=== PATIENT | male | born 1930 | race Caucasian/White ===

== ENCOUNTER 2016-10-29 07:14 | Inpatient (IN) | payer OTHER, MEDICARE ==
[~2016-10-29] VITALS: Ht 167.6 cm; Wt 86.5 kg
[~2016-10-29 07:14] MED LIST: AUGMENTIN 875 M1 TAB PO
--- NOTE | 2016-10-29 07:35 | ED AMS/SEIZURE/WEAK/DIZZY ---
History of Present Illness General Chief Complaint: Altered Mental Status Stated Complaint: CONFUSION."DONT FEEL RIGHT",ALVARES SINCE LAST NIGHT Source: patient, family Exam Limitations: confusion Vital Signs & Intake/Output Vital Signs & Intake/Output Vital Signs Date Time Temp Pulse Resp B/P Pulse O2 O2 Flow FiO2 Ox Delivery Rate 10/30 0859 97.9 57 18 152/72 03/08 0553 97.9 57 18 152/72 94 Room Air 10/30 0148 98.9 10/30 0147 98.9 88 18 172/79 95 Room Air / 0020 99.7 64 18 160/71 03/ 2220 99.7 64 18 160/71 97 Room Air / 1806 99.8 03/ 1722 99.8 95 16 164/74 95 Room Air / 1450 100.5 10/29 1420 100.0 59 20 150/80 95 Room Air / 1219 99.6 68 20 96 Room Air / 1212 100.0 71 20 188/82 03 1212 100.0 71 20 188/82 ED Intake and Output 10/30 0000 10/29 1200 Intake Total Output Total 200 100 Balance -200 -100 Output, Urine 200 100 Patient 167 lb Weight Allergies Coded Allergies: NO KNOWN ALLERGIES (NO) (01/02/11) Reconcile Medications Acetaminophen (Tylenol Arthritis) 650 MG TABLET.ER 650 MG PO Q8 PAIN ( Reported) Aspirin (Ecotrin*) 81 MG TABLET.DR 1 TAB PO DAILY HEART HEALTH (Reported) Atorvastatin Calcium 80 MG TABLET 1 TAB PO DAILY HIGH CHOLESTEROL (Reported) Clopidogrel Bisulfate (Clopidogrel) 75 MG TABLET 1 TAB PO DAILY HEART HEALTH (Reported) Isosorbide Mononitrate (Isosorbide Mononitrate ER) 30 MG TAB.ER.24H 1 TAB PO DAILY ANGINA (Reported) Latanoprost 0.005 % DROPS 1 GTT OPH QPM GLAUCOMA - BOTH EYES (Reported) Metoprolol Succinate 25 MG TAB 1 TAB PO DAILY BP (Reported) Multivit-Min/FA/Lycopen/Lutein (Centrum Silver Tablet) 0.4 MG-300 MCG-250 MCG TABLET 1 TAB PO DAILY SUPPLEMENT (Reported) Nitroglycerin 0.4 MG TAB.SUBL 1 TAB SL AD PRN CHEST PAIN (Reported) 1st sign of attack; may repeat every 5 minutes until relief; if pain persists after 3 tablets in 15 minutes, prompt medical att Pantoprazole Sodium 40 MG TABLET. 1 TAB PO DAILY GERD (Reported) Pioglitazone HCl/Metformin HCl (Actoplus Met 15 MG-850 MG Tab) 15 MG-850 MG TABLET 1 TAB PO BID DM (Reported) Triage Note: PER , PT C/O HEADACHE SINCE LAST PM (2100). WOKE UP THIS AM @ 0500 WITH CONFUSION. 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 Triage Nurses Notes Reviewed? yes Onset: Abrupt Duration: SINCE 5 AM UPON AWAKENING Timing: single episode today Injury Environment: home Severity: severe No Modifying Factors: none Associated Symptoms: HEADACHE SINCE YESTERDAY HPI: This is an 86-year-old male with history of cardiac stents on aspirin and Plavix who presents to the ER with his . According to his yesterday at 5:00 in the afternoon he was complaining of some frontal headache. His speech was normal and ambulation was normal at baseline. He had a small dinner and then went to bed at 9:00. This morning he woke up at 5:00 in the morning said he was fine but she noted his speech was garbled. Patient is still able to complain of headache. He is answering incorrectly to many questions. He did not take any of his medications this morning. They did not check his dose this morning. On arrival to the ER glucose is 1:30. Patient is noted to be hypertensive. Past History Travel History Traveled to [place] past 21 day No Medical History Any Pertinent Medical History? see below for history EENT: glaucoma Cardiovascular: hypertension, hyperlipidemia Endocrine: diabetes Surgical History Surgical History: cholecystectomy, cardiac stent Psychosocial History Who do you live with Spouse Services at Home None What is your primary language Spanish Tobacco Use: Quit >30 days ago ETOH Use: occasional use Family History Hx Contributory? No Review of Systems Review of Systems Constitutional: Denies: chills, fever. EENTM: Reports: no symptoms. Respiratory: Denies: cough, short of breath. Cardiovascular: Denies: chest pain. GI: Denies: abdominal pain. Genitourinary: Reports: no symptoms. Musculoskeletal: Reports: no symptoms. Skin: Reports: no symptoms. Neurological/Psychological: Reports: confusion, headache. Hematologic/Endocrine: Reports: no symptoms. Immunologic/Allergic: Denies: splenectomy. All Other Systems: Reviewed and Negative Physical Exam Physical Exam General Appearance: well developed/nourished, alert, awake, mild distress, obese Head: atraumatic, normal appearance, ? SMALL LEFT FACIAL DROOP Eyes: Bilateral: normal appearance, PERRL (2 MM BL, MINIMALLY REACTIVE). Ears, Nose, Throat: normal pharynx Neck: normal inspection, supple, full range of motion Respiratory: normal breath sounds, chest non-tender, no respiratory distress Cardiovascular: murmur, systolic murmur Peripheral Pulses: 2+ radial (R), 2+ radial (L) Gastrointestinal: soft, non-tender Extremities: normal range of motion Neurologic/Psych: no motor/sensory deficits, awake, alert, ANTALGIC GAIT Skin: intact, normal color, warm/dry Core Measures ACS in differential dx? No CVA/TIA Diagnosis: Yes NIH Stroke Scale: Total 4 Severe Sepsis Present: No Septic Shock Present: No Bedside Dysphagia Screen Bedside Swallow Eval Done: Yes Result of Evaluation: Pass Progress Differential Diagnosis: CVA/stroke, hypoxia, intracranial Hem., intracranial mass/tumor Plan of Care: Orders Procedure Date/time Status CBC WITHOUT DIFFERENTIAL 10/30 0600 Complete BASIC ELECTROLYTES PLUS BUN&CR 10/30 0600 Complete MRI-HEAD W/O RADHA 10/30 UNK Active BLOOD CULTURE 10/29 1645 Active Pathway - chart 10/29 1627 Active BLOOD CULTURE 10/29 1615 Active CULTURE,URINE 10/29 1600 Active URINALYSIS 10/29 1300 Complete SWALLOW EVALUATION 10/29 UNK Active Occupational Tx Eval & Treat 10/29 UNK Active NIH Stroke Scale 10/29 UNK Active ECHOCARDIOGRAM 10/29 UNK Active Current Medications Sig/Reagan Start time Last Medication Dose Stop Time Status Admin Atorvastatin Calcium 80 MG 1700 10/30 1700 AC (Lipitor) Insulin Aspart 0 TIDAC 10/29 1700 AC (NovoLOG) Acetaminophen 1,000 MG Q6P PRN 10/29 1630 AC (Ofirmev) Metoprolol Succinate 25 MG DAILY 10/29 1204 CAN (Toprol XL) 10/29 1600 Laboratory Tests 10/30/16 0600: Anion Gap 10, Estimated GFR > 60, BUN/Creatinine Ratio 14.3, CBC w Diff NO MAN DIFF REQ, RBC 3.37 L, MCV 92.5, MCH 30.5, RDW 13.4, MPV 6.9 L, Gran % 75.4 H, Lymphocytes % 13.6 L, Monocytes % 10.1 H, Eosinophils % 0.6, Basophils % 0.3, Absolute Granulocytes 4.9, Absolute Lymphocytes 0.9 L, Absolute Monocytes 0.7 H, Absolute Eosinophils 0, Absolute Basophils 0, PUBS MCHC 33.0 10/29/161935: Urinalysis LIGHT H, Urine Color YEL, Urine Clarity CLEAR, Urine pH 6.0, Ur Specific [place] 1.020, Urine Protein 30 H, Urine Ketones TRACE H, Urine Nitrite NEG, Urine Bilirubin NEG, Urine Urobilinogen 0.2, Ur Leukocyte Esterase NEG, Ur Microscopic SEDIMENT EXAMINED, Urine RBC 3-5, Urine WBC 1-3 H, Ur Epithelial Cells RARE, Urine Bacteria RARE H, Urine Mucus MOD H, Urine Hemoglobin SMALL H, Urine Glucose NEG Microbiology 10/30 1935 URINE ROUT: Urine Culture - RES 10/30 1707 BLOOD: Blood Culture - RECD 10/29 1699 BLOOD: Blood Culture - RECD 8:53 AM PUNCTATE HEMORRHAGE IMAGE 38 ON SERIES [address] WITH SOME SURROUNDING EDEMA. Dr. Ramirez and Dr. Raman page. 9:29 AM Discussed with vaibhav Hauser for telemetry. Will hold aspirin/plavix at this point. Hospitalist paged. (MARIA DEL CARMEN ARGUETA,MEGHA) Diagnostic Imaging: Viewed by Me: CT Scan. Discussed w/RAD: CT Scan. Radiology Impression: PATIENT: KAE RENNER PRESENT AGE: 86 PATIENT ACCOUNT NO: [id number] : 29 LOCATION: [facility] ORDERING PHYSICIAN: MEGHA BURRELL MD SERVICE DATE: 10/29/16 EXAM TYPE: CAT - CT HEAD WO IV CONTRAST EXAMINATION: CT HEAD WITHOUT CONTRAST CLINICAL INFORMATION: Headache since yesterday on aspirin and Plavix. Woke up this morning with abnormal speech. COMPARISON: None available at time of dictation. TECHNIQUE: Contiguous axial imaging was performed from the skull base to vertex without intravenous administration of contrast. DLP: 600.71 mGy-cm FINDINGS: There is a 4 mm hyperdense focus within the left parietal lobe, seen best on image #38/64, consistent with an acute intraparenchymal hemorrhage. There is a minimal amount of surrounding low attenuation, likely representing edema. There is a chronic lacunar infarction within the left centrum semiovale. There are small chronic lacunar infarctions within the left basal ganglia. There is a moderate degree of microvascular ischemic disease. There is no extra-axial fluid collection. There is no midline shift. Ventricles and extraventricular CSF spaces are minimally enlarged, likely reflecting a mild degree of atrophy. No definite hydrocephalus. The cavernous segments of the carotid arteries are densely calcified. Paranasal sinuses are clear. IMPRESSION: 1. There is a 4 mm hyperdense focus within the left parietal lobe, seen best on image #38/64, consistent with an acute intraparenchymal hemorrhage. There is a minimal amount of surrounding low attenuation, likely representing edema. 2. Chronic lacunar infarctions within the left centrum ovale and left basal ganglia. 3. Moderate microvascular ischemic disease. 4. Mild cerebral atrophy. The above findings were discussed with Dr. Megha Burrell at 8:55 AM on 10/29/2016. DICTATED BY: VARINDER TSAI MD DATE/TIME DICTATED:10/29/16822 DAIRY BACTERIOLOGIST:BARBARA DATE/TIME TRANSCRIBED:10/29/16822 CONFIDENTIAL, DO NOT COPY WITHOUT APPROPRIATE AUTHORIZATION. <Electronically signed in Other Vendor System> SIGNED BY: VARINDER TSAI MD 10/29/16 0859 Initial ED EKG: NSR Rhythm Strip: normal sinus rhythm Departure Departure Time of Disposition: 928 Disposition: STILL A PATIENT Condition: Stable Clinical Impression Primary Impression: CVA (cerebral vascular accident) Secondary Impressions: Intracerebral hemorrhage Referrals: PATRICK MENDIOLA MD (PCP/Family) Departure Forms: Customer Survey General Discharge Information Admission Note Spoke With: YOU HUGHES MD Documentation of Exam: Documentation of any treatments & extenuating circumstances including Concerns Regarding Discharge (functional status, medication knowledge or non-compliance, living conditions, etc.) that warrant an admission rather than observation: [ tele monitor, frequent neuro checks, hold aspirin/plavix, dr raman consulted who will evalute the patient.] Critical Care Note Critical Care Note Critical Care Time: 30-74 min
[2016-10-29] MEDS ORDERED: ASPIRIN EC81 M1 PO (07:56)
[2016-10-29] MEDS ORDERED: ATORVASTATIN CA80 M1 PO (07:57)
[2016-10-29] MEDS ORDERED: ISOSORBIDE MONO30 M1 PO (07:57)
[2016-10-29] MEDS ORDERED: CLOPIDOGREL75 M1 PO (07:57)
[2016-10-29] MEDS ORDERED: METOPROLOL SUCC25 M1 PO (07:58)
[2016-10-29] MEDS ORDERED: LATANOPROST2.5 ML OPH (07:58)
[2016-10-29] MEDS ORDERED: NITROSTAT0.3 M1 SL (07:58)
[2016-10-29] MEDS ORDERED: PANTOPRAZOLE SO40 M1 PO (07:59)
[2016-10-29] MEDS ORDERED: ACTOPLUS MET 11 EAC1 PO (07:59)
[2016-10-29] MEDS ORDERED: CENTRUM SILVER1 EAC3 PO (08:00)
[2016-10-29] MEDS ORDERED: TYLENOL ARTHRI650 M1 PO (08:00)
[2016-10-29 08:01] LABS: ABSOLUTE BASOPHIL COUNT 0 /CUMM (0.0-0.2); ABSOLUTE EOSINOPHIL COUNT 0.1 /CUMM (0.0-0.7); ABSOLUTE GRANULOCYTE CT 6.1 /CUMM (1.4-6.5); ABSOLUTE LYMPH COUNT 0.7 /CUMM (1.2-3.4); ABSOLUTE MONOCYTE COUNT 0.4 /CUMM (0.10-0.60); BASOPHIL % 0.4 % (0.0-2.0); EOSINOPHIL % 0.7 % (0-5); HEMATOCRIT 34.5 % (42-52); MEAN CORPUSCULAR HGB 31.1 PG (27.0-31.0); MEAN CORPUSCULAR HGB CONC 33.9 G/DL (33.0-37.0); MEAN CORPUSCULAR VOLUME 91.7 FL (80.0-94.0); MEAN PLATELET VOLUME 7.1 FL (7.4-10.4); PLATELET COUNT 169 /CUMM (130-400); RBC DISTRIBUTION WIDTH 13.5 % (11.5-14.5); RED BLOOD CELL CT 3.76 /CUMM (4.70-6.10); WHITE BLOOD CELL COUNT 7.3 /CUMM (4.8-10.8)
[2016-10-29 08:19] LABS: GRANULOCYTE % 83.4 % (42.2-75.2)
[2016-10-29 08:20] LABS: PT 11.8 SEC (9.4-12.5); PTT 28 SEC (25-37)
--- NOTE | 2016-10-29 08:59 | CT SCAN REPORT ---
EXAMINATION: CT HEAD WITHOUT CONTRAST CLINICAL INFORMATION: Headache since yesterday on aspirin and Plavix. Woke up this morning with abnormal speech. COMPARISON: None available at time of dictation. TECHNIQUE: Contiguous axial imaging was performed from the skull base to vertex without intravenous administration of contrast. DLP: 600.71 mGy-cm FINDINGS: There is a 4 mm hyperdense focus within the left parietal lobe, seen best on image #38/64, consistent with an acute intraparenchymal hemorrhage. There is a minimal amount of surrounding low attenuation, likely representing edema. There is a chronic lacunar infarction within the left centrum semiovale. There are small chronic lacunar infarctions within the left basal ganglia. There is a moderate degree of microvascular ischemic disease. There is no extra-axial fluid collection. There is no midline shift. Ventricles and extraventricular CSF spaces are minimally enlarged, likely reflecting a mild degree of atrophy. No definite hydrocephalus. The cavernous segments of the carotid arteries are densely calcified. Paranasal sinuses are clear. IMPRESSION: 1. There is a 4 mm hyperdense focus within the left parietal lobe, seen best on image #38/64, consistent with an acute intraparenchymal hemorrhage. There is a minimal amount of surrounding low attenuation, likely representing edema. 2. Chronic lacunar infarctions within the left centrum ovale and left basal ganglia. 3. Moderate microvascular ischemic disease. 4. Mild cerebral atrophy. The above findings were discussed with Dr. Megha Burrell at 8:55 AM on 10/29/2016.
[2016-10-29 11:40] VITALS: BP 188/82
--- NOTE | 2016-10-29 11:54 | History & Physical ---
AVERY ARGUETA,THERON 10/29/16 1109: General Information and HPI MD Statement: I have seen and personally examined KAE RENNER and documented this H& P. The patient is a 86 year old M who presented with a patient stated chief complaint of headache[]. Source of Information: patient, family, old records Exam Limitations: clinical condition, confusion History of Present Illness: 86-year-old male with a past medical history of hypertension, cardiac stent ( September 2015, [facility]) hyperlipidemia, diabetes, GERD presents from home complaining of a frontal headache that occurred last night at 5 PM, without any other symptoms. This morning when he woke up at 5 AM he complained of his ongoing headache 02/01 his noticed that he was confused and unable to articulate, and answering questions inappropriately. Denies fevers, chills, visual disturbances. He is able to eat without difficulty. Denies chest pain, palpitations, lightheadedness. reports that his parts technician Dr. JUD RAMIREZ recommended that he continue Plavix and aspirin when she saw them in August of this year, for a few more months. Allergies/Medications Allergies: Coded Allergies: NO KNOWN ALLERGIES (NO) (01/02/11) Compliance With Home Meds: GOOD Past History Travel History Traveled to [place] past 21 day No Medical History EENT: glaucoma Cardiovascular: hypertension, hyperlipidemia Endocrine: diabetes Surgical History Surgical History: cholecystectomy, cardiac stent, TURP, Rt meniscial repair Past Family/Social History Family History Relations & Conditions if any BROTHER (HypertensionCAD). FATHER (Diabetes). Psychosocial History Where do you live? Home Who Do You Live With? spouse Services at Home: None Primary Language: Tajik Smoking Status: Former Smoker (Quit 40 yrs ago) ETOH Use: occasional use Functional Ability ADLs Independent: dressing, eating, toileting, bathing. Ambulation: independent IADLs Independent: shopping, housework, finances, food prep, telephone, transportation , medication admin. Employment History Employment Retired Profession/Employer [employer] Review of Systems Review of Systems Constitutional: Denies: chills, fever, malaise, weakness. EENTM: Denies: blurred vision, double vision, visual changes. Cardiovascular: Denies: chest pain, palpitations, peripheral edema. Respiratory: Denies: cough, short of breath, sputum production. GI: Denies: abdominal pain, constipation, diarrhea, distention, nausea, vomiting. Genitourinary: Denies: dysuria, frequency, hesitation, pain. Musculoskeletal: Denies: back pain. Skin: Reports: no symptoms. Neurological/Psychological: Reports: confusion, headache. Denies: numbness, paresthesia, tingling, weakness. Hematologic/Endocrine: Reports: no symptoms. All Other Systems: Reviewed and Negative Exam & Diagnostic Data Last 24 Hrs of Vital Signs/I&O Vital Signs Date Time Temp Pulse Resp B/P Pulse O2 O2 Flow FiO2 Ox Delivery Rate 10/29 0911 100.0 71 20 176/78 94 Room Air 10/29 0800 97 Room Air 10/29 0731 96.6 68 20 188/75 99 Room Air Intake & Output 10/29 1600 10/29 0800 10/29 0000 Intake Total Output Total 100 Balance -100 Output, Urine 100 Patient 208 lb Weight Physical Exam General Appearance Alert, Cooperative, No Acute Distress (Confused) Skin No Rashes, No Breakdown HEENT Atraumatic, EOMI, Mucous Membr. moist/pink, pupils equal, minimally reactive Neck Supple, No JVD Lymphatic Cervical nl Cardiovascular Regular Rate, Normal S1, Normal S2, murmur+ Lungs Clear to Auscultation, Normal Air Movement Abdomen Normal Bowel Sounds, Soft, No Tenderness Neurological Strength at 5/5 X4 Ext, Normal Tone, Sensation Intact, Cranial Nerves 3-12 NL, Reflexes 2+ Extremities No Edema, Normal Pulses Last 24 Hrs of Labs/Mello: Laboratory Tests 10/29/16 0747: Anion Gap 10, Estimated GFR > 60, BUN/Creatinine Ratio 16.3, Glucose 133 H, Calcium 8.7, Total Bilirubin 0.8, AST 26, ALT 34, Alkaline Phosphatase 32, Troponin I < 0.01, Total Protein 6.3, Albumin 3.8, Globulin 2.5, Albumin/ Globulin Ratio 1.5, PT 11.8, INR 1.13, APTT 28, CBC w Diff NO MAN DIFF REQ, RBC 3.76 L, MCV 91.7, MCH 31.1 H, RDW 13.5, MPV 7.1 L, Gran % 83.4 H, Lymphocytes % 10.0 L, Monocytes % 5.5, Eosinophils % 0.7, Basophils % 0.4, Absolute Granulocytes 6.1, Absolute Lymphocytes 0.7 L, Absolute Monocytes 0.4, Absolute Eosinophils 0.1, Absolute Basophils 0, PUBS MCHC 33.9 Diagnostic Data EKG Results SR 65, QTc 421 Other Results IMPRESSION: 1. There is a 4 mm hyperdense focus within the left parietal lobe, seen best on image #38/64, consistent with an acute intraparenchymal hemorrhage. There is a minimal amount of surrounding low attenuation, likely representing edema. 2. Chronic lacunar infarctions within the left centrum ovale and left basal ganglia. 3. Moderate microvascular ischemic disease. 4. Mild cerebral atrophy. Assessment/Plan Assessment: 86-year-old male past medical history of hypertension, cardiac stents (on plavix and aspirin) diabetes presents from home with acute onset of headache, confusion and difficulty with articulation. He was found on HEAD CT to have a acute intrapaenchymal hemorrhage with minimal edema. NIH Stroke Scale 5. Due to his clinical symptoms the location of the bleed does not fit, will there for get carotid dopplers, and echocardiogram looking for other sources of his symptoms. We will admit to Telemetry He will need to be evaluated by neurology, consult placed with Dr. Webster Due to the hemorrhage we will need to hold aspirin and plavix NIH stroke scale Q2 hrs Keep head end of bed elevated 30* Will continue home medication, atorvastatin Echocardiogram carotid dopplers Passed bedside swallow evaluation, will order heart healthy diet Closely monitor for episodes of seizures Will order formal swallow evaluation Occupational Therapy evaluation Dr. Burrell contacted neurosurgery, at this point there is no further evaluation warranted, this was relayed to me verbally. HTN will need to control BP, elevated 176/78 will start home medication metoprolol continue to monitor BP closely Diabetes Bloodsugars 133 Will get accuchecks start novolog ss coverage HbA1C DVTppx ALPS Full code As Ranked By This Provider Problem List: 1. CVA (cerebral vascular accident) 2. Hyperlipidemia 3. Diabetes 4. Hypertension Core Measures/Miscellaneous Acute Coronary Syndrome ACS Diagnosis: No Cerebrovascular Accident CVA/TIA Diagnosis: Yes Bedside Swallow Eval Done: Yes Result of Evaluation: Pass Congestive Heart Failure CHF Diagnosis: No Venous Thromboembolism VTE Risk Factors: Age > 40 [facility] prophylaxis d/t: No contraindications No VTE Pharm Prophylaxis d/t: Active bleeding VTE Diagnosis: No VTE Type: NONE VTE Confirmed by (Test): NONE Severe Sepsis Severe Sepsis Present: No Septic Shock Septic Shock Present: No Miscellaneous Documentation Attending Case Discussed With: GABO ARGUETA,PAULINA Carvalho Primary Care Physician: PATRICK MENDIOLA MD Patient sees these Specialists cardiology Level of Patient Care: Telemetry PAULINA AYON MD 10/29/16 1333: General Information and HPI Allergies/Medications Home Med list Acetaminophen (Tylenol Arthritis) 650 MG TABLET.ER 650 MG PO Q8 PAIN ( Reported) Aspirin (Ecotrin*) 81 MG TABLET.DR 1 TAB PO DAILY HEART HEALTH (Reported) Atorvastatin Calcium 80 MG TABLET 1 TAB PO DAILY HIGH CHOLESTEROL (Reported) Clopidogrel Bisulfate (Clopidogrel) 75 MG TABLET 1 TAB PO DAILY HEART HEALTH (Reported) Isosorbide Mononitrate (Isosorbide Mononitrate ER) 30 MG TAB.ER.24H 1 TAB PO DAILY ANGINA (Reported) Latanoprost 0.005 % DROPS 1 GTT OPH QPM GLAUCOMA - BOTH EYES (Reported) Metoprolol Succinate 25 MG TAB 1 TAB PO DAILY BP (Reported) Multivit-Min/FA/Lycopen/Lutein (Centrum Silver Tablet) 0.4 MG-300 MCG-250 MCG TABLET 1 TAB PO DAILY SUPPLEMENT (Reported) Nitroglycerin 0.4 MG TAB.SUBL 1 TAB SL AD PRN CHEST PAIN (Reported) 1st sign of attack; may repeat every 5 minutes until relief; if pain persists after 3 tablets in 15 minutes, prompt medical att Pantoprazole Sodium 40 MG TABLET.DR 1 TAB PO DAILY GERD (Reported) Pioglitazone HCl/Metformin HCl (Actoplus Met 15 MG-850 MG Tab) 15 MG-850 MG TABLET 1 TAB PO BID DM (Reported) Attending MD Review Statement Attending Statement Attending MD Statement: examined this patient, discuss w/resident/PA/BLACKING WHEEL TENDER, agreed w/resident/PA/BLACKING WHEEL TENDER, discussed with family, reviewed EMR data (avail), discussed with nursing, discussed with case mgmt, reviewed images Attending Assessment/Plan: 86-year-old male past medical history of hypertension, coronary artery disease and diabetes. He had stents placed at [facility] in August 2015 and has been on aspirin and Plavix now for more than a year. He is here with complaints of a headache and a CT head that shows a 4 mm intracranial hemorrhage with some mild edema. At this point we'll treat him as an acute hemorrhagic stroke although the resident and I are both skeptical about whether the area of the hemorrhage corresponds to his symptomatology of aphasia, speech disturbances and handgrip weakness. Neurology will come by and see him later today. Given the hemorrhage will hold the aspirin and Plavix. Will do neuro checks, continue his statin and put him on Alps for DVT prophylaxis. He passed a bedside swallow eval in the ER so we'll feed him but get a formal swallow eval with PT and OT in a.m. Given that his symptomatology may not necessarily fit the area of hemorrhage will broaden the differential and get echo and carotid Dopplers. Will use his beta leroy for his blood pressure control and watch his BP closely. Given his low-grade temps will check a UA and chest x-ray and follow-up.
--- NOTE | 2016-10-29 12:40 | Admission Certification ---
Admission Certification Certification Statement - As attending physician, I certify that at the time of - admission, based on clinical presentation, severity of - symptoms, need for further diagnostic testing and - therapeutic interventions, and risk of adverse outcomes - without in-hospital treatment, in my clinical assessment, - this patient requires an acute hospital stay for a minimum - of two nights or longer. I have also considered psychsocial - factors such as support system, advanced age, financial - issues, cognitive issues, and failed out-patient treatments, - past re-admission history, safety of patient, and lack of - compliance as applicable. Specific rationale supporting this admission is: Acute ICH in pt with acute stroke
[2016-10-29] MEDS ORDERED: NITROGLYCERIN0.4 M1 SL (13:21)
--- NOTE | 2016-10-29 14:08 | ULTRASOUND REPORT ---
EXAMINATION: DUPLEX BILATERAL CAROTID ULTRASOUND CLINICAL INFORMATION: Confusion and lethargy. COMPARISON: None. TECHNIQUE: Real-time ultrasound and Doppler techniques (integrating B-mode 2D vascular images, Doppler spectral analysis and color flow Doppler imaging) were utilized to interrogate the extracranial carotid and vertebral arteries bilaterally. FINDINGS: Right side: 1. There is mild hyperechoic plaque in the ECA/ICA region. 2. The common carotid artery velocity is 98 cm/s. 3. The proximal internal carotid artery velocities are 71 cm/s systolic and 13 cm/s diastolic. 4. The external carotid artery velocity is 100 cm/s. Left side: 1. There is mild hyperechoic plaque in the ECA/ICA region. 2. The common carotid artery velocity is 108 cm/s. 3. The proximal internal carotid artery velocities are 70 cm/s systolic and 12 cm/s diastolic. 4. The external carotid artery velocity is 115 cm/s. ADDITIONAL FINDINGS: 1. The vertebral arteries show antegrade flow. IMPRESSION: 1. RIGHT: Minimal, nonhemodynamically significant stenosis of the proximal right internal carotid artery corresponding to a 0-49% stenosis by velocity criteria. 2. LEFT: Minimal, nonhemodynamically significant stenosis of the proximal left internal carotid artery corresponding to a 0-49% stenosis by velocity criteria. 3. Antegrade flow is seen via the bilateral vertebral arteries.
--- NOTE | 2016-10-29 16:06 | RADIOLOGY REPORT ---
EXAMINATION: XR PORTABLE CHEST CLINICAL INFORMATION: Fever. Presumptive diagnosis stroke. COMPARISON: Right ribs dated 07/20/2011. TECHNIQUE: Portable AP semierect view of the chest was obtained. FINDINGS: The cardiomediastinal silhouette is significantly enlarged. Prominent epicardiac fat pad is seen in the left lung base. Calcification of the aortic arch and descending aorta is seen. Lungs bilaterally are symmetrically expanded. Mild bibasilar subsegmental atelectasis is seen, more pronounced in the left lung base than the right. No effusion or pneumothorax is seen. No pulmonary edema is noted. Bony structures are unremarkable. IMPRESSION: 1. Significant enlargement of the cardiomediastinal silhouette is seen. This may in part be related to the portable and somewhat apical lordotic projection of the film. However, based on this image, mediastinum appears abnormally widened. Recommend repeat chest x-ray with PA and lateral views for more accurate assessment of the mediastinum. 2. Bibasilar (left greater than right) linear opacities, most consistent with atelectasis.
--- NOTE | 2016-10-29 16:09 | Cons- Neurology ---
General Information and HPI Consulting Request Date of Consult: 10/29/16 Requested By: GABO ARGUETA,PAULINA Carvalho Reason for Consult: Dysphasia Source of Information: family, Medical staff, EMR Exam Limitations: unable to give history History of Present Illness: 86/M with no prior neurologic history per c/o headache and fatigue last PM and this AM on awakening was speaking "gibberish" CT read as showing a small 4 mm area of increased density in the occipital lobe, old CVA in the left centrum semiovale and basal ggl. He remains fully awake and speaks, apparently unaware of the extent of difficulty. he has been on ASA and plavix since a cardiac stent Allergies/Medications Allergies: Coded Allergies: NO KNOWN ALLERGIES (NO) (01/02/11) Home Med List: Acetaminophen (Tylenol Arthritis) 650 MG TABLET.ER 650 MG PO Q8 PAIN ( Reported) Aspirin (Ecotrin*) 81 MG TABLET.DR 1 TAB PO DAILY HEART HEALTH (Reported) Atorvastatin Calcium 80 MG TABLET 1 TAB PO DAILY HIGH CHOLESTEROL (Reported) Clopidogrel Bisulfate (Clopidogrel) 75 MG TABLET 1 TAB PO DAILY HEART HEALTH (Reported) Isosorbide Mononitrate (Isosorbide Mononitrate ER) 30 MG TAB.ER.24H 1 TAB PO DAILY ANGINA (Reported) Latanoprost 0.005 % DROPS 1 GTT OPH QPM GLAUCOMA - BOTH EYES (Reported) Metoprolol Succinate 25 MG TAB 1 TAB PO DAILY BP (Reported) Multivit-Min/FA/Lycopen/Lutein (Centrum Silver Tablet) 0.4 MG-300 MCG-250 MCG TABLET 1 TAB PO DAILY SUPPLEMENT (Reported) Nitroglycerin 0.4 MG TAB.SUBL 1 TAB SL AD PRN CHEST PAIN (Reported) 1st sign of attack; may repeat every 5 minutes until relief; if pain persists after 3 tablets in 15 minutes, prompt medical att Pantoprazole Sodium 40 MG TABLET. 1 TAB PO DAILY GERD (Reported) Pioglitazone HCl/Metformin HCl (Actoplus Met 15 MG-850 MG Tab) 15 MG-850 MG TABLET 1 TAB PO BID DM (Reported) Current Medications: Current Medications Sig/Reagan Start time Last Medication Dose Route Stop Time Status Admin Atorvastatin Calcium 80 MG DAILY 10/29 1204 AC 10/29 PO 1326 Insulin Aspart 0 TIDAC 10/29 1700 AC SC Isosorbide 30 MG ONCE ONE 10/29 1200 DC 10/29 Mononitrate PO 10/29 1201 1212 Latanoprost 1 GTT QPM 10/29 2200 AC OPH Metoprolol Succinate 25 MG DAILY 10/30 1000 AC PO Metoprolol Succinate 25 MG DAILY 10/29 1204 CAN PO 10/29 1600 Metoprolol Tartrate 25 MG 2200 10/29 2200 AC PO 10/29 2201 Metoprolol Tartrate 25 MG ONCE ONE 10/29 1200 DC 10/29 PO 10/29 1201 1212 Review of Systems Review of Systems: unobtainable Past History Travel History Traveled to [place] past 21 day No Medical History EENT: glaucoma Cardiovascular: hypertension, hyperlipidemia Endocrine: diabetes Surgical History Surgical History: cholecystectomy, cardiac stent TURP Rt meniscial repair Family History Relations & Conditions If Any: BROTHER (HypertensionCAD). FATHER (Diabetes). Psychosocial History Where Do You Live? Home Who Do You Live With? spouse Services at Home: None Primary Language: American Smoking Status: Former Smoker (Quit 40 yrs ago) ETOH Use: occasional use Functional Ability ADLs Independent: dressing, eating, toileting, bathing. Ambulation: independent IADLs Independent: shopping, housework, finances, food prep, telephone, transportation , medication admin. Employment History Employment: Retired Profession/Employer: [employer] Exam & Diagnostic Data Vital Signs and I&O Vital Signs Date Time Temp Pulse Resp B/P Pulse O2 O2 Flow FiO2 Ox Delivery Rate 10/29 1450 100.5 10/29 1420 100.0 59 20 150/80 95 Room Air 10/29 1219 99.6 68 20 96 Room Air 10/29 1212 100.0 71 20 188/82 10/29 1212 100.0 71 20 188/82 /07 1140 99.6 68 20 188/82 96 Room Air 10/29 1137 188/82 10/29 0911 100.0 71 20 176/78 94 Room Air 10/29 0800 97 Room Air 10/29 0731 96.6 68 20 188/75 99 Room Air Intake & Output 10/29 1600 10/29 0800 03/ 0000 Intake Total Output Total 300 Balance -300 Output, Urine 300 Patient 167 lb 208 lb Weight Physical Exam: looks generally well, color good, no bruits or murmurs, pulses intact, no edema NSR on telemetry fully awake, conversant with neologisms, unintelligible words, follows some simple commands (raised hand) not others. 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 equal, mild pronation of right outstretched arm tone normal DTRx normal sensory cannot reliably test gait deferred Last 48 Hours of Lab Results: Laboratory Tests 10/29 0747 Chemistry Sodium (137 - 145 mmol/L) 134 L Potassium (3.5 - 5.1 mmol/L) 3.5 Chloride (98 - 107 mmol/L) 97 L Carbon Dioxide (22 - 30 mmol/L) 27 Anion Gap (5 - 16) 10 BUN (9 - 20 mg/dL) 13 Creatinine (0.7 - 1.2 mg/dL) 0.8 Estimated GFR (>60 ml/min) > 60 BUN/Creatinine Ratio (7 - 25 %) 16.3 Glucose (65 - 99 mg/dL) 133 H Calcium (8.4 - 10.2 mg/dL) 8.7 Total Bilirubin (0.2 - 1.3 mg/dL) 0.8 AST (17 - 59 U/L) 26 ALT (21 - 72 U/L) 34 Alkaline Phosphatase (< 127 U/L) 32 Troponin I (<0.11 ng/ml) < 0.01 Total Protein (6.3 - 8.2 g/dL) 6.3 Albumin (3.5 - 5.0 g/dL) 3.8 Globulin (1.9 - 4.2 gm/dL) 2.5 Albumin/Globulin Ratio (1.1 - 2.2 %) 1.5 Coagulation PT (9.4 - 12.5 SEC) 11.8 INR (0.90 - 1.17) 1.13 APTT (25 - 37 SEC) 28 Hematology CBC w Diff NO MAN DIFF REQ WBC (4.8 - 10.8 /CUMM) 7.3 RBC (4.70 - 6.10 /CUMM) 3.76 L Hgb (14.0 - 18.0 G/DL) 11.7 L Hct (42 - 52 %) 34.5 L MCV (80.0 - 94.0 FL) 91.7 MCH (27.0 - 31.0 PG) 31.1 H RDW (11.5 - 14.5 %) 13.5 Plt Count (130 - 400 /CUMM) 169 MPV (7.4 - 10.4 FL) 7.1 L Gran % (42.2 - 75.2 %) 83.4 H Lymphocytes % (20.5 - 51.1 %) 10.0 L Monocytes % (1.7 - 9.3 %) 5.5 Eosinophils % (0 - 5 %) 0.7 Basophils % (0.0 - 2.0 %) 0.4 Absolute Granulocytes (1.4 - 6.5 /CUMM) 6.1 Absolute Lymphocytes (1.2 - 3.4 /CUMM) 0.7 L Absolute Monocytes (0.10 - 0.60 /CUMM) 0.4 Absolute Eosinophils (0.0 - 0.7 /CUMM) 0.1 Absolute Basophils (0.0 - 0.2 /CUMM) 0 PUBS MCHC (33.0 - 37.0 G/DL) 33.9 Imaging/Other Studies: CT HEAD: 1. There is a 4 mm hyperdense focus within the left parietal lobe, seen best on image #38/64, consistent with an acute intraparenchymal hemorrhage. There is a minimal amount of surrounding low attenuation, likely representing edema. 2. Chronic lacunar infarctions within the left centrum ovale and left basal ganglia. 3. Moderate microvascular ischemic disease. 4. Mild cerebral atrophy. scan reviewed personally and with attending MD, very small area of increased density may be blood or Ca but would not cause current clinical findings. 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 Recommendations: Continue antiplatelet treatment with ASA and Plavix, risk of recurrent CVA outweighs risk continue atorvastatin 80 mg MRI tomorrow If MRI not tolerated, repeat head CT telemetry r/o PAF TTE lipid profile stroke education (for family) Consult Acknowledgment - Thank you for your consult request.
--- NOTE | 2016-10-29 21:57 | RADIOLOGY REPORT ---
EXAMINATION: XR CHEST CLINICAL INFORMATION: Fever. Postoperative diagnosis of stroke. Widened mediastinum on a similarly dated portable chest x-ray. COMPARISON: Portable chest x-ray 10/29/2016 at 1:58 PM. TECHNIQUE: 2 views of the chest were obtained. FINDINGS: AP and lateral views of the chest demonstrate pulmonary hypoinflation and bronchovascular crowding. Cardiomediastinal contours are stable and there is persistent widening of the mediastinum. There is minimal dependent bibasilar atelectasis. Bilateral retrocardiac opacities may reflect atelectasis although superimposed infection cannot be excluded in the appropriate clinical setting. No pleural effusions or pneumothoraces are identified. IMPRESSION: Stable appearance of the chest when accounting for differences in technique. Persistent widening of the mediastinum. Recommend correlation with a dedicated CTA of the chest.
[2016-10-30 06:01] LABS: ABSOLUTE BASOPHIL COUNT 0 /CUMM (0.0-0.2); ABSOLUTE EOSINOPHIL COUNT 0 /CUMM (0.0-0.7); ABSOLUTE GRANULOCYTE CT 4.9 /CUMM (1.4-6.5); ABSOLUTE LYMPH COUNT 0.9 /CUMM (1.2-3.4); ABSOLUTE MONOCYTE COUNT 0.7 /CUMM (0.10-0.60); BASOPHIL % 0.3 % (0.0-2.0); EOSINOPHIL % 0.6 % (0-5); GRANULOCYTE % 75.4 % (42.2-75.2); HEMATOCRIT 31.1 % (42-52); MEAN CORPUSCULAR HGB 30.5 PG (27.0-31.0); MEAN CORPUSCULAR VOLUME 92.5 FL (80.0-94.0); MEAN PLATELET VOLUME 6.9 FL (7.4-10.4); PLATELET COUNT 143 /CUMM (130-400); RBC DISTRIBUTION WIDTH 13.4 % (11.5-14.5); RED BLOOD CELL CT 3.37 /CUMM (4.70-6.10); WHITE BLOOD CELL COUNT 6.5 /CUMM (4.8-10.8)
--- NOTE | 2016-10-30 10:19 | PN- Housestaff ---
AVERY ARGUETA,THERON 10/30/16 1001: Subjective Follow-up For: Stroke Complaints: no complaints Tele-Events Since Last Visit: Informed by ADVANCED PRACTICE REGISTERED NURSEvp revenue cycle events were not recorded. Subjective: Seen and examined at bedside. In good spirits. Confusion seems to be improving. Able to speak when he intiates conversion, however when asked questions he is unable to clearly articulate an answer. Review of Systems Constitutional: Reports: see HPI. Objective Last 24 Hrs of Vital Signs/I&O Vital Signs Date Time Temp Pulse Resp B/P Pulse O2 O2 Flow FiO2 Ox Delivery Rate 10/30 0859 97.9 57 18 152/72 03 0553 97.9 57 18 152/72 94 Room Air 10/30 0148 98.9 10/30 0147 98.9 88 18 172/79 95 Room Air /08 0020 99.7 64 18 160/71 03/ 2220 99.7 64 18 160/71 97 Room Air / 1806 99.8 / 1722 99.8 95 16 164/74 95 Room Air / 1450 100.5 / 1420 100.0 59 20 150/80 95 Room Air / 1219 99.6 68 20 96 Room Air / 1212 100.0 71 20 188/82 03/07 1212 100.0 71 20 188/82 03/07 1140 99.6 68 20 188/82 96 Room Air 03/ 1137 188/82 Physical Exam General Appearance: Alert, Cooperative, No Acute Distress Skin: No Rashes, No Breakdown HEENT: Atraumatic, PERRLA, EOMI Neck: Supple, No JVD Lymphatic: Cervical nl Cardiovascular: Regular Rate, Normal S1, Normal S2, murmur+ Lungs: Clear to Auscultation, Normal Air Movement Abdomen: Normal Bowel Sounds, Soft, No Tenderness Neurological: Strength at 5/5 X4 Ext, Normal Tone, Cranial Nerves 3-12 NL Extremities: No Edema, Normal Pulses Current Medications: Current Medications Sig/Reagan Start time Last Medication Dose Route Stop Time Status Admin Acetaminophen 0 .STK-MED ONE 10/30 0857 DC PO Acetaminophen 650 MG Q6 10/29 1800 DC 10/29 PO 1806 Acetaminophen 0 .STK-MED ONE 10/29 1758 DC PO Acetaminophen 1,000 MG Q6P PRN 10/29 1630 AC IV Aspirin 0 .STK-MED ONE 10/30 0853 DC PO Aspirin 0 .STK-MED ONE 10/29 1758 DC PO Aspirin Buffered 81 MG DAILY 10/29 1615 AC 10/30 PO 0859 Atorvastatin Calcium 80 MG 1700 10/30 1700 AC PO Atorvastatin Calcium 80 MG DAILY 10/29 1204 DC 10/29 PO 1326 Clopidogrel Bisulfate 75 MG DAILY 10/29 1615 AC 10/30 PO 0859 Insulin Aspart 0 TIDAC 10/29 1700 AC SC Isosorbide 30 MG ONCE ONE 10/29 1200 DC 10/29 Mononitrate PO 10/29 1201 1212 Latanoprost 1 GTT QPM 10/29 2200 AC 10/30 OPH 0020 Metoprolol Succinate 25 MG DAILY 10/30 1000 AC 10/30 PO 0859 Metoprolol Succinate 25 MG DAILY 10/29 1204 CAN PO 10/29 1600 Metoprolol Tartrate 25 MG 2200 10/29 2200 DC 10/30 PO 10/29 2201 0020 Metoprolol Tartrate 25 MG ONCE ONE 10/29 1200 DC 10/29 PO 10/29 1201 1212 Last 24 Hrs of Lab/Mello Results Last 24 Hrs of Labs/Mics: Laboratory Tests 10/30/16 0600: Anion Gap 10, Estimated GFR > 60, BUN/Creatinine Ratio 14.3, CBC w Diff NO MAN DIFF REQ, RBC 3.37 L, MCV 92.5, MCH 30.5, RDW 13.4, MPV 6.9 L, Gran % 75.4 H, Lymphocytes % 13.6 L, Monocytes % 10.1 H, Eosinophils % 0.6, Basophils % 0.3, Absolute Granulocytes 4.9, Absolute Lymphocytes 0.9 L, Absolute Monocytes 0.7 H, Absolute Eosinophils 0, Absolute Basophils 0, PUBS MCHC 33.0 10/29/16 1936: Urinalysis LIGHT H, Urine Color YEL, Urine Clarity CLEAR, Urine pH 6.0, Ur Specific Sargents 1.020, Urine Protein 30 H, Urine Ketones TRACE H, Urine Nitrite NEG, Urine Bilirubin NEG, Urine Urobilinogen 0.2, Ur Leukocyte Esterase NEG, Ur Microscopic SEDIMENT EXAMINED, Urine RBC 3-5, Urine WBC 1-3 H, Ur Epithelial Cells RARE, Urine Bacteria RARE H, Urine Mucus MOD H, Urine Hemoglobin SMALL H, Urine Glucose NEG Microbiology 10/29 1936 URINE ROUT: Urine Culture - RECD 10/29 1708 BLOOD: Blood Culture - RECD 10/29 1700 BLOOD: Blood Culture - RECD Assessment/Plan Assessment: 86-year-old male past medical history of hypertension, cardiac stents (on plavix and aspirin) diabetes presents from home with acute onset of headache, confusion and difficulty with articulation. He was found on HEAD CT to have a acute intrapaenchymal hemorrhage with minimal edema. This was reviewed with neurology and the the thought is that this does not correspond to his symptoms, with the addition that anticoagulation can be safely resumed. Continue NIH Stroke Scale Q 2hrs Echocardiogram pending Will get MRI today Anticoagulation resumed after discussion with discussion with neurology Cardiology consultation placed, regarding stent placement; need for further anticoagulation continue home medication, atorvastatin BP better controlled, will continue current medications Will have formal swallow evaluation today OT/PT evaluation HTN will need to control BP, elevated 152/72 continue medication metoprolol continue to monitor BP closely Diabetes Bloodsugars 97 Will get accuchecks start novolog ss coverage HbA1C DVTppx ALPS Full code Problem List: 1. Hyperlipidemia 2. Diabetes 3. Hypertension 4. CVA (cerebral vascular accident) Pain Ratin Pain Location: no pain Pain Goal: Remain pain free Pain Plan: cont current regimen Tomorrow's Labs & Rationales: cbc bhumip GABO ARGUETA,PAULINA 10/30/16 1536: Attending MD Review Statement Attending Statement Attending MD Statement: examined this patient, discuss w/resident/PA/SNACK FOODS MIXER OPERATOR, agreed w/resident/PA/SNACK FOODS MIXER OPERATOR, reviewed EMR data (avail), discussed with nursing, discussed with case mgmt, reviewed images Attending Assessment/Plan: Patient has ongoing symptoms of dysphagia. He is an 86-year-old who we are treating for an acute CVA, MRI pending. We are being cautious with the blood pressure and haven't restarted his nitrate. It appears to be in the left MCA territory clinically as per neurology and we have him on aspirin and Plavix. He passed his swallow eval and we are pending a PT eval.
--- NOTE | 2016-10-30 11:53 | Cons- Cardiology ---
General Information and HPI Consulting Request Date of Consult: 10/30/16 Requested By: GABO ARGUETA,PAULINA Carvalho Reason for Consult: Acute CVA, history of coronary artery disease Source of Information: patient, family, old records Exam Limitations: acute CVA, with expressive aphasia History of Present Illness: The patient is an 86-year-old gentleman with a past medical history of hypertension, hyperlipidemia, diabetes mellitus and coronary artery disease ( known three-vessel coronary artery disease, status post drug-eluting stent: Resolution integrity, placed into the mid RCA in for worry 2015). He presents to our emergency room, after awakening with confusion and expressive aphasia. He had onset of a headache the night prior to arrival. The patient had been in his usual state of health, overall doing well and asymptomatic from a cardiovascular standpoint. He had the onset of a frontal headache at approximately 5:00 PM the evening prior to arrival. On awakening at 5 AM, he was noticed to have expressive aphasia and confusion by his . The patient continues to deny symptoms of chest pain, palpitations nor dyspnea while at rest or with physical activity. He has been intolerant of them compliant with his medication regimen. 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 An MRI is pending. Allergies/Medications Allergies: Coded Allergies: NO KNOWN ALLERGIES (NO) (01/02/11) Home Med List: Acetaminophen (Tylenol Arthritis) 650 MG TABLET.ER 650 MG PO Q8 PAIN ( Reported) Aspirin (Ecotrin*) 81 MG TABLET.DR 1 TAB PO DAILY HEART HEALTH (Reported) Atorvastatin Calcium 80 MG TABLET 1 TAB PO DAILY HIGH CHOLESTEROL (Reported) Clopidogrel Bisulfate (Clopidogrel) 75 MG TABLET 1 TAB PO DAILY HEART HEALTH (Reported) Isosorbide Mononitrate (Isosorbide Mononitrate ER) 30 MG TAB.ER.24H 1 TAB PO DAILY ANGINA (Reported) Latanoprost 0.005 % DROPS 1 GTT OPH QPM GLAUCOMA - BOTH EYES (Reported) Metoprolol Succinate 25 MG TAB 1 TAB PO DAILY BP (Reported) Multivit-Min/FA/Lycopen/Lutein (Centrum Silver Tablet) 0.4 MG-300 MCG-250 MCG TABLET 1 TAB PO DAILY SUPPLEMENT (Reported) Nitroglycerin 0.4 MG TAB.SUBL 1 TAB SL AD PRN CHEST PAIN (Reported) 1st sign of attack; may repeat every 5 minutes until relief; if pain persists after 3 tablets in 15 minutes, prompt medical att Pantoprazole Sodium 40 MG TABLET. 1 TAB PO DAILY GERD (Reported) Pioglitazone HCl/Metformin HCl (Actoplus Met 15 MG-850 MG Tab) 15 MG-850 MG TABLET 1 TAB PO BID DM (Reported) Current Medications: Current Medications Sig/Reagan Start time Last Medication Dose Route Stop Time Status Admin Acetaminophen 0 .STK-MED ONE 10/30 0857 DC PO Acetaminophen 650 MG Q6 10/29 1800 DC 10/29 PO 1806 Acetaminophen 0 .STK-MED ONE 10/29 1758 DC PO Acetaminophen 1,000 MG Q6P PRN 10/29 1630 AC IV Aspirin 0 .STK-MED ONE 10/30 0853 DC PO Aspirin 0 .STK-MED ONE 10/29 1758 DC PO Aspirin Buffered 81 MG DAILY 10/29 1615 AC 10/30 PO 0859 Atorvastatin Calcium 80 MG 1700 10/30 1700 AC PO Atorvastatin Calcium 80 MG DAILY 10/29 1204 DC 10/29 PO 1326 Clopidogrel Bisulfate 75 MG DAILY 10/29 1615 AC 10/30 PO 0859 Insulin Aspart 0 TIDAC 10/29 1700 AC SC Isosorbide 30 MG ONCE ONE 10/29 1200 DC 10/29 Mononitrate PO 10/29 1201 1212 Latanoprost 1 GTT QPM 10/29 2200 AC 10/30 OPH 0020 Metoprolol Succinate 25 MG DAILY 10/30 1000 AC 10/30 PO 0859 Metoprolol Succinate 25 MG DAILY 10/29 1204 CAN PO 10/29 1600 Metoprolol Tartrate 25 MG 2200 10/29 2200 DC 10/30 PO 10/29 2201 0020 Metoprolol Tartrate 25 MG ONCE ONE 10/29 1200 DC 10/29 PO 10/29 1201 1212 Review of Systems Review of Systems: Limited due to the patient's acute CVA A 14 point review of systems has been overall negative as per family Past History Travel History Traveled to [place] past 21 day No Medical History EENT: glaucoma Cardiovascular: CAD, hypertension, hyperlipidemia, known three-vessel coronary artery disease, deemed high risk for bypass surgery. The patient underwent a drug-eluting stent placement into the mid RCA lesion with a resolute stent in September 2015., moderate aortic stenosis Endocrine: diabetes Surgical History Surgical History: cholecystectomy, cardiac stent TURP Rt meniscial repair Family History Relations & Conditions If Any: BROTHER (HypertensionCAD). FATHER (Diabetes). Psychosocial History Where Do You Live? Home Who Do You Live With? spouse Services at Home: None Primary Language: Czech Smoking Status: Former Smoker (Quit 40 yrs ago) ETOH Use: occasional use Functional Ability ADLs Independent: dressing, eating, toileting, bathing. Ambulation: independent IADLs Independent: shopping, housework, finances, food prep, telephone, transportation , medication admin. Employment History Employment: Retired Profession/Employer [employer] Exam & Diagnostic Data Vital Signs and I&O Vital Signs Date Time Temp Pulse Resp B/P Pulse O2 O2 Flow FiO2 Ox Delivery Rate / 0859 97.9 57 18 152/72 03/08 0553 97.9 57 18 152/72 94 Room Air 03/ 0148 98.9 / 0147 98.9 88 18 172/79 95 Room Air 03/08 0020 99.7 64 18 160/71 03/07 2220 99.7 64 18 160/71 97 Room Air 03/ 1806 99.8 03/ 1722 99.8 95 16 164/74 95 Room Air 03/07 1450 100.5 03/07 1420 100.0 59 20 150/80 95 Room Air 03/07 1219 99.6 68 20 96 Room Air 03/07 1212 100.0 71 20 188/82 03/07 1212 100.0 71 20 188/82 Intake & Output / 1600 03/08 0800 03/08 0000 / 1600 03/ 0800 03/07 0000 Intake Total Output Total 300 Balance -300 Output, Urine 300 Patient 167 lb 208 lb Weight Physical Exam: General: Nontoxic, no apparent distress. HEENT: Sclera and conjunctiva within normal limits, without xanthelasmas. Neck: Carotids 2+ without bruits. Respiratory: Clear to auscultation, air movement is good, without accessory respiratory muscle use. Heart: Regular rate and rhythm, 3/6 crescendo decrescendo mid peaking murmur at the right sternal border, without JVD. Abdomen: Soft, nontender, no masses, normoactive bowel sounds. Extremities: Without clubbing, cyanosis, without edema. Neuro: Expressive aphasia, muscle strength intact throughout Skin: Within normal limits without lesions. Psych: Mood and affect: Normal Labs/[place] Results: Laboratory Tests 10/30 10/29 0600 1936 Chemistry Sodium (137 - 145 mmol/L) 132 L Potassium (3.5 - 5.1 mmol/L) 3.5 Chloride (98 - 107 mmol/L) 95 L Carbon Dioxide (22 - 30 mmol/L) 26 Anion Gap (5 - 16) 10 BUN (9 - 20 mg/dL) 10 Creatinine (0.7 - 1.2 mg/dL) 0.7 Estimated GFR (>60 ml/min) > 60 BUN/Creatinine Ratio (7 - 25 %) 14.3 Hematology CBC w Diff NO MAN DIFF REQ WBC (4.8 - 10.8 /CUMM) 6.5 RBC (4.70 - 6.10 /CUMM) 3.37 L Hgb (14.0 - 18.0 G/DL) 10.3 L Hct (42 - 52 %) 31.1 L MCV (80.0 - 94.0 FL) 92.5 MCH (27.0 - 31.0 PG) 30.5 RDW (11.5 - 14.5 %) 13.4 Plt Count (130 - 400 /CUMM) 143 MPV (7.4 - 10.4 FL) 6.9 L Gran % (42.2 - 75.2 %) 75.4 H Lymphocytes % (20.5 - 51.1 %) 13.6 L Monocytes % (1.7 - 9.3 %) 10.1 H Eosinophils % (0 - 5 %) 0.6 Basophils % (0.0 - 2.0 %) 0.3 Absolute Granulocytes (1.4 - 6.5 /CUMM) 4.9 Absolute Lymphocytes (1.2 - 3.4 /CUMM) 0.9 L Absolute Monocytes (0.10 - 0.60 /CUMM) 0.7 H Absolute Eosinophils (0.0 - 0.7 /CUMM) 0 Absolute Basophils (0.0 - 0.2 /CUMM) 0 PUBS MCHC (33.0 - 37.0 G/DL) 33.0 Urines Urinalysis LIGHT H Urine Color (YEL,AMB,STR) YEL Urine Clarity (CLEAR) CLEAR Urine pH (5.0 - 8.0) 6.0 Ur Specific [place] (1.001 - 1.035) 1.020 Urine Protein (NEG,<30 MG/DL) 30 H Urine Ketones (NEG) TRACE H Urine Nitrite (NEG) NEG Urine Bilirubin (NEG) NEG Urine Urobilinogen (0.1 - 1.0 EU/dl) 0.2 Ur Leukocyte Esterase (NEG) NEG Ur Microscopic SEDIMENT EXAMINED Urine RBC (0 - 5 /HPF) 3-5 Urine WBC (0 - 2 /HPF) 1-3 H Ur Epithelial Cells (NONE,FEW) RARE Urine Bacteria (NEG/NONE) RARE H Urine Mucus (FEW,NONE) MOD H Urine Hemoglobin (NEG) SMALL H Urine Glucose (N MG/DL) NEG 10/29 0747 Chemistry Sodium (137 - 145 mmol/L) 134 L Potassium (3.5 - 5.1 mmol/L) 3.5 Chloride (98 - 107 mmol/L) 97 L Carbon Dioxide (22 - 30 mmol/L) 27 Anion Gap (5 - 16) 10 BUN (9 - 20 mg/dL) 13 Creatinine (0.7 - 1.2 mg/dL) 0.8 Estimated GFR (>60 ml/min) > 60 BUN/Creatinine Ratio (7 - 25 %) 16.3 Glucose (65 - 99 mg/dL) 133 H Calcium (8.4 - 10.2 mg/dL) 8.7 Total Bilirubin (0.2 - 1.3 mg/dL) 0.8 AST (17 - 59 U/L) 26 ALT (21 - 72 U/L) 34 Alkaline Phosphatase (< 127 U/L) 32 Troponin I (<0.11 ng/ml) < 0.01 Total Protein (6.3 - 8.2 g/dL) 6.3 Albumin (3.5 - 5.0 g/dL) 3.8 Globulin (1.9 - 4.2 gm/dL) 2.5 Albumin/Globulin Ratio (1.1 - 2.2 %) 1.5 Coagulation PT (9.4 - 12.5 SEC) 11.8 INR (0.90 - 1.17) 1.13 APTT (25 - 37 SEC) 28 Hematology CBC w Diff NO MAN DIFF REQ WBC (4.8 - 10.8 /CUMM) 7.3 RBC (4.70 - 6.10 /CUMM) 3.76 L Hgb (14.0 - 18.0 G/DL) 11.7 L Hct (42 - 52 %) 34.5 L MCV (80.0 - 94.0 FL) 91.7 MCH (27.0 - 31.0 PG) 31.1 H RDW (11.5 - 14.5 %) 13.5 Plt Count (130 - 400 /CUMM) 169 MPV (7.4 - 10.4 FL) 7.1 L Gran % (42.2 - 75.2 %) 83.4 H Lymphocytes % (20.5 - 51.1 %) 10.0 L Monocytes % (1.7 - 9.3 %) 5.5 Eosinophils % (0 - 5 %) 0.7 Basophils % (0.0 - 2.0 %) 0.4 Absolute Granulocytes (1.4 - 6.5 /CUMM) 6.1 Absolute Lymphocytes (1.2 - 3.4 /CUMM) 0.7 L Absolute Monocytes (0.10 - 0.60 /CUMM) 0.4 Absolute Eosinophils (0.0 - 0.7 /CUMM) 0.1 Absolute Basophils (0.0 - 0.2 /CUMM) 0 PUBS MCHC (33.0 - 37.0 G/DL) 33.9 Assessment/Plan Assessment/Plan 86-year-old gentleman with a past medical history of hypertension, hyperlipidemia, diabetes mellitus and coronary artery disease (known three- vessel coronary artery disease, status post drug-eluting stent: Resolution integrity, placed into the mid RCA in for worry 2015). He presents to our emergency room, after awakening with confusion and expressive aphasia. He had onset of a headache the night prior to arrival. Acute CVA: Continue treatment and management as per neurology. There is no evidence for atrial fibrillation nor known paroxysms of the same. A complete workup will be undertaken by neurology, and if no clear etiology is found, consideration for the implantation of a Linq device will be made. If atrial fibrillation with an embolic etiology suspected, the patient will require full anticoagulation. Coronary artery disease: The patient has known severe three-vessel coronary artery disease, and is status post drug-eluting stent into the RCA one year ago. He has known residual 90% stenosis in his circumflex as well as 70% stenosis within his distal LAD and a 90% diagonal stenosis. He has been asymptomatic from the standpoint of anginal symptoms for continue with medical management at this time as per his wishes. His regimen will be maximized as tolerated. The patient's stent is not a contraindication for undergoing MRI. Thank you for allowing us to participate in the care of your patient. Please do not hesitate to contact us further with any questions. Sincerely, Vito Diaz MD [facility] Consult Acknowledgment - Thank you for your consult request.
--- NOTE | 2016-10-30 14:57 | Discharge Summary ---
See Addendum Visit Information Visit Dates Admission Date: 10/29/16 Discharge Date: 11/09/16 Hospital Course Course Attending Physician: GABO ARGUETA,PAULINA Carvalho Primary Care Physician: MAURY ARGUETA,[facility] Course: 86-year-old male with a past medical history of hypertension, cardiac stent ( September 2015, [facility]) hyperlipidemia, diabetes, GERD presents from home complaining of a frontal headache that occurred last night at 5 PM, without any other symptoms. This morning when he woke up at 5 AM he complained of his ongoing headache 02/01 his noticed that he was confused and unable to articulate, and answering questions inappropriately. Head CT scan was obtained which identified a 4 mm hyperdense focus in the left parietal lobe, which was read as: acute intra-parenchymal hemorrhage with minimal edema. Scans were reviewed with neurologist who felt that this was not the cause of his symptomology. He normally takes Plavix and aspirin for stents that were placed in September 2015, neurology felt that the risk of recurrent CVA was greater then the benefit of holding medication due to this identified hemorrhage. Medication was continued as recommended by neurology. He was continued on his statin, and blood pressure was optimized, with home BP medications. He was continuously monitored on telemetry for arrhythmias. Echocardiogram demonstrated, LVEF >60%, no obvious regional wall abn, mild atrial dilation, MR, TR, moderate , trace LA. MRI did not identify acute infarcts. no definite acute hemorrhage demonstrated. diffuse volume losss, due to chronic microvascular ischemic disease and lacunar infarctions. Due to his clincal symtoms he is felt to suffer from a left parietal CVA resulting in dysphasia. He passed bedside swallow evaluation and has been tolerating an oral diet without any problems. PT and OT evaluated him due to his impaired imbalane and dysarthria he will benefit from acute skilled OT to maximize independence and function. Allergies: Coded Allergies: NO KNOWN ALLERGIES (NO) (01/02/11) Disposition Summary Disposition Principal Diagnosis: CVA Additional Diagnosis: HTN Diabetes Discharge Disposition: SNF Discharge Instructions General Discharge Information Code Status: Full Code Patient's Diet: Heart Healthy Diet Patient's Activity: Impaired mobility, Rt sided weakness S/P L CVA Follow-Up Instructions/Appts: Please followup with PCP, neurology and continue PT,OT. Medications at Discharge Discharge Medications: Stop taking the following medications: Aspirin (Ecotrin*) 81 MG TABLET. ORAL DAILY Clopidogrel Bisulfate (Clopidogrel) 75 MG TABLET ORAL DAILY Qty = 30 Continue taking these medications: Atorvastatin Calcium (Atorvastatin Calcium) 80 MG TABLET 1 Tablet ORAL DAILY Qty = 30 Comments: Last Taken:11/08/16 Time:5PM Isosorbide Mononitrate (Isosorbide Mononitrate ER) 30 MG TAB.ER.24H 1 Tablet ORAL DAILY Qty = 30 Comments: Last Taken:11/09/16 Time:9AM Latanoprost (Latanoprost) 0.005 % DROPS 1 Drop In the eye Every night Qty = 3 Comments: NOT GIVEN Metoprolol Succinate (Metoprolol Succinate) 25 MG TAB 1 Tablet ORAL DAILY Qty = 30 Comments: Last Taken:11/09/16 Time:9AM Pantoprazole Sodium (Pantoprazole Sodium) 40 MG TABLET. 1 Tablet ORAL DAILY Qty = 30 Comments: NOT GIVEN Pioglitazone HCl/Metformin HCl (Actoplus Met 15 MG-850 MG Tab) 15 MG-850 MG TABLET 1 Tablet ORAL TWICE DAILY Qty = 60 Comments: NOT GIVEN Multivit-Min/FA/Lycopen/Lutein (Centrum Silver Tablet) 0.4 MG-300 MCG-250 MCG TABLET 1 Tablet ORAL DAILY Comments: Last Taken:11/09/16 Time:9AM Acetaminophen (Tylenol Arthritis) 650 MG TABLET.ER 650 Milligram ORAL EVERY 8 HOURS Comments: NOT GIVEN Start taking the following new medications: Levetiracetam (Keppra) 500 MG TABLET 500 Milligram ORAL TWICE DAILY Qty = 60 No Refills Amiodarone HCl (Amiodarone HCl) 200 MG TABLET 1 Tablet ORAL DAILY Qty = 30 No Refills Dabigatran Etexilate Mesylate (Pradaxa 150 MG) 150 MG CAPSULE 1 Capsule ORAL TWICE DAILY Qty = 60 No Refills Copies To: CHENTE ARGUETA,RODRIGO
--- NOTE | 2016-10-30 15:30 | PN- Neurology ---
Subjective Subjective: Improved, per patient, and staff. Review of Systems: denies headache, palpitations, chest pain Objective Vital Signs and I&Os Vital Signs Date Time Temp Pulse Resp B/P Pulse O2 O2 Flow FiO2 Ox Delivery Rate 10/30 0859 97.9 57 18 152/72 /08 0553 97.9 57 18 152/72 94 Room Air / 0148 98.9 10/30 0147 98.9 88 18 172/79 95 Room Air 10/30 0020 99.7 64 18 160/71 03/ 2220 99.7 64 18 160/71 97 Room Air 10/29 1806 99.8 10/29 1722 99.8 95 16 164/74 95 Room Air Intake & Output 10/30 1600 10/30 0800 / 0000 10/29 1600 10/29 0800 10/29 0000 Intake Total 120 Output Total 1000 300 Balance -880 -300 Intake, Oral 120 Output, Urine 1000 300 Patient 167 lb 208 lb Weight Physical Exam: Alert, EOMs full [id number]. voice mildly dysarthric. some intelligible words and phrases. follows most commands Current Medications: Current Medications Sig/Reagan Start time Last Medication Dose Route Stop Time Status Admin Acetaminophen 0 .STK-MED ONE 10/30 0857 DC PO Acetaminophen 650 MG Q6 10/29 1800 DC 10/29 PO 1806 Acetaminophen 0 .STK-MED ONE 10/29 1758 DC PO Acetaminophen 1,000 MG Q6P PRN 10/29 1630 AC IV Aspirin 0 .STK-MED ONE 10/30 0853 DC PO Aspirin 0 .STK-MED ONE 10/29 1758 DC PO Aspirin Buffered 81 MG DAILY 10/29 1615 AC 10/30 PO 0859 Atorvastatin Calcium 80 MG 1700 10/30 1700 AC PO Atorvastatin Calcium 80 MG DAILY 10/29 1204 DC / PO 1326 Clopidogrel Bisulfate 75 MG DAILY 10/29 1615 AC 10/30 PO 0859 Insulin Aspart 0 TIDAC 10/29 1700 AC SC Latanoprost 1 GTT QPM 10/29 2200 AC 10/30 OPH 0020 Metoprolol Succinate 25 MG DAILY 10/30 1000 AC 10/30 PO 0859 Metoprolol Tartrate 25 MG 2200 10/29 2200 DC 10/30 PO 10/29 2201 0020 Results Last 24 Hours of Lab Results: Laboratory Tests 10/30 10/29 0600 1936 Chemistry Sodium (137 - 145 mmol/L) 132 L Potassium (3.5 - 5.1 mmol/L) 3.5 Chloride (98 - 107 mmol/L) 95 L Carbon Dioxide (22 - 30 mmol/L) 26 Anion Gap (5 - 16) 10 BUN (9 - 20 mg/dL) 10 Creatinine (0.7 - 1.2 mg/dL) 0.7 Estimated GFR (>60 ml/min) > 60 BUN/Creatinine Ratio (7 - 25 %) 14.3 Triglycerides (<150 mg/dL) 62 Cholesterol (< 200 MG/DL) 93 LDL Cholesterol, Calc (65 - 129 mg/dL) 35 L HDL Cholesterol (40 - 60 mg/dL) 46 Cholesterol/HDL Ratio (0.00 - 4.88 %) 2 Hematology CBC w Diff NO MAN DIFF REQ WBC (4.8 - 10.8 /CUMM) 6.5 RBC (4.70 - 6.10 /CUMM) 3.37 L Hgb (14.0 - 18.0 G/DL) 10.3 L Hct (42 - 52 %) 31.1 L MCV (80.0 - 94.0 FL) 92.5 MCH (27.0 - 31.0 PG) 30.5 RDW (11.5 - 14.5 %) 13.4 Plt Count (130 - 400 /CUMM) 143 MPV (7.4 - 10.4 FL) 6.9 L Gran % (42.2 - 75.2 %) 75.4 H Lymphocytes % (20.5 - 51.1 %) 13.6 L Monocytes % (1.7 - 9.3 %) 10.1 H Eosinophils % (0 - 5 %) 0.6 Basophils % (0.0 - 2.0 %) 0.3 Absolute Granulocytes (1.4 - 6.5 /CUMM) 4.9 Absolute Lymphocytes (1.2 - 3.4 /CUMM) 0.9 L Absolute Monocytes (0.10 - 0.60 /CUMM) 0.7 H Absolute Eosinophils (0.0 - 0.7 /CUMM) 0 Absolute Basophils (0.0 - 0.2 /CUMM) 0 PUBS MCHC (33.0 - 37.0 G/DL) 33.0 Urines Urinalysis LIGHT H Urine Color (YEL,AMB,STR) YEL Urine Clarity (CLEAR) CLEAR Urine pH (5.0 - 8.0) 6.0 Ur Specific [place] (1.001 - 1.035) 1.020 Urine Protein (NEG,<30 MG/DL) 30 H Urine Ketones (NEG) TRACE H Urine Nitrite (NEG) NEG Urine Bilirubin (NEG) NEG Urine Urobilinogen (0.1 - 1.0 EU/dl) 0.2 Ur Leukocyte Esterase (NEG) NEG Ur Microscopic SEDIMENT EXAMINED Urine RBC (0 - 5 /HPF) 3-5 Urine WBC (0 - 2 /HPF) 1-3 H Ur Epithelial Cells (NONE,FEW) RARE Urine Bacteria (NEG/NONE) RARE H Urine Mucus (FEW,NONE) MOD H Urine Hemoglobin (NEG) SMALL H Urine Glucose (N MG/DL) NEG Recent Imaging Studies: MRI pending Carotid dopplers: IMPRESSION: 1. RIGHT: Minimal, nonhemodynamically significant stenosis of the proximal right internal carotid artery corresponding to a 0-49% stenosis by velocity criteria. 2. LEFT: Minimal, nonhemodynamically significant stenosis of the proximal left internal carotid artery corresponding to a 0-49% stenosis by velocity criteria. 3. Antegrade flow is seen via the bilateral vertebral arteries. Assessment/Plan Assessment: CVA. left parietal in view of dysphasia, CT negative Plan: continue current Rx, will review MRI
[2016-10-30 16:00] VITALS: BP 180/78
[2016-10-30 16:58] VITALS: BP 148/80
--- NOTE | 2016-10-30 16:59 | MRI REPORT ---
EXAMINATION: MR BRAIN WITHOUT CONTRAST CLINICAL INFORMATION: Aphasia and confusion. Assess for stroke. COMPARISON: CT scan of the head 10/29/2016. TECHNIQUE: MRI of the brain without contrast was obtained using routine sequences. Images are severely degraded by patient motion artifact. FINDINGS: No diffusion abnormalities are identified to suggest an acute or subacute infarct. No mass effect or midline shift is seen. The ventricles and sulci are commensurately prominent consistent with [id number] diffuse volume loss. There is moderate increased T2 and FLAIR signal in the periventricular and subcortical white matter, consistent with chronic microvascular ischemic changes. There are lacunar infarcts in the posterior left centrum semiovale and bilateral basal ganglia. There appears to be a small arachnoid cyst in the anterior the aspect of the left posterior cranial fossa measuring 1.9 x 1.0 cm. There is no significant mass effect on the adjacent brain parenchyma. The brainstem and cerebellum are normal. There is a small area of low gradient signal in the posterior left occipital lobe, which may be consistent with sequelae of microhemorrhage or calcification. No abnormal gradient signal is seen in the posterior parietal lobe to correspond with the findings on the recent CT scan. The craniovertebral junction, marrow signal, and midline structures are normal. Accounting for artifact, the major intracranial flow-voids at the level of the [place] are preserved. The dural venous sinus flow-voids are maintained. The mastoid air cells are poorly pneumatized. There is mild mucoperiosteal thickening in the anterior ethmoid air cells. IMPRESSION: 1. There are no acute infarcts. 2. No definite acute hemorrhage is demonstrated. There is a small focus of low gradient signal in the left occipital lobe which does not demonstrate significant blooming artifact to suggest acute changes. 3. There are changes consistent with diffuse volume loss and there are sequelae of chronic microvascular ischemic disease and lacunar infarctions.
--- NOTE | 2016-10-30 18:31 | ECHOCARDIOGRAM REPORT ---
KAE RENNER Age: 86 : 1930 Gender: M Exam Date: 10/29/2016 18:43 Exam Location: ER Ht (in): 66 Wt (lb): 167 BSA: 1.89 BP: 188 / 82 Ordering Physician: THERON VARELA MD Referring Physician: THERON VARELA MD Technologist: Mignon Tello RDCS Room Number: ER#10 Indications: STROKE Rhythm: Sinus Technical Quality: Good FINDINGS Left Ventricle Normal size left ventricle. Left ventricular ejection fraction is estimated at >60 %. No obvious regional wall motion abnormalities. Right Ventricle Normal right ventricular size and function. Right Atrium Normal right atrial size. Left Atrium Mild left atrial dilatation. Mitral Valve Mild mitral regurgitation. Aortic Valve Diffuse thickening of the aortic valve cusps with reduced excursion. Moderate aortic stenosis. No aortic regurgitation. Tricuspid Valve Tricuspid valve not well visualized, grossly normal. Mild tricuspid regurgitation. Right ventricular systolic pressure estimated to be elevated at 52 mmHg. Pulmonic Valve Trace pulmonic regurgitation. Pericardium No pericardial effusion. Great Vessels Normal size aortic root. CONCLUSIONS Normal size left ventricle. Left ventricular ejection fraction is estimated at >60 %. No obvious regional wall motion abnormalities. Mild left atrial dilatation. Mild mitral regurgitation. Moderate aortic stenosis. Mild tricuspid regurgitation. Right ventricular systolic pressure estimated to be elevated at 52 mmHg. Trace pulmonic regurgitation. Luis Felipe Ramirez M.D. (Electronically Signed) Final Date: 30 October 2016 18:30 MEASUREMENTS (Male / Female) Normal Values 2D ECHO LV Diastolic Diameter PLAX 4.9 cm 4.2 - 5.9 / 3.9 - 5.3 cm LV Systolic Diameter PLAX 2.7 cm 2.1 - 4.0 cm LV Fractional Shortening PLAX 44.9 % 25 - 46 % LV Ejection Fraction 2D Teich 76.1 % IVS Diastolic Thickness 1.0 cm LVPW Diastolic Thickness 1.1 cm LV Relative Wall Thickness 0.4 RV Internal Dim ED PLAX 3.7 cm 1.9 - 3.8 cm LVOT Diameter 1.9 cm Aortic Root Diameter 3.4 cm LA Systolic Diameter LX 4.3 cm 3.0 - 4.0 / 2.7 - 3.8 cm LA Volume 53.0 cm 18 - 58 / 22 - 52 cm Ascending Aorta Diameter 3.2 cm DOPPLER AV Peak Velocity 389.0 cm/s AV Peak Gradient 60.5 mmHg AV Mean Velocity 255.0 cm/s AV Mean Gradient 31.0 mmHg AV Velocity Time Integral 95.8 cm LVOT Peak Velocity 126.0 cm/s LVOT Peak Gradient 6.4 mmHg LVOT Mean Velocity 93.8 cm/s LVOT Mean Gradient 4.0 mmHg LVOT Velocity Time Integral 32.3 cm LVOT Stroke Volume 91.6 cm AV Area Cont Eq vti 1.0 cm AV Area Cont Eq pk 0.9 cm MV Peak Velocity 128.0 cm/s MV Peak Gradient 6.6 mmHg MV Mean Velocity 67.7 cm/s MV Mean Gradient 2.0 mmHg Mitral E Point Velocity 110.0 cm/s Mitral A Point Velocity 107.0 cm/s Mitral E to A Ratio 1.0 MV PHT Velocity 134.0 cm/s MV Deceleration [place] 432.0 cm/s MV Pressure Half Time 93.1 ms MV Area PHT 2.4 cm MV Deceleration Time 209.0 ms TR Peak Velocity 345.0 cm/s TR Peak Gradient 47.6 mmHg Right Atrial Pressure 5.0 mmHg Pulmonary Artery Systolic Pressu 52.6 mmHg Right Ventricular Systolic Press 52.6 mmHg PV Peak Velocity 114.0 cm/s PV Peak Gradient 5.2 mmHg PV Mean Velocity 89.6 cm/s PV Mean Gradient 3.0 mmHg PV Velocity Time Integral 30.1 cm LV E' Lateral Velocity 10.2 cm/s Mitral E to LV E' Lateral Ratio 10.8 LV E' Septal Velocity 6.8 cm/s Mitral E to LV E' Septal Ratio 16.1
[2016-10-30 23:54] VITALS: BP 164/98
[2016-10-31 08:44] VITALS: BP 160/80
--- NOTE | 2016-10-31 09:08 | PN- Cardiology ---
Subjective Subjective: Telemetry reviewed. Sinus rhythm throughout. No cardiac event overnight. Objective Vital Signs and I&Os Vital Signs Date Time Temp Pulse Resp B/P Pulse O2 O2 Flow FiO2 Ox Delivery Rate 10/31 0844 98.2 61 20 160/80 94 Room Air / 0000 96 10/30 2354 98.4 64 20 164/98 95 Room Air 10/30 1658 97.8 58 20 148/80 96 Room Air 10/30 1600 100.6 68 18 180/78 94 Room Air 10/30 1600 100.6 68 18 180/78 94 Room Air Intake & Output 10/31 1600 10/31 0800 10/31 0000 10/30 1600 10/30 0800 / 0000 Intake Total 450 240 120 Output Total 1000 Balance 450 240 -880 Intake, Oral 450 240 120 Output, Urine 1000 Physical Exam: Gen. exam patient comfortable sitting in a chair. He just returned after physical therapy. Head normocephalic atraumatic Eyes sclera anicteric conjunctiva showed no pallor extraocular muscles were normal Speech somewhat dysarthric Neck no jugular venous distention bilateral carotid conducted murmurs no palpable masses Chest lungs were clear bilaterally Heart regular rhythm with a grade 2/6 systolic murmur Abdomen soft no organomegaly bowel sounds normal Extremities no clubbing cyanosis or pedal edema Neurological right-sided arm and leg weakness. Current Medications: Current Medications Sig/Reagan Start time Last Medication Dose Route Stop Time Status Admin Acetaminophen 1,000 MG Q6P PRN 10/29 1630 AC IV Aspirin Buffered 81 MG DAILY 10/29 1615 AC 10/30 PO 0859 Atorvastatin Calcium 80 MG 1700 10/30 1700 AC 10/30 PO 1751 Clopidogrel Bisulfate 75 MG DAILY 10/29 1615 AC 10/30 PO 0859 Insulin Aspart 0 TIDAC 10/29 1700 AC SC Latanoprost 1 GTT QPM 10/29 2200 AC 10/30 OPH 0020 Metoprolol Succinate 25 MG DAILY 10/30 1000 AC 10/30 PO 0859 Results Last 48 Hrs of Labs/Mics: Laboratory Tests 10/30/16 0600: Anion Gap 10, Estimated GFR > 60, BUN/Creatinine Ratio 14.3, Triglycerides 62, Cholesterol 93, LDL Cholesterol, Calc 35 L, HDL Cholesterol 46, Cholesterol/HDL Ratio 2, CBC w Diff NO MAN DIFF REQ, RBC 3.37 L, MCV 92.5, MCH 30.5, RDW 13.4, MPV 6.9 L, Gran % 75.4 H, Lymphocytes % 13.6 L, Monocytes % 10.1 H, Eosinophils % 0.6, Basophils % 0.3, Absolute Granulocytes 4.9, Absolute Lymphocytes 0.9 L, Absolute Monocytes 0.7 H, Absolute Eosinophils 0, Absolute Basophils 0, PUBS MCHC 33.0 10/29/161935: Urinalysis LIGHT H, Urine Color YEL, Urine Clarity CLEAR, Urine pH 6.0, Ur Specific [place] 1.020, Urine Protein 30 H, Urine Ketones TRACE H, Urine Nitrite NEG, Urine Bilirubin NEG, Urine Urobilinogen 0.2, Ur Leukocyte Esterase NEG, Ur Microscopic SEDIMENT EXAMINED, Urine RBC 3-5, Urine WBC 1-3 H, Ur Epithelial Cells RARE, Urine Bacteria RARE H, Urine Mucus MOD H, Urine Hemoglobin SMALL H, Urine Glucose NEG Assessment/Plan Assessment/Plan In summary this 86-year-old gentleman with a past medical history of hypertension, hyperlipidemia, diabetes mellitus and coronary artery disease ( known three-vessel coronary artery disease, status post drug-eluting stent: Resolution integrity, placed into the mid RCA in for worry 2016). He presents to our emergency room, after awakening with confusion and expressive aphasia. He had onset of a headache the night prior to arrival. He has been determined to have #1 CVA. He is been seen by neurology. No cardiac source of CVA so far is recognized. He has not had any arrhythmia. His left ventricular function is normal with moderate aortic stenosis. If cardiac etiology is still suspect by neurology would later on consider a link monitor implant. #2. Coronary artery disease #3. Hypertension. Would defer to neurology regarding guidelines for systolic blood pressure. Continue telemetry? Yes
--- NOTE | 2016-10-31 09:32 | PN- Housestaff ---
AVERY ARGUETA,THERON 10/31/16 0914: Subjective Follow-up For: CVA Complaints: no complaints Tele-Events Since Last Visit: SB-NSR 49-66 Subjective: Seen and examined at bedside. present during examination. His confusion has subsided, he is articulating much more clearly. When asked questions responding with appropriate answers, with mild difficulty. Review of Systems Constitutional: Reports: see HPI. Objective Last 24 Hrs of Vital Signs/I&O Vital Signs Date Time Temp Pulse Resp B/P Pulse O2 O2 Flow FiO2 Ox Delivery Rate 10/31 0844 98.2 61 20 160/80 94 Room Air / 0000 96 / 2354 98.4 64 20 164/98 95 Room Air 10/30 1658 97.8 58 20 148/80 96 Room Air 10/30 1600 100.6 68 18 180/78 94 Room Air 10/30 1600 100.6 68 18 180/78 94 Room Air Intake & Output 10/31 1600 10/31 0800 10/31 0000 Intake Total 450 240 Output Total Balance 450 240 Intake, Oral 450 240 Physical Exam General Appearance: Alert, Cooperative, No Acute Distress Skin: No Rashes, No Breakdown HEENT: Atraumatic, PERRLA, EOMI Neck: Supple, No JVD Cardiovascular: Regular Rate, Normal S1, Normal S2, murmur+ Lungs: Clear to Auscultation, Normal Air Movement Abdomen: Normal Bowel Sounds, Soft, No Tenderness Neurological: Strength at 5/5 X4 Ext, Normal Tone, Cranial Nerves 3-12 NL, Reflexes 2+ Extremities: No Edema, Normal Pulses Current Medications: Current Medications Sig/Reagan Start time Last Medication Dose Route Stop Time Status Admin Acetaminophen 1,000 MG Q6P PRN 10/29 1630 AC IV Aspirin Buffered 81 MG DAILY 10/29 1615 AC 10/30 PO 0859 Atorvastatin Calcium 80 MG 1700 10/30 1700 AC / PO 1751 Clopidogrel Bisulfate 75 MG DAILY 10/29 1615 AC 10/30 PO 0859 Insulin Aspart 0 TIDAC 10/29 1700 AC SC Latanoprost 1 GTT QPM 10/29 2200 AC 10/30 OPH 0020 Metoprolol Succinate 25 MG DAILY 10/30 1000 AC 10/30 PO 0859 Assessment/Plan Assessment: 86-year-old male past medical history of hypertension, cardiac stents (on plavix and aspirin) diabetes presents from home with acute onset of headache, confusion and difficulty with articulation. He was found on HEAD CT to have a acute intrapaenchymal hemorrhage with minimal edema. This was reviewed with neurology and the the thought is that this does not correspond to his symptoms, with the addition that anticoagulation can be safely resumed. Continue NIH Stroke Scale Q 4Hrs Echocardiogram; LVEF >60%, no obvious regional wall abn, mild atrial dilation, MR, TR, moderate , trace VA MRI no acute infarcts. no definite acute hemorrhage demonstrated. diffuse volume losss, due to chronic microvascular ischemic disease and lacunar infarctions. Anticoagulation resumed after discussion with discussion with neurology Cardiology recommendations noted, appreciate input continue home medication, atorvastatin BP better controlled, will continue current medications Swallow evaluation performed yesterday PT is evaluating today HTN will need to control BP, elevated 160/80 continue medication metoprolol, will restart home medication isosorbide mononitrate Diabetes Bloodsugars 124, 110, 97, 146 Will get accuchecks start novolog ss coverage [id number] ALPS Full code Problem List: 1. Diabetes 2. Hypertension 3. Hyperlipidemia 4. CVA (cerebral vascular accident) Pain Ratin Pain Location: no pain Pain Goal: Remain pain free Pain Plan: continue current regimen Tomorrow's Labs & Rationales: none GABO ARGUETA,PAULINA 10/31/16 1417: Attending MD Review Statement Attending Statement Attending MD Statement: examined this patient, discuss w/resident/PA/VOLUNTEER ASSISTANT, agreed w/resident/PA/VOLUNTEER ASSISTANT, discussed with family, reviewed EMR data (avail), discussed with nursing, discussed with case mgmt, reviewed images Attending Assessment/Plan: Pt appears clinically improved. He still appears to have some dysphasia. Clinically he is an acute parietal stroke. We are treating him with aspirin and Plavix and a statin. We restarted his nitrate today as well. He passed his formal swallow eval and he doesn't have significant carotid stenosis, his echo also doesn't show an LV thrombus. The plan is acute rehabilitation versus STR. He did have a low-grade temp of 100.6, recent UA and chest x-ray negative will have to watch closely.
--- NOTE | 2016-10-31 14:21 | Patient Discharge Instructions ---
Discharge Instructions General Discharge Information You were seen/treated for: Cerebral Vascular Accident Atrial Fibrillation Special Instructions: Please monitor BP closely, Continue rehabilation with PT and OT Please follow up with Dr. Castellanos-urologist for follow-up on Acosta catheter. Sterile water flushes-100 ml every 8-12hrs. Please inform the PCP, if more blood clots/blood are noted. Please follow up with your urologist, as soon as possible for further instructions on acosta catheter care. Please follow up with your cardilogist and neurologist within one week of discharge. Diet Continue normal diet: Yes Recommended Diet: Heart Healthy Activity Full Activity/No Limits: Yes Acute Coronary Syndrome Inclusion Criteria At DC or during hospital stay patient has or had the following: ACS DIAGNOSIS No Discharge Core Measures Meds if any: Prescribed or Continued at Discharge Meds if any: NOT Prescribed or Continued at Discharge Congestive Heart Failure Inclusion Criteria At DC or during hospital stay patient has or had the following: CHF DIAGNOSIS No Discharge Core Measures Meds if any: Prescribed or Continued at Discharge Meds if any: NOT Prescribed or Continued at Discharge Cerebrovascular accident Inclusion Criteria At DC or during hospital stay patient has or had the following: CVA/TIA Diagnosis Yes Discharge Core Measures Meds if any: Prescribed or Continued at Discharge Antithrombotic Yes Statin (required if LDL =>70) Yes Anticoagulant Yes Meds if any: NOT Prescribed or Continued at Discharge Venous thromboembolism Inclusion Criteria VTE Diagnosis No VTE Type NONE VTE Confirmed by (Test) NONE Discharge Core Measures - Per Current guidelines, there needs to be overlap - treatment for the first 5 days of Warfarin therapy. - If discharged on Warfarin prior to 5 days of - overlap therapy, the patient will need to be - assessed for post discharge needs including - *Post discharge parental anticoagulation - *Warfarin and/or parental anticoagulation education - *Follow up date to check INR post discharge At least 5 days overlap therapy as Inpatient No Meds if any: Prescribed or Continued at Discharge Note: Overlap Therapy is Warfarin and Anticoagulant Meds if any: NOT Prescribed or Continued at Discharge
--- NOTE | 2016-10-31 15:38 | PN- Neurology ---
Subjective Subjective: Better, able to follow commands get out short phrases Review of Systems: No headache Objective Vital Signs and I&Os Vital Signs Date Time Temp Pulse Resp B/P Pulse O2 O2 Flow FiO2 Ox Delivery Rate 10/31 1147 61 158/60 10/31 0949 61 160/80 10/31 0844 98.2 61 20 160/80 94 Room Air 03/ 0000 96 / 2354 98.4 64 20 164/98 95 Room Air 10/30 1658 97.8 58 20 148/80 96 Room Air / 1600 100.6 68 18 180/78 94 Room Air 10/30 1600 100.6 68 18 180/78 94 Room Air Intake & Output 10/31 1600 10/31 0800 / 0000 10/30 1600 10/30 0800 10/30 0000 Intake Total 450 240 120 Output Total 1000 Balance 450 240 -880 Intake, Oral 450 240 120 Output, Urine 1000 Physical Exam: Alert, still dysnomic for common objects, speech clear (no dysarthria) but still somewhat dysphasic VFF EOMI\ VII and XII normal district wire chief equal Current Medications: Current Medications Sig/Reagan Start time Last Medication Dose Route Stop Time Status Admin Acetaminophen 1,000 MG Q6P PRN 10/29 1630 AC IV Aspirin Buffered 81 MG DAILY 10/29 1615 AC 10/31 PO 0949 Atorvastatin Calcium 80 MG 1700 10/30 1700 AC 10/30 PO 1751 Clopidogrel Bisulfate 75 MG DAILY 10/29 1615 AC 10/31 PO 0949 Insulin Aspart 0 TIDAC 10/29 1700 AC SC Isosorbide 30 MG DAILY 10/31 1014 AC 10/31 Mononitrate PO 1147 Latanoprost 1 GTT QPM 10/29 2200 AC 10/30 OPH 0020 Metoprolol Succinate 25 MG DAILY 10/30 1000 AC 10/31 PO 0949 Patient Medication 1 ED .STK-MED ONE 10/31 1351 [place] Teaching ED 10/31 1352 Results Last 24 Hours of Lab Results: MRI Brain: 1. There are no acute infarcts. 2. No definite acute hemorrhage is demonstrated. There is a small focus of low gradient signal in the left occipital lobe which does not demonstrate significant blooming artifact to suggest acute changes. 3. There are changes consistent with diffuse volume loss and there are sequelae of chronic microvascular ischemic disease and lacunar infarctions. on my review equivocal DWI change posterior left temporal lobe, area expected to be affected on clinical grounds. Echo: Normal size left ventricle. Left ventricular ejection fraction is estimated at >60 %. No obvious regional wall motion abnormalities. Mild left atrial dilatation. Mild mitral regurgitation. Moderate aortic stenosis. Mild tricuspid regurgitation. Right ventricular systolic pressure estimated to be elevated at 52 mmHg. Trace pulmonic regurgitation. Dopplers: IMPRESSION: 1. RIGHT: Minimal, nonhemodynamically significant stenosis of the proximal right internal carotid artery corresponding to a 0-49% stenosis by velocity criteria. 2. LEFT: Minimal, nonhemodynamically significant stenosis of the proximal left internal carotid artery corresponding to a 0-49% stenosis by velocity criteria. 3. Antegrade flow is seen via the bilateral vertebral arteries. Assessment/Plan Assessment: CVA, dysphasia, improving. no evident cardiac source, minimal carotid atherosclerosis Plan: continue dual antiplatelet RX for one month, then resume monotherapy statin speech therapy favor longer term cardiac monitoring to r/o PAF consider early discharge with out-pt therapy office f/u in 2-3 weeks
[2016-10-31 15:45] VITALS: BP 142/66
[2016-10-31 23:46] VITALS: BP 130/80
[2016-10-31 23:48] VITALS: BP 126/70
[2016-11-01 08:27] VITALS: BP 180/80
[2016-11-01 08:30] VITALS: BP 122/70
--- NOTE | 2016-11-01 08:58 | Event Note ---
Event Note Event Note: 86-year-old male past medical history of hypertension, cardiac stents (on plavix and aspirin) diabetes presents from home with acute onset of headache, confusion and difficulty with articulation. He was found on HEAD CT to have a acute intrapaenchymal hemorrhage with minimal edema. This was reviewed with neurology and the the thought is that this does not correspond to his symptoms, with the addition that anticoagulation can be safely resumed. His dysphasia was improving and he was working with PT. This morning while in the chair he developed a seizure episode. 2mg ativan was administered stat. BP was recorded 212 SBP. He was given 5mg of hydralizine stat , with repeat BP 180/80. His seizure episode persisted another 2mg of ativan was given. Blood sugars was 160. Pulse Ox 96, he was afebrile. Post seizure his eyes rolled back, dilated and he was unable to speak. Stroke alert called. He was given 1500mg loading dose of Keppra as per neurology recommendations. Due to the inability to maintain his airway he was bagged and will be intubated and transferred to ICU. During this time monitor displayed HR in 170's appeared to be SVT. We did not want to give adenosine for fear of dropping BP. Prior to leaving room HR was in 130's. Call was placed to laboratory technology teacher. He is undergoing stat head ct scan. labs have been ordered, troponins, lactic acid, prolactin level, cbc, bep, stat EKG. Farmworker Bulbs present during the event. Attending informed of events. Family called and updated, will be arriving to the hospital shortly.
--- NOTE | 2016-11-01 09:11 | CT SCAN REPORT ---
EXAMINATION: CT HEAD WITHOUT CONTRAST CLINICAL INFORMATION: Evaluate for hemorrhagic transformation of stroke. COMPARISON: MRI brain 10/30/[address] head 10/29/2016 TECHNIQUE: Contiguous axial imaging was performed from the skull base to vertex without intravenous administration of contrast. DLP: 600.71 mGy-cm FINDINGS: There is no evidence of acute intracranial hemorrhage or territorial infarction. No abnormal mass effect or midline shift is seen. Griffin to white matter differentiation is well preserved. No extra-axial fluid collections are identified. Lacunar infarcts are noted within the posterior left centrum semiovale and bilateral basal ganglia. Ventricles and sulci are prominent consistent with underlying volume loss. Periventricular white matter hypodensities again seen likely representing chronic microvascular ischemic changes. Unchanged 4 mm hyperdense focus within the left parietal lobe (image 32, series 2) which was not consistent with hemorrhage on the patient's recent MRI. Calvarium is intact. The mastoid air cells and visualized portions of the paranasal sinuses are well aerated. Carotid siphon calcifications are present. IMPRESSION: 1. No acute intracranial abnormality. No intracranial hemorrhage or mass effect. 2. Volume loss, chronic microvascular ischemic changes and old lacunar infarcts. 3. Stable, nonspecific 4 mm hyperdense focus within the left parietal lobe which was not consistent with acute hemorrhage on the patient's recent MRI.
--- NOTE | 2016-11-01 09:21 | RADIOLOGY REPORT ---
EXAMINATION: XR PORTABLE CHEST CLINICAL INFORMATION: Respiratory arrest status post intubation. COMPARISON: 10/29/2016 TECHNIQUE: Portable AP view of the chest was obtained. FINDINGS: Interval placement of an endotracheal tube with tip terminating approximately 2.9 cm above the carine. There also appears to be a nasogastric tube with tip faintly visualized in the region of the gastric fundus. There is no pneumothorax. Cardiac silhouette at the upper limits of normal in size. Persistent widening of the superior mediastinum is noted. The right lung appears grossly clear. Hazy retrocardiac opacity at the left lung base is unchanged. No gross pleural effusions. No acute osseous abnormality. IMPRESSION: Interval intubation with endotracheal tube tip terminating approximately 2.9 cm above the carine. Hazy retrocardiac opacity at the left lung base is unchanged and which may represent atelectasis and/or infiltrate.
--- NOTE | 2016-11-01 09:28 | Cons- CRCU ---
DOMINICK CHAVEZ MD 11/01/16 0928: General Information and HPI Consulting Request Date of Consult: 11/01/16 Requested By: Dr Mariela Wright Reason for Consult: Seizure and respiratory arrest requiring transfer to the ICU Source of Information: old records, Housestaff Exam Limitations: clinical condition History of Present Illness: Initial HPI on admission: 86-year-old male with a past medical history of hypertension, cardiac stent ( September 2015, [facility]) hyperlipidemia, diabetes, GERD presents from home complaining of a frontal headache that occurred last night at 5 PM, without any other symptoms. This morning when he woke up at 5 AM he complained of his ongoing headache 02/01 his noticed that he was confused and unable to articulate, and answering questions inappropriately. Denies fevers, chills, visual disturbances. He is able to eat without difficulty. Denies chest pain, palpitations, lightheadedness. reports that his rawhide bone roller Dr. JUD RAMIREZ recommended that he continue Plavix and aspirin when she saw them in August of this year, for a few more months. Course in the hospital: Patient seem to be getting better after being admitted but this morning on 11/01, he developed a seizure, 2 mg of Ativan given, his systolic blood pressure was recorded to be 212, 5 mg of IV hydralazine given, with the suspicion of stroke, stroke alert was called. Post seizure, he was unable to speak, maintain his airways, therefore intubated, medications given, and transfer to ICU for further management. He was also noticed to have atrial fibrillation with rapid ventricular rhythm. Cannot provide ROS due to patient's condition (intubated and sedated). Allergies/Medications Allergies: Coded Allergies: NO KNOWN ALLERGIES (NO) (01/02/11) Home Med List: Acetaminophen (Tylenol Arthritis) 650 MG TABLET.ER 650 MG PO Q8 PAIN ( Reported) Aspirin (Ecotrin*) 81 MG TABLET.DR 1 TAB PO DAILY HEART HEALTH (Reported) Atorvastatin Calcium 80 MG TABLET 1 TAB PO DAILY HIGH CHOLESTEROL (Reported) Clopidogrel Bisulfate (Clopidogrel) 75 MG TABLET 1 TAB PO DAILY HEART HEALTH (Reported) Isosorbide Mononitrate (Isosorbide Mononitrate ER) 30 MG TAB.ER.24H 1 TAB PO DAILY ANGINA (Reported) Latanoprost 0.005 % DROPS 1 GTT OPH QPM GLAUCOMA - BOTH EYES (Reported) Metoprolol Succinate 25 MG TAB 1 TAB PO DAILY BP (Reported) Multivit-Min/FA/Lycopen/Lutein (Centrum Silver Tablet) 0.4 MG-300 MCG-250 MCG TABLET 1 TAB PO DAILY SUPPLEMENT (Reported) Pantoprazole Sodium 40 MG TABLET.DR 1 TAB PO DAILY GERD (Reported) Pioglitazone HCl/Metformin HCl (Actoplus Met 15 MG-850 MG Tab) 15 MG-850 MG TABLET 1 TAB PO BID DM (Reported) Review of Systems Review of Systems Constitutional: Reports: see HPI. EENTM: Reports: no symptoms. Cardiovascular: Reports: no symptoms. Respiratory: Reports: no symptoms. GI: Reports: no symptoms. Genitourinary: Reports: no symptoms. Musculoskeletal: Reports: no symptoms. Skin: Reports: no symptoms. Neurological/Psychological: Reports: see HPI. Hematologic/Endocrine: Reports: no symptoms. All Other Systems: Reviewed and Negative Past History Travel History Traveled to [place] past 21 day No Medical History EENT: glaucoma Cardiovascular: CAD, hypertension, hyperlipidemia, known three-vessel coronary artery disease, deemed high risk for bypass surgery. The patient underwent a drug-eluting stent placement into the mid RCA lesion with a resolute stent in September 2015. moderate aortic stenosis Endocrine: diabetes Surgical History Surgical History: cholecystectomy, cardiac stent TURP Rt meniscial repair Family History Relations & Conditions If Any: BROTHER (HypertensionCAD). FATHER (Diabetes). Psychosocial History Where Do You Live? Home Who Do You Live With? spouse Services at Home: None Primary Language: Slovenian Smoking Status: Former Smoker (Quit 40 yrs ago) ETOH Use: occasional use Functional Ability ADLs Independent: dressing, eating, toileting, bathing. Ambulation: independent IADLs Independent: shopping, housework, finances, food prep, telephone, transportation , medication admin. Employment History Employment: Retired Profession/Employer: [employer] Exam & Diagnostic Data Last 24 Hrs of Vital Signs/I&O Vital Signs Date Time Temp Pulse Resp B/P Pulse O2 O2 Flow FiO2 Ox Delivery Rate 11/01 1617 50 11/01 1600 98 Ventilator 50% 11/01 1600 98.3 67 20 150/70 98 Ventilator 50% 11/01 1329 68 155/99 11/01 1304 50 11/01 1200 100 Ventilator 50% 11/01 1200 98.1 82 20 142/90 100 Ventilator 60% 11/01 0928 60 11/01 0912 145 106/72 11/01 0845 100 11/01 0830 100 Ventilator 100% 11/01 0830 97.2 156 26 122/70 100 Ventilator 100% 11/01 0827 98.1 62 20 180/80 95 Room Air 11/01 0814 Room Air 11/01 0000 97 10/31 2348 97.9 50 20 126/70 94 Room Air Intake & Output 11/01 1600 11/01 0800 11/01 0000 Intake Total 1786 200 120 Output Total 400 Balance 1386 200 120 Intake, IV 1336 Intake, Oral 200 120 Intake, Other 450 Output, 100 Gastric Drainage Output, Urine 300 Physical Exam General Appearance: no apparent distress, sedated, intubated, overweight Other Physical Findings: Head: Normocephalic, atraumatic Eyes: Pupils normal in size, regular, reacting to light Ears: B/l normal on inspection Nose: Normal on inspection Throat/mouth: Moist mucosa Heart: irregulatly irrregular rhythm, systolic murmur Lung: Ronchi bilaterally Abd: Soft, non-tender, no distention appreciated Extremities: Normal knee exam bilaterally, no pedal edema, Distal neurovascular intact Neurologic: Limited exam due to patient's intubated and sedated condition Skin: Warm and dry Last 48 Hrs of Labs/Mello: Laboratory Tests 11/01/16 1610: pH 7.60 H, pCO2 25 L, pO2 87, HCO3 24, ABG O2 Sat (Measured) 97.0, P-50 (Temp Corrected) N, Carboxyhemoglobin 0.3 L, O2 Concentration % 50, Temperature 98.3, Respiration Rate 20, O2 Delivery Method VENT, Vent Mode VC-AC, Expiratory Pressure 5, Tidal Volume 550, Phlebotomy Draw Site RIGHT RADIAL 11/01/16 1242: Lactic Acid 1.4 11/01/16 0920: Troponin I Cancelled 11/01/16 0920: Lactic Acid Cancelled 11/01/16 0920: Lactic Acid 7.2 H 11/01/16 09: Anion Gap 17 H, Estimated GFR > 60, BUN/Creatinine Ratio 15.6, Phosphorus 3.8, Magnesium 1.1 L, Total Bilirubin 1.2, Direct Bilirubin 0.5 H, AST 38, ALT 35, Alkaline Phosphatase 39, Troponin I 0.03, Total Protein 6.1 L, Albumin 3.6, Prolactin 38.0 H, CBC w Diff NO MAN DIFF REQ, RBC 3.81 L, MCV 94.0, MCH 31.5 H, RDW 13.8, MPV 7.9, Gran % 78.2 H, Lymphocytes % 12.0 L, Monocytes % 6.5, Eosinophils % 2.9, Basophils % 0.4, Absolute Granulocytes 5.0, Absolute Lymphocytes 0.8 L, Absolute Monocytes 0.4, Absolute Eosinophils 0.2, Absolute Basophils 0, PUBS MCHC 33.5 11/01/16 0905: pH 7.50 H, pCO2 23 L, pO2 302 H, HCO3 18 L, ABG O2 Sat (Measured) 100.0, P- 50 (Temp Corrected) N, Carboxyhemoglobin 0.8 L, O2 Concentration % 100%, Respiration Rate 26, O2 Delivery Method VENT, Vent Mode AC, Expiratory Pressure 5, Tidal Volume 550, Pressure Support 0, Phlebotomy Draw Site RIGHT RADIAL 11/01/16 0900: Urine Color YEL, Urine Clarity HAZY H, Urine pH 6.0, Ur Specific [place] 1.020, Urine Protein 100 H, Urine Ketones NEG, Urine Nitrite NEG, Urine Bilirubin NEG, Urine Urobilinogen 1.0, Ur Leukocyte Esterase NEG, Ur Microscopic SEDIMENT EXAMINED, Urine RBC 1-3, Urine WBC 1-3 H, Ur Epithelial Cells FEW, Urine Bacteria FEW H, Urine Hemoglobin SMALL H, Urine Glucose NEG Diagnostic Data EKG Results irr irr rhythm, rate 170-180s, no p-wave, thus afib CXR Results IMPRESSION: Interval intubation with endotracheal tube tip terminating approximately 2.9 cm above the carine. Hazy retrocardiac opacity at the left lung base is unchanged and which may represent atelectasis and/or infiltrate. DICTATED BY: JULIO ESQUIVEL DO DATE/TIME DICTATED:11/01/16907 SAWMILL TALLY CLERK:BARBARA DATE/TIME TRANSCRIBED:11/01/[address]: IMPRESSION: 1. No acute intracranial abnormality. No intracranial hemorrhage or mass effect. 2. Volume loss, chronic microvascular ischemic changes and old lacunar infarcts. 3. Stable, nonspecific 4 mm hyperdense focus within the left parietal lobe which was not consistent with acute hemorrhage on the patient's recent MRI. DICTATED BY: JULIO ESQUIVEL DO DATE/TIME DICTATED:11/01/16858 SAWMILL TALLY CLERK:BARBARA DATE/TIME TRANSCRIBED:11/01/16858 Assessment/Plan Impression/Plan: 86-year-old male with past medical history of hypertension, cardiac stent (2015, [facility]), hyperlipidemia, diabetes mellitus, GERD, who presented to the emergency room on 10/29/2016 with neurological symptoms of headache, difficulty speaking, and weakness. He was initially being managed for ischemic stroke in the neuro-cardiac telemetry floor. He had a stroke earlier on 11/01/16 and was intubated to protect his airways, and transferred to the ICU for further care. Issues he is being managed for: Respiratory -Intubated, to protect his airways after seizure -We will continue the intubation with recheck of ABG and adjust ventilator settings accordingly -Repeat chest x-ray demonstrated possible aspiration so will start on IV Unasyn empirically after sending panculture Cardiovascular #Paroxysmal Atrial fibrillation with Rapid ventricular rhythm, now in sinus rhythm -Broke with IV digoxin earlier today -Continue maintenance with MRI done 400 mg by mouth twice a day per cardiology -Continue antiplatelet therapy with aspirin and Plavix, but will not pursue with anticoagulants for now considering the possibility of hemorrhagic transformation of acute CVA -Cardiology input appreciated Neurology #Stroke, likely ischemic, awaiting repeat CAT scan tomorrow -CAT scan this morning does not show any bleeding in the brain -We'll repeat CAT scan tomorrow morning in decided on anticoagulation, considering the possibility of hemorrhagic transformation of acute CVA -If not bleeding, proceed with full anticoagulation; otherwise call neurology stat for possible transfer; also will hold anticoagulation if substantial area of infarction -Will go for MRI if the patient is extubated by tomorrow morning (seems unlikely currently) -Continue Keppra -Follow-up EEG -Neurology input appreciated Metabolic -We will replete electrolytes if depleted -Lactic acid was initially increased, has already come down to 1.4 normal Infectious disease -Awaiting panculture report -Continue empiric IV Unasyn therapy for now, with the suspicion of aspiration pneumonia Alimentary -Nothing by mouth for now, has orogastric tube Hematologic -Decision of anticoagulation to be made tomorrow morning after CAT scan of the head -Continue antiplatelets therapy with aspirin and Plavix DVT prophylaxis: Alps at all times Diet: Nothing by mouth for now, intubated patient CODE STATUS: Full code Consult Acknowledgment - Thank you for your consult request. Joan HOFF MD 11/01/16 1007: General Information and HPI Consulting Request Date of Consult: 11/01/16 Assessment/Plan Other Findings/Comments: I have personally seen and examined the patient. I agree with the resident's assessment and plan as above. The patient is an 86 year old male with a PMH significant for HTN, HLD, DM and coronary disease. The patient has known three- vessel coronary disease with a drug-eluting stent. The patient was admitted on 10/29/2016 with confusion and expressive aphasia. Patient was evaluated and found to have an acute left MCA posterior CVA. He was evaluated by both neurology and cardiology. An MRI was done that failed to demonstrate any evidence of hemorrhagic conversion. As per cardiology, no cardiac source of CVA was recognized noting the patient did not have any evidence of arrhythmia. He did have preserved left ventricular function with moderate aortic stenosis. He did not have any significant carotid artery disease. The patient's symptoms have clinically improved and he was being considered for discharge today. This morning while in the chair he developed a seizure episode. Ativan 2 mg was administered stat. BP was recorded 212 SBP. He was given 5mg of hydralizine stat , with repeat BP 180/80. His seizure episode persisted another 2mg of ativan was given. Blood sugar was 160. The patient continued to seize in an additional 2 mg of Ativan was given. A stroke alert was called. The patient was intubated without complication by anesthesia. The patient was started on 1500 mg of IV Keppra neurology. During the event, the patient appeared to be in rapid atrial fibrillation. A stat head CT was performed which did not show any acute change. The patient was transferred to the critical care unit and placed on mechanical ventilation. Ventilator settings were given to respiratory. Cardiology was called to the bedside and has evaluated the patient. No anticoagulation was recommended by neurology. The patient is currently intubated and sedated on mechanical ventilation in the critical care unit and unable to give further history. Impression/Plan: 1. Generalized tonic-clonic seizure, setting of a new left posterior MCA stroke. There is no evidence of hemorrhage on the current head CT. We do need to consider an evolving stroke or seizures secondary to recent CVA. Will give ativan PRN for seizure activity. Continue aspirin and Plavix. Await further neurology input. 2. Respiratory failure - the patient was intubated for airway protection. We will check a follow-up ABG, and adjust ventilator accordingly. Chest x-ray demonstrates possible aspiration. Will panculture and start IV Unasyn. Will institute ventilator bundle with DVT (alps) and GI prophylaxis. 3. New onset atrial fibrillation - will follow up cardiology recommendations. 4. Hypokalemia - will replete. Will also add on extended electrolyte panel and replace as necessary. 5. Increased lactic acid in the setting of generalized seizure. The patient is critically illl and needs close monitoring. Will follow up later today. Patient's informed. Consult Acknowledgment - Thank you for your consult request.
[2016-11-01 09:58] LABS: ABSOLUTE BASOPHIL COUNT 0 /CUMM (0.0-0.2); ABSOLUTE EOSINOPHIL COUNT 0.2 /CUMM (0.0-0.7); ABSOLUTE LYMPH COUNT 0.8 /CUMM (1.2-3.4); ABSOLUTE MONOCYTE COUNT 0.4 /CUMM (0.10-0.60); BASOPHIL % 0.4 % (0.0-2.0); EOSINOPHIL % 2.9 % (0-5); GRANULOCYTE % 78.2 % (42.2-75.2); HEMATOCRIT 35.8 % (42-52); MEAN CORPUSCULAR HGB 31.5 PG (27.0-31.0); MEAN CORPUSCULAR HGB CONC 33.5 G/DL (33.0-37.0); MEAN PLATELET VOLUME 7.9 FL (7.4-10.4); PLATELET COUNT 167 /CUMM (130-400); RBC DISTRIBUTION WIDTH 13.8 % (11.5-14.5); RED BLOOD CELL CT 3.81 /CUMM (4.70-6.10); WHITE BLOOD CELL COUNT 6.4 /CUMM (4.8-10.8)
[2016-11-01 12:00] VITALS: BP 142/90
--- NOTE | 2016-11-01 12:25 | PN- Cardiology ---
Subjective Subjective: Patient events noted. He is currently intubated. The patient was reportedly doing well but this morning had an acute change in mental status along with elevated blood pressure. He did receive intravenous hydralazine. He was transferred to the intensive care unit and required intubation. There was a concern he could be having a recurrence neurologic events. He was also noted the to be in a new narrow complex tachycardia which started around 8:30 this morning. We did give him intravenous digoxin this morning for rate control but he subsequently converted to sinus rhythm after that. Objective Vital Signs and I&Os Vital Signs Date Time Temp Pulse Resp B/P Pulse O2 O2 Flow FiO2 Ox Delivery Rate 11/01 0928 60 11/01 0912 145 106/72 11/01 0845 100 11/01 0827 98.1 62 20 180/80 95 Room Air 11/01 0814 Room Air 11/01 0000 97 10/31 2348 97.9 50 20 126/70 94 Room Air 10/31 1550 Room Air 10/31 1545 97.1 52 20 142/66 96 Room Air Intake & Output 11/01 1600 11/01 0800 11/01 0000 10/31 1600 10/31 0800 10/31 0000 Intake Total 200 120 720 450 240 Output Total 600 Balance 200 120 120 450 240 Intake, Oral 200 120 720 450 240 Number 1 Bowel Movements Output, Urine 600 Physical Exam: General: Intubated Eyes: No obvious scleral icterus. HEENT: No jugular venous distention or abnormal jugular venous pulsations. Cardiovascular: Normal intensity S1/S2. Irregular. 2/6 systolic murmur Respiratory: Mild rhonchi Abdomen: Soft, nontender with no guarding or rebound tenderness. Musculoskeletal: No clubbing or cyanosis noted, no edema Skin: Warm, no obvious embolic phenomenon Neurologic: Intubated, non responsive but with spontaneous movements Lymph: No gross lymphadenopathy. Current Medications: Current Medications Sig/Reagan Start time Last Medication Dose Route Stop Time Status Admin Acetaminophen 1,000 MG Q6P PRN 10/29 1630 AC IV Amiodarone HCl 400 MG BID 11/01 1126 AC PO Ampicillin Sodium/ 3,000 MG Q6 11/01 1200 AC 11/01 Sulbactam Sodium IV 1145 Sodium Chloride 100 ML Aspirin 81 MG DAILY 11/01 1029 AC 11/01 PO 1038 Aspirin Buffered 81 MG DAILY 10/29 1615 DC 10/31 PO 0949 Atorvastatin Calcium 80 MG 1700 10/30 1700 AC 10/31 PO 1646 Clopidogrel Bisulfate 75 MG DAILY 10/29 1615 AC 11/01 PO 1038 Digoxin 0.5 MG ONCE ONE 11/01 0915 DC 11/01 IV 11/01 0916 0912 Hydralazine HCl 5 MG ONCE ONE 11/01 0815 DC IV 11/01 0816 Insulin Aspart 0 TIDAC 10/29 1700 DC SC Insulin Human Regular 0 Q6 11/01 1200 AC 11/01 SC 1147 Isosorbide 30 MG DAILY 10/31 1014 DC 10/31 Mononitrate PO 1147 Latanoprost 1 GTT QPM 10/29 2200 AC 10/31 OPH 2342 Levetiracetam 500 MG BID 11/01 2200 AC Sodium Chloride 100 ML IV Levetiracetam 1,500 MG ONCE ONE 11/01 0830 DC 11/01 Sodium Chloride 100 ML IV 11/01 0845 0909 Lorazepam 2 MG Q4P PRN 11/01 1015 AC 11/01 IV 1020 Lorazepam 2 MG ONE ONE 11/01 0815 DC 11/01 IV 11/01 0816 0815 Magnesium Sulfate 1 GM Q2H 11/01 1130 AC Dextrose/Water 100 ML IV 11/01 1529 Metoprolol Succinate 25 MG DAILY 10/30 1000 DC 10/31 PO 0949 Pantoprazole Sodium 40 MG DAILY 11/01 1000 AC 11/01 IV 1050 Patient Medication 1 UNIT 1200 11/01 1200 DC 11/01 Teaching ED 11/01 1201 1147 Patient Medication 1 UNIT ONE NR 11/01 1030 AC Teaching ED 11/01 1630 Patient Medication 1 ED .STK-MED ONE 10/31 1351 NH Teaching ED 10/31 1352 Potassium Chloride 10 MEQ ONCE ONE 11/01 1045 DC 11/01 IV 11/01 1046 1050 Potassium Chloride 40 MEQ ONCE ONE 11/01 1045 DC 11/01 PO 11/01 1046 1050 Results Last 48 Hrs of Labs/Mics: Laboratory Tests 11/01/16 0920: Troponin I Cancelled 11/01/16 0920: Lactic Acid Pending 11/01/16 0920: Lactic Acid 7.2 H 11/01/16 0920: Anion Gap 17 H, Estimated GFR > 60, BUN/Creatinine Ratio 15.6, Phosphorus 3.8, Magnesium 1.1 L, Total Bilirubin 1.2, Direct Bilirubin 0.5 H, AST 38, ALT 35, Alkaline Phosphatase 39, Troponin I 0.03, Total Protein 6.1 L, Albumin 3.6, Prolactin 38.0 H, CBC w Diff NO MAN DIFF REQ, RBC 3.81 L, MCV 94.0, MCH 31.5 H, RDW 13.8, MPV 7.9, Gran % 78.2 H, Lymphocytes % 12.0 L, Monocytes % 6.5, Eosinophils % 2.9, Basophils % 0.4, Absolute Granulocytes 5.0, Absolute Lymphocytes 0.8 L, Absolute Monocytes 0.4, Absolute Eosinophils 0.2, Absolute Basophils 0, PUBS MCHC 33.5 11/01/16 0905: pH 7.50 H, pCO2 23 L, pO2 302 H, HCO3 18 L, ABG O2 Sat (Measured) 100.0, P- 50 (Temp Corrected) N, Carboxyhemoglobin 0.8 L, O2 Concentration % 100%, Respiration Rate 26, O2 Delivery Method VENT, Vent Mode AC, Expiratory Pressure 5, Tidal Volume 550, Pressure Support 0, Phlebotomy Draw Site RIGHT RADIAL 11/01/16 0900: Urine Color YEL, Urine Clarity HAZY H, Urine pH 6.0, Ur Specific [place] 1.020, Urine Protein 100 H, Urine Ketones NEG, Urine Nitrite NEG, Urine Bilirubin NEG, Urine Urobilinogen 1.0, Ur Leukocyte Esterase NEG, Ur Microscopic SEDIMENT EXAMINED, Urine RBC 1-3, Urine WBC 1-3 H, Ur Epithelial Cells FEW, Urine Bacteria FEW H, Urine Hemoglobin SMALL H, Urine Glucose NEG Recent Imaging Studies: Telemetry tracings were personally reviewed and showed sinus rhythm with conversion to rapid atrial fibrillation and subsequent conversion back to sinus rhythm. CXR: Interval intubation with endotracheal tube tip terminating approximately 2.9 cm above the carine. Hazy retrocardiac opacity at the left lung base is unchanged and which may represent atelectasis and/or infiltrate. Repeat Head CT 1. No acute intracranial abnormality. No intracranial hemorrhage or mass effect. 2. Volume loss, chronic microvascular ischemic changes and old lacunar infarcts. 3. Stable, nonspecific 4 mm hyperdense focus within the left parietal lobe which was not consistent with acute hemorrhage on the patient's recent MRI. Assessment/Plan Assessment/Plan 1. 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 Altered mental status requiring intubation 3. New onset paroxysmal atrial fibrillation, now back in sinus 4. Moderate aortic stenosis 5. History of coronary artery disease with prior PCI 6. Hypertension Events from this morning noted as described above. Patient was initially hypertensive but then was mildly hypotensive after IV hydralazine and the new onset atrial fibrillation. We did give him 1 dose of IV digoxin but he subsequently converted back to sinus rhythm. At this point we are initiating amiodarone to try and prevent recurrent atrial fibrillation for the time being. After discussion with neurology we are not initiating anticoagulation due to concern for possible hemorrhagic transformation of the acute CVA. Continue dual antiplatelet and statin therapy. Blood pressure targets per neurology for the time being. Case discussed with the neurology and the critical care team as length. Time spent in critical care was approximately 45 minutes. Condition remains guarded at this time. Brandon Gooden MD [facility] Continue telemetry? Yes
--- NOTE | 2016-11-01 13:23 | PN- Att Addend ---
Attending Addendum Attending Brief Note Pt seen and examined. Discussed with housestaff. Events from this morning noted. Patient was seen early a.m., appropriate but dysphasic, worked a little bit with PT and after he sat in a chair became hypertensive and then had a cardiac arrest and is currently intubated. Was in atrial fibrillation briefly and after 1 dose of dig now back in sinus rhythm. At this point our working diagnosis is that he extended his previous stroke. Or he has a new stroke. Obviously the worry is that he has Occult A. fib that is causing him to have the strokes although we have no evidence of that up until this point. He is on dual antiplatelet therapy for now and we are not anticoagulating him as we risk hemorrhagic conversion. Especially given that his initial CT and MRI did show this very small nonspecific hemorrhage. Cardiology is helping us with the atrial fibrillation and the plan to do amnio to keep him in sinus, appreciate critical care consult with vent management. Neurology is aware of the events and will come by later. His has been updated with the entire plan. And will follow-up closely.
--- NOTE | 2016-11-01 14:58 | PN- Neurology ---
Subjective Subjective: According to his , had recovered speech remarkably by last PM Later: sudden elevation of BP, convulsive seizures, atrial fibrillation, intubated for airway protection. CT and MRI did not show acute infarction Review of Systems: unobtainable Objective Vital Signs and I&Os Vital Signs Date Time Temp Pulse Resp B/P Pulse O2 O2 Flow FiO2 Ox Delivery Rate 11/01 1329 68 155/99 11/01 1304 50 11/01 0928 60 11/01 0912 145 106/72 11/01 0845 100 11/01 0827 98.1 62 20 180/80 95 Room Air 11/01 0814 Room Air 11/01 0000 97 10/31 2348 97.9 50 20 126/70 94 Room Air 10/31 1550 Room Air 10/31 1545 97.1 52 20 142/66 96 Room Air Intake & Output 11/01 1600 11/01 0800 11/01 0000 10/31 1600 10/31 0800 10/31 0000 Intake Total 200 120 720 450 240 Output Total 600 Balance 200 120 120 450 240 Intake, Oral 200 120 720 450 240 Number 1 Bowel Movements Output, Urine 600 Physical Exam: Intubated mildly restless 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, not right opens eyes to command [id number] EOMs appear full right Babinski Current Medications: Current Medications Sig/Reagan Start time Last Medication Dose Route Stop Time Status Admin Acetaminophen 1,000 MG Q6P PRN 10/29 1630 AC IV Amiodarone HCl 400 MG BID 11/01 1126 AC 11/01 PO 1329 Ampicillin Sodium/ 3,000 MG Q6 11/01 1200 AC 11/01 Sulbactam Sodium IV 1145 Sodium Chloride 100 ML Aspirin 81 MG DAILY 11/01 1029 AC 11/01 PO 1038 Aspirin Buffered 81 MG DAILY 10/29 1615 DC 10/31 PO 0949 Atorvastatin Calcium 80 MG 1700 10/30 1700 AC 10/31 PO 1646 Clopidogrel Bisulfate 75 MG DAILY 10/29 1615 AC 11/01 PO 1038 Digoxin 0.5 MG ONCE ONE 11/01 914 DC 11/01 IV 11/01 0916 0912 Enoxaparin Sodium 40 MG DAILY 11/02 1000 AC SC Hydralazine HCl 5 MG ONCE ONE 11/01 0815 DC IV 11/01 0816 Insulin Aspart 0 TIDAC 10/29 1700 DC SC Insulin Human Regular 0 Q6 11/01 1200 AC 11/01 SC 1147 Isosorbide 30 MG DAILY 10/31 1014 DC 10/31 Mononitrate PO 1147 Latanoprost 1 GTT QPM 10/29 2200 AC 10/31 OPH 2342 Levetiracetam 500 MG BID 11/01 2200 DC Sodium Chloride 100 ML IV Levetiracetam 500 MG Q12 11/01 2200 AC N/A 1 UNIT IV Levetiracetam 1,500 MG ONCE ONE 11/01 0830 DC 11/01 Sodium Chloride 100 ML IV 11/01 0845 0909 Lorazepam 1 MG ONCE ONE 11/01 1230 DC 11/01 IV 11/01 1231 1222 Lorazepam 2 MG Q4P PRN 11/01 1015 AC 11/01 IV 1020 Lorazepam 2 MG ONE ONE 11/01 0815 DC 11/01 IV 11/01 0816 0815 Magnesium Sulfate 1 GM Q2H 11/01 1130 AC 11/01 Dextrose/Water 100 ML IV 11/01 1529 1245 Metoprolol Succinate 25 MG DAILY 10/30 1000 DC 10/31 PO 0949 Pantoprazole Sodium 40 MG DAILY 11/01 1000 AC 11/01 IV 1050 Patient Medication 1 UNIT ONE NR 11/01 1245 DC Teaching ED 11/01 1300 Patient Medication 1 UNIT 1200 11/01 1200 DC 11/01 Teaching ED 11/01 1201 1147 Patient Medication 1 UNIT ONE NR 11/01 1030 Teaching ED 11/01 1630 Potassium Chloride 10 MEQ ONCE ONE 11/01 1045 DC 11/01 IV 11/01 1046 1050 Potassium Chloride 40 MEQ ONCE ONE 11/01 1045 DC 11/01 PO 11/01 1046 1050 Sodium Chloride 1,000 ML Q10H 11/01 1230 AC 11/01 IV 11/01 2229 1245 Assessment/Plan Assessment: Suspect new stoke with acute elevation of BP and Seizure. now has right side weakness and Babinski, cannot assess language (ETT) Etiology likely PAF difficult to assess extent of this new current event. Was recovering nicely from admission event of sudden dysphasia and CT/MRI failed to show acute infarction, may have had prior episodes PAF Plan: f/u CT tomorrow AM. MRI if extubated If no evident infaction and in setting of 2 possible cardioembolic episodes in short period of time would proceed to early full anticoagulation; risk of further emboli would outweigh risk of hemorrhagic transformation if volume of stroke small. If substantial area of infarction would recommend holding off on full AC, continuing dual antiplatelet treatment and efforts to maintain in NSR continue Kera Schedule EEG Dr. Gamez conductor yard for weekend, can be reached through [phone]
[2016-11-01 16:00] VITALS: BP 150/70
--- NOTE | 2016-11-01 21:18 | ELECTROENCEPHALOGRAM REPORT ---
Electroencephalogram Report Electroencephalogram Results Date of service: 11/01/16 Attending MD: GABO ARGUETA,PAULINA Carvalho Sand System Operator: Deven Farnsworth EEG Number: [id number] Test Utilizes: 10-20 system, 21 lead 18 channel digital recording Pertinent Hx/Physical/Neuro Findings/Clin Diagnosis: New onset generalized convulsive seizure Inpatient Medications: Current Medications Sig/Reagan Start time Last Medication Dose Route Stop Time Status Admin Acetaminophen 1,000 MG Q6P PRN 10/29 1630 AC IV Amiodarone HCl 400 MG BID 11/01 1126 AC 11/01 PO 1329 Ampicillin Sodium/ 3,000 MG Q6 11/01 1200 AC 11/01 Sulbactam Sodium IV 1735 Sodium Chloride 100 ML Aspirin 81 MG DAILY 11/01 1029 AC 11/01 PO 1038 Aspirin Buffered 81 MG DAILY 10/29 1615 DC 10/31 PO 0949 Atorvastatin Calcium 80 MG 1700 10/30 1700 AC 11/01 PO 1612 Clopidogrel Bisulfate 75 MG DAILY 10/29 1615 AC 11/01 PO 1038 Digoxin 0.5 MG ONCE ONE 11/01 0915 DC 11/01 IV 11/01 0916 0912 Enoxaparin Sodium 40 MG DAILY 11/02 1000 DC SC Enoxaparin Sodium 40 MG DAILY 11/01 1515 AC 11/01 SC 1613 Hydralazine HCl 5 MG ONCE ONE 11/01 0815 DC IV 11/01 0816 Insulin Aspart 0 TIDAC 10/29 1700 DC SC Insulin Human Regular 0 Q6 11/01 1200 AC 11/01 SC 1736 Isosorbide 30 MG DAILY 10/31 1014 DC 10/31 Mononitrate PO 1147 Latanoprost 1 GTT QPM 10/29 2200 AC 10/31 OPH 2342 Levetiracetam 500 MG BID 11/01 2200 DC Sodium Chloride 100 ML IV Levetiracetam 500 MG Q12 11/01 2200 AC N/A 1 UNIT IV Levetiracetam 1,500 MG ONCE ONE 11/01 0830 DC 11/01 Sodium Chloride 100 ML IV 11/01 0845 0909 Lorazepam 1 MG ONCE ONE 11/01 1730 DC 11/01 IV 11/01 1731 1735 Lorazepam 1 MG ONCE ONE 11/01 1230 DC 11/01 IV 11/01 1231 1222 Lorazepam 2 MG Q4P PRN 11/01 1015 AC 11/01 IV 2023 Lorazepam 2 MG ONE ONE 11/01 0815 DC 11/01 IV 11/01 0816 0815 Magnesium Sulfate 1 GM Q2H 11/01 2100 AC Dextrose/Water 100 ML IV 11/02 0059 Magnesium Sulfate 1 GM Q2H 11/01 1130 DC 11/01 Dextrose/Water 100 ML IV 11/01 1529 1245 Metoprolol Succinate 25 MG DAILY 10/30 1000 DC 10/31 PO 0949 Pantoprazole Sodium 40 MG DAILY 11/01 1000 AC 11/01 IV 1050 Patient Medication 1 UNIT ONE NR 11/01 1515 AC Teaching ED 11/01 2115 Patient Medication 1 UNIT ONE NR 11/01 1245 DC Teaching ED 11/01 1300 Patient Medication 1 UNIT 1200 11/01 1200 DC 11/01 Teaching ED 11/01 1201 1147 Patient Medication 1 UNIT ONE NR 11/01 1030 DC Teaching ED 11/01 1630 Phosphate 250 MG PC AND AT BEDTIME 11/01 2100 AC PO Potassium Chloride 10 MEQ Q1H 11/01 2100 AC 11/01 IV 11/01 2201 2109 Potassium Chloride 10 MEQ ONCE ONE 11/01 1045 DC 11/01 IV 11/01 1046 1050 Potassium Chloride 40 MEQ ONCE ONE 11/01 1045 DC 11/01 PO 11/01 1046 1050 Sodium Chloride 1,000 ML Q10H 11/01 2100 AC 11/01 IV 2109 Sodium Chloride 1,000 ML Q10H 11/01 1230 AC 11/01 IV 11/01 2229 1245 Vecuronium Dixie 10 MG .STK-MED ONE 11/01 0808 DC IV 11/01 0809 Interpretation: The background is dominated by low amplitude beta frequency activity and a mild excess of low to moderate amplitude generalized theta. No focal or epileptiform abnormalities are seen. Photic adds no information, hyperventilation could not be done. Impression: abnormal due to mild to moderate generalized slowing without focal or epileptiform features.
[2016-11-02] VITALS: BP 130/70
[2016-11-02 04:49] LABS: ABSOLUTE BASOPHIL COUNT 0 /CUMM (0.0-0.2); ABSOLUTE EOSINOPHIL COUNT 0.1 /CUMM (0.0-0.7); ABSOLUTE GRANULOCYTE CT 5.5 /CUMM (1.4-6.5); ABSOLUTE LYMPH COUNT 0.8 /CUMM (1.2-3.4); ABSOLUTE MONOCYTE COUNT 0.6 /CUMM (0.10-0.60); BASOPHIL % 0.2 % (0.0-2.0); EOSINOPHIL % 1.1 % (0-5); GRANULOCYTE % 78.2 % (42.2-75.2); HEMATOCRIT 32.6 % (42-52); MEAN CORPUSCULAR HGB 30.6 PG (27.0-31.0); MEAN CORPUSCULAR HGB CONC 32.9 G/DL (33.0-37.0); MEAN CORPUSCULAR VOLUME 93.1 FL (80.0-94.0); MEAN PLATELET VOLUME 7.8 FL (7.4-10.4); PLATELET COUNT 143 /CUMM (130-400); RBC DISTRIBUTION WIDTH 13.2 % (11.5-14.5)
[2016-11-02 04:56] LABS: PT 12.7 SEC (9.4-12.5)
[2016-11-02 08:00] VITALS: BP 182/90
--- NOTE | 2016-11-02 08:12 | PN- Resident CRCU ---
Subjective HPI/CRCU Issues: Patient in ICU because he is intubated, after seizure, stroke. I followed up and examined the patient today. She is lying in bed, intubated, and slightly sedated. Vitals stable, and no issues overnight. 24 Hour Events: See event note from yesterday. Objective Vital Signs & I&O Last 8 Hrs of Vitals and I&O: Vital Signs Date Time Temp Pulse Resp B/P Pulse O2 O2 Flow FiO2 Ox Delivery Rate 11/02 1620 35 11/02 1111 40 11/02 0904 66 187/72 11/02 0837 40 11/02 0400 99 Ventilator 40% 11/02 0327 40 11/02 0054 40 11/02 0000 98 Ventilator 40% 11/02 0000 98.4 56 16 130/70 98 Ventilator 40% 11/01 2145 40 11/01 2114 75 120/56 11/01 2000 98 Ventilator 40% 11/01 1844 40 Intake & Output 11/02 1600 11/02 0800 11/02 0000 Intake Total 1054 1100 Output Total 350 300 Balance 704 800 Intake, IV 1054 900 Intake, Oral 0 Intake, Other 200 Number 0 0 Bowel Movements Output, 0 0 Gastric Drainage Output, Urine 350 300 Patient 75.75 kg Weight Exam General Appearance: no apparent distress, comfortable, intubated, overweight Other Physical Findings: Head: Normocephalic, atraumatic Eyes: Pupils normal in size, regular, reacting to light Ears: B/l normal on inspection Nose: Normal on inspection Throat/mouth: Moist mucosa Heart: regular rhythm, systolic murmur Lung: Ronchi bilaterally Abd: Soft, non-tender, no distention appreciated Extremities: Normal knee exam bilaterally, no pedal edema, Distal neurovascular intact Neurologic: Limited exam due to patient's intubated and sedated condition, but patient is more responsive than yesterday in general Skin: Warm and dry NG Tube Site: orogastric tube in Date In: 11/01/16 Still Needed? Yes IV Drips IV Drips: IV Heparin Nutrition Nutrition: NPO Current Medications: Current Medications Sig/Reagan Start time Last Medication Dose Route Stop Time Status Admin Acetaminophen 1,000 MG Q6P PRN 10/29 1630 AC IV Amiodarone HCl 400 MG BID 11/01 1126 AC 11/02 PO 0904 Ampicillin Sodium/ 3,000 MG Q6 11/01 1200 AC 11/02 Sulbactam Sodium IV 1329 Sodium Chloride 100 ML Aspirin 81 MG DAILY 11/01 1029 DC 11/02 PO 0904 Atorvastatin Calcium 80 MG 1700 10/30 1700 AC 11/01 PO 1612 Clopidogrel Bisulfate 75 MG DAILY 10/29 1615 AC 11/02 PO 0904 Enoxaparin Sodium 40 MG DAILY 11/01 1515 DC 11/01 SC 1613 Heparin Sodium/ 25,000 UNIT Q24H 11/02 1130 AC 11/02 Dextrose IV 1330 Dextrose/Water 500 ML Insulin Human Regular 0 Q6 11/01 1200 AC 11/02 SC 1300 Latanoprost 1 GTT QPM 10/29 2200 AC 11/01 OPH 2158 Levetiracetam 500 MG BID 11/01 2200 DC Sodium Chloride 100 ML IV Levetiracetam 500 MG Q12 11/01 2200 AC 11/02 N/A 1 UNIT IV 0904 Lorazepam 1 MG ONCE ONE 11/02 0800 DC 11/02 IV 11/02 0801 0759 Lorazepam 1 MG ONCE ONE 11/01 2215 DC 11/01 IV 11/01 2216 2214 Lorazepam 2 MG Q4P PRN 11/01 1015 AC 11/02 IV 0542 Magnesium Sulfate 1 GM Q2H 11/01 2100 DC 11/01 Dextrose/Water 100 ML IV 11/02 0059 2232 Non-Formulary 0 SEE ADMIN CRITERIA 11/02 0830 DC Medication ANY Pantoprazole Sodium 40 MG DAILY 11/01 1000 AC 11/02 IV 0905 Patient Medication 1 UNIT ONE NR 11/01 1515 DC Teaching ED 11/01 2115 Phosphate 250 MG PC AND AT BEDTIME 11/01 2100 AC 11/02 PO 1330 Potassium Chloride 40 MEQ ONCE ONE 11/02 1315 DC 11/02 PO 11/02 1316 1330 Potassium Chloride 40 MEQ ONCE ONE 11/02 1015 CAN PO 11/02 1016 Potassium Chloride 10 MEQ Q1H 11/01 2100 DC 11/01 IV 11/01 2201 2214 Propofol 1,000 MG Q12H 11/02 0900 AC 11/02 N/A 100 ML IV 0904 Propofol 1,000 MG .STK-MED ONE 11/02 0853 DC IV 11/02 0854 Sodium Chloride 1,000 ML Q10H 11/01 2100 AC 11/02 IV 0904 Sodium Chloride 1,000 ML Q10H 11/01 1230 DC 11/01 IV 11/01 9870 1242 CXR Findings: IMPRESSION: 1. Endotracheal tube tip is low lying, 1.2 cm from the carine. 2. Low lung volumes with bibasilar subsegmental atelectasis and central vascular congestion, unchanged. DICTATED BY: MAISHA SHAW MD DATE/TIME DICTATED:11/02/161151 CUTTER GRINDER OPERATOR:BARBARA DATE/TIME TRANSCRIBED:11/02/161151 CT Scan Findings: IMPRESSION: 1. No acute intracranial abnormality. No intracranial hemorrhage or mass effect. 2. Volume loss, chronic microvascular ischemic changes and old lacunar infarcts. DICTATED BY: ASHA LAUGHLIN MD DATE/TIME DICTATED:11/02/16851 CUTTER GRINDER OPERATOR:BARBARA DATE/TIME TRANSCRIBED:11/02/16851 Impression/Plan Impression/Problem List Impression: 86-year-old male with past medical history of hypertension, cardiac stent (2015, [facility]), hyperlipidemia, diabetes mellitus, GERD, who presented to the emergency room on 10/29/2016 with neurological symptoms of headache, difficulty speaking, and weakness. He was initially being managed for ischemic stroke in the neuro-cardiac telemetry floor. He had a stroke earlier on 11/01/16 and was intubated to protect his airways, and transferred to the ICU on 11/01/16 for further care. Issues he is being managed for: Respiratory -Intubated, to protect his airways after seizure -Slightly alkalotic today, will decrease his breathing rate , and get a repeat ABG later today -Repeat chest x-ray demonstrated possible aspiration so will continue on IV Unasyn Cardiovascular #Paroxysmal Atrial fibrillation with Rapid ventricular rhythm, now in sinus rhythm -Continue maintenance with Amiodarone 400 mg by mouth/OGT twice a day per cardiology -Continue antiplatelet therapy with aspirin and Plavix -Pursuing IV heparin drip after the CT head this morning was negative for any bleeding or large ischemic stroke, thus less chances of hemorrhagic transformation of acute CVA -Cardiology input appreciated Neurology #Stroke, ischemic -CAT scan this morning does not show any bleeding in the brain -Pursuing IV heparin drip after the CT head this morning was negative for any bleeding or large ischemic stroke, thus less chances of hemorrhagic transformation of acute CVA -Continue Keppra to avoid seizure -EEG did not show any seizure-like activity, but was of suboptimal quality -Patient is put on Propofol for sedation to avoid ativan as much as possible -Neurology input appreciated Metabolic -We will replete electrolytes if depleted -Lactic acid was initially increased, has already come down to 1.4 normal Infectious disease -Awaiting panculture report -Continue empiric IV Unasyn therapy for now, with the suspicion of aspiration pneumonia Alimentary -Nothing by mouth for now, has orogastric tube Hematologic -IV heparin running for anticoagulation -Continue antiplatelets therapy with aspirin and Plavix DVT prophylaxis: Alps at all times Diet: Nothing by mouth for now, intubated patient CODE STATUS: Full code Problem List: 1. CVA (cerebral vascular accident) 2. Seizure 3. Endotracheally intubated Pain Ratin Tomorrow's Labs & Rationales: ICU lab bundle, CBC, chest x-ray to check for ET tube placement, INR Plan DVT/Prophylaxis: mechanical, pharmacological Code Status: Full Code
--- NOTE | 2016-11-02 09:00 | CT SCAN REPORT ---
EXAMINATION: CT HEAD WITHOUT CONTRAST CLINICAL INFORMATION: Seizure November 01. Signs of stroke. Intubated. COMPARISON: CT head 11/01/2016. TECHNIQUE: Contiguous axial imaging was performed from the skull base to vertex without intravenous administration of contrast. DLP: 600.71 mGy-cm FINDINGS: There is no evidence of acute intracranial hemorrhage or acute territorial infarction. No abnormal mass effect or midline shift is seen. Griffin to white matter differentiation is well preserved. No extra-axial fluid collections are identified. Lacunar infarcts are noted within the posterior left centrum semiovale and bilateral basal ganglia. Ventricles and sulci are prominent consistent with underlying volume loss without change. Periventricular white matter hypodensities again seen likely representing chronic microvascular ischemic changes. Calvarium is intact. The mastoid air cells and visualized portions of the paranasal sinuses are well aerated. Carotid siphon calcifications are present. IMPRESSION: 1. No acute intracranial abnormality. No intracranial hemorrhage or mass effect. 2. Volume loss, chronic microvascular ischemic changes and old lacunar infarcts.
--- NOTE | 2016-11-02 09:46 | PN- CRCU ---
Subjective HPI/Critical Care Issues: The patient has been intermittently agitated overnight, requiring Ativan. There were no further seizures reported. He remains on mechanical ventilation, on 40% . His saturations are in the high 90s. The patient is able to follow commands, noting he is squeezing both hands. His blood pressure continues to fluctuate. He is afebrile. Head CT failed to demonstrate any new acute abnormality. He remains in normal sinus rhythm. Objective Current Medications: Current Medications Sig/Reagan Start time Last Medication Dose Route Stop Time Status Admin Acetaminophen 1,000 MG Q6P PRN 10/29 1630 AC IV Amiodarone HCl 400 MG BID 11/01 1126 AC 11/02 PO 0904 Ampicillin Sodium/ 3,000 MG Q6 11/01 1200 AC 11/02 Sulbactam Sodium IV 0535 Sodium Chloride 100 ML Aspirin 81 MG DAILY 11/01 1029 AC 11/02 PO 0904 Aspirin Buffered 81 MG DAILY 10/29 1615 DC 10/31 PO 0949 Atorvastatin Calcium 80 MG 1700 10/30 1700 AC 11/01 PO 1612 Clopidogrel Bisulfate 75 MG DAILY 10/29 1615 AC 11/02 PO 0904 Enoxaparin Sodium 40 MG DAILY 11/02 1000 DC SC Enoxaparin Sodium 40 MG DAILY 11/01 1515 AC 11/01 SC 1613 Insulin Human Regular 0 Q6 11/01 1200 AC 11/02 SC 0535 Latanoprost 1 GTT QPM 10/29 2200 AC 11/01 OPH 2158 Levetiracetam 500 MG BID 11/01 2200 DC Sodium Chloride 100 ML IV Levetiracetam 500 MG Q12 11/01 2200 AC 11/02 N/A 1 UNIT IV 0904 Lorazepam 1 MG ONCE ONE 11/02 0800 DC 11/02 IV 11/02 0801 0759 Lorazepam 1 MG ONCE ONE 11/01 2215 DC 11/01 IV 11/01 2216 2214 Lorazepam 1 MG ONCE ONE 11/01 1730 DC 11/01 IV 11/01 1731 1735 Lorazepam 1 MG ONCE ONE 11/01 1230 DC 11/01 IV 11/01 1231 1222 Lorazepam 2 MG Q4P PRN 11/01 1015 AC 11/02 IV 0542 Magnesium Sulfate 1 GM Q2H 11/01 2100 DC 11/01 Dextrose/Water 100 ML IV 11/02 0059 2232 Magnesium Sulfate 1 GM Q2H 11/01 1130 DC 11/01 Dextrose/Water 100 ML IV 11/01 1529 1245 Non-Formulary 0 SEE ADMIN CRITERIA 11/02 0830 DC Medication ANY Pantoprazole Sodium 40 MG DAILY 11/01 1000 AC 11/02 IV 0905 Patient Medication 1 UNIT ONE NR 11/01 1515 DC Teaching ED 11/01 2115 Patient Medication 1 UNIT ONE NR 11/01 1245 DC Teaching ED 11/01 1300 Patient Medication 1 UNIT 1200 11/01 1200 DC 11/01 Teaching ED 11/01 1201 1147 Patient Medication 1 UNIT ONE NR 11/01 1030 DC Teaching ED 11/01 1630 Phosphate 250 MG PC AND AT BEDTIME 11/01 2100 AC 11/02 PO 0904 Potassium Chloride 10 MEQ Q1H 11/01 2100 DC 11/01 IV 11/01 2201 2214 Potassium Chloride 10 MEQ ONCE ONE 11/01 1045 DC 11/01 IV 11/01 1046 1050 Potassium Chloride 40 MEQ ONCE ONE 11/01 1045 DC 11/01 PO 11/01 1046 1050 Propofol 1,000 MG Q12H 11/02 0900 AC 11/02 N/A 100 ML IV 0904 Sodium Chloride 1,000 ML Q10H 11/01 2100 AC 11/02 IV 0904 Sodium Chloride 1,000 ML Q10H 11/01 1230 DC 11/01 IV 11/01 2229 1245 Vital Signs & I&O Last 24 Hrs of Vitals and I&O: Vital Signs Date Time Temp Pulse Resp B/P Pulse O2 O2 Flow FiO2 Ox Delivery Rate 11/02 0904 66 187/72 11/02 0837 40 11/02 0400 99 Ventilator 40% 11/02 0327 40 11/02 0054 40 11/02 0000 98 Ventilator 40% 11/02 0000 98.4 56 16 130/70 98 Ventilator 40% 11/01 2145 40 11/01 2114 75 120/56 11/01 2000 98 Ventilator 40% 11/01 1844 40 11/01 1617 50 11/01 1600 98 Ventilator 50% 11/01 1600 98.3 67 20 150/70 98 Ventilator 50% 11/01 1329 68 155/99 11/01 1304 50 11/01 1200 100 Ventilator 50% 11/01 1200 98.1 82 20 142/90 100 Ventilator 60% Intake & Output 11/02 1600 11/02 0800 11/02 0000 Intake Total 1054 1100 Output Total 350 300 Balance 704 800 Intake, IV 1054 900 Intake, Oral 0 Intake, Other 200 Number 0 0 Bowel Movements Output, 0 0 Gastric Drainage Output, Urine 350 300 Exam General Appearance: comfortable, sedated, intubated Head: atraumatic, normal appearance Neck: supple Respiratory: quiet respiration, rhonchi Cardiovascular: regular rate/rhythm Abdomen: normal bowel sounds, soft, non-tender Extremities: no edema Skin: intact, normal color, warm/dry Results Last 24 Hrs of Lab Results: Laboratory Tests 11/02/16 0450: pH 7.55 H, pCO2 27 L, pO2 105 H, HCO3 23, ABG O2 Sat (Measured) 97.0, P-50 ( Temp Corrected) Y, Carboxyhemoglobin 0.3 L, O2 Concentration % 40%, Temperature 98.8, Respiration Rate 16, O2 Delivery Method ESPRIT, Vent Mode AC, Expiratory Pressure 5, Tidal Volume 550, Phlebotomy Draw Site RIGHT RADIAL 11/02/16 0410: Anion Gap 8, Estimated GFR > 60, Glucose 100 H, Calcium 8.1 L, Phosphorus 2.8, Magnesium 2.0, Total Bilirubin 1.3, AST 45, ALT 43, Albumin 2.9 L, PT 12.7 H, INR 1.21 H, CBC w Diff NO MAN DIFF REQ, RBC 3.50 L, MCV 93.1, MCH 30.6, RDW 13.2, MPV 7.8, Gran % 78.2 H, Lymphocytes % 11.3 L, Monocytes % 9.2, Eosinophils % 1.1, Basophils % 0.2, Absolute Granulocytes 5.5, Absolute Lymphocytes 0.8 L, Absolute Monocytes 0.6, Absolute Eosinophils 0.1, Absolute Basophils 0, PUBS MCHC 32.9 L 11/01/16 1830: Anion Gap 10, Estimated GFR > 60, Glucose 83, Calcium 8.3 L, Phosphorus 1.8 L, Magnesium 1.6, Total Bilirubin 1.5 H, AST 55, ALT 41, Albumin 3.2 L 11/01/16 1610: pH 7.60 H, pCO2 25 L, pO2 87, HCO3 24, ABG O2 Sat (Measured) 97.0, P-50 (Temp Corrected) N, Carboxyhemoglobin 0.3 L, O2 Concentration % 50, Temperature 98.3, Respiration Rate 20, O2 Delivery Method VENT, Vent Mode VC-AC, Expiratory Pressure 5, Tidal Volume 550, Phlebotomy Draw Site RIGHT RADIAL 11/01/16 1242: Lactic Acid 1.[address] Scan Findings: 1. No acute intracranial abnormality. No intracranial hemorrhage or mass effect. 2. Volume loss, chronic microvascular ischemic changes and old lacunar infarcts. Impression/Plan Impression/Plan Impression/Plan: 1. Recent CVA with seizure activity. There were no new changes seen on head CT done this am.= 4. Hypokalemia - will replete. Will also add on extended electrolyte panel and replace as necessary. 5. Increased lactic acid in the setting of generalized seizure. Recommendations: * Decrease respiratory rate to 10 breaths per minute. * Please check a repeat ABG later today. * Will begin weaning trials when the patient is more awake and alert. * Follow up CXR results. * Propofol for light sedation-keep SAS between 3 and 4. * Attempt to refrain from giving the patient Ativan. * Decrease IV fluids to 50 ML per hour. * Begin anticoagulation with heparin as per neurology. Follow neuro input. * Contine IV Keppra. * Continue amiodarone as per cardiology. * Follow-up cultures. * Empiric IV Unasyn pending culture results. * Continue vent bundle - DVT/GI prophylaxis. * Follow electrolytes, replete as necessary. * Continue all supportive care. * Patient's updated at the bedside. Code Status: Full Code
--- NOTE | 2016-11-02 10:52 | RADIOLOGY REPORT ---
EXAMINATION: XR PORTABLE CHEST CLINICAL INFORMATION: Confirm ET tube placement. COMPARISON: 11/01/2016. TECHNIQUE: Portable portable AP upright view of the chest was obtained. FINDINGS: Multiple tubes and devices overlie the chest which creates significant artifact limiting detail. The position of the endotracheal tube is difficult to evaluate on this study due to the overlying artifact but appears to terminate close to the carine. Recommend reevaluation post repositioning. The lung volumes are decreased. There is unchanged retrocardiac opacity. The upper left lung and right lung are clear. IMPRESSION: Limited evaluation due to extensive overlying artifact. The ET tube tip appears to terminate near the carine. Recommend reassessment post repositioning. This critical result was discussed with Dr. Ferguson by telephone at 1047 hours on 11/02/2016 and it was ascertained that the content and urgency of the report was understood at the time of direct communication.
[2016-11-02 12:00] VITALS: BP 146/64
--- NOTE | 2016-11-02 12:02 | RADIOLOGY REPORT ---
EXAMINATION: XR PORTABLE CHEST CLINICAL INFORMATION: Respiratory the wrist. Evaluate ET tube positioning. COMPARISON: Chest x-ray dated 11/02/2016 and 11/01/2016. TECHNIQUE: Portable AP semierect view of the chest was obtained. FINDINGS: Endotracheal tube tip is poorly visualized but appears to be located in the distal trachea, 1.2 cm from the carine. Enteric tube courses into the abdomen with tip not adequately visualized. The cardiomediastinal silhouette is enlarged, unchanged. Calcification of the aortic arch is seen. Low lung volumes are noted with mild central vascular congestion and mild bibasilar subsegmental atelectasis. No pneumothorax or significant pleural fluid. Bony structures grossly unremarkable. Right upper quadrant paola are in place. IMPRESSION: 1. Endotracheal tube tip is low lying, 1.2 cm from the carine. 2. Low lung volumes with bibasilar subsegmental atelectasis and central vascular congestion, unchanged.
--- NOTE | 2016-11-02 13:40 | PN- Neurology ---
Subjective Subjective: no further episodes noted. Repeat CT head is urnemarkable. Objective Vital Signs and I&Os Vital Signs Date Time Temp Pulse Resp B/P Pulse O2 O2 Flow FiO2 Ox Delivery Rate 11/02 1111 40 11/02 0904 66 187/72 11/02 0837 40 11/02 0400 99 Ventilator 40% 11/02 0327 40 11/02 0054 40 11/02 0000 98 Ventilator 40% 11/02 0000 98.4 56 16 130/70 98 Ventilator 40% 11/01 2145 40 11/01 2114 75 120/56 11/01 2000 98 Ventilator 40% 11/01 1844 40 11/01 1617 50 11/01 1600 98 Ventilator 50% 11/01 1600 98.3 67 20 150/70 98 Ventilator 50% Intake & Output 11/02 1600 11/02 0800 11/02 0000 11/01 1600 11/01 0800 11/01 0000 Intake Total 1054 1100 1786 200 120 Output Total 350 300 400 Balance 613 459 9579 200 120 Intake, IV 0062 490 3523 Intake, Oral 0 200 120 Intake, Other 200 450 Number 0 0 Bowel Movements Output, 0 0 100 Gastric Drainage Output, Urine 350 300 300 Patient 75.75 kg Weight Physical Exam: Intubated On propofol gtts, sedated Pupils are 3mm michael, sluggish right Babinski no clonus Neg denisha's Current Medications: Current Medications Sig/Reagan Start time Last Medication Dose Route Stop Time Status Admin Acetaminophen 1,000 MG Q6P PRN 10/29 1630 AC IV Amiodarone HCl 400 MG BID 11/01 1126 AC 11/02 PO 0904 Ampicillin Sodium/ 3,000 MG Q6 11/01 1200 AC 11/02 Sulbactam Sodium IV 0535 Sodium Chloride 100 ML Aspirin 81 MG DAILY 11/01 1029 AC 11/02 PO 0904 Atorvastatin Calcium 80 MG 1700 08 1700 AC 11/01 PO 1612 Clopidogrel Bisulfate 75 MG DAILY 10/29 1615 AC 11/02 PO 0904 Enoxaparin Sodium 40 MG DAILY 11/02 1000 DC SC Enoxaparin Sodium 40 MG DAILY 11/01 1515 DC 11/01 SC 1613 Heparin Sodium/ 25,000 UNIT Q24H 11/02 1130 AC Dextrose IV Dextrose/Water 500 ML Insulin Human Regular 0 Q6 11/01 1200 AC 11/02 SC 0535 Latanoprost 1 GTT QPM 10/29 2200 AC 11/01 OPH 2158 Levetiracetam 500 MG BID 11/01 2200 DC Sodium Chloride 100 ML IV Levetiracetam 500 MG Q12 11/01 2200 AC 11/02 N/A 1 UNIT IV 0904 Lorazepam 1 MG ONCE ONE 11/02 0800 DC 11/02 IV 11/02 0801 0759 Lorazepam 1 MG ONCE ONE 11/01 2215 DC 11/01 IV 11/01 2216 2214 Lorazepam 1 MG ONCE ONE 11/01 1730 DC 11/01 IV 11/01 1731 1735 Lorazepam 2 MG Q4P PRN 11/01 1015 AC 11/02 IV 0542 Magnesium Sulfate 1 GM Q2H 11/01 2100 DC 11/01 Dextrose/Water 100 ML IV 11/02 0059 2232 Magnesium Sulfate 1 GM Q2H 11/01 1130 DC 11/01 Dextrose/Water 100 ML IV 11/01 1529 1245 Non-Formulary 0 SEE ADMIN CRITERIA 11/02 0830 DC Medication ANY Pantoprazole Sodium 40 MG DAILY 11/01 1000 AC 11/02 IV 0905 Patient Medication 1 UNIT ONE NR 11/01 1515 DC Teaching ED 11/01 2115 Patient Medication 1 UNIT ONE NR 11/01 1030 ND Teaching ED 11/01 1630 Phosphate 250 MG PC AND AT BEDTIME 11/01 2100 AC 11/02 PO 0904 Potassium Chloride 40 MEQ ONCE ONE 11/02 1315 UNVr PO 11/02 1316 Potassium Chloride 40 MEQ ONCE ONE 11/02 1015 CAN PO 11/02 1016 Potassium Chloride 10 MEQ Q1H 11/01 2100 DC 11/01 IV 11/01 2201 2214 Propofol 1,000 MG Q12H 11/02 0900 AC 11/02 N/A 100 ML IV 0904 Sodium Chloride 1,000 ML Q10H 11/01 2100 AC 11/02 IV 0904 Sodium Chloride 1,000 ML Q10H 11/01 1230 DC 11/01 IV 11/01 2229 1245 Results Last 24 Hours of Lab Results: Laboratory Tests 11/02 11/02 1315 0450 Blood Gas pH (7.35 - 7.45 PH) 7.50 H 7.55 H pCO2 (35 - 45 TORR) 30 L 27 L pO2 (80 - 100 TORR) 121 H 105 H HCO3 (21 - 28 MEQ/L) 23 23 ABG O2 Sat (Measured) (>96.0 %) 98.0 97.0 P-50 (Temp Corrected) YES Y Carboxyhemoglobin (1.5 - 5.0 %) 0.5 L 0.3 L O2 Concentration % 40 40% Temperature (97.0 - 100.0 FARH) 97.2 98.8 Respiration Rate (BPM) 10 16 O2 Delivery Method VENT ESPRIT Vent Mode AC AC Expiratory Pressure (CMH2O/P) 5 5 Tidal Volume (CC) 550 550 Miscellaneous Phlebotomy Draw Site RIGHT RADIAL RIGHT RADIAL 11/02 11/01 11/01 0410 1830 1610 Blood Gas pH (7.35 - 7.45 PH) 7.60 H pCO2 (35 - 45 TORR) 25 L pO2 (80 - 100 TORR) 87 HCO3 (21 - 28 MEQ/L) 24 ABG O2 Sat (Measured) (>96.0 %) 97.0 P-50 (Temp Corrected) N Carboxyhemoglobin (1.5 - 5.0 %) 0.3 L O2 Concentration % 50 Temperature (97.0 - 100.0 FARH) 98.3 Respiration Rate (BPM) 20 O2 Delivery Method VENT Vent Mode VC-AC Expiratory Pressure (CMH2O/P) 5 Tidal Volume (CC) 550 Chemistry Sodium (137 - 145 mmol/L) 135 L 134 L Potassium (3.5 - 5.1 mmol/L) 3.7 3.4 L Chloride (98 - 107 mmol/L) 103 101 Carbon Dioxide (22 - 30 mmol/L) 24 24 Anion Gap (5 - 16) 8 10 BUN (9 - 20 mg/dL) 13 15 Creatinine (0.7 - 1.2 mg/dL) 0.8 0.8 Estimated GFR (>60 ml/min) > 60 > 60 Glucose (65 - 99 mg/dL) 100 H 83 Calcium (8.4 - 10.2 mg/dL) 8.1 L 8.3 L Phosphorus (2.5 - 4.5 mg/dL) 2.8 1.8 L Magnesium (1.6 - 2.3 mg/dL) 2.0 1.6 Total Bilirubin (0.2 - 1.3 mg/dL) 1.3 1.5 H AST (17 - 59 U/L) 45 55 ALT (21 - 72 U/L) 43 41 Albumin (3.5 - 5.0 g/dL) 2.9 L 3.2 L Coagulation PT (9.4 - 12.5 SEC) 12.7 H INR (0.90 - 1.17) 1.21 H Hematology CBC w Diff NO MAN DIFF REQ WBC (4.8 - 10.8 /CUMM) 7.0 RBC (4.70 - 6.10 /CUMM) 3.50 L Hgb (14.0 - 18.0 G/DL) 10.7 L Hct (42 - 52 %) 32.6 L MCV (80.0 - 94.0 FL) 93.1 MCH (27.0 - 31.0 PG) 30.6 RDW (11.5 - 14.5 %) 13.2 Plt Count (130 - 400 /CUMM) 143 MPV (7.4 - 10.4 FL) 7.8 Gran % (42.2 - 75.2 %) 78.2 H Lymphocytes % (20.5 - 51.1 %) 11.3 L Monocytes % (1.7 - 9.3 %) 9.2 Eosinophils % (0 - 5 %) 1.1 Basophils % (0.0 - 2.0 %) 0.2 Absolute Granulocytes (1.4 - 6.5 /CUMM) 5.5 Absolute Lymphocytes (1.2 - 3.4 /CUMM) 0.8 L Absolute Monocytes (0.10 - 0.60 /CUMM) 0.6 Absolute Eosinophils (0.0 - 0.7 /CUMM) 0.1 Absolute Basophils (0.0 - 0.2 /CUMM) 0 PUBS MCHC (33.0 - 37.0 G/DL) 32.9 L Miscellaneous Phlebotomy Draw Site RIGHT RADIAL Recent Imaging Studies: EEG 11/01/16: abnormal due to mild to moderate generalized slowing without focal or epileptiform features CT head 11/02/16: 1. No acute intracranial abnormality. No intracranial hemorrhage or mass effect. 2. Volume loss, chronic microvascular ischemic changes and old lacunar infarcts. Assessment/Plan Assessment: Patient presents with episodes of stroke like symptoms. Recent MRI of brain did not show stroke or ICH. He had an episode of aphasia with acute elevation of BP and Seizure. now has right side weakness and Babinski, cannot assess language ( ETT) Etiology likely PAF. Was recovering nicely from admission event of sudden dysphasia and CT/MRI failed to show acute infarction, may have had prior episodes PAF Repeat CT head this AM was unremarkable. Ok to start heparin gtts at 800 units per hour, check PTT q6hrs and increased heparin by 100-200 units per hours, avoid bolus PTT goal 50-[address] head prn acute change in exam Repeat CT head once the patient has been theraputic on heparin for 24 hrs, if no ICH then ok to start oral anticoagulation EEG on Friday MRI brain when extubated to exclude new lesion continue Keppra Plan: see above
--- NOTE | 2016-11-02 14:44 | PN- Cardiology ---
Subjective Subjective: The patient remains intubated. He is able to follow simple commands. Remains in sinus rhythm. Objective Vital Signs and I&Os Vital Signs Date Time Temp Pulse Resp B/P Pulse O2 O2 Flow FiO2 Ox Delivery Rate 11/02 1111 40 11/02 0904 66 187/72 11/02 0837 40 11/02 0400 99 Ventilator 40% 11/02 0327 40 11/02 0054 40 11/02 0000 98 Ventilator 40% 11/02 0000 98.4 56 16 130/70 98 Ventilator 40% 11/01 2145 40 11/01 2114 75 120/56 11/01 2000 98 Ventilator 40% 11/01 1844 40 11/01 1617 50 11/01 1600 98 Ventilator 50% 11/01 1600 98.3 67 20 150/70 98 Ventilator 50% Intake & Output 11/02 1600 11/02 0800 11/02 0000 11/01 1600 11/01 0800 11/01 0000 Intake Total 1054 1100 1786 200 120 Output Total 350 300 400 Balance 219 620 6702 200 120 Intake, IV 9470 774 0223 Intake, Oral 0 200 120 Intake, Other 200 450 Number 0 0 Bowel Movements Output, 0 0 100 Gastric Drainage Output, Urine 350 300 300 Patient 167 lb Weight Physical Exam: General: Intubated Eyes: No obvious scleral icterus. HEENT: No jugular venous distention or abnormal jugular venous pulsations. Cardiovascular: Normal intensity S1/S2. Regular. 2/6 systolic murmur Respiratory: No rales or rhonchi Abdomen: no guarding Musculoskeletal: No clubbing or cyanosis noted, no edema Skin: Warm, no obvious embolic phenomenon Neurologic: Intubated, following simple commands Current Medications: Current Medications Sig/Reaagn Start time Last Medication Dose Route Stop Time Status Admin Acetaminophen 1,000 MG Q6P PRN 10/29 1630 AC IV Amiodarone HCl 400 MG BID 11/01 1126 AC 11/02 PO 0904 Ampicillin Sodium/ 3,000 MG Q6 11/01 1200 AC 11/02 Sulbactam Sodium IV 1329 Sodium Chloride 100 ML Aspirin 81 MG DAILY 11/01 1029 AC 11/02 PO 0904 Atorvastatin Calcium 80 MG 1700 10/30 1700 AC 11/01 PO 1612 Clopidogrel Bisulfate 75 MG DAILY 10/29 1615 AC 11/02 PO 0904 Enoxaparin Sodium 40 MG DAILY 11/02 1000 DC SC Enoxaparin Sodium 40 MG DAILY 11/01 1515 DC 11/01 SC 1613 Heparin Sodium/ 25,000 UNIT Q24H 11/02 1130 AC 11/02 Dextrose IV 1330 Dextrose/Water 500 ML Insulin Human Regular 0 Q6 11/01 1200 AC 11/02 SC 1300 Latanoprost 1 GTT QPM 10/29 2200 AC 11/01 OPH 2158 Levetiracetam 500 MG BID 11/01 2200 DC Sodium Chloride 100 ML IV Levetiracetam 500 MG Q12 11/01 2200 AC 11/02 N/A 1 UNIT IV 0904 Lorazepam 1 MG ONCE ONE 11/02 0800 DC 11/02 IV 11/02 0801 0759 Lorazepam 1 MG ONCE ONE 11/01 2215 DC 11/01 IV 11/01 2216 2214 Lorazepam 1 MG ONCE ONE 11/01 1730 DC 11/01 IV 11/01 1731 1735 Lorazepam 2 MG Q4P PRN 11/01 1015 AC 11/02 IV 0542 Magnesium Sulfate 1 GM Q2H 11/01 2100 DC 11/01 Dextrose/Water 100 ML IV 11/02 0059 2232 Magnesium Sulfate 1 GM Q2H 11/01 1130 DC 11/01 Dextrose/Water 100 ML IV 11/01 1529 1245 Non-Formulary 0 SEE ADMIN CRITERIA 11/02 0830 DC Medication ANY Pantoprazole Sodium 40 MG DAILY 11/01 1000 AC 11/02 IV 0905 Patient Medication 1 UNIT ONE NR 11/01 1515 DC Teaching ED 11/01 2115 Patient Medication 1 UNIT ONE NR 11/01 1030 [place] Teaching ED 11/01 1630 Phosphate 250 MG PC AND AT BEDTIME 11/01 2100 AC 11/02 PO 1330 Potassium Chloride 40 MEQ ONCE ONE 11/02 1315 DC 11/02 PO 11/02 1316 1330 Potassium Chloride 40 MEQ ONCE ONE 11/02 1015 CAN PO 11/02 1016 Potassium Chloride 10 MEQ Q1H 11/01 2100 DC 11/01 IV 11/01 2201 2214 Propofol 1,000 MG Q12H 11/02 0900 AC 11/02 N/A 100 ML IV 0904 Sodium Chloride 1,000 ML Q10H 11/01 2100 AC 11/02 IV 0904 Sodium Chloride 1,000 ML Q10H 11/01 1230 DC 11/01 IV 11/01 2229 1245 Results Last 48 Hrs of Labs/Mics: Laboratory Tests 11/02/16 1315: pH 7.50 H, pCO2 30 L, pO2 121 H, HCO3 23, ABG O2 Sat (Measured) 98.0, P-50 ( Temp Corrected) YES, Carboxyhemoglobin 0.5 L, O2 Concentration % 40, Temperature 97.2, Respiration Rate 10, O2 Delivery Method VENT, Vent Mode AC, Expiratory Pressure 5, Tidal Volume 550, Phlebotomy Draw Site RIGHT RADIAL 11/02/16 0450: pH 7.55 H, pCO2 27 L, pO2 105 H, HCO3 23, ABG O2 Sat (Measured) 97.0, P-50 ( Temp Corrected) Y, Carboxyhemoglobin 0.3 L, O2 Concentration % 40%, Temperature 98.8, Respiration Rate 16, O2 Delivery Method ESPRIT, Vent Mode AC, Expiratory Pressure 5, Tidal Volume 550, Phlebotomy Draw Site RIGHT RADIAL 11/02/16 0410: Anion Gap 8, Estimated GFR > 60, Glucose 100 H, Calcium 8.1 L, Phosphorus 2.8, Magnesium 2.0, Total Bilirubin 1.3, AST 45, ALT 43, Albumin 2.9 L, PT 12.7 H, INR 1.21 H, CBC w Diff NO MAN DIFF REQ, RBC 3.50 L, MCV 93.1, MCH 30.6, RDW 13.2, MPV 7.8, Gran % 78.2 H, Lymphocytes % 11.3 L, Monocytes % 9.2, Eosinophils % 1.1, Basophils % 0.2, Absolute Granulocytes 5.5, Absolute Lymphocytes 0.8 L, Absolute Monocytes 0.6, Absolute Eosinophils 0.1, Absolute Basophils 0, PUBS MCHC 32.9 L 11/01/16 1830: Anion Gap 10, Estimated GFR > 60, Glucose 83, Calcium 8.3 L, Phosphorus 1.8 L, Magnesium 1.6, Total Bilirubin 1.5 H, AST 55, ALT 41, Albumin 3.2 L 11/01/16 1610: pH 7.60 H, pCO2 25 L, pO2 87, HCO3 24, ABG O2 Sat (Measured) 97.0, P-50 (Temp Corrected) N, Carboxyhemoglobin 0.3 L, O2 Concentration % 50, Temperature 98.3, Respiration Rate 20, O2 Delivery Method VENT, Vent Mode VC-AC, Expiratory Pressure 5, Tidal Volume 550, Phlebotomy Draw Site RIGHT RADIAL 11/01/16 1242: Lactic Acid 1.4 11/01/16919: Troponin I Cancelled 11/01/16919: Lactic Acid Cancelled 11/01/16 09: Lactic Acid 7.2 H 11/01/16919: Anion Gap 17 H, Estimated GFR > 60, BUN/Creatinine Ratio 15.6, Phosphorus 3.8, Magnesium 1.1 L, Total Bilirubin 1.2, Direct Bilirubin 0.5 H, AST 38, ALT 35, Alkaline Phosphatase 39, Troponin I 0.03, Total Protein 6.1 L, Albumin 3.6, Prolactin 38.0 H, CBC w Diff NO MAN DIFF REQ, RBC 3.81 L, MCV 94.0, MCH 31.5 H, RDW 13.8, MPV 7.9, Gran % 78.2 H, Lymphocytes % 12.0 L, Monocytes % 6.5, Eosinophils % 2.9, Basophils % 0.4, Absolute Granulocytes 5.0, Absolute Lymphocytes 0.8 L, Absolute Monocytes 0.4, Absolute Eosinophils 0.2, Absolute Basophils 0, PUBS MCHC 33.5 11/01/16 0905: pH 7.50 H, pCO2 23 L, pO2 302 H, HCO3 18 L, ABG O2 Sat (Measured) 100.0, P- 50 (Temp Corrected) N, Carboxyhemoglobin 0.8 L, O2 Concentration % 100%, Respiration Rate 26, O2 Delivery Method VENT, Vent Mode AC, Expiratory Pressure 5, Tidal Volume 550, Pressure Support 0, Phlebotomy Draw Site RIGHT RADIAL 11/01/16 09: Urine Color YEL, Urine Clarity HAZY H, Urine pH 6.0, Ur Specific [place] 1.020, Urine Protein 100 H, Urine Ketones NEG, Urine Nitrite NEG, Urine Bilirubin NEG, Urine Urobilinogen 1.0, Ur Leukocyte Esterase NEG, Ur Microscopic SEDIMENT EXAMINED, Urine RBC 1-3, Urine WBC 1-3 H, Ur Epithelial Cells FEW, Urine Bacteria FEW H, Urine Hemoglobin SMALL H, Urine Glucose NEG Microbiology 11/01 899 UPPER RESP: Surveillance Culture - COMP 11/01 899 GI: Surveillance Culture - COMP Recent Imaging Studies: Telemetry tracings were personally reviewed and shows sinus rhythm and sinus bradycardia CXR 1. Endotracheal tube tip is low lying, 1.2 cm from the carine. 2. Low lung volumes with bibasilar subsegmental atelectasis and central vascular congestion, unchanged. Repeat Head CT 1. No acute intracranial abnormality. No intracranial hemorrhage or mass effect. 2. Volume loss, chronic microvascular ischemic changes and old lacunar infarcts. Assessment/Plan Assessment/Plan 1. 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 Altered mental status requiring intubation 3. New onset paroxysmal atrial fibrillation, now back in sinus 4. Moderate aortic stenosis 5. History of coronary artery disease with prior PCI 6. Hypertension Patient remains intubated and is following simple commands. Repeat head CT from this morning reviewed. Has been cleared to start on anticoagulation with IV heparin with plan to transition to oral anticoagulation when possible. Can likely discontinue aspirin and continue on just daily Plavix while on full anticoagulation. Continue the current amiodarone dose for now. Will wean off the ventilator as tolerated. Continue daily statin therapy Brandon Gooden MD [facility] Continue telemetry? Yes
[2016-11-02 16:00] VITALS: BP 162/74
--- NOTE | 2016-11-02 17:03 | Event Note ---
Event Note Event Note: I was notified by the nursing staff notified that the patient has red colored urine collection in your bag. Upon examination, patient has blood mixed urine, but not all blood, being collected in the usual back, also seen in the collecting tube of Villegas catheter. According to nursing staff, this has darkened after starting IV heparin drip. Of note, Villegas insertion was atraumatic and no bleeding was observed right after inserting Villegas catheter yesterday. -IV heparin drip was held -Stat urology consult was requested -According to urologist Dr Stanley Hightower, and urgent CAT scan of abdomen and pelvis has been ordered. Awaiting the procedure to be done and the results. -We were advised to keep holding the IV heparin drip until we get the results of CAT scan. Following consultation accordingly. -We will give a call back if we do not hear anything from urologist after the results of the CAT scan are obtained. -Resident well aware of the process. Attending Dr. Rowland notified.
[2016-11-02 22:08] LABS: PTT 31 SEC (25-37)
--- NOTE | 2016-11-02 22:53 | CT SCAN REPORT ---
EXAMINATION: CT ABDOMEN AND PELVIS WITHOUT AND WITH CONTRAST CLINICAL INFORMATION: Gross hematuria. COMPARISON: None. TECHNIQUE: Multidetector volumetric imaging was performed through the abdomen prior to IV contrast. The abdomen and pelvis were then reexamined after the administration of 94 mL Optiray 320 intravenous contrast. Sagittal and coronal reformatted images were obtained on the technologist's workstation. DLP: 1366 mGy-cm. FINDINGS: LUNG BASES: Trace bilateral pleural effusions with adjacent dependent consolidation. LIVER, GALLBLADDER, AND BILIARY TREE: The liver is normal in size, shape, and attenuation. No focal hepatic lesion or biliary ductal dilatation is present. Cholecystectomy clips noted. PANCREAS: Unremarkable. SPLEEN: Unremarkable. ADRENAL GLANDS: Unremarkable. KIDNEYS AND URETERS: Bilateral nephrograms are symmetric without hydronephrosis. There are numerous bilateral, similar appearing, circumscribed, hypodense lesions measuring up to 9.9 cm in diameter extending off the lower pole of the right kidney. This largest lesion measures 19 Hounsfield units and consistent with a cyst. No different/suspicious renal mass is noted. No hydronephrosis. Punctate renal vascular calcification. No convincing other renal or ureteral calculi. BLADDER: There is a 2.2 cm nodular structure in the inferior bladder which demonstrates enhancement on postcontrast imaging, concerning for possible bladder neoplasm versus prominent prostate gland extending cephalad to cause mass effect on the inferior bladder. Villegas catheter is demonstrated within the bladder. GASTROINTESTINAL TRACT: Bowel gas pattern is nonobstructive. No evidence of acute bowel inflammation. The appendix is not discretely delineated. ABDOMINAL WALL: No significant hernia is appreciated. LYMPH NODES: Normal. VASCULAR: Diffuse atherosclerotic disease including coronary artery calcification. PELVIC VISCERA: The prostate gland measures 4.3 cm in transverse diameter and contains coarse internal calcifications. Seminal vesicles are unremarkable. OSSEOUS STRUCTURES: No acute osseous abnormalities. Mild degenerative changes of the spine. IMPRESSION: 1. A 2.2 cm enhancing nodular structure along the inferior aspect of the bladder either represents a bladder neoplasm or cephalad extension of the prostate gland to have mass effect upon the inferior bladder. Consider correlation with cystoscopy. 2. Bilateral circumscribed hypodense renal lesions are favored to represent cysts. No convincing enhancing renal mass. 3. No convincing renal or ureteral calculus. 4. No hydronephrosis. 5. Small bilateral pleural effusions with adjacent bibasilar consolidation. 6. Diffuse atherosclerotic disease including coronary artery calcification.
[2016-11-02 23:00] VITALS: BP 152/56
[2016-11-03 05:31] LABS: ABSOLUTE BASOPHIL COUNT 0 /CUMM (0.0-0.2); ABSOLUTE EOSINOPHIL COUNT 0.1 /CUMM (0.0-0.7); ABSOLUTE GRANULOCYTE CT 5.4 /CUMM (1.4-6.5); ABSOLUTE LYMPH COUNT 0.7 /CUMM (1.2-3.4); ABSOLUTE MONOCYTE COUNT 0.7 /CUMM (0.10-0.60); BASOPHIL % 0.1 % (0.0-2.0); EOSINOPHIL % 1.5 % (0-5); GRANULOCYTE % 78.5 % (42.2-75.2); HEMATOCRIT 31.5 % (42-52); MEAN CORPUSCULAR HGB 31.3 PG (27.0-31.0); MEAN CORPUSCULAR HGB CONC 33.1 G/DL (33.0-37.0); MEAN CORPUSCULAR VOLUME 94.3 FL (80.0-94.0); MEAN PLATELET VOLUME 8.1 FL (7.4-10.4); PLATELET COUNT 144 /CUMM (130-400); RBC DISTRIBUTION WIDTH 13.3 % (11.5-14.5); RED BLOOD CELL CT 3.34 /CUMM (4.70-6.10); WHITE BLOOD CELL COUNT 6.9 /CUMM (4.8-10.8)
[2016-11-03 05:32] LABS: PT 13.5 SEC (9.4-12.5)
[2016-11-03 08:00] VITALS: BP 130/62
--- NOTE | 2016-11-03 08:15 | PN- Resident CRCU ---
Subjective HPI/CRCU Issues: Patient was noted to have hematuria yesterday and IV heparin was held. Urology was consulted and CT Abdomen/Pelvis was ordered according to their recommendations which showed a small 2.2 cm nodular structure in the inferior bladder concerning for bladder neoplasm vs. mass effect 2/2 prominent prostate gland. Patient was seen and examined this morning. He remains intubated and sedated on propofol. On mechanical ventilation day #3 with the following vent settings: SIMV mode, RR, PEEP 5 and FiO2 35%. He is awake, alert, moving his extremities spontaneously and following commands. Urine in the [place] is light red in color. Later in the afternoon, IV propofol drip was discontinued and he was successfully extubated. Respiratory status was stable post-extubation and he remained on 3 L NC. Objective Vital Signs & I&O Last 8 Hrs of Vitals and I&O: Vital Signs Date Time Temp Pulse Resp B/P Pulse O2 O2 Flow FiO2 Ox Delivery Rate 11/03 1144 35 11/03 1053 63 180/70 11/03 0800 35 11/03 0619 35 11/03 0400 98 Ventilator 35% 11/03 0322 35 11/03 0039 35 11/03 0000 98 Ventilator 35% 11/02 2300 97.2 63 20 152/56 98 Ventilator 35% 11/02 2246 70 27 164/65 11/02 2239 35 11/02 2000 98 Ventilator 35% Exam General Appearance: comfortable, sedated, intubated, follows commands Head: atraumatic, normal appearance Neck: supple Respiratory: few rhonchi scattered throughout bilateral anterior lung haskins Cardiovascular: regular rate/rhythm, normal S1 and S2 Gastrointestinal: soft, non-tender, positive bowel sounds Extremities: no edema Skin: warm/dry Current Medications: Current Medications Sig/Reagan Start time Last Medication Dose Route Stop Time Status Admin Acetaminophen 1,000 MG Q6P PRN 10/29 1630 AC IV Amiodarone HCl 200 MG BID 11/03 2200 AC PO Amiodarone HCl 400 MG BID 11/01 1126 DC 11/03 PO 1053 Ampicillin Sodium/ 3,000 MG Q6 11/01 1200 DC 11/03 Sulbactam Sodium IV 1201 Sodium Chloride 100 ML Aspirin 81 MG DAILY 11/04 1000 DC PO Aspirin 81 MG DAILY 11/03 1200 AC 11/03 PO 1156 Atorvastatin Calcium 80 MG 1700 03/08 1700 AC 11/02 PO 1756 Clopidogrel Bisulfate 75 MG DAILY 10/29 1615 AC 11/03 PO 1053 Guaifenesin 10 ML Q6P PRN 11/03 1400 CAN PO Heparin Sodium/ 25,000 UNIT Q24H 11/02 1130 DC 11/02 Dextrose IV 1330 Dextrose/Water 500 ML Insulin Human Regular 0 Q6 11/02 1759 AC SC Isosorbide 30 MG DAILY 11/03 1607 AC Mononitrate PO Latanoprost 1 GTT QPM 10/29 2200 AC 11/02 OPH 2245 Levetiracetam 500 MG Q12 11/01 2200 AC 11/03 N/A 1 UNIT IV 1045 Lorazepam 2 MG Q4P PRN 11/01 1015 AC 11/02 IV 0542 Magnesium Sulfate 1 GM ONCE ONE 11/03 1030 DC 11/03 Dextrose/Water 100 ML IV 11/03 1229 1230 Magnesium Sulfate 1 GM ONCE ONE 11/03 0830 DC 11/03 Dextrose/Water 100 ML IV 11/03 1029 1052 Metoprolol Succinate 25 MG DAILY 11/03 1615 AC PO Pantoprazole Sodium 40 MG DAILY 11/01 1000 AC 11/03 IV 1052 Patient Medication 1 UNIT ONE NR 11/03 1615 DC Teaching ED 11/03 1630 Phosphate 250 MG PC AND AT BEDTIME 11/01 2100 AC 11/03 PO 1052 Propofol 1,000 MG Q12H 11/02 0900 DC 11/03 N/A 100 ML IV 0324 Sodium Chloride 1,000 ML Q10H 11/01 2100 AC 11/03 IV 1053 Results Results: Laboratory Tests 11/03 11/03 1310 0555 Blood Gas pH (7.35 - 7.45 PH) 7.45 7.46 H pCO2 (35 - 45 TORR) 32 L 32 L pO2 (80 - 100 TORR) 109 H 109 H HCO3 (21 - 28 MEQ/L) 22 22 ABG O2 Sat (Measured) (>96.0 %) 97.0 98.0 P-50 (Temp Corrected) N Carboxyhemoglobin (1.5 - 5.0 %) 0.3 L 0.3 L O2 Concentration % 35% .35 Respiration Rate (BPM) 18 6 O2 Delivery Method VENT VENT Vent Mode CPAP SIMV Expiratory Pressure (CMH2O/P) 5 5 Tidal Volume (CC) 550 Pressure Support (CMH2O/P) 6 8 Miscellaneous Phlebotomy Draw Site LEFT RADIAL RIGHT RADIAL 11/03 11/02 2879 2278 Chemistry Sodium (137 - 145 mmol/L) 136 L Potassium (3.5 - 5.1 mmol/L) 4.0 Chloride (98 - 107 mmol/L) 103 Carbon Dioxide (22 - 30 mmol/L) 23 Anion Gap (5 - 16) 10 BUN (9 - 20 mg/dL) 11 Creatinine (0.7 - 1.2 mg/dL) 0.8 Estimated GFR (>60 ml/min) > 60 Glucose (65 - 99 mg/dL) 92 Calcium (8.4 - 10.2 mg/dL) 8.0 L Phosphorus (2.5 - 4.5 mg/dL) 3.9 Magnesium (1.6 - 2.3 mg/dL) 1.7 Total Bilirubin (0.2 - 1.3 mg/dL) 1.3 AST (17 - 59 U/L) 30 ALT (21 - 72 U/L) 34 Albumin (3.5 - 5.0 g/dL) 2.9 L Coagulation PT (9.4 - 12.5 SEC) 13.5 H INR (0.90 - 1.17) 1.29 H APTT (25 - 37 SEC) 31 Hematology CBC w Diff NO MAN DIFF REQ WBC (4.8 - 10.8 /CUMM) 6.9 RBC (4.70 - 6.10 /CUMM) 3.34 L Hgb (14.0 - 18.0 G/DL) 10.4 L Hct (42 - 52 %) 31.5 L MCV (80.0 - 94.0 FL) 94.3 H MCH (27.0 - 31.0 PG) 31.3 H RDW (11.5 - 14.5 %) 13.3 Plt Count (130 - 400 /CUMM) 144 MPV (7.4 - 10.4 FL) 8.1 Gran % (42.2 - 75.2 %) 78.5 H Lymphocytes % (20.5 - 51.1 %) 10.4 L Monocytes % (1.7 - 9.3 %) 9.5 H Eosinophils % (0 - 5 %) 1.5 Basophils % (0.0 - 2.0 %) 0.1 Absolute Granulocytes (1.4 - 6.5 /CUMM) 5.4 Absolute Lymphocytes (1.2 - 3.4 /CUMM) 0.7 L Absolute Monocytes (0.10 - 0.60 /CUMM) 0.7 H Absolute Eosinophils (0.0 - 0.7 /CUMM) 0.1 Absolute Basophils (0.0 - 0.2 /CUMM) 0 PUBS MCHC (33.0 - 37.0 G/DL) 33.1 Sputum Cx (11/02/16): NGTD BCx (11/01/16): NGTD x2 UCx (11/01/16): NGTD CXR Findings: ET tube tip terminates approximately 2.2 cm above carine. The lung volumes are markedly decreased. Possible left retrocardiac opacity. CT Scan Findings: CT ABDOMEN/PELVIS W/ & W/O IV CONTRAST: 1. A 2.2 cm enhancing nodular structure along the inferior aspect of the bladder either represents a bladder neoplasm or cephalad extension of the prostate gland to have mass effect upon the inferior bladder. Consider correlation with cystoscopy. 2. Bilateral circumscribed hypodense renal lesions are favored to represent cysts. No convincing enhancing renal mass. 3. No convincing renal or ureteral calculus. 4. No hydronephrosis. 5. Small bilateral pleural effusions with adjacent bibasilar consolidation. 6. Diffuse atherosclerotic disease including coronary artery calcification. CT HEAD W/O CONTRAST 1. No acute intracranial pathology. There is no significant interim change. 2. There is mild patchy low attenuation change in the periventricular white matter spaces, commonly associated with chronic microangiopathy. 3. There is stable age-appropriate central and cortical atrophy. Impression/Plan Impression/Problem List Impression: 86 y/o M with PMHx of CAD s/p PCI with stent, T2DM and HTN who is admitted for acute left MCA posterior CVA, with recurrent episodes of stroke like symptoms and new-onset paroxysmal atrial fibrillation. Problem List: 1. Acute ischemic left MCA stroke 2. Respiratory failure 3. Hyperlipidemia 4. Hypertension 5. Seizure 6. New onset atrial fibrillation 7. Paroxysmal atrial fibrillation 8. Hematuria Pain Ratin Tomorrow's Labs & Rationales: CBC and ICU bundle (ICU patient) Plan Respiratory: #Respiratory failure: Successfully extubated today. Respiratory status stable post-extubation. On 3 L NC. * Provide supplemental oxygen as needed to keep SpO2 > 92%. Infectious Diseases: Afebrile and without leukocytosis. No signs or symptoms of infection. BCx, UCx and sputum Cx negative. * Discontinue IV Unasyn. Cardiovascular: #New-onset paroxysmal atrial fibrillation: Continues to maintain sinus rhythm. * Cardiology following. Appreciate their recs. * Decrease amiodarone to 200 mg PO BID. * Continue to hold IV heparin drip in the setting of hematuria. #Hypertension: BP elevated to 180/70 this morning. * Resume prior to admission Toprol XL 25 mg PO daily and Imdur 30 mg PO daily once able to take PO. Hematology: #Hematuria: Likely secondary to IV heparin. CT Abdomen/Pelvis with 2.2 cm nodular structure in the inferior bladder, concerning for bladder neoplasm vs mass effect 2/2 prominent prostate gland. * Urology following. Appreciate their recs. * Hold IV heparin in the setting of persistent hematuria. Will resume IV heparin once urine clears with close monitoring of H/H. * Continue to monitor H/H closely in the setting of hematuria. Metabolic: Replete to K > 4 and Mg > 2. Alimentary: NPO pending swallow eval Neurological: #Acute left MCA posterior CVA: Continues to have stroke like symptoms with sudden onset of dysphagia although repeat CT Head today with no evidence of acute infarction. Most likely etiology is PAF. * Neurology following. Appreciate their recs. * MRI Ramírez W/WILLIAMS RADHA ordered to exclude new lesion. * EEG pending. * Continue aspirin 81 mg PO daily and Plavix 75 mg PO daily in the setting of recent stroke per cardiology recs. * Continue Keppra 500 mg IV BID for seizure prophylaxis. DVT/Prophylaxis: mechanical, pharmacological Code Status: Full Code
--- NOTE | 2016-11-03 09:41 | RADIOLOGY REPORT ---
EXAMINATION: XR PORTABLE CHEST CLINICAL INFORMATION: ET tube placement and orogastric tube placement. Day 2 of intubation. COMPARISON: Multiple prior chest radiographs most recently 11/02/2016. TECHNIQUE: Portable portable AP 90 degrees upright view of the chest was obtained. FINDINGS: ET tube is difficult to visualize but appears to terminate approximately 2.2 cm above the carine. The lung volumes are decreased. The right lung is clear. The visualized mid and upper left lung are clear but the left base is obscured. Left retrocardiac opacity is not excluded. The cardiac silhouette is enlarged without change. IMPRESSION: ET tube tip terminates approximately 2.2 cm above carine. The lung volumes are markedly decreased. Possible left retrocardiac opacity.
--- NOTE | 2016-11-03 10:10 | PN- CRCU ---
Subjective HPI/Critical Care Issues: The patient remains intubated and sedated on propofol. He is arousable and moving his extremities independently. The patient had significant hematuria yesterday and the heparin needed to be stopped as a result. The patient's respiratory status has been stable noting his oxygen requirement is only at 35% with saturations in the high 90s. He is afebrile. The patient's blood pressure continues to fluctuate but is overall well controlled. He has good urine output. CAT scan of the head has been ordered and is pending. No further seizure activity has been reported. Objective Current Medications: Current Medications Sig/Reagan Start time Last Medication Dose Route Stop Time Status Admin Acetaminophen 1,000 MG Q6P PRN 10/29 1630 AC IV Amiodarone HCl 400 MG BID 11/01 1126 AC 11/02 PO 2246 Ampicillin Sodium/ 3,000 MG Q6 11/01 1200 AC 11/03 Sulbactam Sodium IV 0648 Sodium Chloride 100 ML Aspirin 81 MG DAILY 11/01 1029 DC 11/02 PO 0904 Atorvastatin Calcium 80 MG 1700 10/30 1700 AC 11/02 PO 1756 Clopidogrel Bisulfate 75 MG DAILY 10/29 1615 AC 11/02 PO 0904 Enoxaparin Sodium 40 MG DAILY 11/01 1515 DC 11/01 SC 1613 Heparin Sodium/ 25,000 UNIT Q24H 11/02 1130 AC 11/02 Dextrose IV 1330 Dextrose/Water 500 ML Insulin Human Regular 0 Q6 11/02 1759 AC SC Insulin Human Regular 0 Q6 11/01 1200 DC 11/02 SC 1300 Latanoprost 1 GTT QPM 10/29 2200 AC 11/02 OPH 2245 Levetiracetam 500 MG Q12 11/01 2200 AC 11/02 N/A 1 UNIT IV 2250 Lorazepam 2 MG Q4P PRN 11/01 1015 AC 11/02 IV 0542 Magnesium Sulfate 1 GM ONCE ONE 11/03 1030 AC Dextrose/Water 100 ML IV 11/03 1229 Magnesium Sulfate 1 GM ONCE ONE 11/03 0830 AC Dextrose/Water 100 ML IV 11/03 1029 Pantoprazole Sodium 40 MG DAILY 11/01 1000 AC 11/02 IV 0905 Phosphate 250 MG PC AND AT BEDTIME 11/01 2100 AC 11/02 PO 2246 Potassium Chloride 40 MEQ ONCE ONE 11/02 1315 DC 11/02 PO 11/02 1316 1330 Potassium Chloride 40 MEQ ONCE ONE 11/02 1015 CAN PO 11/02 1016 Propofol 1,000 MG Q12H 11/02 0900 AC 11/03 N/A 100 ML IV 0324 Sodium Chloride 1,000 ML Q10H 11/01 2100 AC 11/02 IV 0904 Vital Signs & I&O Last 24 Hrs of Vitals and I&O: Vital Signs Date Time Temp Pulse Resp B/P Pulse O2 O2 Flow FiO2 Ox Delivery Rate 11/03 08 35 11/03 0619 35 11/03 0400 98 Ventilator 35% 11/03 0322 35 11/03 0039 35 11/03 0000 98 Ventilator 35% 11/02 2300 97.2 63 20 152/56 98 Ventilator 35% 11/02 2246 70 27 164/65 11/02 2239 35 11/02 2000 98 Ventilator 35% 11/02 1916 35 11/02 1620 35 11/02 1600 98.5 69 17 162/74 99 Ventilator 40% 11/02 1600 99 Ventilator 40% 11/02 1200 98.7 56 14 146/64 99 Ventilator 40% 11/02 1200 99 Ventilator 40% 11/02 1111 40 Intake & Output 11/03 1600 11/03 0800 11/03 0000 Intake Total 584 1009 Output Total 705 525 Balance -121 484 Intake, IV 584 609 Intake, Other 400 Number 0 0 Bowel Movements Output, 0 50 Gastric Drainage Output, Urine 705 475 Exam General Appearance: comfortable, sedated, intubated Head: atraumatic, normal appearance Neck: supple Respiratory: quiet respiration, rhonchi Cardiovascular: regular rate/rhythm Abdomen: normal bowel sounds, soft, non-tender Extremities: no edema Skin: intact, normal color, warm/dry Results Last 24 Hrs of Lab Results: Laboratory Tests 11/03/16 0555: pH 7.46 H, pCO2 32 L, pO2 109 H, HCO3 22, ABG O2 Sat (Measured) 98.0, P-50 ( Temp Corrected) N, Carboxyhemoglobin 0.3 L, O2 Concentration % .35, Respiration Rate 6, O2 Delivery Method VENT, Vent Mode SIMV, Expiratory Pressure 5, Tidal Volume 550, Pressure Support 8, Phlebotomy Draw Site RIGHT RADIAL 11/03/16 0415: Anion Gap 10, Estimated GFR > 60, Glucose 92, Calcium 8.0 L, Phosphorus 3.9, Magnesium 1.7, Total Bilirubin 1.3, AST 30, ALT 34, Albumin 2.9 L, PT 13.5 H, INR 1.29 H, CBC w Diff NO MAN DIFF REQ, RBC 3.34 L, MCV 94.3 H, MCH 31.3 H, RDW 13.3, MPV 8.1, Gran % 78.5 H, Lymphocytes % 10.4 L, Monocytes % 9.5 H, Eosinophils % 1.5, Basophils % 0.1, Absolute Granulocytes 5.4, Absolute Lymphocytes 0.7 L, Absolute Monocytes 0.7 H, Absolute Eosinophils 0.1, Absolute Basophils 0, PUBS MCHC 33.1 11/02/16 2041: APTT 31 11/02/16 1315: pH 7.50 H, pCO2 30 L, pO2 121 H, HCO3 23, ABG O2 Sat (Measured) 98.0, P-50 ( Temp Corrected) YES, Carboxyhemoglobin 0.5 L, O2 Concentration % 40, Temperature 97.2, Respiration Rate 10, O2 Delivery Method VENT, Vent Mode AC, Expiratory Pressure 5, Tidal Volume 550, Phlebotomy Draw Site RIGHT RADIAL Last 24 Hrs of Micro Results: All cultures are negative to date. Diagnostic Data CXR Findings: ET tube tip terminates approximately 2.2 cm above carine. The lung volumes are markedly decreased. Possible left retrocardiac opacity. Impression/Plan Impression/Plan Impression/Plan: 1. Recent CVA with seizure activity. There were no new changes seen on head CT done this am. 2. Respiratory failure - the patient was intubated for airway protection. He has no significant oxygen requirement, his white blood cell count is normal, and he is afebrile. He does not have significant evidence to suggest aspiration pneumonia. CT of the abdomen shows trace bilateral pleural effusions with adjacent atelectasis. 3. New onset atrial fibrillation, off heparin due to significant hematuria. 4. Uncontrolled hypertension. 5. Hematuria - CT scan of the abdomen and pelvis shows a 2.2 cm enhancing nodular structure along the inferior aspect of the bladder thought to be either a bladder neoplasm or cephalad extension of the prostate gland. A urology consult has been requested. Recommendations: * Continue SIMV at current settings. * Await CT brain. * If the CAT scan does not show any significant change, will discontinue propofol and begin weaning trials. * If the patient is not extubated today, will need to check a chest x-ray later today ensure endotracheal tube placement as correct. * Magnesium repletion is underway. * Continue IV fluids at 50 ML per hour. * Begin anticoagulation with heparin as per neurology. Follow neuro input. * Contine IV Keppra. * We will follow up urology, cardiology and neurology recommendations. Appreciate input. * Stop IV Unasyn, monitor off antibiotics. * Continue vent bundle - DVT/GI prophylaxis. * Continue all supportive care. * Patient's updated at the bedside. Code Status: Full Code
--- NOTE | 2016-11-03 11:46 | CT SCAN REPORT ---
EXAMINATION: CT HEAD WITHOUT CONTRAST CLINICAL INFORMATION: Seizure and stroke symptoms. COMPARISON: CT brain dated 11/02/2016. TECHNIQUE: Contiguous axial imaging was performed from the skull base to vertex without intravenous administration of contrast. DLP: 1414.23 mGy-cm FINDINGS: There is no evidence of acute intracranial hemorrhage or territorial infarction. There are old lacunar infarctions again seen in the posterior left centrum semiovale and bilateral basal ganglia. No abnormal mass effect or midline shift is seen. Griffin to white matter differentiation is well preserved. No extra-axial fluid collections are identified. There is stable mild ventriculomegaly. There is mild generalized sulcal widening. There is mild patchy low attenuation change in the periventricular white matter spaces. The osseous structures and soft tissues are normal. The mastoid air cells and visualized portions of the paranasal sinuses are well aerated. IMPRESSION: 1. No acute intracranial pathology. There is no significant interim change. 2. There is mild patchy low attenuation change in the periventricular white matter spaces, commonly associated with chronic microangiopathy. 3. There is stable age-appropriate central and cortical atrophy.
--- NOTE | 2016-11-03 12:40 | Event Note ---
Event Note Event Note: Although patient's urine had turned ballaster in color after stopping IV heparin, he still had significant hematuria this afternoon. CT Abdomen/Pelvis that had been ordered according to urologist Dr. Hightower's recommendations had shown a 2.2 cm enhancing nodular structure concerning for a bladder neoplasm. Dr. Hightower was contacted for his input on resuming IV heparin who suggested that it should be held in the presence of continued hematuria and should only be started, with close monitoring of H/H once the urine is clear. Decision was made to continue to hold IV heparin. Per die repairer stamping Dr. Gooden's recommendations, aspirin and Plavix will be continued while patient is off IV heparin.
--- NOTE | 2016-11-03 15:20 | PN- Cardiology ---
Subjective Subjective: The patient's respiratory status appears stable status post extubation. He is lethargic but following commands. His heparin drip was discontinued yesterday due to hematuria. Objective Vital Signs and I&Os Vital Signs Date Time Temp Pulse Resp B/P Pulse O2 O2 Flow FiO2 Ox Delivery Rate 11/03 1144 35 11/03 1053 63 180/70 11/03 0800 35 11/03 0619 35 11/03 0400 98 Ventilator 35% 11/03 0322 35 11/03 0039 35 11/03 0000 98 Ventilator 35% 11/02 2300 97.2 63 20 152/56 98 Ventilator 35% 11/02 2246 70 27 164/65 11/02 2239 35 11/02 2000 98 Ventilator 35% 11/02 1916 35 11/02 1620 35 11/02 1600 98.5 69 17 162/74 99 Ventilator 40% 11/02 1600 99 Ventilator 40% Intake & Output 11/03 1600 11/03 0800 11/03 0000 11/02 1600 11/02 0800 11/02 0000 Intake Total 584 1009 1267 1054 1100 Output Total 705 525 675 350 300 Balance -121 484 592 704 800 Intake, IV 584 887 205 2511 900 Intake, Oral 0 Intake, Other 400 350 200 Intake, Tube 70 Irrigant Number 0 0 0 0 0 Bowel Movements Output, 0 50 100 0 0 Gastric Drainage Output, Urine 705 475 575 350 300 Patient 167 lb Weight Physical Exam: General: Extubated, no distress Eyes: No obvious scleral icterus. HEENT: No jugular venous distention or abnormal jugular venous pulsations. Cardiovascular: Normal intensity S1/S2. Regular. 2/6 systolic murmur Respiratory: No rales or rhonchi Abdomen: no guarding Musculoskeletal: No clubbing or cyanosis noted, no edema Skin: Warm, no obvious embolic phenomenon Neurologic: following simple commands Current Medications: Current Medications Sig/Reagan Start time Last Medication Dose Route Stop Time Status Admin Acetaminophen 1,000 MG Q6P PRN 10/29 1630 AC IV Amiodarone HCl 200 MG BID 11/03 2200 AC PO Amiodarone HCl 400 MG BID 11/01 1126 DC 11/03 PO 1053 Ampicillin Sodium/ 3,000 MG Q6 11/01 1200 DC 11/03 Sulbactam Sodium IV 1201 Sodium Chloride 100 ML Aspirin 81 MG DAILY 11/04 1000 DC PO Aspirin 81 MG DAILY 11/03 1200 AC 11/03 PO 1156 Aspirin 81 MG DAILY 11/01 1029 DC 11/02 PO 0904 Atorvastatin Calcium 80 MG 1700 10/30 1700 AC 11/02 PO 1756 Clopidogrel Bisulfate 75 MG DAILY 10/29 1615 AC 11/03 PO 1053 Guaifenesin 10 ML Q6P PRN 11/03 1400 CAN PO Heparin Sodium/ 25,000 UNIT Q24H 11/02 1130 DC 11/02 Dextrose IV 1330 Dextrose/Water 500 ML Insulin Human Regular 0 Q6 11/02 1759 AC SC Insulin Human Regular 0 Q6 11/01 1200 DC 11/02 SC 1300 Latanoprost 1 GTT QPM 10/29 2200 AC 11/02 OPH 2245 Levetiracetam 500 MG Q12 11/01 2200 AC 11/03 N/A 1 UNIT IV 1045 Lorazepam 2 MG Q4P PRN 11/01 1015 AC 11/02 IV 0542 Magnesium Sulfate 1 GM ONCE ONE 11/03 1030 DC Dextrose/Water 100 ML IV 11/03 1229 Magnesium Sulfate 1 GM ONCE ONE 11/03 0830 DC 11/03 Dextrose/Water 100 ML IV 11/03 1029 1052 Pantoprazole Sodium 40 MG DAILY 11/01 1000 AC 11/03 IV 1052 Phosphate 250 MG PC AND AT BEDTIME 11/01 2100 AC 11/03 PO 1052 Propofol 1,000 MG Q12H 11/02 0900 DC 11/03 N/A 100 ML IV 0324 Sodium Chloride 1,000 ML Q10H 11/01 2100 AC 11/03 IV 1053 Results Last 48 Hrs of Labs/Mics: Laboratory Tests 11/03/16 1310: pH 7.45, pCO2 32 L, pO2 109 H, HCO3 22, ABG O2 Sat (Measured) 97.0, Carboxyhemoglobin 0.3 L, O2 Concentration % 35%, Respiration Rate 18, O2 Delivery Method VENT, Vent Mode CPAP, Expiratory Pressure 5, Pressure Support 6, Phlebotomy Draw Site LEFT RADIAL 11/03/16 0555: pH 7.46 H, pCO2 32 L, pO2 109 H, HCO3 22, ABG O2 Sat (Measured) 98.0, P-50 ( Temp Corrected) N, Carboxyhemoglobin 0.3 L, O2 Concentration % .35, Respiration Rate 6, O2 Delivery Method VENT, Vent Mode SIMV, Expiratory Pressure 5, Tidal Volume 550, Pressure Support 8, Phlebotomy Draw Site RIGHT RADIAL 11/03/16 0415: Anion Gap 10, Estimated GFR > 60, Glucose 92, Calcium 8.0 L, Phosphorus 3.9, Magnesium 1.7, Total Bilirubin 1.3, AST 30, ALT 34, Albumin 2.9 L, PT 13.5 H, INR 1.29 H, CBC w Diff NO MAN DIFF REQ, RBC 3.34 L, MCV 94.3 H, MCH 31.3 H, RDW 13.3, MPV 8.1, Gran % 78.5 H, Lymphocytes % 10.4 L, Monocytes % 9.5 H, Eosinophils % 1.5, Basophils % 0.1, Absolute Granulocytes 5.4, Absolute Lymphocytes 0.7 L, Absolute Monocytes 0.7 H, Absolute Eosinophils 0.1, Absolute Basophils 0, PUBS MCHC 33.1 11/02/16 2041: APTT 31 11/02/16 1315: pH 7.50 H, pCO2 30 L, pO2 121 H, HCO3 23, ABG O2 Sat (Measured) 98.0, P-50 ( Temp Corrected) YES, Carboxyhemoglobin 0.5 L, O2 Concentration % 40, Temperature 97.2, Respiration Rate 10, O2 Delivery Method VENT, Vent Mode AC, Expiratory Pressure 5, Tidal Volume 550, Phlebotomy Draw Site RIGHT RADIAL 11/02/16 0450: pH 7.55 H, pCO2 27 L, pO2 105 H, HCO3 23, ABG O2 Sat (Measured) 97.0, P-50 ( Temp Corrected) Y, Carboxyhemoglobin 0.3 L, O2 Concentration % 40%, Temperature 98.8, Respiration Rate 16, O2 Delivery Method ESPRIT, Vent Mode AC, Expiratory Pressure 5, Tidal Volume 550, Phlebotomy Draw Site RIGHT RADIAL 11/02/16 0410: Anion Gap 8, Estimated GFR > 60, Glucose 100 H, Calcium 8.1 L, Phosphorus 2.8, Magnesium 2.0, Total Bilirubin 1.3, AST 45, ALT 43, Albumin 2.9 L, PT 12.7 H, INR 1.21 H, CBC w Diff NO MAN DIFF REQ, RBC 3.50 L, MCV 93.1, MCH 30.6, RDW 13.2, MPV 7.8, Gran % 78.2 H, Lymphocytes % 11.3 L, Monocytes % 9.2, Eosinophils % 1.1, Basophils % 0.2, Absolute Granulocytes 5.5, Absolute Lymphocytes 0.8 L, Absolute Monocytes 0.6, Absolute Eosinophils 0.1, Absolute Basophils 0, PUBS MCHC 32.9 L 11/01/16 1830: Anion Gap 10, Estimated GFR > 60, Glucose 83, Calcium 8.3 L, Phosphorus 1.8 L, Magnesium 1.6, Total Bilirubin 1.5 H, AST 55, ALT 41, Albumin 3.2 L 11/01/16 1610: pH 7.60 H, pCO2 25 L, pO2 87, HCO3 24, ABG O2 Sat (Measured) 97.0, P-50 (Temp Corrected) N, Carboxyhemoglobin 0.3 L, O2 Concentration % 50, Temperature 98.3, Respiration Rate 20, O2 Delivery Method VENT, Vent Mode VC-AC, Expiratory Pressure 5, Tidal Volume 550, Phlebotomy Draw Site RIGHT RADIAL Recent Imaging Studies: Telemetry tracings were personally reviewed and shows sinus rhythm Repeat head CT 1. No acute intracranial pathology. There is no significant interim change. 2. There is mild patchy low attenuation change in the periventricular white matter spaces, commonly associated with chronic microangiopathy. 3. There is stable age-appropriate central and cortical atrophy. Abd CT 1. A 2.2 cm enhancing nodular structure along the inferior aspect of the bladder either represents a bladder neoplasm or cephalad extension of the prostate gland to have mass effect upon the inferior bladder. Consider correlation with cystoscopy. 2. Bilateral circumscribed hypodense renal lesions are favored to represent cysts. No convincing enhancing renal mass. 3. No convincing renal or ureteral calculus. 4. No hydronephrosis. 5. Small bilateral pleural effusions with adjacent bibasilar consolidation. 6. Diffuse atherosclerotic disease including coronary artery calcification. Assessment/Plan Assessment/Plan 1. 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 Altered mental status requiring intubation, now extubated 3. New onset paroxysmal atrial fibrillation, now back in sinus 4. Moderate aortic stenosis 5. History of coronary artery disease with prior PCI 6. Hypertension 7. Hematuria Patient is now status post extubation. The patient's intravenous heparin was discontinued due to hematuria. Follow-up urology recommendations. He is now back on dual antiplatelet therapy given the recent CVA. He is maintaining sinus rhythm and we have decreased his amiodarone to 200 mg by mouth twice a day. Blood pressure is elevated and I recommend restarting his Toprol and Imdur. Continue daily statin therapy. Brandon Gooden MD [facility] Continue telemetry? Yes
--- NOTE | 2016-11-03 15:58 | PN- Neurology ---
Subjective Subjective: Extubated, more interactive, able to talk Objective Vital Signs and I&Os Vital Signs Date Time Temp Pulse Resp B/P Pulse O2 O2 Flow FiO2 Ox Delivery Rate 11/03 1144 35 11/03 1053 63 180/70 11/03 0800 35 11/03 0619 35 11/03 0400 98 Ventilator 35% 11/03 0322 35 11/03 0039 35 11/03 0000 98 Ventilator 35% 11/02 2300 97.2 63 20 152/56 98 Ventilator 35% 11/02 2246 70 27 164/65 11/02 2239 35 11/02 2000 98 Ventilator 35% 11/02 1916 35 11/02 1620 35 11/02 1600 98.5 69 17 162/74 99 Ventilator 40% 11/02 1600 99 Ventilator 40% Intake & Output 11/03 1600 11/03 0800 11/03 0000 11/02 1600 11/02 0800 11/02 0000 Intake Total 584 1009 1267 1054 1100 Output Total 705 525 675 350 300 Balance -121 484 592 704 800 Intake, IV 584 789 820 9777 900 Intake, Oral 0 Intake, Other 400 350 200 Intake, Tube 70 Irrigant Number 0 0 0 0 0 Bowel Movements Output, 0 50 100 0 0 Gastric Drainage Output, Urine 705 475 575 350 300 Patient 75.75 kg Weight Physical Exam: Patient is extubated, received mild sedation before my exam Alert and awake, able to follow simple commands CN 2-12 intact Able to move all extremtieis against gravity No ednisha 'No clonus Intact sensation to noxious stim t/o Current Medications: Current Medications Sig/Reagan Start time Last Medication Dose Route Stop Time Status Admin Acetaminophen 1,000 MG Q6P PRN 10/29 1630 AC IV Amiodarone HCl 200 MG BID 11/03 2200 AC PO Amiodarone HCl 400 MG BID 11/01 1126 DC 11/03 PO 1053 Ampicillin Sodium/ 3,000 MG Q6 11/01 1200 DC 11/03 Sulbactam Sodium IV 1201 Sodium Chloride 100 ML Aspirin 81 MG DAILY 11/04 1000 DC PO Aspirin 81 MG DAILY 11/03 1200 AC 11/03 PO 1156 Aspirin 81 MG DAILY 11/01 1029 DC 11/02 PO 0904 Atorvastatin Calcium 80 MG 1700 10/30 1700 AC 11/02 PO 1756 Clopidogrel Bisulfate 75 MG DAILY 10/29 1615 AC 11/03 PO 1053 Guaifenesin 10 ML Q6P PRN 11/03 1400 CAN PO Heparin Sodium/ 25,000 UNIT Q24H 11/02 1130 DC 11/02 Dextrose IV 1330 Dextrose/Water 500 ML Insulin Human Regular 0 Q6 11/02 1759 AC SC Insulin Human Regular 0 Q6 11/01 1200 DC 11/02 SC 1300 Latanoprost 1 GTT QPM 10/29 2200 AC 11/02 OPH 2245 Levetiracetam 500 MG Q12 11/01 2200 AC 11/03 N/A 1 UNIT IV 1045 Lorazepam 2 MG Q4P PRN 11/01 1015 AC 11/02 IV 0542 Magnesium Sulfate 1 GM ONCE ONE 11/03 1030 DC Dextrose/Water 100 ML IV 11/03 1229 Magnesium Sulfate 1 GM ONCE ONE 11/03 0830 DC 11/03 Dextrose/Water 100 ML IV 11/03 1029 1052 Pantoprazole Sodium 40 MG DAILY 11/01 1000 AC 11/03 IV 1052 Phosphate 250 MG PC AND AT BEDTIME 11/01 2100 AC 11/03 PO 1052 Propofol 1,000 MG Q12H 11/02 0900 DC 11/03 N/A 100 ML IV 0324 Sodium Chloride 1,000 ML Q10H 11/01 2100 AC 11/03 IV 1053 Results Last 24 Hours of Lab Results: Laboratory Tests 11/03 11/03 1310 0555 Blood Gas pH (7.35 - 7.45 PH) 7.45 7.46 H pCO2 (35 - 45 TORR) 32 L 32 L pO2 (80 - 100 TORR) 109 H 109 H HCO3 (21 - 28 MEQ/L) 22 22 ABG O2 Sat (Measured) (>96.0 %) 97.0 98.0 P-50 (Temp Corrected) N Carboxyhemoglobin (1.5 - 5.0 %) 0.3 L 0.3 L O2 Concentration % 35% .35 Respiration Rate (BPM) 18 6 O2 Delivery Method VENT VENT Vent Mode CPAP SIMV Expiratory Pressure (CMH2O/P) 5 5 Tidal Volume (CC) 550 Pressure Support (CMH2O/P) 6 8 Miscellaneous Phlebotomy Draw Site LEFT RADIAL RIGHT RADIAL 11/03 11/02 0415 2041 Chemistry Sodium (137 - 145 mmol/L) 136 L Potassium (3.5 - 5.1 mmol/L) 4.0 Chloride (98 - 107 mmol/L) 103 Carbon Dioxide (22 - 30 mmol/L) 23 Anion Gap (5 - 16) 10 BUN (9 - 20 mg/dL) 11 Creatinine (0.7 - 1.2 mg/dL) 0.8 Estimated GFR (>60 ml/min) > 60 Glucose (65 - 99 mg/dL) 92 Calcium (8.4 - 10.2 mg/dL) 8.0 L Phosphorus (2.5 - 4.5 mg/dL) 3.9 Magnesium (1.6 - 2.3 mg/dL) 1.7 Total Bilirubin (0.2 - 1.3 mg/dL) 1.3 AST (17 - 59 U/L) 30 ALT (21 - 72 U/L) 34 Albumin (3.5 - 5.0 g/dL) 2.9 L Coagulation PT (9.4 - 12.5 SEC) 13.5 H INR (0.90 - 1.17) 1.29 H APTT (25 - 37 SEC) 31 Hematology CBC w Diff NO MAN DIFF REQ WBC (4.8 - 10.8 /CUMM) 6.9 RBC (4.70 - 6.10 /CUMM) 3.34 L Hgb (14.0 - 18.0 G/DL) 10.4 L Hct (42 - 52 %) 31.5 L MCV (80.0 - 94.0 FL) 94.3 H MCH (27.0 - 31.0 PG) 31.3 H RDW (11.5 - 14.5 %) 13.3 Plt Count (130 - 400 /CUMM) 144 MPV (7.4 - 10.4 FL) 8.1 Gran % (42.2 - 75.2 %) 78.5 H Lymphocytes % (20.5 - 51.1 %) 10.4 L Monocytes % (1.7 - 9.3 %) 9.5 H Eosinophils % (0 - 5 %) 1.5 Basophils % (0.0 - 2.0 %) 0.1 Absolute Granulocytes (1.4 - 6.5 /CUMM) 5.4 Absolute Lymphocytes (1.2 - 3.4 /CUMM) 0.7 L Absolute Monocytes (0.10 - 0.60 /CUMM) 0.7 H Absolute Eosinophils (0.0 - 0.7 /CUMM) 0.1 Absolute Basophils (0.0 - 0.2 /CUMM) 0 PUBS MCHC (33.0 - 37.0 G/DL) 33.1 Recent Imaging Studies: CT head: 1. No acute intracranial pathology. There is no significant interim change. 2. There is mild patchy low attenuation change in the periventricular white matter spaces, commonly associated with chronic microangiopathy. 3. There is stable age-appropriate central and cortical atrophy. Assessment/Plan Assessment: Patient presents with episodes of stroke like symptoms. Recent MRI of brain did not show stroke or ICH. He had an episode of aphasia with acute elevation of BP and Seizure. now has right side weakness and Babinski, cannot assess language ( ETT) Etiology likely PAF. Was recovering nicely from admission event of sudden dysphasia and CT/MRI failed to show acute infarction, may have had prior episodes PAF Repeat CT head this after was unremarkable (while on heparin gtts) PTT goal 50-70, ok for oral anticoagulation if he has been theraputic on heparin with PPT goal for at least 24 hours and has had no change in exam or CT head EEG on Friday MRI brain when extubated to exclude new lesion continue Mayela Webster will be on service in AM, call with questions Plan: see above
[2016-11-03 16:00] VITALS: BP 156/72
--- NOTE | 2016-11-03 20:26 | Event Note ---
Event Note Event Note: patient passed the bedside swallow evaluation. pills can be given orally.
[2016-11-04] VITALS: BP 154/70
[2016-11-04 04:33] LABS: ABSOLUTE BASOPHIL COUNT 0 /CUMM (0.0-0.2); ABSOLUTE EOSINOPHIL COUNT 0.2 /CUMM (0.0-0.7); ABSOLUTE GRANULOCYTE CT 5.7 /CUMM (1.4-6.5); ABSOLUTE LYMPH COUNT 0.5 /CUMM (1.2-3.4); ABSOLUTE MONOCYTE COUNT 0.7 /CUMM (0.10-0.60); BASOPHIL % 0.1 % (0.0-2.0); EOSINOPHIL % 2.2 % (0-5); GRANULOCYTE % 80.7 % (42.2-75.2); HEMATOCRIT 31.7 % (42-52); MEAN CORPUSCULAR VOLUME 93.9 FL (80.0-94.0); MEAN PLATELET VOLUME 7.6 FL (7.4-10.4); PLATELET COUNT 149 /CUMM (130-400); RBC DISTRIBUTION WIDTH 13.3 % (11.5-14.5); RED BLOOD CELL CT 3.37 /CUMM (4.70-6.10); WHITE BLOOD CELL COUNT 7.1 /CUMM (4.8-10.8)
--- NOTE | 2016-11-04 07:31 | PN- Resident CRCU ---
Subjective HPI/CRCU Issues: Patient in ICU because he was intubated, after seizure, stroke. I followed up and examined the patient today. He is resting comfortably in his recliner, is already extubated without any respiratory distress, saturating 93% on room air, and does not have any complaints. His Villegas is still draining reddish urine. His speech is coherent, although there is an obvious decrease in left-sided nasolabial fold. 24 Hour Events: Patient was extubated yesterday without any difficulty Objective Vital Signs & I&O Last 8 Hrs of Vitals and I&O: Vital Signs Date Time Temp Pulse Resp B/P Pulse O2 O2 Flow FiO2 Ox Delivery Rate 11/04 0843 54 160/70 11/04 0843 54 160/70 11/04 0843 54 160/70 11/04 0800 97.4 63 22 160/70 98 Room Air 11/04 0400 93 Room Air Room Air 11/04 0000 96 Nasal 1.0L Cannula 11/04 0000 97.4 76 30 154/70 96 Nasal 1.0L Cannula 11/03 2326 71 197/98 11/03 2326 78 197/98 11/03 2108 74 166/65 11/03 2000 97 Nasal 3.0L Cannula 11/03 1600 97.7 66 24 156/72 97 Nasal 3.0L Cannula 11/03 1600 97 Nasal 3.0L Cannula 11/03 1215 99 Ventilator 35% Intake & Output 11/04 1600 11/04 0800 11/04 0000 Intake Total 470 560 Output Total 1200 1600 Balance -730 -1040 Intake, IV 470 500 Intake, Oral 0 60 Number 0 0 Bowel Movements Output, Urine 1200 1600 Exam General Appearance: well developed/nourished, no apparent distress, alert, awake , comfortable, obese Other Physical Findings: Head: Normocephalic, atraumatic Eyes: Pupils normal in size, regular, reacting to light Ears: B/l normal on inspection Nose: Normal on inspection Throat/mouth: Moist mucosa, left-sided nasolabial fold diminished compared to right Heart: regular rhythm, systolic murmur Lung: Ronchi bilaterally Abd: Soft, non-tender, no distention appreciated, Villegas still in place, draining red colored urine Extremities: Normal knee exam bilaterally, no pedal edema, Distal neurovascular intact Neurologic: Limited exam due to patient's intubated and sedated condition, but patient is more responsive than yesterday in general Skin: Warm and dry Weaning Parameters NIF: 33 Minute Volume: 9.3 Resp rate: 25 Vt: 332 Heart Rate: 63 Weaning Schedule Start Time: 1200 Minute Volume: 10.2 Resp Rate: 25 Vt: 433 Heart Rate: 64 End Time: 1335 Minute Volume: 10.8 Resp Rate: 20 Vt: 425 Heart Rate: 70 Villegas Site: urethra Date In: 11/01/16 Still Needed? Yes Nutrition Nutrition: pending swallow eval, but has passed bedside swallow screening with 3oz of water Current Medications: Current Medications Sig/Reagan Start time Last Medication Dose Route Stop Time Status Admin Acetaminophen 1,000 MG .STK-MED ONE 11/03 2311 DC IV 11/03 2312 Acetaminophen 1,000 MG Q6P PRN 10/29 1630 AC 11/04 IV 0020 Amiodarone HCl 200 MG BID 11/03 2200 AC 11/04 PO 0843 Ampicillin Sodium/ 3,000 MG Q6 11/01 1200 DC 11/03 Sulbactam Sodium IV 1201 Sodium Chloride 100 ML Aspirin 81 MG DAILY 11/03 1200 AC 11/04 PO 0844 Atorvastatin Calcium 80 MG 1700 /08 1700 AC 11/02 PO 1756 Clopidogrel Bisulfate 75 MG DAILY 10/29 1615 AC 11/04 PO 0843 Guaifenesin 10 ML Q6P PRN 11/03 1400 CAN PO Insulin Human Regular 0 Q6 11/02 1759 AC SC Isosorbide 30 MG ONCE ONE 11/03 2330 DC 11/03 Mononitrate PO 11/03 2331 2326 Isosorbide 30 MG DAILY 11/03 1607 AC 11/04 Mononitrate PO 0843 Latanoprost 1 GTT QPM 10/29 2200 AC 11/03 OPH 2109 Levetiracetam 500 MG Q12 11/01 2200 AC 11/04 N/A 1 UNIT IV 0843 Lorazepam 2 MG Q4P PRN 11/01 1015 AC 11/03 IV 2138 Magnesium Oxide 400 MG ONE ONE 11/04 0800 DC 11/04 PO 11/04 0801 0852 Magnesium Sulfate 1 GM ONCE ONE 11/03 1030 DC 11/03 Dextrose/Water 100 ML IV 11/03 1229 1230 Metoprolol Succinate 25 MG ONCE ONE 11/03 2330 DC 11/03 PO 11/03 2331 2326 Metoprolol Succinate 25 MG DAILY 11/03 1615 AC 11/04 PO 0843 Pantoprazole Sodium 40 MG DAILY 11/01 1000 AC 11/04 IV 0842 Patient Medication 1 UNIT ONE NR 11/03 1615 DC Teaching ED 11/03 1630 Phosphate 250 MG PC AND AT BEDTIME 11/01 2100 AC 11/04 PO 0843 Propofol 1,000 MG Q12H 11/02 0900 DC 11/03 N/A 100 ML IV 0324 Sodium Chloride 1,000 ML Q10H 11/01 2100 DC 11/03 IV 2325 Radiology Findings: MRI HEAD: IMPRESSION: Nearly nondiagnostic study with severe motion artifacts. No obvious acute process. DICTATED BY: ADE GARCIA MD DATE/TIME DICTATED:11/04/161127 WAREHOUSING TECHNICIAN:BARBARA DATE/TIME TRANSCRIBED:11/04/161127 Impression/Plan Impression/Problem List Impression: 86-year-old male with past medical history of hypertension, cardiac stent (2015, [facility]), hyperlipidemia, diabetes mellitus, GERD, who presented to the emergency room on 10/29/2016 with neurological symptoms of headache, difficulty speaking, and weakness. He was initially being managed for ischemic stroke in the neuro-cardiac telemetry floor. He had a stroke earlier on 11/01/16 and was intubated to protect his airways, and transferred to the ICU on 11/01/16 for further care. Issues he is being managed for: Respiratory -Patient currently extubated, is not in any respiratory distress -We'll resume meals, pending swallow evaluation for aspiration precaution -Provided supplemental oxygen as needed to keep SPO2 more than 92% -Repeat chest x-ray demonstrated possible aspiration so will continue on IV Unasyn Cardiovascular #Paroxysmal Atrial fibrillation with Rapid ventricular rhythm, now in sinus rhythm -Continue maintenance with Amiodarone 200 mg by mouth twice a day per cardiology -Continue antiplatelet therapy with aspirin and Plavix -IV heparin is on hold, pending urologic evaluation for bladder mass and hematuria -Continue home medication for hypertension -Cardiology input appreciated Neurology #Stroke, ischemic -MRI of brain this morning is not conclusive due to motion artifacts -IV heparin is on hold, pending urologic evaluation for bladder mass and hematuria. Per the patient will need anticoagulation as soon as possible either IV heparin, producing to Coumadin or to newer antiplatelets that can be reversed easily. (?Pradaxa) -Continue Keppra to avoid seizure -Ativan when necessary -EEG did not show any seizure-like activity, but was of suboptimal quality -Neurology input appreciated Hematology/Oncology #Hematuria/Bladder mass -Patient has been having hematuria through his Villegas catheter, collecting dark red blood mixed urine in urine-bag. -Urology service has been consulted since Friday, and IV heparin has been on hold per their recommendation. -Patient does need anticoagulations for cardiac condition, therefore awaiting urology services for the further evaluation of bladder mass/?tumour. Contacted Dr Hightower over the weekend, but contacted Dr Castellanos today. -Continue antiplatelets therapy with aspirin and Plavix Metabolic -We will replete electrolytes if depleted -Lactic acid was initially increased, has already come down to 1.4 normal Infectious disease -Awaiting panculture report -Continue empiric IV Unasyn therapy for now, with the suspicion of aspiration pneumonia Alimentary -Nothing by mouth for now, pending swallow evaluation later today -Patient did pass a bedside swallow screen with 3 ounces of water last evening, and has been getting oral medications with some liquid DVT prophylaxis: Alps at all times Diet: Nothing by mouth for now, intubated patient CODE STATUS: Full code Problem List: 1. Stroke syndrome 2. Paroxysmal atrial fibrillation 3. Hematuria 4. Seizure Pain Ratin Tomorrow's Labs & Rationales: CBC, ICU lab bundle, INR Plan DVT/Prophylaxis: mechanical Code Status: Full Code
[2016-11-04 08:00] VITALS: BP 160/70
--- NOTE | 2016-11-04 08:40 | PN- CRCU ---
Subjective HPI/Critical Care Issues: The patient is awake, comfortable, without distress. Chart reviewed. No overnight events. Objective Current Medications: Current Medications Sig/Reagan Start time Last Medication Dose Route Stop Time Status Admin Acetaminophen 1,000 MG .STK-MED ONE 11/03 2311 DC IV 11/03 2312 Acetaminophen 1,000 MG Q6P PRN 10/29 1630 AC 11/04 IV 0020 Amiodarone HCl 200 MG BID 11/03 2200 AC 11/03 PO 2108 Amiodarone HCl 400 MG BID 11/01 1126 DC 11/03 PO 1053 Ampicillin Sodium/ 3,000 MG Q6 11/01 1200 DC 11/03 Sulbactam Sodium IV 1201 Sodium Chloride 100 ML Aspirin 81 MG DAILY 11/04 1000 DC PO Aspirin 81 MG DAILY 11/03 1200 AC 11/03 PO 1156 Atorvastatin Calcium 80 MG 1700 10/30 1700 AC 11/02 PO 1756 Clopidogrel Bisulfate 75 MG DAILY 10/29 1615 AC 11/03 PO 1053 Guaifenesin 10 ML Q6P PRN 11/03 1400 CAN PO Heparin Sodium/ 25,000 UNIT Q24H 11/02 1130 DC 11/02 Dextrose IV 1330 Dextrose/Water 500 ML Insulin Human Regular 0 Q6 11/02 1759 AC SC Isosorbide 30 MG ONCE ONE 11/03 2330 DC 11/03 Mononitrate PO 11/03 2331 2326 Isosorbide 30 MG DAILY 11/03 1607 AC Mononitrate PO Latanoprost 1 GTT QPM 10/29 2200 AC 11/03 OPH 2109 Levetiracetam 500 MG Q12 11/01 2200 AC 11/03 N/A 1 UNIT IV 2108 Lorazepam 2 MG Q4P PRN 11/01 1015 AC 11/03 IV 2138 Magnesium Oxide 400 MG ONE ONE 11/04 0800 DC PO 11/04 0801 Magnesium Sulfate 1 GM ONCE ONE 11/03 1030 DC 11/03 Dextrose/Water 100 ML IV 11/03 1229 1230 Magnesium Sulfate 1 GM ONCE ONE 11/03 0830 DC 11/03 Dextrose/Water 100 ML IV 11/03 1029 1052 Metoprolol Succinate 25 MG ONCE ONE 11/03 2330 DC 11/03 PO 11/03 2331 2326 Metoprolol Succinate 25 MG DAILY 11/03 1615 AC PO Pantoprazole Sodium 40 MG DAILY 11/01 1000 AC 11/03 IV 1052 Patient Medication 1 UNIT ONE NR 11/03 1615 DC Teaching ED 11/03 1630 Phosphate 250 MG PC AND AT BEDTIME 11/01 2100 AC 11/03 PO 2108 Propofol 1,000 MG Q12H 11/02 0900 DC 11/03 N/A 100 ML IV 0324 Sodium Chloride 1,000 ML Q10H 11/01 2100 AC 11/03 IV 2325 Vital Signs & I&O Last 24 Hrs of Vitals and I&O: Vital Signs Date Time Temp Pulse Resp B/P Pulse O2 O2 Flow FiO2 Ox Delivery Rate 11/04 0400 93 Room Air Room Air 11/04 0000 96 Nasal 1.0L Cannula 11/04 0000 97.4 76 30 154/70 96 Nasal 1.0L Cannula 11/03 2326 71 197/98 11/03 2326 78 197/98 11/03 2108 74 166/65 11/03 2000 97 Nasal 3.0L Cannula 11/03 1600 97.7 66 24 156/72 97 Nasal 3.0L Cannula 11/03 1600 97 Nasal 3.0L Cannula 11/03 1215 99 Ventilator 35% 11/03 1144 35 11/03 1053 63 180/70 Intake & Output 11/04 1600 11/04 0800 11/04 0000 Intake Total 470 560 Output Total 1200 1600 Balance -730 -1040 Intake, IV 470 500 Intake, Oral 0 60 Number 0 0 Bowel Movements Output, Urine 1200 1600 Exam General Appearance: comfortable, sedated, intubated Head: atraumatic, normal appearance Neck: supple Respiratory: quiet respiration, rhonchi Cardiovascular: regular rate/rhythm Abdomen: normal bowel sounds, soft, non-tender Extremities: no edema Skin: intact, normal color, warm/dry Results Last 24 Hrs of Lab Results: Laboratory Tests 11/04/16 0350: Anion Gap 8, Estimated GFR > 60, Glucose 97, Calcium 8.5, Phosphorus 3.7, Magnesium 1.8, Total Bilirubin 1.4 H, AST 26, ALT 33, Albumin 3.0 L, CBC w Diff NO MAN DIFF REQ, RBC 3.37 L, MCV 93.9, MCH 31.0, RDW 13.3, MPV 7.6, Gran % 80.7 H, Lymphocytes % 7.5 L, Monocytes % 9.5 H, Eosinophils % 2.2, Basophils % 0.1, Absolute Granulocytes 5.7, Absolute Lymphocytes 0.5 L, Absolute Monocytes 0.7 H, Absolute Eosinophils 0.2, Absolute Basophils 0, PUBS MCHC 33.0 11/03/16 1310: pH 7.45, pCO2 32 L, pO2 109 H, HCO3 22, ABG O2 Sat (Measured) 97.0, Carboxyhemoglobin 0.3 L, O2 Concentration % 35%, Respiration Rate 18, O2 Delivery Method VENT, Vent Mode CPAP, Expiratory Pressure 5, Pressure Support 6, Phlebotomy Draw Site LEFT RADIAL Last 24 Hrs of Micro Results: All cultures negative. Impression/Plan Impression/Plan Impression/Plan: 1. Recent CVA with seizure activity. 2. Respiratory failure - now stable, doing well post extubation. 3. New onset atrial fibrillation, off heparin due to significant hematuria. 4. Uncontrolled hypertension. 5. Hematuria - CT scan of the abdomen and pelvis shows a 2.2 cm enhancing nodular structure along the inferior aspect of the bladder thought to be either a bladder neoplasm or cephalad extension of the prostate gland. A urology consult has been requested. Recommendations: * MRI recommended by neurology - patient is too agitated to get the study done. * Magnesium repletion is underway. * Discontinue IVFs. * Contine Keppra. * We will follow up urology, cardiology and neurology recommendations. Appreciate input. * Continue vent bundle - DVT/GI prophylaxis. * Continue all supportive care. * Patient's updated at the bedside. Code Status: Full Code
--- NOTE | 2016-11-04 11:37 | MRI REPORT ---
EXAMINATION: MR BRAIN WITHOUT CONTRAST CLINICAL INFORMATION: Recent stroke. Patient with seizure activity. Episodes of dysphagia. COMPARISON: Brain MRI dated 10/30/2016. TECHNIQUE: MRI of the brain without contrast was obtained using routine sequences. FINDINGS: The study is nearly nondiagnostic and fairly motion degraded. Generalized parenchymal volume loss is again noted. There is no midline shift of structures. No new ventricular dilatation is seen. Mild chronic white matter microangiopathy. Motion degraded diffusion imaging demonstrates no obvious areas of acute ischemia. There is some fluid in the left mastoid air cells. IMPRESSION: Nearly nondiagnostic study with severe motion artifacts. No obvious acute process.
[2016-11-04 12:00] VITALS: BP 144/66
[2016-11-04 16:00] VITALS: BP 140/70
--- NOTE | 2016-11-04 17:30 | PN- Neurology ---
Subjective Subjective: feels better, OOB to recliner, no further seizures reported Review of Systems: denies pain or headache. Objective Vital Signs and I&Os Vital Signs Date Time Temp Pulse Resp B/P Pulse O2 O2 Flow FiO2 Ox Delivery Rate 11/04 1200 97.6 56 20 144/66 93 Nasal 2.0L Cannula 11/04 0843 54 160/70 11/04 0843 54 160/70 11/04 0843 54 160/70 11/04 0800 97.4 63 22 160/70 98 Room Air 11/04 0400 93 Room Air Room Air 11/04 0000 96 Nasal 1.0L Cannula 11/04 0000 97.4 76 30 154/70 96 Nasal 1.0L Cannula 11/03 2326 71 197/98 11/03 2326 78 197/98 11/03 2108 74 166/65 11/03 2000 97 Nasal 3.0L Cannula Intake & Output 11/04 1600 11/04 0800 11/04 0000 11/03 1600 11/03 0800 11/03 0000 Intake Total 767 130 137 2580 584 1009 Output Total 300 1200 1600 850 705 525 Balance 467 -730 -1040 208 -121 484 Intake, IV 287 470 500 908 584 609 Intake, Oral 480 0 60 Intake, Other 150 400 Number 0 0 0 0 0 0 Bowel Movements Output, 0 50 Gastric Drainage Output, Urine 300 1200 1600 850 705 475 Physical Exam: Fully awake, oriented x 2, language fluent, no dysnomia for common objects, follows commands with minimal hesitation VFF EOMI [id number] VII mild 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 Current Medications: Current Medications Sig/Reagan Start time Last Medication Dose Route Stop Time Status Admin Acetaminophen 1,000 MG .STK-MED ONE 11/03 2311 DC IV 11/03 2312 Acetaminophen 1,000 MG Q6P PRN 10/29 1630 AC 11/04 IV 0020 Amiodarone HCl 200 MG BID 11/03 2200 AC 11/04 PO 0843 Aspirin 81 MG DAILY 11/03 1200 AC 11/04 PO 0844 Atorvastatin Calcium 80 MG 1700 10/30 1700 AC 11/02 PO 1756 Bisacodyl 10 MG ONCE ONE 11/04 1715 DC 11/04 [place] 11/04 1716 1708 Clopidogrel Bisulfate 75 MG DAILY 10/29 1615 AC 11/04 PO 0843 Fentanyl Citrate 200 MCG .STK-MED ONE 11/04 0748 DC IM 11/04 0749 Insulin Aspart 0 TIDAC 11/04 1700 AC SC Insulin Human Regular 0 Q6 11/02 1759 DC SC Isosorbide 30 MG ONCE ONE 11/03 2330 DC 11/03 Mononitrate PO 11/03 2331 2326 Isosorbide 30 MG DAILY 11/03 1607 AC 11/04 Mononitrate PO 0843 Ketamine HCl 50 MG .STK-MED ONE 11/04 0749 DC IM 11/04 0750 Latanoprost 1 GTT QPM 10/29 2200 AC 11/03 OPH 2109 Levetiracetam 500 MG Q12 11/01 2200 AC 11/04 N/A 1 UNIT IV 0843 Lorazepam 2 MG Q4P PRN 11/01 1015 AC 11/04 IV 1130 Magnesium Oxide 400 MG ONE ONE 11/04 0800 DC 11/04 PO 11/04 0801 0852 Metoprolol Succinate 25 MG ONCE ONE 11/03 2330 DC 11/03 PO 11/03 2331 2326 Metoprolol Succinate 25 MG DAILY 11/03 1615 AC 11/04 PO 0843 Omeprazole 40 MG DAILY AC 11/05 0700 AC PO Pantoprazole Sodium 40 MG DAILY 11/01 1000 DC 11/04 IV 0842 Phosphate 250 MG PC AND AT BEDTIME 11/01 2100 AC 11/04 PO 1352 Sodium Chloride 1,000 ML Q10H 11/01 2100 DC 11/03 IV 2325 Results Last 24 Hours of Lab Results: Laboratory Tests 11/04 0350 Chemistry Sodium (137 - 145 mmol/L) 136 L Potassium (3.5 - 5.1 mmol/L) 3.9 Chloride (98 - 107 mmol/L) 106 Carbon Dioxide (22 - 30 mmol/L) 22 Anion Gap (5 - 16) 8 BUN (9 - 20 mg/dL) 10 Creatinine (0.7 - 1.2 mg/dL) 0.7 Estimated GFR (>60 ml/min) > 60 Glucose (65 - 99 mg/dL) 97 Calcium (8.4 - 10.2 mg/dL) 8.5 Phosphorus (2.5 - 4.5 mg/dL) 3.7 Magnesium (1.6 - 2.3 mg/dL) 1.8 Total Bilirubin (0.2 - 1.3 mg/dL) 1.4 H AST (17 - 59 U/L) 26 ALT (21 - 72 U/L) 33 Albumin (3.5 - 5.0 g/dL) 3.0 L Hematology CBC w Diff NO MAN DIFF REQ WBC (4.8 - 10.8 /CUMM) 7.1 RBC (4.70 - 6.10 /CUMM) 3.37 L Hgb (14.0 - 18.0 G/DL) 10.4 L Hct (42 - 52 %) 31.7 L MCV (80.0 - 94.0 FL) 93.9 MCH (27.0 - 31.0 PG) 31.0 RDW (11.5 - 14.5 %) 13.3 Plt Count (130 - 400 /CUMM) 149 MPV (7.4 - 10.4 FL) 7.6 Gran % (42.2 - 75.2 %) 80.7 H Lymphocytes % (20.5 - 51.1 %) 7.5 L Monocytes % (1.7 - 9.3 %) 9.5 H Eosinophils % (0 - 5 %) 2.2 Basophils % (0.0 - 2.0 %) 0.1 Absolute Granulocytes (1.4 - 6.5 /CUMM) 5.7 Absolute Lymphocytes (1.2 - 3.4 /CUMM) 0.5 L Absolute Monocytes (0.10 - 0.60 /CUMM) 0.7 H Absolute Eosinophils (0.0 - 0.7 /CUMM) 0.2 Absolute Basophils (0.0 - 0.2 /CUMM) 0 PUBS MCHC (33.0 - 37.0 G/DL) 33.0 Recent Imaging Studies: MRI 09/06: non interpretable due to movement artifact CT 09/05: 1. No acute intracranial pathology. There is no significant interim change. 2. There is mild patchy low attenuation change in the periventricular white matter spaces, commonly associated with chronic microangiopathy. 3. There is stable age-appropriate central and cortical atrophy. Assessment/Plan Assessment: Stroke syndrome x2 events, second occurred as the first had just about cleared exam near normal, only minor signs Seizures at first event, no recurrence on Keppra AFIB discovered heparin started but D/Koko due to hematuria possible renal mass, Urology consult pending Plan: when deemed safe, begin full anticoagulaton for AF continue plavix for the present advance activity consider PT/OT evaluations I will be away, Dr. Humphrey available: call back if any new problems or questions arise
--- NOTE | 2016-11-04 17:56 | ELECTROENCEPHALOGRAM REPORT ---
Electroencephalogram Report Electroencephalogram Fibreglass Gun Hand: Deven Farnsworth
--- NOTE | 2016-11-04 19:41 | Transfer of Care Summary ---
Hospital Course Course Hospital Course: Mr Guy is a 86-year-old pleasnt gentleman with past medical history of hypertension, cardiac stent (09/2015, [facility]), hyperlipidemia, diabetes mellitus, GERD, who presented to the emergency room on 10/29/2016 with neurological symptoms of headache, difficulty speaking, and weakness. He was initially being managed for ischemic stroke in the neuro-cardiac telemetry floor. He had a seizure earlier on 11/01/16 requiring intubation to protect his airways, and transferred to the ICU on 11/01/16 for further care. Issues he is being managed for: Respiratory -Patient currently extubated, is not in any respiratory distress -We'll resume meals, pending swallow evaluation for aspiration precaution -Provided supplemental oxygen as needed to keep SPO2 more than 92% -Repeat chest x-ray demonstrated possible aspiration so will continue on IV Unasyn Cardiovascular #Paroxysmal Atrial fibrillation with Rapid ventricular rhythm, now in sinus rhythm -Continue maintenance with Amiodarone 200 mg by mouth twice a day per cardiology -Continue antiplatelet therapy with aspirin and Plavix -IV heparin is on hold, pending urologic evaluation for bladder mass and hematuria -Continue home medication for hypertension -Cardiology input appreciated, note pending today. Neurology #Stroke, ischemic -MRI of brain this morning is not conclusive due to motion artifacts -IV heparin is on hold, pending urologic evaluation for bladder mass and hematuria. Per the patient will need anticoagulation as soon as possible either IV heparin, producing to Coumadin or to newer antiplatelets that can be reversed easily. (?Pradaxa) -Continue Keppra to avoid seizure -Ativan when necessary -EEG did not show any seizure-like activity, but was of suboptimal quality -Neurology input appreciated, note pending today Hematology/Oncology #Hematuria/Bladder mass -Patient has been having hematuria through his Villegas catheter, collecting dark red blood mixed urine in urine-bag. -Urology service has been consulted since Friday, and IV heparin has been on hold per their recommendation. -Patient does need anticoagulations for cardiac condition, therefore awaiting urology services for the further evaluation of bladder mass/?tumour. Contacted Dr Hightower over the weekend, but contacted Dr Castellanos today. Pending his input. -Continue antiplatelets therapy with aspirin and Plavix Metabolic -We will replete electrolytes if depleted -Lactic acid was initially increased, has already come down to 1.4 normal Infectious disease -Awaiting panculture report -Continue empiric IV Unasyn therapy for now, with the suspicion of aspiration pneumonia Alimentary -Passed swallow evaluation, with mechanical ground diet and regular liquid, but needs supervision as he drinks for now. He coughed when the evaluation was complete while drinking liquid. DVT prophylaxis: Alps at all times Diet: Nothing by mouth for now, intubated patient CODE STATUS: Full code Complications: Seizure, leading to intubation to protect his airway Assessment/Plan: As mentioned above
--- NOTE | 2016-11-04 20:18 | Cons- Urology ---
General Information and HPI Consulting Request Date of Consult: 11/04/16 Requested By: KAVYA ARGUETA,Joan ETIENNE Reason for Consult: hematuria Source of Information: patient, family Exam Limitations: confusion, poor historian History of Present Illness: 86 year old with hx of bph admitted to [facility] with Allergies/Medications Allergies: Coded Allergies: NO KNOWN ALLERGIES (NO) (01/02/11) Home Med List: Acetaminophen (Tylenol Arthritis) 650 MG TABLET.ER 650 MG PO Q8 PAIN ( Reported) Aspirin (Ecotrin*) 81 MG TABLET.DR 1 TAB PO DAILY HEART HEALTH (Reported) Atorvastatin Calcium 80 MG TABLET 1 TAB PO DAILY HIGH CHOLESTEROL (Reported) Clopidogrel Bisulfate (Clopidogrel) 75 MG TABLET 1 TAB PO DAILY HEART HEALTH (Reported) Isosorbide Mononitrate (Isosorbide Mononitrate ER) 30 MG TAB.ER.24H 1 TAB PO DAILY ANGINA (Reported) Latanoprost 0.005 % DROPS 1 GTT OPH QPM GLAUCOMA - BOTH EYES (Reported) Metoprolol Succinate 25 MG TAB 1 TAB PO DAILY BP (Reported) Multivit-Min/FA/Lycopen/Lutein (Centrum Silver Tablet) 0.4 MG-300 MCG-250 MCG TABLET 1 TAB PO DAILY SUPPLEMENT (Reported) Pantoprazole Sodium 40 MG TABLET.DR 1 TAB PO DAILY GERD (Reported) Pioglitazone HCl/Metformin HCl (Actoplus Met 15 MG-850 MG Tab) 15 MG-850 MG TABLET 1 TAB PO BID DM (Reported) Current Medications: Current Medications Sig/Reagan Start time Last Medication Dose Route Stop Time Status Admin Acetaminophen 1,000 MG .STK-MED ONE 11/03 2311 DC IV 11/03 2312 Acetaminophen 1,000 MG Q6P PRN 10/29 1630 AC 11/04 IV 0020 Amiodarone HCl 200 MG BID 11/03 2200 AC 11/04 PO 0843 Aspirin 81 MG DAILY 11/03 1200 AC 11/04 PO 0844 Atorvastatin Calcium 80 MG 1700 10/30 1700 AC 11/02 PO 1756 Bisacodyl 10 MG ONCE ONE 11/04 1715 DC 11/04 IA 11/04 1716 1708 Clopidogrel Bisulfate 75 MG DAILY 10/29 1615 AC 11/04 PO 0843 Fentanyl Citrate 200 MCG .STK-MED ONE 11/04 0748 DC IM 11/04 0749 Finasteride 5 MG DAILY 03/13 2001 AC PO Insulin Aspart 0 TIDAC 11/04 1700 AC SC Insulin Human Regular 0 Q6 11/02 1759 DC SC Isosorbide 30 MG ONCE ONE 11/03 2330 DC 11/03 Mononitrate PO 11/03 2331 2326 Isosorbide 30 MG DAILY 11/03 1607 AC 11/04 Mononitrate PO 0843 Ketamine HCl 50 MG .STK-MED ONE 11/04 0749 DC IM 11/04 0750 Latanoprost 1 GTT QPM 10/29 2200 AC 11/03 OPH 2109 Levetiracetam 500 MG Q12 11/01 2200 AC 11/04 N/A 1 UNIT IV 0843 Lorazepam 2 MG Q4P PRN 11/01 1015 AC 11/04 IV 1130 Magnesium Oxide 400 MG ONE ONE 11/04 0800 DC 11/04 PO 11/04 0801 0852 Metoprolol Succinate 25 MG ONCE ONE 11/03 2330 DC 11/03 PO 11/03 2331 2326 Metoprolol Succinate 25 MG DAILY 11/03 1615 AC 11/04 PO 0843 Omeprazole 40 MG DAILY AC 11/05 0700 AC PO Pantoprazole Sodium 40 MG DAILY 11/01 1000 DC 11/04 IV 0842 Phosphate 250 MG PC AND AT BEDTIME 11/01 2100 AC 11/04 PO 1352 Sodium Chloride 1,000 ML Q10H 11/01 2100 DC 11/03 IV 2325 Past History Medical History EENT: glaucoma Cardiovascular: CAD, hypertension, hyperlipidemia, known three-vessel coronary artery disease, deemed high risk for bypass surgery. The patient underwent a drug-eluting stent placement into the mid RCA lesion with a resolute stent in September 2015. moderate aortic stenosis Endocrine: diabetes Surgical History Pertinent Surgical History: cholecystectomy, cardiac stent TURP Rt meniscial repair Family History Relations & Conditions If Any: BROTHER (HypertensionCAD). FATHER (Diabetes). Psychosocial History Where Do You Live? Home Who Do You Live With? spouse Services at Home: None Primary Language: [place] Citizen Smoking Status: Former Smoker (Quit 40 yrs ago) ETOH Use: occasional use Functional Ability ADLs Independent: dressing, eating, toileting, bathing. Ambulation: independent IADLs Independent: shopping, housework, finances, food prep, telephone, transportation , medication admin. Employment History Employment: Retired Profession/Employer: [employer] Retired? yes Review of Systems Review of Systems Constitutional: Denies: no symptoms. EENTM: Denies: no symptoms. Cardiovascular: Reports: see HPI. Respiratory: Denies: no symptoms. GI: Denies: no symptoms. Genitourinary: Reports: hematuria. Musculoskeletal: Denies: no symptoms. Skin: Denies: no symptoms. Exam & Diagnostic Data Vital Signs and I&O Vital Signs Date Time Temp Pulse Resp B/P Pulse O2 O2 Flow FiO2 Ox Delivery Rate 11/04 1600 98.1 58 20 140/70 94 Room Air 11/04 1200 97.6 56 20 144/66 93 Nasal 2.0L Cannula 11/04 0843 54 160/70 11/04 0843 54 160/70 11/04 0843 54 160/70 11/04 0800 97.4 63 22 160/70 98 Room Air 11/04 0400 93 Room Air Room Air 11/04 0000 96 Nasal 1.0L Cannula 11/04 0000 97.4 76 30 154/70 96 Nasal 1.0L Cannula 11/03 2326 71 197/98 11/03 2326 78 197/98 11/03 2108 74 166/65 Intake & Output 11/04 1600 11/04 0800 11/04 0000 11/03 1600 11/03 0800 11/03 0000 Intake Total 767 685 951 5096 584 1009 Output Total 300 1200 1600 850 705 525 Balance 467 -730 -1040 208 -121 484 Intake, IV 287 470 500 908 584 609 Intake, Oral 480 0 60 Intake, Other 150 400 Number 0 0 0 0 0 0 Bowel Movements Output, 0 50 Gastric Drainage Output, Urine 300 1200 1600 850 705 475 Physical Exam General Appearance: well developed/nourished Head: atraumatic Eyes: Bilateral: normal appearance. Respiratory: normal breath sounds Cardiovascular: irregularly irregular Gastrointestinal: normal bowel sounds Back: no vertebral tenderness Extremities: normal inspection Reproductive: Normal male genitalia, acosta inplace with light pink urine Last 24 Hours of Labs: Laboratory Tests 11/04 11/04 1650 0350 Chemistry Sodium (137 - 145 mmol/L) 136 L Potassium (3.5 - 5.1 mmol/L) 3.9 Chloride (98 - 107 mmol/L) 106 Carbon Dioxide (22 - 30 mmol/L) 22 Anion Gap (5 - 16) 8 BUN (9 - 20 mg/dL) 10 Creatinine (0.7 - 1.2 mg/dL) 0.7 Estimated GFR (>60 ml/min) > 60 Glucose (65 - 99 mg/dL) 97 Calcium (8.4 - 10.2 mg/dL) 8.5 Phosphorus (2.5 - 4.5 mg/dL) 3.7 Magnesium (1.6 - 2.3 mg/dL) 1.8 Total Bilirubin (0.2 - 1.3 mg/dL) 1.4 H AST (17 - 59 U/L) 26 ALT (21 - 72 U/L) 33 Albumin (3.5 - 5.0 g/dL) 3.0 L Hematology CBC w Diff NO MAN DIFF REQ WBC (4.8 - 10.8 /CUMM) 7.1 RBC (4.70 - 6.10 /CUMM) 3.37 L Hgb (14.0 - 18.0 G/DL) 10.4 L Hct (42 - 52 %) 31.7 L MCV (80.0 - 94.0 FL) 93.9 MCH (27.0 - 31.0 PG) 31.0 RDW (11.5 - 14.5 %) 13.3 Plt Count (130 - 400 /CUMM) 149 MPV (7.4 - 10.4 FL) 7.6 Gran % (42.2 - 75.2 %) 80.7 H Lymphocytes % (20.5 - 51.1 %) 7.5 L Monocytes % (1.7 - 9.3 %) 9.5 H Eosinophils % (0 - 5 %) 2.2 Basophils % (0.0 - 2.0 %) 0.1 Absolute Granulocytes (1.4 - 6.5 /CUMM) 5.7 Absolute Lymphocytes (1.2 - 3.4 /CUMM) 0.5 L Absolute Monocytes (0.10 - 0.60 /CUMM) 0.7 H Absolute Eosinophils (0.0 - 0.7 /CUMM) 0.2 Absolute Basophils (0.0 - 0.2 /CUMM) 0 PUBS MCHC (33.0 - 37.0 G/DL) 33.0 Urines Urinalysis LIGHT H Urine Color (YEL,AMB,STR) PINK H Urine Clarity (CLEAR) CLDY H Urine pH (5.0 - 8.0) 6.5 Ur Specific [place] (1.001 - 1.035) 1.020 Urine Protein (NEG,<30 MG/DL) 100 H Urine Ketones (NEG) NEG Urine Nitrite (NEG) POS H Urine Bilirubin (NEG) NEG@ICTO Urine Urobilinogen (0.1 - 1.0 EU/dl) 4.0 H Ur Leukocyte Esterase (NEG) TRACE H Ur Microscopic SEDIMENT EXAMINED Urine RBC (0 - 5 /HPF) PACKD H Urine WBC (0 - 2 /HPF) 5-10 H Ur Epithelial Cells (NONE,FEW) RARE Urine Bacteria (NEG/NONE) FEW H Hyaline Casts (0/LPF) RARE H Granular Casts (NONE /LPF) 1-3 H Urine Mucus (FEW,NONE) MOD H Urine Hemoglobin (NEG) LARGE H Urine Glucose (N MG/DL) NEG Urine Comment Imaging Results: PATIENT: KAE RENNER PRESENT AGE: 86 PATIENT ACCOUNT NO: [id number] : 29 LOCATION: [facility] ORDERING PHYSICIAN: DOMINICK CHAVEZ MD SERVICE DATE: 11/02/16 EXAM TYPE: CAT - CT ABD & PELVIS W/ & W/O IV CO EXAMINATION: CT ABDOMEN AND PELVIS WITHOUT AND WITH CONTRAST CLINICAL INFORMATION: Gross hematuria. COMPARISON: None. TECHNIQUE: Multidetector volumetric imaging was performed through the abdomen prior to IV contrast. The abdomen and pelvis were then reexamined after the administration of 94 mL Optiray 320 intravenous contrast. Sagittal and coronal reformatted images were obtained on the technologist's workstation. DLP: 1366 mGy-cm. FINDINGS: LUNG BASES: Trace bilateral pleural effusions with adjacent dependent consolidation. LIVER, GALLBLADDER, AND BILIARY TREE: The liver is normal in size, shape, and attenuation. No focal hepatic lesion or biliary ductal dilatation is present. Cholecystectomy clips noted. PANCREAS: Unremarkable. SPLEEN: Unremarkable. ADRENAL GLANDS: Unremarkable. KIDNEYS AND URETERS: Bilateral nephrograms are symmetric without hydronephrosis. There are numerous bilateral, similar appearing, circumscribed, hypodense lesions measuring up to 9.9 cm in diameter extending off the lower pole of the right kidney. This largest lesion measures 19 Hounsfield units and consistent with a cyst. No different/suspicious renal mass is noted. No hydronephrosis. Punctate renal vascular calcification. No convincing other renal or ureteral calculi. BLADDER: There is a 2.2 cm nodular structure in the inferior bladder which demonstrates enhancement on postcontrast imaging, concerning for possible bladder neoplasm versus prominent prostate gland extending cephalad to cause mass effect on the inferior bladder. Acosta catheter is demonstrated within the bladder. GASTROINTESTINAL TRACT: Bowel gas pattern is nonobstructive. No evidence of acute bowel inflammation. The appendix is not discretely delineated. ABDOMINAL WALL: No significant hernia is appreciated. LYMPH NODES: Normal. VASCULAR: Diffuse atherosclerotic disease including coronary artery calcification. PELVIC VISCERA: The prostate gland measures 4.3 cm in transverse diameter and contains coarse internal calcifications. Seminal vesicles are unremarkable. OSSEOUS STRUCTURES: No acute osseous abnormalities. Mild degenerative changes of the spine. IMPRESSION: 1. A 2.2 cm enhancing nodular structure along the inferior aspect of the bladder either represents a bladder neoplasm or cephalad extension of the prostate gland to have mass effect upon the inferior bladder. Consider correlation with cystoscopy. 2. Bilateral circumscribed hypodense renal lesions are favored to represent cysts. No convincing enhancing renal mass. 3. No convincing renal or ureteral calculus. 4. No hydronephrosis. 5. Small bilateral pleural effusions with adjacent bibasilar consolidation. 6. Diffuse atherosclerotic disease including coronary artery calcification. Assessment/Plan Assessment/Plan pt with hematuria likely from acosta insertion with anti-coagulation. CT appears to be more likely prostate inlargement vs bladder tumor. Plan; CBI if clots ( flush urokinase). resume anticoagulation with heparin. start proscar 5mg/day. VERY hesitant to take pt to OR for cystoscopy for TURP/TURBT with pts strong hx stroke,etc. Copies To: DANIELLE UP MD Consult Acknowledgment - Thank you for your consult request. Attending MD Review Statement Attending Statement Attending MD Statement: examined this patient, discuss w/resident/PA/LINE MAINTAINER SECTION Attending Assessment/Plan: gross hematuria; likely prostate bleed post acosta with anti-coagulation (pt without prior hx hematuria)
[2016-11-05] VITALS: BP 172/84
[2016-11-05 05:55] LABS: ABSOLUTE BASOPHIL COUNT 0 /CUMM (0.0-0.2); ABSOLUTE EOSINOPHIL COUNT 0.3 /CUMM (0.0-0.7); ABSOLUTE GRANULOCYTE CT 4.5 /CUMM (1.4-6.5); ABSOLUTE MONOCYTE COUNT 0.6 /CUMM (0.10-0.60); BASOPHIL % 0.6 % (0.0-2.0); EOSINOPHIL % 4.5 % (0-5); GRANULOCYTE % 71.1 % (42.2-75.2); HEMATOCRIT 34.5 % (42-52); MEAN CORPUSCULAR HGB 30.4 PG (27.0-31.0); MEAN CORPUSCULAR HGB CONC 32.7 G/DL (33.0-37.0); MEAN CORPUSCULAR VOLUME 92.9 FL (80.0-94.0); MEAN PLATELET VOLUME 7.9 FL (7.4-10.4); PLATELET COUNT 188 /CUMM (130-400); RBC DISTRIBUTION WIDTH 13.3 % (11.5-14.5); RED BLOOD CELL CT 3.72 /CUMM (4.70-6.10); WHITE BLOOD CELL COUNT 6.4 /CUMM (4.8-10.8)
[2016-11-05 06:08] LABS: PT 13.2 SEC (9.4-12.5); PTT 79 SEC (25-37)
[2016-11-05 08:00] VITALS: BP 160/68
--- NOTE | 2016-11-05 08:14 | PN- Resident CRCU ---
Subjective HPI/CRCU Issues: Overnight, pt had high BP, systolic 190-200, requiring 2 doses of 5 mg iv hydralazine. BP continues to be elevated this am around 189/90. Pt seen today, with his at bedside. Both pt and reports that he has significantly improved; no further seizure episodes, speech now back to baseline, pt wants to get out of bed and ambulate. He had a great night sleep and had good appetite this morning. Nurse has been informed by Dr. Rowland to move the pt to chair. Dr. Castellanos came to see pt yesterday and acosta was changed to allow CBI. He has informed pt and family that he is not comfortable with pursuing cystoscopy at this time and hence we will try proscar (which could take a while to be effective). Family agrees. Heparin has been restarted. I also discussed with family the options of anticoagulation moving forward. 24 Hour Events: SB - SR 56-70 Objective Vital Signs & I&O Last 8 Hrs of Vitals and I&O: Vital Signs Date Time Temp Pulse Resp B/P Pulse O2 O2 Flow FiO2 Ox Delivery Rate 11/05 0835 67 189/89 11/05 0835 67 189/89 11/05 0834 68 189/89 11/05 0611 56 198/86 11/05 0400 97 Nasal 2.0L Cannula 11/05 0105 56 1190/98 11/05 0000 97.6 58 22 172/84 95 Nasal 2.0L Cannula 11/05 0000 95 Nasal 2.0L Cannula 11/04 2129 60 198/78 11/04 2000 95 Room Air 11/04 1600 98.1 58 20 140/70 94 Room Air 11/04 1200 97.6 56 20 144/66 93 Nasal 2.0L Cannula Exam General Appearance: alert, awake, comfortable Head: normal appearance Respiratory: normal breath sounds, chest non-tender Cardiovascular: regular rate/rhythm Gastrointestinal: normal bowel sounds, soft, non-tender Extremities: no edema Weaning Parameters NIF: 33 Minute Volume: 9.3 Resp rate: 25 Vt: 332 Heart Rate: 63 Weaning Schedule Start Time: 1200 Minute Volume: 10.2 Resp Rate: 25 Vt: 433 Heart Rate: 64 End Time: 1335 Minute Volume: 10.8 Resp Rate: 20 Vt: 425 Heart Rate: 70 Current Medications: Current Medications Sig/Reagan Start time Last Medication Dose Route Stop Time Status Admin Acetaminophen 1,000 MG Q6P PRN 10/29 1630 AC 11/04 IV 0020 Amiodarone HCl 200 MG BID 11/03 2200 AC 11/05 PO 0834 Aspirin 81 MG DAILY 11/03 1200 AC 11/05 PO 0835 Atorvastatin Calcium 80 MG 1700 10/30 1700 AC 11/02 PO 1756 Bisacodyl 10 MG ONCE ONE 11/04 1715 DC 11/04 [place] 11/04 1716 1708 Clopidogrel Bisulfate 75 MG DAILY 10/29 1615 AC 11/05 PO 0834 Finasteride 5 MG DAILY 11/04 2000 AC 11/05 PO 0835 Heparin Sodium/ 25,000 UNIT Q24H 11/04 2014 AC 11/04 Dextrose IV 2321 Dextrose/Water 500 ML Hydralazine HCl 5 MG ONCE ONE 11/05 0615 DC 11/05 IV 11/05 0616 0611 Hydralazine HCl 5 MG ONCE ONE 11/05 0030 DC 11/05 IV 11/05 0031 0105 Insulin Aspart 0 TIDAC 11/04 1700 AC SC Insulin Human Regular 0 Q6 11/02 1759 OH SC Isosorbide 30 MG DAILY 11/03 1607 AC 11/05 Mononitrate PO 0835 Latanoprost 1 GTT QPM 10/29 2200 AC 11/04 OPH 2127 Levetiracetam 500 MG Q12 11/01 2200 AC 11/05 N/A 1 UNIT IV 0834 Lorazepam 2 MG Q4P PRN 11/01 1015 AC 11/04 IV 2139 Metoprolol Succinate 25 MG DAILY 11/03 1615 AC 11/05 PO 0835 Morphine Sulfate 2 MG ONCE ONE 11/04 2300 DC 11/04 IV 11/04 2301 2320 Omeprazole 40 MG DAILY AC 11/05 0700 AC 11/05 PO 0603 Pantoprazole Sodium 40 MG DAILY 11/01 1000 DC 11/04 IV 0842 Phosphate 250 MG PC AND AT BEDTIME 11/01 2100 AC 11/05 PO 0834 Ramelteon 8 MG AT BEDTIME 11/04 2300 AC 11/04 PO 2320 Impression/Plan Impression/Problem List Impression: Mr Guy is a 86-year-old pleasant gentleman with PMH of hypertension, cardiac stent (09/2015, [facility]), hyperlipidemia, diabetes mellitus, GERD, who presented to the emergency room on 10/29/2016 with neurological symptoms of headache, difficulty speaking, and weakness. He was initially being managed for ischemic stroke X 2 in the neuro-cardiac telemetry floor. He had a seizure on 11/01/16 requiring intubation to protect his airways, and was then cared for in ICU. He was successfully extubated . Neurological deficits (speech and weakness) have resolved as per pt and his . It is thought that his paroxysmal atrial fibrillation (found on this admission) precipated the CVA, that subsequently precipitated seizure episode. As per neurology recommendations, keppra was started, with no further recurrence of seizures. He was started on heparin drip for anticoagulation for paroxysmal atrial fibrillation, which was subsequently held on 11/02/16 due to gross hematuria noted in the acosta, with CT showing enlarged prostate vs bladder tumor. Dr Castellanos from urology was consulted; he feels hesitant to take him to OR for cystoscopy for TURP/TURBT with his strong history of stroke, so we pursued CBI and trial of proscar 5mg/day instead. Heparin drip subsequently resumed on . He is now stable to be transferred to telemetry with active issues being: - Recurrent high blood pressure requiring IV pushes of hydralazine (consider adding another oral antihypertensives) - Hx of seizure on IV keppra, consider changing to PO - Persistent hematuria on CBI - Paroxysmal atrial fibrillation on heparin drip (need to address shelter anticoagulation) Acosta: Day # 2 Cardiovascular # Paroxysmal Atrial fibrillation with rapid ventricular rhythm, now in sinus rhythm * Continue maintenance with Amiodarone 200 mg by mouth twice a day per cardiology * Continue toprol 25 mg daily * Continue antiplatelet therapy with aspirin and Plavix * Heparin gtt resumed * 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 * Cardiology input appreciated # Hypertension * Continue home medication for hypertension; metoprolol xl 25 mg daily, imdur 30 mg daily * Consider adding another oral antihypertensives Neurology # Stroke X2, ischemic, and seizure - MRI of brain this morning is not conclusive due to motion artifacts - EEG did not show any seizure-like activity, but was of suboptimal quality * Continue Keppra to avoid seizure, currently on 500 q 12 IV, should consider switching to PO * Ativan when necessary 2 mg q4p * Neurology input appreciated * Continue aspirin 81 mg and plavix 75 mg * Continue atorvastatin 80 mg daily * PT/OT/ST * Increase activity level as tolerated Hematology/Oncology # Hematuria/Bladder mass - Patient has been having gross hematuria through his Acosta catheter [facility] due to trauma vs mass - Heparin drip was on hold on 03/04 to 03/06, pending uro evaluation * Appreciate urology input, no plan for OR/cystoscopy/TURP/TURBT * Heparin resumed, continue aspirin and plavix * Proscar 5 mg daily started on 11/04/16 * Continue CBI Respiratory - Patient currently intubated from 11/01/16 - 11/03/16, is not in any respiratory distress - Provided supplemental oxygen as needed to keep SPO2 more than 92% Metabolic - We will replete electrolytes if depleted - Lactic acid was initially increased, has already come down to 1.4 normal * Continue phosphate 250 with meals , check phos prior to dc Infectious disease - Respiratory culture shows scant growth of yeast - BCX2, UC from 10/29 shows NGTD - BCX2, UC from 11/01 shows NGTD Alimentary - Passed swallow evaluation, with mechanical ground diet and regular liquid, but needs supervision as he drinks for now. He coughed when the evaluation was completed while drinking liquid. * Continue PPI omeprazole 40 mg daily DVT prophylaxis: Alps at all times, heparin drip Diet: CC2 (mechanical soft, thin liquid - but would need close supervision) CODE STATUS: Full code Problem List: 1. Paroxysmal atrial fibrillation 2. Hematuria 3. Stroke syndrome 4. Seizure Pain Ratin Tomorrow's Labs & Rationales: cbc for hematuria Plan DVT/Prophylaxis: mechanical, pharmacological Code Status: Full Code
--- NOTE | 2016-11-05 08:21 | PN- CRCU ---
Subjective HPI/Critical Care Issues: The patient is awake and appears comfortable. He was confused and agitated overnight. He is off supplemental oxygen and his respiratory status is stable. He denies any shortness of breath, sputum production, chest pain or abdominal pain. He is undergoing CBI, noting he has blood tinged urine. Anticoagulation has been resumed. Objective Current Medications: Current Medications Sig/Reagan Start time Last Medication Dose Route Stop Time Status Admin Acetaminophen 1,000 MG Q6P PRN 10/29 1630 AC 11/04 IV 0020 Amiodarone HCl 200 MG BID 11/03 2200 AC 11/04 PO 2129 Aspirin 81 MG DAILY 11/03 1200 AC 11/04 PO 0844 Atorvastatin Calcium 80 MG 1700 10/30 1700 AC 11/02 PO 1756 Bisacodyl 10 MG ONCE ONE 11/04 1715 DC 11/04 [place] 11/04 1716 1708 Clopidogrel Bisulfate 75 MG DAILY 10/29 1615 AC 11/04 PO 0843 Finasteride 5 MG DAILY 11/04 2000 AC 11/04 PO 2320 Heparin Sodium/ 25,000 UNIT Q24H 11/04 2015 AC 11/04 Dextrose IV 2321 Dextrose/Water 500 ML Hydralazine HCl 5 MG ONCE ONE 11/05 0615 DC 11/05 IV 11/05 0616 0611 Hydralazine HCl 5 MG ONCE ONE 11/05 0030 DC 11/05 IV 11/05 0031 0105 Insulin Aspart 0 TIDAC 11/04 1700 AC SC Insulin Human Regular 0 Q6 11/02 1759 DC SC Isosorbide 30 MG DAILY 11/03 1607 AC 11/04 Mononitrate PO 0843 Latanoprost 1 GTT QPM 10/29 2200 AC 11/04 OPH 2127 Levetiracetam 500 MG Q12 11/01 2200 AC 11/04 N/A 1 UNIT IV 2139 Lorazepam 2 MG Q4P PRN 11/01 1015 AC 11/04 IV 2139 Metoprolol Succinate 25 MG DAILY 11/03 1615 AC 11/04 PO 0843 Morphine Sulfate 2 MG ONCE ONE 11/04 2300 DC 11/04 IV 11/04 2301 2320 Omeprazole 40 MG DAILY AC 11/05 0700 AC 11/05 PO 0603 Pantoprazole Sodium 40 MG DAILY 11/01 1000 DC 11/04 IV 0842 Phosphate 250 MG PC AND AT BEDTIME 11/01 2099 AC 11/04 PO 2128 Ramelteon 8 MG AT BEDTIME 11/04 2300 AC 11/04 PO 2320 Sodium Chloride 1,000 ML Q10H 11/01 2100 DC 11/03 IV 2325 Vital Signs & I&O Last 24 Hrs of Vitals and I&O: Vital Signs Date Time Temp Pulse Resp B/P Pulse O2 O2 Flow FiO2 Ox Delivery Rate 11/05 0611 56 198/86 11/05 0400 97 Nasal 2.0L Cannula 11/05 0105 56 1190/98 11/05 0000 97.6 58 22 172/84 95 Nasal 2.0L Cannula 11/05 0000 95 Nasal 2.0L Cannula 11/04 2129 60 198/78 11/04 2000 95 Room Air 11/04 1600 98.1 58 20 140/70 94 Room Air 11/04 1200 97.6 56 20 144/66 93 Nasal 2.0L Cannula 11/04 0843 54 160/70 11/04 0843 54 160/70 11/04 0843 54 160/70 Intake & Output 11/05 1600 11/05 0800 11/05 0000 Intake Total 329 448 Output Total 2075 720 Balance -1746 -272 Intake, IV 269 148 Intake, Oral 60 300 Number 0 0 Bowel Movements Output, Urine 2075 720 Exam General Appearance: comfortable, sedated, intubated Head: atraumatic, normal appearance Neck: supple Respiratory: quiet respiration, rhonchi Cardiovascular: regular rate/rhythm Abdomen: normal bowel sounds, soft, non-tender Extremities: no edema Skin: intact, normal color, warm/dry Results Last 24 Hrs of Lab Results: Laboratory Tests 11/05/16 0500: Anion Gap 10, Estimated GFR > 60, Glucose 111 H, Calcium 8.9, Phosphorus 3.5, Magnesium 1.7, Total Bilirubin 1.1, AST 33, ALT 37, Albumin 3.5, PT 13.2 H, INR 1.26 H, APTT 79 H, CBC w Diff NO MAN DIFF REQ, RBC 3.72 L, MCV 92.9, MCH 30.4 , RDW 13.3, MPV 7.9, Gran % 71.1, Lymphocytes % 15.0 L, Monocytes % 8.8, Eosinophils % 4.5, Basophils % 0.6, Absolute Granulocytes 4.5, Absolute Lymphocytes 1.0 L, Absolute Monocytes 0.6, Absolute Eosinophils 0.3, Absolute Basophils 0, PUBS MCHC 32.7 L 11/04/16 1650: Urinalysis LIGHT H, Urine Color PINK H, Urine Clarity CLDY H, Urine pH 6.5, Ur Specific [place] 1.020, Urine Protein 100 H, Urine Ketones NEG, Urine Nitrite POS H, Urine Bilirubin NEG@ICTO, Urine Urobilinogen 4.0 H, Ur Leukocyte Esterase TRACE H, Ur Microscopic SEDIMENT EXAMINED, Urine RBC PACKD H, Urine WBC 5-10 H, Ur Epithelial Cells RARE, Urine Bacteria FEW H, Hyaline Casts RARE H, Granular Casts 1-3 H, Urine Mucus MOD H, Urine Hemoglobin LARGE H, Urine Glucose NEG, Urine Comment Diagnostic Data Radiology Findings: MRI Head: Nearly nondiagnostic study with severe motion artifacts. No obvious acute process. Impression/Plan Impression/Plan Impression/Plan: 1. Recent CVA with seizure activity. 2. Respiratory failure - now stable, doing well post extubation. 3. New onset atrial fibrillation, off heparin due to significant hematuria. 4. Hypertension. 5. Hematuria - on CBI, urology following. Recommendations: * Out of bed to chair, PT for ambulation. * Contine Keppra - change to PO?. * We will follow up urology, cardiology and neurology recommendations. Appreciate input. * Continue IV heparin. * Continue meds for BP control. * Continue ASA, high dose statins. * Continue DVT/GI prophylaxis. * Continue all supportive care. * Patient's updated at the bedside. * Downgrade to telemetry. Code Status: Full Code
[2016-11-05 16:00] VITALS: BP 138/68
[2016-11-05 18:08] LABS: PTT 57 SEC (25-37)
[2016-11-05 20:00] VITALS: BP 158/68
[2016-11-05 22:32] VITALS: BP 140/62
[2016-11-06 00:52] LABS: PTT > 120 SEC (25-37)
--- NOTE | 2016-11-06 07:11 | PN- Housestaff ---
GIOVANNY MARIE 11/06/16 0710: Subjective Follow-up For: - Elevated BP Subjective: Normal sinus rhythm, bradycardia at times. Heart rate 55-60, blood pressure within normal limits. Patient was comfortable. Did not have any complaints. Continues to have hematuria. As per Dr. Castellanos, the patient could be transitioned to oral anticoagulants. Await recommendations from neurology, and cardiology. Review of Systems Constitutional: Reports: see HPI. Objective Last 24 Hrs of Vital Signs/I&O Vital Signs Date Time Temp Pulse Resp B/P Pulse O2 O2 Flow FiO2 Ox Delivery Rate 11/05 2232 97.8 57 20 140/62 96 Room Air 11/05 2105 60 20 158/66 11/05 2000 97 Room Air 11/05 2000 97.7 58 20 158/68 97 Room Air 11/05 1600 98.3 67 20 138/68 96 Room Air 11/05 0835 67 189/89 11/05 0835 67 189/89 11/05 0834 68 189/89 11/05 0800 97.1 71 23 160/68 96 Room Air Intake & Output 11/06 0800 11/06 0000 11/05 1600 Intake Total 653 1054 Output Total 1400 650 Balance -747 404 Intake, IV 353 334 Intake, Oral 300 720 Number 1 Bowel Movements Output, Urine 1400 650 Patient 201 lb Weight Physical Exam General Appearance: No Acute Distress Other Physical Findings: General Exam: AAOx3, No acute distress, Skin: No rashes, no breakdown HEENT: PERRLA, EOMI Neck: Supple, No JVD No cervical lymphadenopathy CVS: Reg Rate, Normal S1,S2, No MGR Resp: Normal air entry, no ronchi/rales Abdomen: Soft, No tenderness, Normal Bowel Sounds, Villegas catheter in place with CBI Neuro: Normal Speech, Strength 5/5 b/l x 4 extremities, Sensation intact, CN III -XII NL, Reflexes 2+ Extremities: No cyanosis, pedal edema Current Medications: Current Medications Sig/Reagan Start time Last Medication Dose Route Stop Time Status Admin Acetaminophen 1,000 MG Q6P PRN 10/29 1630 AC 11/04 IV 0020 Amiodarone HCl 200 MG DAILY 11/07 1000 AC PO Amiodarone HCl 200 MG BID 11/03 2200 DC 11/06 PO 1040 Aspirin 81 MG DAILY 03/12 1200 AC 11/06 PO 1040 Atorvastatin Calcium 80 MG 1700 10/30 1700 AC 11/06 PO 1621 Clopidogrel Bisulfate 75 MG DAILY 10/29 1615 DC 11/06 PO 1040 Docusate Sodium 100 MG DAILY 11/06 1000 AC 11/06 PO 1041 Finasteride 5 MG DAILY 11/04 2000 AC 11/06 PO 1040 Heparin Sodium 3,600 UNIT ONCE ONE 11/05 1845 DC 11/05 (Porcine) IV 11/05 1846 1839 Heparin Sodium 5,000 UNIT .STK-MED ONE 11/05 1825 DC (Porcine) IV 11/05 1826 Heparin Sodium/ 25,000 UNIT Q24H 11/04 2014 AC 11/05 Dextrose IV 1832 Dextrose/Water 500 ML Insulin Aspart 0 TIDAC 11/04 1700 AC 11/05 SC 1654 Isosorbide 30 MG DAILY 11/03 1607 AC 11/06 Mononitrate PO 1040 Latanoprost 1 GTT QPM 10/29 2200 AC 11/05 OPH 2106 Levetiracetam 500 MG BID 11/06 2200 AC PO Levetiracetam 500 MG Q12 11/01 2200 DC 11/06 N/A 1 UNIT IV 1040 Lorazepam 2 MG Q4P PRN 11/01 1015 AC 11/04 IV 2139 Metoprolol Succinate 25 MG DAILY 11/03 1615 AC 11/06 PO 1040 Omeprazole 40 MG DAILY AC 11/05 0700 AC 11/06 PO 0554 Opium Alkaloids 60 MG 4 TIMES/DAY PRN 11/05 2200 AC [place] Phosphate 250 MG PC AND AT BEDTIME 11/01 2100 AC 11/06 PO 1621 Ramelteon 8 MG AT BEDTIME 11/04 2300 AC 11/05 PO 2105 Last 24 Hrs of Lab/Mello Results Last 24 Hrs of Labs/Mics: Laboratory Tests 11/06/16 1635: APTT Pending 11/06/16 0820: APTT 116 *H, CBC w Diff NO MAN DIFF REQ, RBC 3.53 L, MCV 90.7, MCH 30.8, RDW 13.1, MPV 7.4, Gran % 68.8, Lymphocytes % 15.9 L, Monocytes % 9.3, Eosinophils % 5.4 H, Basophils % 0.6, Absolute Granulocytes 4.0, Absolute Lymphocytes 0.9 L, Absolute Monocytes 0.5, Absolute Eosinophils 0.3, Absolute Basophils 0, PUBS MCHC 33.9 11/06/16 0010: APTT > 120 *H 11/05/16 2300: APTT Cancelled Assessment/Plan Assessment: 86-year-old male past medical history of hypertension, cardiac stents (on plavix and aspirin) diabetes presents from home with acute onset of headache, confusion and difficulty with articulation. He was found on HEAD CT to have a acute intrapaenchymal hemorrhage with minimal edema. This was reviewed with neurology and the the thought is that this does not correspond to his symptoms, with the addition that anticoagulation can be safely resumed. Continue NIH Stroke Scale Q 4Hrs Echocardiogram; LVEF >60%, no obvious regional wall abn, mild atrial dilation, MR, TR, moderate , trace [place] MRI no acute infarcts. no definite acute hemorrhage demonstrated. diffuse volume losss, due to chronic microvascular ischemic disease and lacunar infarctions. Anticoagulation resumed after discussion with discussion with neurology. May have to transition to oral anticoagulant. Cardiology recommendations noted, appreciate input continue home medication, atorvastatin BP better controlled, will continue current medications Swallow evaluation -diet advanced. HTN Blood pressure stable. continue medication metoprolol, and isosorbide mononitrate Diabetes Will get accuchecks start novolog ss coverage DVTppx ALPS Full code Problem List: 1. Paroxysmal atrial fibrillation 2. Stroke syndrome 3. Hematuria Pain Ratin Pain Location: Lower extremities Pain Goal: Pain 4 or less Pain Plan: Tylenol when necessary Tomorrow's Labs & Rationales: Complete blood count-patient has hematuria. DVT/Prophylaxis: pharmacological (intravenous heparin) RODRIGO ELDRIDGE MD 11/06/16 1058: Attending MD Review Statement Attending Statement Attending MD Statement: examined this patient, discuss w/resident/PA/LICENSED WEIGHER, agreed w/resident/PA/LICENSED WEIGHER, reviewed EMR data (avail) Attending Assessment/Plan: 86M PMH hypertension, cardiac stent (09/2015, [facility]),HLD, T2DM, GERD admitted initially for confusion and dysphasia in the setting of left parietal ischemic stroke, course complicated by seizure requiring intubation on 11/01, extubated 11/02, now transferred from ICU to telemetry monitored floor. Patient has been on heparin drip complicated by gross hematuria with Villegas catheter in place with free water flushes. Found to have paroxysmal atrial fibrillation on telemetry. Patient feels well today. He was able to walk briskly around the floor with PT with his walker, and reported no discomfort, chest pain, or SOB afterward. He ate well this morning and is eager to go home. 1. Acute left parietal ischemic CVA 2. Seizure 3. Acute respiratory failure requiring intubation (resolved) 4. Gross hematuria 5. BPH 6. History of CAD, hypertension, T2DM, HLD 7. Paroxysmal atrial fibrillation Plan - Continue on telemetry - Continue water flushes into Villegas catheter - Discontinue ASA - Continue Plavix and Atorvastatin - Continue heparin drip - Continue Metoprolol, Amiodarone, nitrate - Follow neurology, urology, and cardiology recommendations - Will speak all today regarding starting PO anti-coagulation - Continue to work with PT
[2016-11-06 08:00] VITALS: BP 134/60
[2016-11-06 08:47] LABS: ABSOLUTE BASOPHIL COUNT 0 /CUMM (0.0-0.2); ABSOLUTE EOSINOPHIL COUNT 0.3 /CUMM (0.0-0.7); ABSOLUTE LYMPH COUNT 0.9 /CUMM (1.2-3.4); ABSOLUTE MONOCYTE COUNT 0.5 /CUMM (0.10-0.60); BASOPHIL % 0.6 % (0.0-2.0); EOSINOPHIL % 5.4 % (0-5); GRANULOCYTE % 68.8 % (42.2-75.2); MEAN CORPUSCULAR HGB 30.8 PG (27.0-31.0); MEAN CORPUSCULAR HGB CONC 33.9 G/DL (33.0-37.0); MEAN CORPUSCULAR VOLUME 90.7 FL (80.0-94.0); MEAN PLATELET VOLUME 7.4 FL (7.4-10.4); PLATELET COUNT 223 /CUMM (130-400); RBC DISTRIBUTION WIDTH 13.1 % (11.5-14.5); RED BLOOD CELL CT 3.53 /CUMM (4.70-6.10); WHITE BLOOD CELL COUNT 5.8 /CUMM (4.8-10.8)
[2016-11-06 09:08] LABS: PTT 116 SEC (25-37)
--- NOTE | 2016-11-06 12:39 | PN- Cardiology ---
Subjective Subjective: Patient is sitting in his chair and resting comfortably. Offers no complaint. Objective Vital Signs and I&Os Vital Signs Date Time Temp Pulse Resp B/P Pulse O2 O2 Flow FiO2 Ox Delivery Rate 11/06 1040 97.2 61 20 134/60 11/06 1040 97.2 61 20 134/60 11/06 1040 97.2 61 20 134/60 11/06 0800 97.2 61 20 134/60 96 Room Air 11/05 2232 97.8 57 20 140/62 96 Room Air 11/05 2105 60 20 158/66 11/05 2000 97 Room Air 11/05 2000 97.7 58 20 158/68 97 Room Air 11/05 1600 98.3 67 20 138/68 96 Room Air Intake & Output 11/06 1600 11/06 0800 11/06 0000 11/05 1600 11/05 0800 11/05 0000 Intake Total 6100 653 1054 329 448 Output Total 7725 2419 102 8103 720 Balance -1625 -747 404 -1746 -272 Intake, IV 353 334 269 148 Intake, Oral 100 300 720 60 300 Intake, Other 6000 Number 2 1 0 0 Bowel Movements Output, Urine 7725 4204 638 5476 720 Patient 201 lb Weight Physical Exam: General: Alert and oriented. No distress Eyes: No obvious scleral icterus. HEENT: No jugular venous distention or abnormal jugular venous pulsations. Cardiovascular: Normal intensity S1/S2. Regular. 2/6 systolic murmur Respiratory: No rales or rhonchi Abdomen: no guarding Musculoskeletal: No clubbing or cyanosis noted, no edema Skin: Warm, no obvious embolic phenomenon : Villegas in place Current Medications: Current Medications Sig/Reagan Start time Last Medication Dose Route Stop Time Status Admin Acetaminophen 1,000 MG Q6P PRN 10/29 1630 AC 11/04 IV 0020 Amiodarone HCl 200 MG BID 11/03 2200 AC 11/06 PO 1040 Aspirin 81 MG DAILY 11/03 1200 AC 11/06 PO 1040 Atorvastatin Calcium 80 MG 1700 10/30 1700 AC 11/05 PO 1654 Clopidogrel Bisulfate 75 MG DAILY 10/29 1615 AC 11/06 PO 1040 Docusate Sodium 100 MG DAILY 11/06 1000 AC 11/06 PO 1041 Finasteride 5 MG DAILY 11/04 2000 AC 11/06 PO 1040 Heparin Sodium 3,600 UNIT ONCE ONE 11/05 1845 DC 11/05 (Porcine) IV 11/05 184 1839 Heparin Sodium 5,000 UNIT .STK-MED ONE 11/05 1825 DC (Porcine) IV 11/05 1826 Heparin Sodium/ 25,000 UNIT Q24H 11/04 2014 AC 11/05 Dextrose IV 1832 Dextrose/Water 500 ML Insulin Aspart 0 TIDAC 11/04 1700 AC 11/05 SC 1654 Isosorbide 30 MG DAILY 11/03 1607 AC 11/06 Mononitrate PO 1040 Latanoprost 1 GTT QPM 10/29 2200 AC 11/05 OPH 2106 Levetiracetam 500 MG Q12 11/01 2200 AC 11/06 N/A 1 UNIT IV 1040 Lorazepam 2 MG Q4P PRN 11/01 1015 AC 11/04 IV 2139 Metoprolol Succinate 25 MG DAILY 11/03 1615 AC 11/06 PO 1040 Omeprazole 40 MG DAILY AC 11/05 0700 AC 11/06 PO 0554 Opium Alkaloids 60 MG 4 TIMES/DAY PRN 11/05 2200 AC TN Phosphate 250 MG PC AND AT BEDTIME 11/01 2100 AC 11/06 PO 1040 Ramelteon 8 MG AT BEDTIME 11/04 2300 AC 11/05 PO 2105 Results Last 48 Hrs of Labs/Mics: Laboratory Tests 11/06/16 0820: APTT 116 *H, CBC w Diff NO MAN DIFF REQ, RBC 3.53 L, MCV 90.7, MCH 30.8, RDW 13.1, MPV 7.4, Gran % 68.8, Lymphocytes % 15.9 L, Monocytes % 9.3, Eosinophils % 5.4 H, Basophils % 0.6, Absolute Granulocytes 4.0, Absolute Lymphocytes 0.9 L, Absolute Monocytes 0.5, Absolute Eosinophils 0.3, Absolute Basophils 0, PUBS MCHC 33.9 11/06/16 0010: APTT > 120 *H 11/05/16 2300: APTT Cancelled 11/05/16 1710: APTT 57 H 11/05/16 0500: Anion Gap 10, Estimated GFR > 60, Glucose 111 H, Calcium 8.9, Phosphorus 3.5, Magnesium 1.7, Total Bilirubin 1.1, AST 33, ALT 37, Albumin 3.5, PT 13.2 H, INR 1.26 H, APTT 79 H, CBC w Diff NO MAN DIFF REQ, RBC 3.72 L, MCV 92.9, MCH 30.4 , RDW 13.3, MPV 7.9, Gran % 71.1, Lymphocytes % 15.0 L, Monocytes % 8.8, Eosinophils % 4.5, Basophils % 0.6, Absolute Granulocytes 4.5, Absolute Lymphocytes 1.0 L, Absolute Monocytes 0.6, Absolute Eosinophils 0.3, Absolute Basophils 0, PUBS MCHC 32.7 L 11/04/16 1650: Urinalysis LIGHT H, Urine Color PINK H, Urine Clarity CLDY H, Urine pH 6.5, Ur Specific [place] 1.020, Urine Protein 100 H, Urine Ketones NEG, Urine Nitrite POS H, Urine Bilirubin NEG@ICTO, Urine Urobilinogen 4.0 H, Ur Leukocyte Esterase TRACE H, Ur Microscopic SEDIMENT EXAMINED, Urine RBC PACKD H, Urine WBC 5-10 H, Ur Epithelial Cells RARE, Urine Bacteria FEW H, Hyaline Casts RARE H, Granular Casts 1-3 H, Urine Mucus MOD H, Urine Hemoglobin LARGE H, Urine Glucose NEG, Urine Comment Recent Imaging Studies: Telemetry tracings were personally reviewed and shows sinus rhythm Assessment/Plan Assessment/Plan 1. 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 Altered mental status requiring intubation, now extubated 3. New onset paroxysmal atrial fibrillation, now back in sinus 4. Moderate aortic stenosis 5. History of coronary artery disease with prior PCI 6. Hypertension 7. Hematuria Patient is doing well and resting comfortably. No evidence of recurrent atrial fibrillation on telemetry. Decrease amiodarone to 200 mg by mouth daily. Patient now back on intravenous heparin with Villegas in place and urology on board. Blood pressure within normal limits at this time. Can likely discontinue the Plavix while he is being fully anticoagulated. Continue daily statin therapy. Brandon Gooden MD [facility] Continue telemetry? Yes
[2016-11-06 16:23] VITALS: BP 138/68
[2016-11-06 18:30] LABS: PTT 62 SEC (25-37)
[2016-11-07 00:17] VITALS: BP 114/62
[2016-11-07 04:49] LABS: ABSOLUTE BASOPHIL COUNT 0 /CUMM (0.0-0.2); ABSOLUTE EOSINOPHIL COUNT 0.1 /CUMM (0.0-0.7); ABSOLUTE GRANULOCYTE CT 2.9 /CUMM (1.4-6.5); ABSOLUTE LYMPH COUNT 0.5 /CUMM (1.2-3.4); ABSOLUTE MONOCYTE COUNT 0.4 /CUMM (0.10-0.60); EOSINOPHIL % 1.4 % (0-5); GRANULOCYTE % 75.2 % (42.2-75.2); HEMATOCRIT 31.5 % (42-52); MEAN CORPUSCULAR HGB 30.5 PG (27.0-31.0); MEAN CORPUSCULAR HGB CONC 33.6 G/DL (33.0-37.0); MEAN CORPUSCULAR VOLUME 90.8 FL (80.0-94.0); MEAN PLATELET VOLUME 6.5 FL (7.4-10.4); PLATELET COUNT 221 /CUMM (130-400); RBC DISTRIBUTION WIDTH 13.8 % (11.5-14.5); RED BLOOD CELL CT 3.48 /CUMM (4.70-6.10); WHITE BLOOD CELL COUNT 3.8 /CUMM (4.8-10.8)
[2016-11-07 05:02] LABS: PTT 73 SEC (25-37)
--- NOTE | 2016-11-07 08:29 | PN- Housestaff ---
GIOVANNY MARIE 11/07/16 0828: Subjective Follow-up For: Ischemic stroke Tele-Events Since Last Visit: Normal sinus rhythm, heart rate 60-81, multiple PVCs. Subjective: Patient is comfortable this morning. Remained afebrile overnight. Did not have any complaints. He worked with physical therapy, and was fairly mobile. Discussed with Dr. Lynn, who is the preschool assistant principal taking care of the patient today and resumed dabigatran in the pm, with an overlap with heparin. Nurse notified. Talk to pharmacy, informed them. Review of Systems Constitutional: Reports: see HPI. Objective Last 24 Hrs of Vital Signs/I&O Vital Signs Date Time Temp Pulse Resp B/P Pulse O2 O2 Flow FiO2 Ox Delivery Rate 11/07 0017 100.2 69 20 114/62 94 Room Air 11/07 0000 96 11/06 1623 98.6 73 20 138/68 95 Room Air 11/06 1040 97.2 61 20 134/60 11/06 1040 97.2 61 20 134/60 11/06 1040 97.2 61 20 134/60 Intake & Output 11/07 1600 11/07 0800 11/07 0000 Intake Total 735 780 Output Total 1500 300 Balance -765 480 Intake, IV 135 180 Intake, Oral 600 600 Output, Urine 1500 300 Physical Exam General Appearance: No Acute Distress Other Physical Findings: General Exam: AAOx3, No acute distress, Skin: No rashes, no breakdown HEENT: PERRLA, EOMI Neck: Supple, No JVD No cervical lymphadenopathy CVS: Reg Rate, Normal S1,S2, No MGR Resp: Normal air entry, no ronchi/rales Abdomen: Soft, No tenderness, Normal Bowel Sounds, Villegas catheter in place Neuro: Normal Speech, Strength 5/5 b/l x 4 extremities, Sensation intact, CN III -XII NL, Reflexes 2+ Extremities: No cyanosis, pedal edema Current Medications: Current Medications Sig/Reagan Start time Last Medication Dose Route Stop Time Status Admin Acetaminophen 1,000 MG Q6P PRN 10/29 1630 AC 11/04 IV 0020 Amiodarone HCl 200 MG DAILY 11/07 1000 AC PO Amiodarone HCl 200 MG BID 11/03 2200 DC 11/06 PO 1040 Aspirin 81 MG DAILY 11/03 1200 AC 03/15 PO 1040 Atorvastatin Calcium 80 MG 1700 10/30 1700 AC 11/06 PO 1621 Clopidogrel Bisulfate 75 MG DAILY 10/29 1615 DC 11/06 PO 1040 Docusate Sodium 100 MG DAILY 11/06 1000 AC 11/06 PO 1041 Finasteride 5 MG DAILY 11/04 2001 AC 11/06 PO 1040 Heparin Sodium/ 25,000 UNIT Q24H 11/04 2015 AC 11/06 Dextrose IV 2129 Dextrose/Water 500 ML Insulin Aspart 0 TIDAC 11/04 1700 AC 11/05 SC 1654 Isosorbide 30 MG DAILY 11/03 1607 AC 11/06 Mononitrate PO 1040 Latanoprost 1 GTT QPM 10/29 2200 AC 11/06 OPH 2129 Levetiracetam 500 MG BID 11/06 220 AC 11/06 PO 2128 Levetiracetam 500 MG Q12 11/01 2200 DC 11/06 N/A 1 UNIT IV 1040 Lorazepam 2 MG Q4P PRN 11/01 1015 AC 11/04 IV 2139 Metoprolol Succinate 25 MG DAILY 11/03 1615 AC 11/06 PO 1040 Omeprazole 40 MG DAILY AC 11/05 0700 AC 11/07 PO 0643 Opium Alkaloids 60 MG 4 TIMES/DAY PRN 11/05 2200 AC [place] Phosphate 250 MG PC AND AT BEDTIME 11/01 2100 AC 11/06 PO 2129 Ramelteon 8 MG AT BEDTIME 11/04 2300 AC 11/06 PO 2128 Last 24 Hrs of Lab/Mello Results Last 24 Hrs of Labs/Mics: Laboratory Tests 11/07/16 0430: APTT 73 H, CBC w Diff NO MAN DIFF REQ, RBC 3.48 L, MCV 90.8, MCH 30.5, RDW 13.8, MPV 6.5 L, Gran % 75.2, Lymphocytes % 12.1 L, Monocytes % 10.3 H, Eosinophils % 1.4, Basophils % 1.0, Absolute Granulocytes 2.9, Absolute Lymphocytes 0.5 L, Absolute Monocytes 0.4, Absolute Eosinophils 0.1, Absolute Basophils 0, PUBS MCHC 33.6 11/06/16 1635: APTT 62 H Assessment/Plan Assessment: 86-year-old male past medical history of hypertension, cardiac stents (on plavix and aspirin) diabetes presents from home with acute onset of headache, confusion and difficulty with articulation. He was found on HEAD CT to have a acute intrapaenchymal hemorrhage with minimal edema. This was reviewed with neurology and the the thought is that this does not correspond to his symptoms, with the addition that anticoagulation can be safely resumed. Continue NIH Stroke Scale Q 4Hrs Echocardiogram; LVEF >60%, no obvious regional wall abn, mild atrial dilation, MR, TR, moderate , trace [place] MRI no acute infarcts. no definite acute hemorrhage demonstrated. diffuse volume losss, due to chronic microvascular ischemic disease and lacunar infarctions. Anticoagulation(oral) resumed after discussion with urology, and cardilogy. Cardiology recommendations noted, appreciate input continue home medication, atorvastatin BP better controlled, will continue current medications Swallow evaluation -diet advanced. HTN Blood pressure stable. continue medication metoprolol, and isosorbide mononitrate Diabetes Will get accuchecks start novolog ss coverage DVTppx ALPS Full code Problem List: 1. Stroke syndrome 2. Paroxysmal atrial fibrillation 3. Hematuria Pain Ratin Pain Location: lower extremities Pain Goal: Pain 4 or less Pain Plan: tylenol prn Tomorrow's Labs & Rationales: cbc- check for low Hb. RODRIGO ELDRIDGE MD 11/07/16 1106: Attending MD Review Statement Attending Statement Attending MD Statement: examined this patient, discuss w/resident/PA/DIRECTOR LIFE SALES, agreed w/resident/PA/DIRECTOR LIFE SALES, reviewed EMR data (avail) Attending Assessment/Plan: 86M PMH hypertension, cardiac stent (09/2015, [facility]),HLD, T2DM, GERD admitted initially for confusion and dysphasia in the setting of left parietal ischemic stroke, course complicated by seizure requiring intubation on 11/01, extubated 11/02, now transferred from ICU to telemetry monitored floor. Patient has been on heparin drip complicated by gross hematuria with Villegas catheter in place with free water flushes. Found to have paroxysmal atrial fibrillation on telemetry. No complaints today. Hematuria persists. Labs reviewed. 1. Acute left parietal ischemic CVA 2. Seizure 3. Acute respiratory failure requiring intubation (resolved) 4. Gross hematuria 5. BPH 6. History of CAD, hypertension, T2DM, HLD 7. Paroxysmal atrial fibrillation Plan - Continue on telemetry - Continue water flushes into Villegas catheter - Continue Atorvastatin - Start Pradaxa, discontinue heparin drip - Continue Metoprolol, Amiodarone, nitrate - Follow neurology, urology, and cardiology recommendations - Will clarify regarding ASA and Plavix in combination with Pradaxa - Continue to work with PT - Anticipated discharge tomorrow, please send CMR for review - Check CBC tomorrow to monitor for acute anemia in the setting of hematuria
[2016-11-07 08:35] VITALS: BP 166/98
--- NOTE | 2016-11-07 10:36 | PN- Cardiology ---
Subjective Subjective: Telemetry reviewed. Remains in sinus rhythm. Objective Vital Signs and I&Os Vital Signs Date Time Temp Pulse Resp B/P Pulse O2 O2 Flow FiO2 Ox Delivery Rate 11/07 1015 98.1 80 20 166/98 11/07 1015 98.1 80 20 166/98 16 1015 98.1 80 20 166/98 11/07 0835 98.1 80 20 166/98 96 Room Air 11/07 0017 100.2 69 20 114/62 94 Room Air 11/07 0000 96 11/06 1623 98.6 73 20 138/68 95 Room Air 11/06 1040 97.2 61 20 134/60 11/06 1040 97.2 61 20 134/60 11/06 1040 97.2 61 20 134/60 Intake & Output 11/07 1600 11/07 0800 11/07 0000 11/06 1600 11/06 0800 11/06 0000 Intake Total 735 780 667.8 6100 653 Output Total 1500 116 637 1920 1400 Balance -765 480 -137.2 -1625 -747 Intake, IV 135 180 187.8 353 Intake, Oral 600 600 480 100 300 Intake, Other 6000 Number 2 Bowel Movements Output, Stool 5 Output, Urine 1500 991 601 2391 1400 Patient 201 lb Weight Physical Exam: Gen. exam patient alert awake and communicative. He sitting out in a chair. Head normocephalic atraumatic Eyes sclera anicteric conjunctiva showed no pallor extra muscle were normal Neck no jugular venous distention no thyroid masses no palpable nodes Chest lungs were clear bilaterally Heart regular rhythm with a grade 2/6 systolic murmur Abdomen soft no organomegaly Extremities no clubbing cyanosis or edema Neurological mild right hemiparesis Current Medications: Current Medications Sig/Reagan Start time Last Medication Dose Route Stop Time Status Admin Acetaminophen 1,000 MG Q6P PRN 10/29 1630 AC 11/04 IV 0020 Amiodarone HCl 200 MG DAILY 11/07 1000 AC 11/07 PO 1015 Amiodarone HCl 200 MG BID 11/03 2200 DC 11/06 PO 1040 Aspirin 81 MG DAILY 11/03 1200 AC 11/07 PO 1015 Atorvastatin Calcium 80 MG 1700 10/30 1700 AC 11/06 PO 1621 Clopidogrel Bisulfate 75 MG DAILY 10/29 1615 DC 11/06 PO 1040 Docusate Sodium 100 MG DAILY 11/06 1000 AC 11/07 PO 1015 Finasteride 5 MG DAILY 11/04 2000 AC 11/07 PO 1014 Heparin Sodium/ 25,000 UNIT Q24H 11/04 2014 AC 11/06 Dextrose IV 2129 Dextrose/Water 500 ML Insulin Aspart 0 TIDAC 11/04 1700 AC 11/05 SC 1654 Isosorbide 30 MG DAILY 11/03 1607 AC 11/07 Mononitrate PO 1015 Latanoprost 1 GTT QPM 10/29 2200 AC 11/06 OPH 2129 Levetiracetam 500 MG BID 11/06 2200 AC 11/07 PO 1014 Levetiracetam 500 MG Q12 11/01 2200 DC 11/06 N/A 1 UNIT IV 1040 Lorazepam 2 MG Q4P PRN 11/01 1015 AC 11/04 IV 2139 Metoprolol Succinate 25 MG DAILY 11/03 1615 AC 11/07 PO 1015 Omeprazole 40 MG DAILY AC 11/05 0700 AC 11/07 PO 0643 Opium Alkaloids 60 MG 4 TIMES/DAY PRN 11/05 2200 AC ID Phosphate 250 MG PC AND AT BEDTIME 11/01 2100 AC 11/07 PO 1015 Ramelteon 8 MG AT BEDTIME 11/04 2300 AC 11/06 PO 2128 Results Last 48 Hrs of Labs/Mics: Laboratory Tests 11/07/16 0430: APTT 73 H, CBC w Diff NO MAN DIFF REQ, RBC 3.48 L, MCV 90.8, MCH 30.5, RDW 13.8, MPV 6.5 L, Gran % 75.2, Lymphocytes % 12.1 L, Monocytes % 10.3 H, Eosinophils % 1.4, Basophils % 1.0, Absolute Granulocytes 2.9, Absolute Lymphocytes 0.5 L, Absolute Monocytes 0.4, Absolute Eosinophils 0.1, Absolute Basophils 0, PUBS MCHC 33.6 11/06/16 1635: APTT 62 H 11/06/16 0820: APTT 116 *H, CBC w Diff NO MAN DIFF REQ, RBC 3.53 L, MCV 90.7, MCH 30.8, RDW 13.1, MPV 7.4, Gran % 68.8, Lymphocytes % 15.9 L, Monocytes % 9.3, Eosinophils % 5.4 H, Basophils % 0.6, Absolute Granulocytes 4.0, Absolute Lymphocytes 0.9 L, Absolute Monocytes 0.5, Absolute Eosinophils 0.3, Absolute Basophils 0, PUBS MCHC 33.9 11/06/16 0010: APTT > 120 *H 11/05/16 2300: APTT Cancelled 11/05/16 1710: APTT 57 H Assessment/Plan Assessment/Plan In summary this 86 year gentleman has the following problems 1. 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 Altered mental status requiring intubation, now extubated 3. New onset paroxysmal atrial fibrillation, now back in sinus 4. Moderate aortic stenosis 5. History of coronary artery disease with prior PCI 6. Hypertension 7. Hematuria He remains in sinus rhythm rhythm controlled with amiodarone. If target anticoagulants namely Pradaxa is initiated, antiplatelet agents should be withheld for the time being especially with hematuria. Continue telemetry? Yes
--- NOTE | 2016-11-07 13:09 | Discharge Summary ---
Hospital Course Course Hospital Course: Mr Guy is a 86-year-old pleasnt gentleman with past medical history of hypertension, cardiac stent (09/2015, [facility]), hyperlipidemia, diabetes mellitus, GERD, who presented to the emergency room on 10/29/2016 with neurological symptoms of headache, difficulty speaking, and weakness. He was initially admitted to the telemetry floor for management of an ischemic CVA however on 11/01/2016 had an epileptic episode Allergies: Coded Allergies: NO KNOWN ALLERGIES (NO) (01/02/11) Discharge Instructions General Discharge Information Code Status: Full Code Medications at Discharge Discharge Medications: Continue taking these medications: Aspirin (Ecotrin*) 81 MG TABLET.DR 1 Tablet ORAL DAILY Atorvastatin Calcium (Atorvastatin Calcium) 80 MG TABLET 1 Tablet ORAL DAILY Qty = 30 Clopidogrel Bisulfate (Clopidogrel) 75 MG TABLET 1 Tablet ORAL DAILY Qty = 30 Isosorbide Mononitrate (Isosorbide Mononitrate ER) 30 MG TAB.ER.24H 1 Tablet ORAL DAILY Qty = 30 Latanoprost (Latanoprost) 0.005 % DROPS 1 Drop In the eye Every night Qty = 3 Comments: PER PT MED LIST Metoprolol Succinate (Metoprolol Succinate) 25 MG TAB 1 Tablet ORAL DAILY Qty = 30 Pantoprazole Sodium (Pantoprazole Sodium) 40 MG TABLET.DR 1 Tablet ORAL DAILY Qty = 30 Pioglitazone HCl/Metformin HCl (Actoplus Met 15 MG-850 MG Tab) 15 MG-850 MG TABLET 1 Tablet ORAL TWICE DAILY Qty = 60 Multivit-Min/FA/Lycopen/Lutein (Centrum Silver Tablet) 0.4 MG-300 MCG-250 MCG TABLET 1 Tablet ORAL DAILY Acetaminophen (Tylenol Arthritis) 650 MG TABLET.ER 650 Milligram ORAL EVERY 8 HOURS
[2016-11-07 16:30] VITALS: BP 132/60
[2016-11-07 19:09] LABS: PTT > 120 SEC (25-37)
[2016-11-08] VITALS: BP 132/68
--- NOTE | 2016-11-08 05:48 | PN- Housestaff ---
GIOVANNY MARIE 11/08/16 0548: Subjective Follow-up For: - Ischemic CVA - P afib - Hematuria Review of Systems Constitutional: Reports: see HPI. Objective Last 24 Hrs of Vital Signs/I&O Vital Signs Date Time Temp Pulse Resp B/P Pulse O2 O2 Flow FiO2 Ox Delivery Rate 11/08 0000 Room Air 11/08 0000 98.0 61 22 132/68 94 Room Air 11/07 1630 98.7 64 20 132/60 94 Room Air 11/07 1238 Room Air 11/07 1015 98.1 80 20 166/98 11/07 1015 98.1 80 20 166/98 11/07 1015 98.1 80 20 166/98 11/07 0835 98.1 80 20 166/98 96 Room Air Intake & Output 11/08 0800 11/08 0000 11/07 1600 Intake Total 350 660 Output Total 600 Balance 350 60 Intake, IV 0 180 Intake, Oral 350 480 Number 0 Bowel Movements Output, Urine 600 Patient 191 lb Weight Physical Exam General Appearance: No Acute Distress Skin: No Breakdown HEENT: PERRLA, EOMI Neck: No JVD, No thryomegaly Lymphatic: Cervical nl Cardiovascular: Normal S1, Normal S2 Lungs: Normal Air Movement Abdomen: Soft, No Tenderness, urinary catheter in place w/ CBI Neurological: Normal Speech, Strength at 5/5 X4 Ext, Normal Tone, Sensation Intact, Cranial Nerves 3-12 NL Extremities: No Cyanosis, No Edema, Normal Pulses Current Medications: Current Medications Sig/Reagan Start time Last Medication Dose Route Stop Time Status Admin Acetaminophen 1,000 MG Q6P PRN 10/29 1630 AC 11/04 IV 0020 Amiodarone HCl 200 MG DAILY 11/07 1000 AC 11/07 PO 1015 Aspirin 81 MG DAILY 11/03 1200 DC 11/07 PO 1015 Atorvastatin Calcium 80 MG 1700 10/30 1700 AC 11/07 PO 1643 Dabigatran 150 MG BID 11/07 2200 AC 11/07 PO 1945 Docusate Sodium 100 MG DAILY 11/06 1000 AC 11/07 PO 1015 Finasteride 5 MG DAILY 11/04 2000 AC 11/07 PO 1014 Heparin Sodium/ 25,000 UNIT Q24H 11/04 2014 DC 11/06 Dextrose IV 11/07 2159 2129 Dextrose/Water 500 ML Insulin Aspart 0 TIDAC 11/04 1700 AC 11/05 SC 1654 Isosorbide 30 MG DAILY 11/03 1607 AC 11/07 Mononitrate PO 1015 Latanoprost 1 GTT QPM 10/29 2200 AC 11/07 OPH 2138 Levetiracetam 500 MG BID 11/06 2200 AC 11/07 PO 2138 Lorazepam 2 MG Q4P PRN 11/01 1015 AC 11/04 IV 2139 Metoprolol Succinate 25 MG DAILY 11/03 1615 AC 11/07 PO 1015 Omeprazole 40 MG DAILY AC 11/05 0700 AC 11/07 PO 0643 Opium Alkaloids 60 MG 4 TIMES/DAY PRN 11/05 2200 AC GA Patient Medication 1 ED .STK-MED ONE 11/07 1421 DC Teaching ED 11/07 1422 Phosphate 250 MG PC AND AT BEDTIME 11/01 2100 AC 11/07 PO 2138 Ramelteon 8 MG AT BEDTIME 11/04 2300 AC 11/07 PO 2138 Last 24 Hrs of Lab/Mello Results Last 24 Hrs of Labs/Mics: Laboratory Tests 11/07/16 1735: APTT > 120 *H 11/07/16 1049: Anion Gap 14, Estimated GFR > 60, BUN/Creatinine Ratio 10.0 11/07/16 1006: Urine Color BLDY H, Urine Clarity CLDY H, Urine pH 6.5, Ur Specific [place] 1.015, Urine Protein 100 H, Urine Ketones NEG, Urine Nitrite POS H, Urine Bilirubin NEG, Urine Urobilinogen 1.0, Ur Leukocyte Esterase TRACE H, Ur Microscopic SEDIMENT EXAMINED, Urine RBC PACKD H, Urine WBC 1-3 H, Ur Epithelial Cells RARE, Urine Bacteria RARE H, Micro UA Comment , Urine Hemoglobin LARGE H, Urine Glucose NEG Microbiology 11/07 1006 URINE ROUT: Urine Culture - RECD Assessment/Plan Assessment: 86-year-old male past medical history of hypertension, cardiac stents (on plavix and aspirin) diabetes presents from home with acute onset of headache, confusion and difficulty with articulation. He was found on HEAD CT to have a acute intrapaenchymal hemorrhage with minimal edema. This was reviewed with neurology and the the thought is that this does not correspond to his symptoms, with the addition that anticoagulation can be safely resumed. Below is the problem list and plan: Continue NIH Stroke Scale Q 4Hrs Echocardiogram; LVEF >60%, no obvious regional wall abn, mild atrial dilation, MR, TR, moderate , trace GA MRI no acute infarcts. no definite acute hemorrhage demonstrated. diffuse volume losss, due to chronic microvascular ischemic disease and lacunar infarctions. Anticoagulation(oral) resumed after discussion with urology, and cardilogy. No further complications noted.Continued to have hematurea after acosta was replaced for leakage. Contacted Dr. Castellanos for advice, awaiting recommendation. As per the pt, the pt keen on being discharge home, but considering the weakness, PT recommended an STR placement. Acosta catheter to be discontiued, and voiding trials to be done. If the pt tolerates well w/ no urinary retention, may discharge home, or would eb discharged to an STR. Cardiology recommendations noted, appreciate input continue home medication, atorvastatin BP better controlled, will continue current medications Swallow evaluation -diet advanced. HTN Blood pressure stable. continue medication metoprolol, and isosorbide mononitrate Diabetes Will get accuchecks start novolog ss coverage DVTppx ALPS Full code Problem List: 1. Stroke syndrome 2. Paroxysmal atrial fibrillation 3. Hematuria Pain Ratin Pain Location: none Pain Goal: Pain 4 or less Pain Plan: tylenol pron Tomorrow's Labs & Rationales: cbc- to check H and H. pt has hematurea. RODRIGO ELDRIDGE MD 11/08/16 1049: Attending MD Review Statement Attending Statement Attending MD Statement: examined this patient, discuss w/resident/PA/SLEEPING CAR SERVICE ATTENDANT, agreed w/resident/PA/SLEEPING CAR SERVICE ATTENDANT, reviewed EMR data (avail) Attending Assessment/Plan: 86M PMH hypertension, cardiac stent (09/2015, [facility]),HLD, T2DM, GERD admitted initially for confusion and dysphasia in the setting of left parietal ischemic stroke, course complicated by seizure requiring intubation on 11/01, extubated 11/02, now transferred from ICU to telemetry monitored floor. Patient has been on heparin drip complicated by gross hematuria with Acosta catheter in place with free water flushes. Found to have paroxysmal atrial fibrillation on telemetry. No complaints today. Hematuria improved and Acosta catheter replaced. Labs reviewed. 1. Acute left parietal ischemic CVA 2. Seizure 3. Acute respiratory failure requiring intubation (resolved) 4. Gross hematuria 5. BPH 6. History of CAD, hypertension, T2DM, HLD 7. Paroxysmal atrial fibrillation Plan - Continue on telemetry - Continue water flushes into Acosta catheter, may stop CBI - Continue Atorvastatin - Continue Pradaxa - Continue Metoprolol, Amiodarone, nitrate - Follow neurology, urology, and cardiology recommendations - Will stop ASA and Plavix on discharge while on Pradaxa - Continue to work with PT - Stable for discharge
[2016-11-08 07:54] LABS: ABSOLUTE BASOPHIL COUNT 0 /CUMM (0.0-0.2); ABSOLUTE EOSINOPHIL COUNT 0.1 /CUMM (0.0-0.7); ABSOLUTE GRANULOCYTE CT 2.8 /CUMM (1.4-6.5); ABSOLUTE LYMPH COUNT 0.7 /CUMM (1.2-3.4); ABSOLUTE MONOCYTE COUNT 0.7 /CUMM (0.10-0.60); BASOPHIL % 0.8 % (0.0-2.0); EOSINOPHIL % 2.4 % (0-5); GRANULOCYTE % 64.6 % (42.2-75.2); HEMATOCRIT 32.1 % (42-52); MEAN CORPUSCULAR HGB 31.2 PG (27.0-31.0); MEAN CORPUSCULAR HGB CONC 33.9 G/DL (33.0-37.0); MEAN CORPUSCULAR VOLUME 92.1 FL (80.0-94.0); MEAN PLATELET VOLUME 7.2 FL (7.4-10.4); PLATELET COUNT 182 /CUMM (130-400); RBC DISTRIBUTION WIDTH 13.6 % (11.5-14.5); RED BLOOD CELL CT 3.49 /CUMM (4.70-6.10); WHITE BLOOD CELL COUNT 4.4 /CUMM (4.8-10.8)
[2016-11-08 08:02] VITALS: BP 178/82
[2016-11-08 10:13] VITALS: BP 148/70
--- NOTE | 2016-11-08 12:39 | PN- Cardiology ---
Subjective Subjective: Doing well. No new complaints. Objective Vital Signs and I&Os Vital Signs Date Time Temp Pulse Resp B/P Pulse O2 O2 Flow FiO2 Ox Delivery Rate 11/08 1013 148/70 11/08 0813 66 188/80 11/08 0813 66 188/80 11/08 0813 66 188/80 11/08 0802 97.4 66 16 178/82 95 Room Air 11/08 0000 Room Air 11/08 0000 98.0 61 22 132/68 94 Room Air 11/07 1630 98.7 64 20 132/60 94 Room Air 11/07 1238 Room Air Intake & Output 11/08 1600 11/08 0800 11/08 0000 11/07 1600 11/07 0800 11/07 0000 Intake Total 250 350 660 735 780 Output Total 600 1500 300 Balance 250 350 60 -765 480 Intake, IV 0 0 180 135 180 Intake, Oral 250 350 480 600 600 Number 0 0 Bowel Movements Output, Urine 600 1500 300 Patient 191 lb Weight Physical Exam: General: Alert and oriented. No distress Eyes: No obvious scleral icterus. HEENT: No jugular venous distention or abnormal jugular venous pulsations. Cardiovascular: Normal intensity S1/S2. Regular. 2/6 systolic murmur Respiratory: No rales or rhonchi Abdomen: no guarding Musculoskeletal: No clubbing or cyanosis noted, no edema Skin: Warm, no obvious embolic phenomenon : Villegas in place Current Medications: Current Medications Sig/Reagan Start time Last Medication Dose Route Stop Time Status Admin Acetaminophen 1,000 MG Q6P PRN 10/29 1630 AC 11/04 IV 0020 Amiodarone HCl 200 MG DAILY 11/07 1000 AC 11/08 PO 0813 Atorvastatin Calcium 80 MG 1700 10/30 1700 AC 11/07 PO 1643 Dabigatran 150 MG BID 11/07 2200 AC 11/08 PO 0814 Docusate Sodium 100 MG DAILY 11/06 1000 AC 11/08 PO 0813 Finasteride 5 MG DAILY 11/04 2000 AC 11/08 PO 0813 Heparin Sodium/ 25,000 UNIT Q24H 11/04 2014 DC 11/06 Dextrose IV 11/07 2159 2129 Dextrose/Water 500 ML Insulin Aspart 0 TIDAC 11/04 1700 AC 11/05 SC 1654 Isosorbide 30 MG DAILY 11/03 1607 AC 11/08 Mononitrate PO 0813 Latanoprost 1 GTT QPM 10/29 2200 AC 11/07 OPH 2138 Levetiracetam 500 MG BID 11/06 2200 AC 11/08 PO 0813 Lorazepam 2 MG Q4P PRN 11/01 1015 DC 11/04 IV 2139 Metoprolol Succinate 25 MG DAILY 11/03 1615 AC 11/08 PO 0813 Omeprazole 40 MG DAILY AC 11/05 0700 AC 11/08 PO 0558 Opium Alkaloids 60 MG 4 TIMES/DAY PRN 11/05 2200 AC MO Patient Medication 1 ED .STK-MED ONE 11/07 1421 AL Teaching ED 11/07 1422 Phosphate 250 MG PC AND AT BEDTIME 11/01 2100 AC 11/08 PO 0813 Ramelteon 8 MG AT BEDTIME 11/04 2300 AC 11/07 PO 2138 Results Last 48 Hrs of Labs/Mics: Laboratory Tests 11/08/16 0650: CBC w Diff NO MAN DIFF REQ, RBC 3.49 L, MCV 92.1, MCH 31.2 H, RDW 13.6, MPV 7.2 L, Gran % 64.6, Lymphocytes % 17.1 L, Monocytes % 15.1 H, Eosinophils % 2.4, Basophils % 0.8, Absolute Granulocytes 2.8, Absolute Lymphocytes 0.7 L, Absolute Monocytes 0.7 H, Absolute Eosinophils 0.1, Absolute Basophils 0, PUBS MCHC 33.9 11/07/16 1735: APTT > 120 *H 11/07/16 1049: Anion Gap 14, Estimated GFR > 60, BUN/Creatinine Ratio 10.0 11/07/16 1006: Urine Color BLDY H, Urine Clarity CLDY H, Urine pH 6.5, Ur Specific [place] 1.015, Urine Protein 100 H, Urine Ketones NEG, Urine Nitrite POS H, Urine Bilirubin NEG, Urine Urobilinogen 1.0, Ur Leukocyte Esterase TRACE H, Ur Microscopic SEDIMENT EXAMINED, Urine RBC PACKD H, Urine WBC 1-3 H, Ur Epithelial Cells RARE, Urine Bacteria RARE H, Micro UA Comment , Urine Hemoglobin LARGE H, Urine Glucose NEG 11/07/16 0430: APTT 73 H, CBC w Diff NO MAN DIFF REQ, RBC 3.48 L, MCV 90.8, MCH 30.5, RDW 13.8, MPV 6.5 L, Gran % 75.2, Lymphocytes % 12.1 L, Monocytes % 10.3 H, Eosinophils % 1.4, Basophils % 1.0, Absolute Granulocytes 2.9, Absolute Lymphocytes 0.5 L, Absolute Monocytes 0.4, Absolute Eosinophils 0.1, Absolute Basophils 0, PUBS MCHC 33.6 11/06/16 1635: APTT 62 H Recent Imaging Studies: Telemetry tracings were personally reviewed and shows sinus rhythm Assessment/Plan Assessment/Plan 1. 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 Altered mental status requiring intubation, now extubated 3. New onset paroxysmal atrial fibrillation, now back in sinus 4. Moderate aortic stenosis 5. History of coronary artery disease with prior PCI 6. Hypertension 7. Hematuria Doing Well. Remains in sinus rhythm. Continue her on full anticoagulation given recent CVA with newly diagnosed paroxysmal atrial fibrillation. Documented manual blood pressures seem to be within reasonable limits and would not want to overcorrect the blood pressure in the setting of aortic stenosis with recent CVA. Villegas management/hematuria management per urology. Patient will follow-up in our office within one week of discharge. Brandon Gooden MD [facility] Continue telemetry? No
[2016-11-08 16:27] VITALS: BP 138/67
[2016-11-09 00:12] VITALS: BP 132/60
[2016-11-09 00:23] VITALS: BP 130/60
[2016-11-09 08:21] LABS: ABSOLUTE BASOPHIL COUNT 0 /CUMM (0.0-0.2); ABSOLUTE EOSINOPHIL COUNT 0.1 /CUMM (0.0-0.7); ABSOLUTE GRANULOCYTE CT 4.7 /CUMM (1.4-6.5); ABSOLUTE LYMPH COUNT 0.8 /CUMM (1.2-3.4); ABSOLUTE MONOCYTE COUNT 0.7 /CUMM (0.10-0.60); BASOPHIL % 0.2 % (0.0-2.0); EOSINOPHIL % 2.1 % (0-5); GRANULOCYTE % 74.2 % (42.2-75.2); HEMATOCRIT 32.6 % (42-52); MEAN CORPUSCULAR HGB 31.1 PG (27.0-31.0); MEAN CORPUSCULAR HGB CONC 33.6 G/DL (33.0-37.0); MEAN CORPUSCULAR VOLUME 92.5 FL (80.0-94.0); MEAN PLATELET VOLUME 7.2 FL (7.4-10.4); PLATELET COUNT 191 /CUMM (130-400); RBC DISTRIBUTION WIDTH 13.4 % (11.5-14.5); RED BLOOD CELL CT 3.52 /CUMM (4.70-6.10); WHITE BLOOD CELL COUNT 6.4 /CUMM (4.8-10.8)
[2016-11-09 08:31] VITALS: BP 184/101
--- NOTE | 2016-11-09 08:41 | PN- Housestaff ---
QUE ARGUETA,JAMES 11/09/16 0840: Subjective Follow-up For: - Ischemic CVA - P afib - Hematuria Tele-Events Since Last Visit: Sinus bradycardia, HR 53-62 Subjective: Patient seen and examined at bedside. Resting comfortably in chair. Denies any dyspnea, chest pain, palpitations, f/c, headache, dizziness, lightheadedness, n /v/c/d. Feeling well overall. No events reported overnight. Finished CBI and vodiding trial unremarkable. He offers no new complaints and feels ready for discharge. Review of Systems Constitutional: Reports: see HPI. Objective Last 24 Hrs of Vital Signs/I&O Vital Signs Date Time Temp Pulse Resp B/P Pulse O2 O2 Flow FiO2 Ox Delivery Rate 11/09 0831 98.0 98 17 184/101 95 Room Air 11/09 0023 98.0 60 20 130/60 96 Room Air 11/09 0012 97.9 67 20 132/60 96 Room Air 11/08 1627 97.7 69 20 138/67 97 Room Air 11/08 1013 148/70 Intake & Output 11/09 1600 11/09 0800 11/09 0000 Intake Total 130 250 Output Total 850 500 Balance -720 -250 Intake, IV 10 10 Intake, Oral 120 240 Number 1 Bowel Movements Output, Urine 850 500 Physical Exam General Appearance: Alert, Oriented X3, Cooperative, No Acute Distress Other Physical Findings: Skin: No rashes, no breakdown HEENT: PERRLA, EOMI Neck: Supple, No JVD No cervical lymphadenopathy CVS: Reg Rate, Normal S1,S2, No MGR Resp: Normal air entry, no ronchi/rales Abdomen: Soft, No tenderness, Normal Bowel Sounds, Acosta catheter in place Neuro: Normal Speech, Strength 5/5 b/l x 4 extremities, Sensation intact, CN III -XII NL, Reflexes 2+ Extremities: No cyanosis, pedal edema Current Medications: Current Medications Sig/Reagan Start time Last Medication Dose Route Stop Time Status Admin Acetaminophen 1,000 MG Q6P PRN 10/29 1630 AC 11/04 IV 0020 Amiodarone HCl 200 MG DAILY 11/07 1000 AC 11/08 PO 0813 Atorvastatin Calcium 80 MG 1700 10/30 1700 AC 11/08 PO 1726 Dabigatran 150 MG BID 11/07 2200 AC 11/08 PO 210 Docusate Sodium 100 MG DAILY 11/06 1000 AC 11/08 PO 08 Finasteride 5 MG DAILY 11/04 2000 AC 11/08 PO 08 Insulin Aspart 0 TIDAC 11/04 1700 AC 11/05 SC 1654 Isosorbide 30 MG DAILY 11/03 1607 AC 11/08 Mononitrate PO 08 Latanoprost 1 GTT QPM 10/29 2200 AC 11/08 OPH 210 Levetiracetam 500 MG BID 11/06 2200 AC 11/08 PO 210 Lorazepam 2 MG Q4P PRN 11/01 1015 DC 11/04 IV 2139 Metoprolol Succinate 25 MG DAILY 11/03 1615 AC 11/08 PO 08 Omeprazole 40 MG DAILY AC 11/05 0700 AC 11/09 PO 05 Opium Alkaloids 60 MG 4 TIMES/DAY PRN 11/05 2199 AC CA Phosphate 250 MG PC AND AT BEDTIME 11/01 2100 AC 11/08 PO 2105 Ramelteon 8 MG AT BEDTIME 11/04 2300 AC 11/08 PO 2106 Last 24 Hrs of Lab/Mello Results Last 24 Hrs of Labs/Mics: Laboratory Tests 11/09/16 0640: Anion Gap 10, Estimated GFR > 60, BUN/Creatinine Ratio 16.3, CBC w Diff NO MAN DIFF REQ, RBC 3.52 L, MCV 92.5, MCH 31.1 H, RDW 13.4, MPV 7.2 L, Gran % 74.2, Lymphocytes % 12.6 L, Monocytes % 10.9 H, Eosinophils % 2.1, Basophils % 0.2, Absolute Granulocytes 4.7, Absolute Lymphocytes 0.8 L, Absolute Monocytes 0.7 H, Absolute Eosinophils 0.1, Absolute Basophils 0, PUBS MCHC 33.6 Assessment/Plan Assessment: 86-year-old male past medical history of hypertension, cardiac stents (on plavix and aspirin) diabetes presents from home with acute onset of headache, confusion and difficulty with articulation. He was found on HEAD CT to have a acute intrapaenchymal hemorrhage with minimal edema. This was reviewed with neurology and the the thought is that this does not correspond to his symptoms, with the addition that anticoagulation can be safely resumed. Below is the problem list and plan: Continue NIH Stroke Scale Q 4Hrs Echocardiogram; LVEF >60%, no obvious regional wall abn, mild atrial dilation, MR, TR, moderate , trace CA MRI no acute infarcts. no definite acute hemorrhage demonstrated. diffuse volume losss, due to chronic microvascular ischemic disease and lacunar infarctions. Anticoagulation(oral) resumed after discussion with urology, and cardilogy. No further complications noted.Continued to have hematurea after acosta was replaced for leakage. Contacted Dr. Castellanos for advice, awaiting recommendation. As per the pt, the pt keen on being discharge home, but considering the weakness, PT recommended an STR placement. Acosta catheter to be discontiued, and voiding trials to be done. If the pt tolerates well w/ no urinary retention, may discharge home, or would eb discharged to an STR. Cardiology recommendations noted, appreciate input continue home medication, atorvastatin BP better controlled, will continue current medications Swallow evaluation -diet advanced. HTN Blood pressure was elevated to 184/101 but came back down after receiving regular antihypertensives continue home meds metoprolol, and isosorbide mononitrate Diabetes Will get accuchecks Cont novolog ss coverage DVTppx ALPS Full code Problem List: 1. Intracerebral hemorrhage 2. Hypertension 3. Diabetes 4. Hyperlipidemia 5. Seizure 6. Endotracheally intubated 7. Acute ischemic left MCA stroke 8. Respiratory failure 9. Paroxysmal atrial fibrillation 10. Stroke syndrome 11. CVA (cerebral vascular accident) Pain Ratin Pain Location: lower extremities Pain Goal: Remain pain free Pain Plan: Mild pathway Tomorrow's Labs & Rationales: cbc- check for low Hb. BEHZAD ARGUETA,[facility] 11/09/16 1222: Attending MD Review Statement Attending Statement Attending MD Statement: examined this patient, discuss w/resident/PA/COMFORT ADVISOR, agreed w/resident/PA/COMFORT ADVISOR, discussed with family, reviewed EMR data (avail), discussed with nursing, discussed with case mgmt, reviewed images, amended to note Attending Assessment/Plan: 86-year-old male with past medical history significant for hypertension, coronary artery disease status post cardiac stenting, type 2 diabetes mellitus, hyperlipidemia, and GERD has been admitted on the floor for a left parietal ischemic stroke. His course in the hospital was complicated by seizure attack and cardiac arrest that required intubation. He was seen and examined today while sitting waiting to be discharged today. He reports no active issues. He was started on Ranexa for his paroxysmal A. fib. He does not complain of any hematuria and has passed urine 2. Acosta's catheter has been removed which was placed because of passing clots. His CBI was stopped yesterday and the plan was to discharge home if he is able to urinate or STIR if he is unable to urinate.
[2016-11-09] MEDS ORDERED: AMIODARONE HCL200 M1 PO (10:57)
[2016-11-09 12:07] VITALS: BP 116/60
[2016-11-09] MEDS ORDERED: PRADAXA150 M1 PO (14:45)
[2016-11-09] MEDS ORDERED: KEPPRA500 M1 PO (14:45)
== END 2016-11-09 15:02 | DRG 64 ==
LOC: ENRESERVDT → ENRESERVTM → ERH 07:14 → ERHI 09:32 → 1NO 09:32 → CRI 09:32 → ENPENDDIS 09:32 → 1NO 10-30 16:30 → CRI 11-01 08:46 → 1NO 11-05 22:05
PROVIDERS: Dermatology; Emergency Medicine; Internal Medicine; Internal Medicine Endocrinology, Diabetes & Metabolism; Internal Medicine Pulmonary Disease; Radiology Diagnostic Radiology; Student in an Organized Health Care Education/Training Program; ADMIT Internal Medicine
DX: I63.9 Cerebral infarction, unspecified (principal); I46.9 Cardiac arrest, cause unspecified; J96.90 Respiratory failure, unspecified, unspecified whether with hypoxia or hypercapnia; R56.9 Unspecified convulsions; R47.01 Aphasia; R13.10 Dysphagia, unspecified; I47.1 Supraventricular tachycardia; I48.91 Unspecified atrial fibrillation; I48.0 Paroxysmal atrial fibrillation; I69.398 Other sequelae of cerebral infarction; I10 Essential (primary) hypertension; Z87.891 Personal history of nicotine dependence; Z95.5 Presence of coronary angioplasty implant and graft; E78.5 Hyperlipidemia, unspecified; E11.9 Type 2 diabetes mellitus without complications; I25.10 Atherosclerotic heart disease of native coronary artery without angina pectoris; Z79.84 Long term (current) use of oral hypoglycemic drugs; I35.0 Nonrheumatic aortic (valve) stenosis; E87.6 Hypokalemia; R31.9 Hematuria, unspecified; N40.0 Benign prostatic hyperplasia without lower urinary tract symptoms
CPT/HCPCS: 1NP; 70551; CCU; ERO; 36415; 74178; 81001; 82436; 87040; 87070; 87071; 87086; 93005; 93010; 93306; 94799; 95816; 96105-GN; 97110-GO; 97112-GO; 97116-GO; 97162-GP; 97164-GP; 97166-GO; 97530-GO; 99291; J0131; J0360; J1160; J1644; J1650; J1815; J1953; J2060; J2270; J3490; J7060

== ENCOUNTER 2016-11-11 11:14 | Emergency (ER) | payer OTHER, MEDICARE ==
[~2016-11-11] VITALS: Ht 165.1 cm; Wt 95.3 kg
[~2016-11-11 11:14] MED LIST changes: +ACTOPLUS MET 11 EAC1 PO; +AMIODARONE HCL200 M1 PO; +ASPIRIN EC81 M1 PO; +ATORVASTATIN CA80 M1 PO; +CENTRUM SILVER1 EAC3 PO; +CLOPIDOGREL75 M1 PO; +ISOSORBIDE MONO30 M1 PO; +KEPPRA500 M1 PO; +LATANOPROST2.5 ML OPH; +METOPROLOL SUCC25 M1 PO; +NITROGLYCERIN0.4 M1 SL; +NITROSTAT0.3 M1 SL; +PANTOPRAZOLE SO40 M1 PO; +PRADAXA150 M1 PO; +TYLENOL ARTHRI650 M1 PO
--- NOTE | 2016-11-11 12:45 | ED GI/GU/ABDOMINAL COMPLAINT ---
History of Present Illness General Chief Complaint: Male Genitourinary Problems Stated Complaint: DIFFICULTY URINATING Source: patient Exam Limitations: no limitations Vital Signs & Intake/Output Vital Signs & Intake/Output Vital Signs Date Time Temp Pulse Resp B/P Pulse O2 O2 Flow FiO2 Ox Delivery Rate 11/11 1250 98.1 73 18 164/73 99 Room Air 11/11 1202 96.4 75 20 111/66 97 Room Air Room Air Allergies Coded Allergies: NO KNOWN ALLERGIES (NO) (01/02/11) Reconcile Medications Acetaminophen (Tylenol Arthritis) 650 MG TABLET.ER 650 MG PO Q8 PAIN ( Reported) Amiodarone HCl 200 MG TABLET 1 TAB PO DAILY heart rhythm Atorvastatin Calcium 80 MG TABLET 1 TAB PO DAILY HIGH CHOLESTEROL (Reported) Dabigatran Etexilate Mesylate (Pradaxa 150 MG) 150 MG CAPSULE 1 CAP PO BID Afibrillation Isosorbide Mononitrate (Isosorbide Mononitrate ER) 30 MG TAB.ER.24H 1 TAB PO DAILY ANGINA (Reported) Latanoprost 0.005 % DROPS 1 GTT OPH QPM GLAUCOMA - BOTH EYES (Reported) Levetiracetam (Keppra) 500 MG TABLET 500 MG PO BID seizure prophylaxis Metoprolol Succinate 25 MG TAB 1 TAB PO DAILY BP (Reported) Multivit-Min/FA/Lycopen/Lutein (Centrum Silver Tablet) 0.4 MG-300 MCG-250 MCG TABLET 1 TAB PO DAILY SUPPLEMENT (Reported) Pantoprazole Sodium 40 MG TABLET.DR 1 TAB PO DAILY GERD (Reported) Pioglitazone HCl/Metformin HCl (Actoplus Met 15 MG-850 MG Tab) 15 MG-850 MG TABLET 1 TAB PO BID DM (Reported) Sulfamethoxazole/Trimethoprim (Bactrim Ds Tablet) 800 MG-160 MG TABLET 1 TAB PO BID UTI Triage Note: PT TO ED WITH C/O BURNING WITH URINATION, AND "NOT ALOT COMING OUT". "RECENT HOSPITALIZATION FOR STROKE THEN HAD A SEIZURE, HAD A HILLS AND HAD BLEEDING WITH THAT AND HAD IRRIGATION WHILE IN THE HOSPITAL, DR CASTELLANOS WAS CALLED IN". Triage Nurses Notes Reviewed? yes Onset: Gradual Duration: constant Timing: recent history Quality/Severity: mild Severity Numbers: 1 Location: urethral Radiation: no radiation Activities at Onset: none Prior Abdominal Problems: none HPI: PT is a 86-year-old gentleman with past medical history of hypertension, cardiac stent (09/2015, [facility]), hyperlipidemia, diabetes mellitus, GERD, who presented to the emergency room on 10/29/2016 in which patient was admitted for concerns of right MCA stroke where a Hills catheter was placed in which he was admitted to the ICU in which had competitions of seizures and paroxysmal atrial fibrillation. Patient is currently on Pradaxa in which he presents to the emergency room with concerns of scant urination production for the past 2 days. Patient denies any fevers chills back pain abdominal pain nausea vomiting dysuria or hematuria. Patient is compliant with his medications. Patient when obtaining a urine sample states that he was able to urinate without pain and voided at his baseline no hematuria noted (OLU GATES) Past History Travel History Traveled to [place] past 21 day No Medical History Any Pertinent Medical History? see below for history EENT: glaucoma Cardiovascular: CAD, hypertension, hyperlipidemia, known three-vessel coronary artery disease, deemed high risk for bypass surgery. The patient underwent a drug-eluting stent placement into the mid RCA lesion with a resolute stent in September 2015. moderate aortic stenosis Endocrine: diabetes History of MRSA: No History of VRE: No History of CDIFF: No Influenza Vaccine: 05/25/16 Surgical History Surgical History: cholecystectomy, cardiac stent TURP Rt meniscial repair Psychosocial History Who do you live with Spouse Services at Home None What is your primary language Sami Tobacco Use: Quit >30 days ago ETOH Use: denies use Illicit Drug Use: denies illicit drug use Family History Family History, If Any: BROTHER (HypertensionCAD). FATHER (Diabetes). Hx Contributory? No (OLU GATES) Review of Systems Review of Systems Constitutional: Reports: no symptoms. EENTM: Reports: no symptoms. Respiratory: Reports: no symptoms. Cardiovascular: Reports: no symptoms. GI: Reports: see HPI. Denies: abdominal pain. Genitourinary: Reports: see HPI. Musculoskeletal: Reports: no symptoms. Skin: Reports: no symptoms. Neurological/Psychological: Reports: no symptoms. Hematologic/Endocrine: Reports: no symptoms. Immunologic/Allergic: Reports: no symptoms. All Other Systems: Reviewed and Negative (OLU GATES) Physical Exam Physical Exam General Appearance: no apparent distress, alert Gastrointestinal: normal bowel sounds, soft, non-tender Comments: Well-developed well-nourished person in no acute distress HEENT: Normal EENT exam, Neck: Supple, no lymphadenopathy, normal range of motion without pain or tenderness Back: Nontender, no CVA tenderness. Cardiovascular: Regular rate and rhythms no murmurs rubs or gallops, normal JVP Respiratory: Chest nontender. No respiratory distress.breath sounds clear to auscultation bilaterally Abdomen: Soft, nontender nondistended, no appreciable organomegaly. Normal bowel sounds. No ascites Extremity: No edema, no calf tenderness to palpation, normal and equal pulses. Neuro: Alert oriented x3, motor sensory normal, Skin: No appreciable rash on exposed skin, skin is warm and dry. Psych: Mood and affect is normal, memory and judgment is normal. Core Measures ACS in differential dx? No Severe Sepsis Present: No Septic Shock Present: No (LISSET FLOWERS,OLU) Progress Differential Diagnosis: AAA, AMI, appendicitis, biliary colic, bowel obstruction , colon cancer, cholecystitis, diverticulitis, epididymitis, esophageal varices, gastritis, hepatitis, hernia, hemorrhoids, ischemic bowel, inflamm bowel dis, Teresita-Anny tear, orchitis, pancreatitis, prostatitis, peptic ulcer, PUD/GERD, perforated viscous, pyelonephritis, SBO, testicular torsion, ureterolithiasis, urinary retention, urethritis, UTI/pyelo Plan of Care: Orders Procedure Date/time Status Add-on Test (ER Only) 11/11 1245 Active URINALYSIS 11/11 1216 Complete CULTURE,URINE 11/11 1215 Active Laboratory Tests 11/11/16 1215: Urine Color YEL, Urine Clarity CLDY H, Urine pH 6.0, Ur Specific [place] 1.015, Urine Protein 30 H, Urine Ketones NEG, Urine Nitrite NEG, Urine Bilirubin NEG, Urine Urobilinogen 0.2, Ur Leukocyte Esterase MOD H, Ur Microscopic SEDIMENT EXAMINED, Urine RBC 1-3, Urine WBC > 75 H, Ur Epithelial Cells OCCAS, Urine Bacteria MANY H, Urine Mucus FEW, Urine Hemoglobin SMALL H, Urine Glucose NEG Microbiology 11/11 1215 URINE ROUT: Urine Culture - RECD Patient on initial examination was in no apparent distress nontoxic-appearing afebrile no CVA tenderness no concerns of pyelonephritis at this time. Patient most likely has UTI from Hills that was administered from his last admission. Patient able tolerate by mouth. Nontender abdomen. Discussed disposition plan with Dr. MADRID who agrees (OLU GATES) Initial ED EKG: none (OLU GATES) Departure Departure Disposition: HOME OR SELF CARE Condition: Stable Clinical Impression Primary Impression: UTI (urinary tract infection) Referrals: PATRICK MENDIOLA MD (PCP/Family) Additional Instructions: As discussed continue home medications as directed. Begin the prescription of Bactrim as directed for the full course. Prescription is waiting your pharmacy. Follow up with urologist Dr. Castellanos in one week for recheck of symptoms. If symptoms worsen return to emergency room. Departure Forms: Customer Survey General Discharge Information Prescriptions: Current Visit Scripts Sulfamethoxazole/Trimethoprim (Bactrim Ds Tablet) 1 TAB PO BID #20 TAB (OLU GATES) PA/SPORTS ATTORNEY Co-Sign Statement Statement: ED Attending supervision documentation- [X] I saw and evaluated the patient. I have also reviewed all the pertinent lab results and diagnostic results. I agree with the findings and the plan of care as documented in the PA's/SPORTS ATTORNEY's documentation. [X] I have reviewed the ED Record and agree with the PA's/SPORTS ATTORNEY's documentation. [] Additions or exceptions (if any) to the PAs/SPORTS ATTORNEY's note and plan are summarized below: [] (JULIUS ARGUETA,ADE Abbasi)
[2016-11-11 12:50] VITALS: BP 164/73
[2016-11-11] MEDS ORDERED: BACTRIM DS TAB1 EACH PO (12:55)
== END 2016-11-11 13:04 ==
LOC: ERH 11:14
DX: N39.0 Urinary tract infection, site not specified (principal)
CPT/HCPCS: 81001; 87086

== ENCOUNTER 2017-09-29 13:12 | Inpatient (IN) | payer OTHER, MEDICARE ==
[~2017-09-29] VITALS: Ht 165.1 cm; Wt 94.8 kg
[~2017-09-29 13:12] MED LIST changes: +BACTRIM DS TAB1 EACH PO
[2017-09-29] MEDS ORDERED: XERALTO PO (13:47)
[2017-09-29 13:56] LABS: ABSOLUTE BASOPHIL COUNT 0 /CUMM (0.0-0.2); ABSOLUTE EOSINOPHIL COUNT 0 /CUMM (0.0-0.7); ABSOLUTE LYMPH COUNT 0.8 /CUMM (1.2-3.4); ABSOLUTE MONOCYTE COUNT 0.4 /CUMM (0.10-0.60)
[2017-09-29 14:02] LABS: PT 13.3 SEC (9.4-12.5); PTT 28 SEC (25-37)
[2017-09-29 14:11] LABS: ABSOLUTE GRANULOCYTE CT 4.5 /CUMM (1.4-6.5); BASOPHIL % 0.3 % (0.0-2.0); EOSINOPHIL % 0.8 % (0-5); GRANULOCYTE % 79.1 % (42.2-75.2); MEAN CORPUSCULAR HGB 27.5 PG (27.0-31.0); MEAN CORPUSCULAR HGB CONC 32.9 G/DL (33.0-37.0); MEAN CORPUSCULAR VOLUME 83.6 FL (80.0-94.0); MEAN PLATELET VOLUME 7.6 FL (7.4-10.4); PLATELET COUNT 203 /CUMM (130-400); RBC DISTRIBUTION WIDTH 15.5 % (11.5-14.5); RED BLOOD CELL CT 2.07 /CUMM (4.70-6.10); WHITE BLOOD CELL COUNT 5.7 /CUMM (4.8-10.8)
[2017-09-29 14:14] LABS: HEMATOCRIT 17.3 % (42-52)
--- NOTE | 2017-09-29 14:17 | ED CARDIAC/CP/PALPITATIONS ---
History of Present Illness General Chief Complaint: Chest Pain Stated Complaint: CHEST PAIN Source: patient, old records Exam Limitations: no limitations Vital Signs & Intake/Output Vital Signs & Intake/Output Vital Signs Date Time Temp Pulse Resp B/P B/P Pulse O2 O2 Flow FiO2 Mean Ox Delivery Rate 02/ 1400 97.7 57 20 163/86 02/06 1200 97.7 57 16 182/72 02/06 1200 92 Room Air Room Air 02/06 1053 97.7 71 20 180/71 02/06 1000 97.7 70 22 180/71 02/06 0800 97.7 75 22 170/70 02/06 0800 95 Room Air Room Air 02/ 0800 97.7 75 22 170/70 94 Room Air Room Air 02/ 0600 71 20 170/74 02/06 0400 97.0 59 22 148/60 02/06 0400 94 Room Air 02/06 0200 87 22 149/89 02/ 0000 96.7 67 20 152/80 02/06 0000 96 Room Air 02/ 0000 96.7 67 20 152/80 96 Room Air 02/05 2200 58 18 197/73 021999 97.5 60 18 152/60 02/1999 97.5 60 18 152/60 96 Room Air 02/ 1928 98 Room Air 02/05 1810 98.3 65 16 138/70 97 02/05 1613 98.9 68 16 144/72 98 02/05 1545 Room Air 02/05 1425 97.1 62 16 146/66 97 Room Air ED Intake and Output 02/06 0000 02/05 1200 Intake Total 700 Output Total 500 Balance 200 Intake, Blood 340 Product Intake, Oral 360 Number 0 Bowel Movements Output, Urine 500 Patient 210 lb Weight Weight Reported by Patient Measurement Method Allergies Coded Allergies: NO KNOWN ALLERGIES (NO) (01/02/11) Reconcile Medications Acetaminophen (Tylenol Arthritis) 650 MG TABLET.ER 650 MG PO Q8 PAIN ( Reported) Aspirin (Ecotrin*) 81 MG TABLET.DR 1 TAB PO DAILY HEART (Reported) Atorvastatin Calcium 80 MG TABLET 1 TAB PO DAILY HIGH CHOLESTEROL (Reported) Finasteride 5 MG TABLET 1 TAB PO DAILY BPH (Reported) Isosorbide Mononitrate (Isosorbide Mononitrate ER) 30 MG TAB.ER.24H 1 TAB PO DAILY ANGINA (Reported) Latanoprost 0.005 % DROPS 1 GTT OPH QPM GLAUCOMA - BOTH EYES (Reported) Metoprolol Succinate 25 MG TAB 1 TAB PO DAILY BP (Reported) Multivit-Min/FA/Lycopen/Lutein (Centrum Silver Tablet) 0.4 MG-300 MCG-250 MCG TABLET 1 TAB PO DAILY SUPPLEMENT (Reported) Pantoprazole Sodium 40 MG TABLET.DR 1 TAB PO DAILY GERD (Reported) Pioglitazone HCl/Metformin HCl (Actoplus Met 15 MG-850 MG Tab) 15 MG-850 MG TABLET 1 TAB PO BID DM (Reported) Sulfamethoxazole/Trimethoprim (Bactrim Ds Tablet) 800 MG-160 MG TABLET 1 TAB PO BID UTI [XERALTO] 20 MG 1 TAB PO DAILY THINNER (Reported) Triage Note: PER PT CP SINCE 0800 ALSO HAVING BLOOD IN STOOL SINCE PUT ON XERALTO 1 WEEK AGO SWITCHED FROM PRADAXA. PT VERY PALE Triage Nurses Notes Reviewed? yes Onset: Abrupt Duration: day(s): (4) Timing: recent history Location: central Activities at Onset: REST - RECENTLY STARTED ON XARELTO Aspirin Today: provided at home Associated Symptoms: weakness, LIGHTHEADED, ON/OFF CHEST PAIN/ABDOMINAL PAIN HPI: 86-year-old male with a past medical history of hypertension, cardiac stent ( September 2015, [facility]) hyperlipidemia, diabetes, GERD who presents to the ED with black stools that started on Friday afternoon. He reports approximately one large movement of black stool per day, including today. He reports some shortness of breath and lightheadedness but no syncope. He also endorses episodes of chest pain/upper abdominal pain that come and go. No abdominal pain or chest pain now. His notes that he has been weak. At the beginning of August he was switched from Pradaxa to xarelto seconadry to insurance issues. He was well maintained previously on pradaxa given history of Afib and CVA last year. No residual neuro symptoms. His tried to get in touch with the GI doctor but it was late on friday afternoon. No history of previous GI bleeding. He has had colonoscopies in the past which have showed small polyps that were removed. His last dose of xarelto was last night. Past History Travel History Traveled to [place] past 21 day No Medical History Any Pertinent Medical History? see below for history Neurological: CVA,SEIZURE EENT: glaucoma Cardiovascular: hypertension, hyperlipidemia, CAD,A-FIB known three-vessel coronary artery disease, deemed high risk for bypass surgery. The patient underwent a drug-eluting stent placement into the mid RCA lesion with a resolute stent in September 2015. moderate aortic stenosis Respiratory: NONE Gastrointestinal: NONE Hepatic: NONE Renal: NONE Musculoskeletal: NONE Psychiatric: NONE Endocrine: diabetes Blood Disorders: NONE Cancer(s): NONE SENIOR CARE PROVIDER/Reproductive: NONE History of MRSA: No History of VRE: No History of CDIFF: No Surgical History Surgical History: cholecystectomy, cardiac stent TURP Rt meniscial repair Psychosocial History Who do you live with Spouse Services at Home None What is your primary language Irish Tobacco Use: Never used Family History Family History, If Any: BROTHER (HypertensionCAD). FATHER (Diabetes). Hx Contributory? No Review of Systems Review of Systems Constitutional: Reports: weakness. Denies: chills, fever. EENTM: Reports: no symptoms. Respiratory: Reports: short of breath. Denies: cough, sputum production. Cardiovascular: Reports: chest pain. Denies: palpitations. GI: Reports: bloody stool, changes in stool. Denies: abdominal pain. Genitourinary: Denies: discharge, dysuria. Musculoskeletal: Reports: no symptoms. Skin: Reports: no symptoms. Neurological/Psychological: Reports: no symptoms. Hematologic/Endocrine: Reports: bleeding. Denies: bruising, polyuria, polydipsia. Immunologic/Allergic: Denies: splenectomy. All Other Systems: Reviewed and Negative Physical Exam Physical Exam General Appearance: well developed/nourished, alert, awake, mild distress, moderate distress Head: atraumatic, normal appearance Eyes: Bilateral: PERRL, EOMI, pale conjunctivae. Ears, Nose, Throat: normal pharynx, hearing grossly normal Neck: normal inspection, supple, full range of motion Respiratory: normal breath sounds, chest non-tender, no respiratory distress Cardiovascular: regular rate/rhythm, normal peripheral pulses Peripheral Pulses: 2+ radial (R), 2+ ulnar (L) Gastrointestinal: normal bowel sounds, soft, non-tender Rectal: DARK BROWN GUIAC POSITIVE Extremities: normal inspection, normal capillary refill, normal range of motion Neurologic/Psych: no motor/sensory deficits, awake, alert, oriented x 3, normal mood/affect Skin: intact, warm/dry, pallor Core Measures ACS in differential dx? Yes CVA/TIA Diagnosis No Sepsis Present: No Sepsis Focused Exam Completed? No Progress Differential Diagnosis: AMI, PUD/GERD, GI BLEED, AVM, SYMPTOMATIC ANEMIA, BLEEDING SECONDARY TO XARELTO Plan of Care: Orders Procedure Date/time Status Nothing by Mouth 10/01 B Active ICU LAB BUNDLE 10/01 0500 Active CBC WITHOUT DIFFERENTIAL 10/01 0500 Active Clear Liquid Diet 09/30 L Active Nothing by Mouth 09/30 B Complete CBC WITHOUT DIFFERENTIAL 09/30 1600 Active TROPONIN LEVEL 09/30 1430 Active EKG 09/30 1430 Active ICU LAB BUNDLE 09/30 0835 Complete TROPONIN LEVEL 09/30 0800 Complete EKG 09/30 0800 Active CBC WITHOUT DIFFERENTIAL 09/30 0500 Complete TROPONIN LEVEL 09/30 0200 Complete ICU LAB BUNDLE 09/30 0200 Complete EKG 09/30 0200 Active Change service to 09/30 UNK Active PHARMACY COMMUNICATION FORM 09/30 UNK Active Clear Liquid Diet 09/29 D Complete CBC WITHOUT DIFFERENTIAL 09/29 2200 Complete LACTIC ACID 09/29 2100 Complete VRE ACTIVE SURVIELLANCE 09/29 2055 Active ACTIVE SURVEILLANCE NARES 09/29 2055 Active TROPONIN LEVEL 09/29 1999 Complete EKG 09/29 1999 Active BLOOD PRODUCT PICKUP 09/29 194 Active Teach/Educate 09/29 1926 Active Pain Treatment and Response 09/29 1926 Active Nutritional Intake, Monitor 09/29 1926 Active Isolation 09/29 1926 Active Patient Care Conference 09/29 1926 Active Activity/Ambulation 09/29 1926 Active Transfer patient to 09/29 1825 Active Pathway - chart 09/29 1812 Active Code Status 09/29 1812 Active Intake & Output 09/29 1743 Active BLOOD PRODUCT PICKUP 09/29 1502 Active Patient Data 09/29 1500 Active ED Holding Orders 09/29 1455 Active Admit to inpatient 09/29 1455 Active TOTAL IRON BINDING CAPACITY 09/29 1335 Complete FERRITIN 09/29 1335 Complete SERUM IRON 09/29 1335 Complete House Staff 09/29 UNK Active Lab Add-on Test 09/29 UNK Active VTE Mechanical Prophylaxis 09/29 UNK Active Vital Signs 09/29 UNK Active Nursing Misc 09/29 UNK Active Hemoccult 09/29 UNK Active FingerStick- Glucose 09/29 UNK Active CIWA 09/29 UNK Active Current Medications Sig/Reagan Start time Last Medication Dose Stop Time Status Admin Atorvastatin Calcium 80 MG 1700 09/30 1700 AC (Lipitor) Aspirin Buffered 81 MG DAILY 09/30 1123 AC (Ecotrin) Finasteride 5 MG DAILY 09/30 1000 AC 09/30 (Proscar) 1053 Isosorbide 30 MG DAILY 09/30 1000 CAN Mononitrate (Imdur) Metoprolol Succinate 25 MG DAILY 09/30 1000 AC 09/30 (Toprol XL) 105 Pantoprazole Sodium 40 MG BID 09/30 1000 AC 09/30 (Protonix) 1053 Insulin Human Regular 0 Q6 09/29 2359 AC (NovoLIN R) Latanoprost 1 GTT QPM 09/29 2200 AC 09/29 (Xalatan) 2158 Laboratory Tests 09/30/17 0835: Anion Gap 9, Estimated GFR > 60, Glucose 132 H, Calcium 8.9, Phosphorus 3.7, Magnesium 1.3 L, Total Bilirubin 0.4, AST 25, ALT 29, Troponin I 0.18 *H, Albumin 3.6, CBC w Diff NO MAN DIFF REQ, RBC 3.00 L, MCV 85.2, MCH 27.1, MCHC 31.8 L, RDW 16.2 H, MPV 8.2, Gran % 81.4 H, Lymphocytes % 11.0 L, Monocytes % 5.5, Eosinophils % 1.9, Basophils % 0.2, Absolute Granulocytes 5.8, Absolute Lymphocytes 0.8 L, Absolute Monocytes 0.4, Absolute Eosinophils 0.1, Absolute Basophils 0 09/30/17 0600: CBC w Diff Cancelled, WBC Cancelled, RBC Cancelled, Hgb Cancelled, Hct Cancelled , MCV Cancelled, MCH Cancelled, MCHC Cancelled, RDW Cancelled, Plt Count Cancelled, MPV Cancelled 09/30/17 0500: Sodium Cancelled, Potassium Cancelled, Chloride Cancelled, Carbon Dioxide Cancelled, Anion Gap Cancelled, BUN Cancelled, Creatinine Cancelled, Glucose Cancelled, Calcium Cancelled, Phosphorus Cancelled, Magnesium Cancelled, Total Bilirubin Cancelled, AST Cancelled, ALT Cancelled, Albumin Cancelled 09/30/17 0120: Anion Gap 10, Estimated GFR > 60, Glucose 124 H, Calcium 8.8, Phosphorus 3.9, Magnesium 1.2 L, Total Bilirubin 0.5, AST 21, ALT 28, Troponin I 0.14 *H, Albumin 3.4 L, CBC w Diff NO MAN DIFF REQ, RBC 2.80 L, MCV 82.2, MCH 27.4, MCHC 33.4, RDW 15.5 H, MPV 7.5, Gran % 70.9, Lymphocytes % 17.6 L, Monocytes % 9.9 H, Eosinophils % 1.3, Basophils % 0.3, Absolute Granulocytes 4.4, Absolute Lymphocytes 1.1 L, Absolute Monocytes 0.6, Absolute Eosinophils 0.1, Absolute Basophils 0 09/29/17 2100: Lactic Acid 1.3 09/29/17 1938: Troponin I 0.13 *H 09/29/17 1750: Lactic Acid 2.5 H Microbiology 09/29 2039 UPPER RESP: Surveillance Culture - RECD 09/29 2039 GI: Surveillance Culture - RECD TRANSFUSION STARTED. PROTONIX GIVEN. WILL REQUIRE TELEMETRY, GI AND CARDIOLOGY CONSULTATION. Initial ED EKG: NSR Departure Departure Time of Disposition: 1454 Disposition: STILL A PATIENT Condition: Stable Clinical Impression Primary Impression: Symptomatic anemia Secondary Impressions: GI bleed Referrals: Crow Ryan MD (PCP/Family) Departure Forms: Customer Survey General Discharge Information Admission Note Spoke With: Shahid Choudhary MD Documentation of Exam: Documentation of any treatments & extenuating circumstances including Concerns Regarding Discharge (functional status, medication knowledge or non-compliance, living conditions, etc.) that warrant an admission rather than observation: [ BLOOD TRANSFUSION, HOLD XARELTO AND ASPIRIN, MONITOR I/O, GI CONSULTATION, CARDIOLOGY CONSULTATION, ENDOSCOPY, SERAKL EKG/TROPONIN] Critical Care Note Critical Care Note Critical Care Time: 30-74 min
--- NOTE | 2017-09-29 15:18 | History & Physical ---
Mariela Whitman MD,[facility] 09/29/17 1517: General Information and HPI MD Statement: I have seen and personally examined KAE RENNER and documented this H& P. The patient is a 87 year old M who presented with a patient stated chief complaint of [chest pressure]. 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 Most of the history was taken from patient however his was present at the bedside ( noted she works for Dr. Dunne in the past). Briefly patient reported to be usual state of health until this past weekend that he had a black bowel movements. He also had one big again black BM this morning. He decided to visit his PCP for evaluation, however during the short walk to the car he started to feel very weak, had SOB, and chest pressure. The chest pain was pressure-like, was medicine, with no radiation and lasted for about 10 minutes. This was so severe the he was about to pass and stopped walking which helped to relatively improve the chest pain. He note that for the last few weeks he was was feeling epigastric discomfort and bloating, and drinking soda was helping to improve his feeling. Patient reported that about 3 weeks ago his pradaxa was changed to xeralto (Last CBC was done in june and he denied any significant finding). He denied any orthopnea, nausea or vomiting, heamturia. He never had endoscopy but he reported having colonoscopy less than 10 years ago. Patient lives with his , reported occasional drinking but no smoking. Allergies/Medications Allergies: Coded Allergies: NO KNOWN ALLERGIES (NO) (01/02/11) Past History Travel History Traveled to [place] past 21 day No Medical History Neurological: CVA,SEIZURE EENT: glaucoma Cardiovascular: hypertension, hyperlipidemia, CAD,A-FIB known three-vessel coronary artery disease, deemed high risk for bypass surgery. The patient underwent a drug-eluting stent placement into the mid RCA lesion with a resolute stent in September 2015. 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 FATHER (Diabetes). Psychosocial History Who Do You Live With? spouse Services at Home: None Primary Language: Kazakh Functional Ability ADLs Independent: dressing, eating, toileting, bathing. Ambulation: independent IADLs Independent: shopping, housework, finances, food prep, telephone, transportation , medication admin. Review of Systems Review of Systems Constitutional: Reports: see HPI. Exam & Diagnostic Data Last 24 Hrs of Vital Signs/I&O Vital Signs Date Time Temp Pulse Resp B/P B/P Pulse O2 O2 Flow FiO2 Mean Ox Delivery Rate 09/29 1928 98 Room Air 09/29 1810 98.3 65 16 138/70 97 09/29 1613 98.9 68 16 144/72 98 09/29 1545 Room Air 09/29 1425 97.1 62 16 146/66 97 Room Air 09/29 1345 98.4 66 22 119/57 98 Intake & Output 09/29 1600 09/29 0800 09/29 0000 Intake Total Output Total Balance Patient 212 lb Weight Physical Exam General Appearance Alert, Oriented X3, Cooperative, No Acute Distress, Mild Distress, Pale Skin No Significant Lesion Skin Temp/Moisture Exam: Warm/Dry Sepsis Skin Exam (color): Normal for Ethnicity Cardiovascular Regular Rate, Normal S1, Normal S2 (at time of interview), systolic murmur Lungs Clear to Auscultation Abdomen Soft, Mild epigastric tenderness Neurological Normal Speech Extremities No Edema Last 24 Hrs of Labs/Mello: Laboratory Tests 09/29/17 1938: Troponin I Pending 09/29/17 1750: Lactic Acid 2.5 H 09/29/17 1335: Anion Gap 17 H, Estimated GFR > 60, BUN/Creatinine Ratio 33.3 H, Glucose 125 H, Lactic Acid 5.4 H, Calcium 8.8, Total Bilirubin 0.2, AST 22, ALT 28, Alkaline Phosphatase 24, Troponin I 0.10, Total Protein 5.8 L, Albumin 3.6, Globulin 2.2, Albumin/Globulin Ratio 1.6, PT 13.3 H, INR 1.27 H, APTT 28, CBC w Diff NO MAN DIFF REQ, RBC 2.07 L, MCV 83.6, MCH 27.5, MCHC 32.9 L, RDW 15.5 H, MPV 7.6, Gran % 79.1 H, Lymphocytes % 13.5 L, Monocytes % 6.3, Eosinophils % 0.8, Basophils % 0.3, Absolute Granulocytes 4.5, Absolute Lymphocytes 0.8 L, Absolute Monocytes 0.4, Absolute Eosinophils 0, Absolute Basophils 0 Assessment/Plan Assessment: Patient is 86 y M with chest pain and lightheadedness Black bowel movement chest pain for 10min, incidence during walking, improved with stopping changed pradaxa to xeralto 3w ago bloating and epigastric pain colonoscopy <10y ago, no endoscopy PMH of HTN, Hlip, 3 vessel CAD s/p stent (Drug eluting stent, September 2015, [facility]- deemed high risk for CABG), aortic stenosis hyperlipidemia, diabetes, GERD, Paroxysmal afib, 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 In the other hand patient has history of aortic stenosis which could be associated with angiodysplasia and acquired coagulopathy (Malhotra syndrome) The low MCV could indicate chronic nature of the disease. Patient has severe anemia with relatively low MCV suggesting chronic blood loss. -Admit patient to telemetry floor -Vital signs - 2 large IV line, start gentle hydration considering stable VS - Crossmatch, consent, transfusion to HB>8 - Aspiration precaution - NPO for endoscopy tomorrrow - IC porotonix - DC anti plt - Endoscopy in AM Increased TN: Most likely demand ischemia, although has history of coronary artery disease and had a severe anemia - Serial EKG and troponin -Cardiology consult -Hold antiplatelet and anticoagulation Chronic medical problems: DM - Sliding scale - D5, 1/2 salin FC DVt ppx: ALps NPO As Ranked By This Provider Problem List: 1. GI bleed Core Measures/Misc (05/11) Acute Coronary Syndrome ACS Diagnosis: No Congestive Heart Failure Congestive Heart Failure Diagnosis Yes Cerebrovascular Accident CVA/TIA Diagnosis: No VTE (View Protocol) VTE Risk Factors Age>40 No Mechanical VTE Prophylaxis d/t N/A MechProphylax Ordered No VTE Pharm Prophylaxis d/t Medical Contraindication Sepsis (View protocol) Sepsis Present: No Shahid Choudhary MD 09/29/17 1840: General Information and HPI Allergies/Medications Home Med list Acetaminophen (Tylenol Arthritis) 650 MG TABLET.ER 650 MG PO Q8 PAIN ( Reported) Aspirin (Ecotrin*) 81 MG TABLET.DR 1 TAB PO DAILY HEART (Reported) Atorvastatin Calcium 80 MG TABLET 1 TAB PO DAILY HIGH CHOLESTEROL (Reported) Finasteride 5 MG TABLET 1 TAB PO DAILY BPH (Reported) Isosorbide Mononitrate (Isosorbide Mononitrate ER) 30 MG TAB.ER.24H 1 TAB PO DAILY ANGINA (Reported) Latanoprost 0.005 % DROPS 1 GTT OPH QPM GLAUCOMA - BOTH EYES (Reported) Metoprolol Succinate 25 MG TAB 1 TAB PO DAILY BP (Reported) Multivit-Min/FA/Lycopen/Lutein (Centrum Silver Tablet) 0.4 MG-300 MCG-250 MCG TABLET 1 TAB PO DAILY SUPPLEMENT (Reported) Pantoprazole Sodium 40 MG TABLET.DR 1 TAB PO DAILY GERD (Reported) Pioglitazone HCl/Metformin HCl (Actoplus Met 15 MG-850 MG Tab) 15 MG-850 MG TABLET 1 TAB PO BID DM (Reported) Sulfamethoxazole/Trimethoprim (Bactrim Ds Tablet) 800 MG-160 MG TABLET 1 TAB PO BID UTI [XERALTO] 20 MG 1 TAB PO DAILY THINNER (Reported) Attending MD Review Statement Attending Statement Attending MD Statement: examined this patient, discuss w/resident/PA/ROD MACHINE OPERATOR, agreed w/resident/PA/ROD MACHINE OPERATOR, reviewed EMR data (avail), reviewed images, amended to note Attending Assessment/Plan: The patient is an 87 yo male with h/o HTN, CAD (s/p drug eluting RCA stent 10/10- [facility]), afib, HL, DM2, GERD (on oral protonix) who presented in the ED with several day h/o dark stools since anticoagulation was changed from Pradaxa to Xarelto 1 week ago. Does describe some mild epigastric discomfort along with fleeting resting chest pains. In ED H/H was significantly reduced 5.7/17.3 (vs 11.3/34.5- 11/05/16). He does note some fatigue. In the ED his stool was brown and heme positive. Physical Exam: VS: T 98.4 P 66, R 22, BP 119/57, PO 98% HEENT: eyes- PERRLA, EOMI carlos- moist mucosa Neck: supple, no JVD/bruits Chest: clear Cor: RRR nl S1, S2 w/o murm Abd: BS+, soft, NT Ext: no edema, pulses 1+ Neuro: alert & oriented, non-focal exam Labs/Tests- as above Impression/Plan: #Acute Blood Loss Anemia- severe anemia as above with h/o compatible with UGI blood loss. Plan: Admit to telemetry floor. Type and Cross and transfuse 2 U PRBC- follow H/H closely. If increased bleeding may need ICU transfer. Hold Xarelto. #Acute Gastrointestinal Bleeding- dark stool c/w UGI source. Possible gastritis/ PUD/DU/Angiodysplasia. Has had colonoscopy in past (no EGD). Was on oral Protonix. Plan: GI consult- Dr. Castro- EGD in morning. IV Protonix. If continues to bleed may need ICU transfer. #CAD/S/P Stent/Chest Pain- on Isosorbide and Metoprolol. No ischemic changes on EKG at present. Troponin initial level normal. Plan: Transfuse PRBC as above and get Hgb 8+. Cardiology consult. continue Isosorbide/Metoprolol if BP allows. #Atrial Fibrillation- paroxysmal. Plan: Continue Metoprolol. Hold Xarelto. #HL- on Atorvastatin. Plan: Hold at present while NPO. #DM2- on oral agents. Plan: Check glucoscans and sliding scale insulin. Elroy Galeano 09/29/17 6641: Resident Review Statement Resident Statement: examined this patient, discussed with international sourcing manager, agreed with international sourcing manager, discussed with family, discussed with case mgmt, reviewed images, amended to note Other Findings: 87-year-old gentleman with history of hypertension, coronary artery disease status post MALIHA RCA September 2015, paroxysmal atrial fibrillation-recently switched to Xarelto from Pradaxa, diabetes started noticing loose melanotic stools on 09/27/2017. This morning the patient decided to go to the primary care physician but upon walking towards his car he started developing nonradiating, pressure-like chest pain accompanied with shortness of breath. This prompted the patient to the ED. In the ED, lab work revealed severely depressed H&H. Additionally, he does endorse to tiredness and fatigue during the same period of time. Physical exam was notable for mild epigastric tenderness and pallor. His heart exam was notable for systolic ejection murmur. Patient will be admitted to critical care unit for acute blood loss anemia. Type and screen. 2 large-bore IVs. 2 PRBCs to infuse, goal hemoglobin greater than 8. IV Protonix. GI evaluation. Nothing by mouth. No anticoagulation, no NSAIDs or antiplatelets. Full code. Mechanical DVT prophylaxis. Nothing by mouth.
[2017-09-29 18:10] VITALS: BP 138/70
--- NOTE | 2017-09-29 18:54 | Admission Certification ---
Admission Certification Certification Statement - As attending physician, I certify that at the time of - admission, based on clinical presentation, severity of - symptoms, need for further diagnostic testing and - therapeutic interventions, and risk of adverse outcomes - without in-hospital treatment, in my clinical assessment, - this patient requires an acute hospital stay for a minimum - of two nights or longer. I have also considered psychsocial - factors such as support system, advanced age, financial - issues, cognitive issues, and failed out-patient treatments, - past re-admission history, safety of patient, and lack of - compliance as applicable. Specific rationale supporting this admission is: The patient presents with evidence of acute upper GI bleeding with severe blood loss anemia (H/H 5.7/17.3). Also with known CAD and chest pain. Needs admission to telemetry and serial H/H and troponins. Acute transfusion 2 Units PRBC. IV PPI, GI and cardiology consults.
[2017-09-29 20:00] VITALS: BP 152/60
[2017-09-29 22:00] VITALS: BP 197/73
[2017-09-30] VITALS (9 sets, daily range): BP systolic 148–200; BP diastolic 60–89
[2017-09-30 01:55] LABS: ABSOLUTE BASOPHIL COUNT 0 /CUMM (0.0-0.2); ABSOLUTE EOSINOPHIL COUNT 0.1 /CUMM (0.0-0.7); ABSOLUTE LYMPH COUNT 1.1 /CUMM (1.2-3.4); ABSOLUTE MONOCYTE COUNT 0.6 /CUMM (0.10-0.60); EOSINOPHIL % 1.3 % (0-5); GRANULOCYTE % 70.9 % (42.2-75.2)
[2017-09-30 02:05] LABS: ABSOLUTE GRANULOCYTE CT 4.4 /CUMM (1.4-6.5); BASOPHIL % 0.3 % (0.0-2.0); MEAN CORPUSCULAR HGB 27.4 PG (27.0-31.0); MEAN CORPUSCULAR HGB CONC 33.4 G/DL (33.0-37.0); MEAN CORPUSCULAR VOLUME 82.2 FL (80.0-94.0); MEAN PLATELET VOLUME 7.5 FL (7.4-10.4); PLATELET COUNT 175 /CUMM (130-400); RBC DISTRIBUTION WIDTH 15.5 % (11.5-14.5); WHITE BLOOD CELL COUNT 6.2 /CUMM (4.8-10.8)
[2017-09-30] MEDS ORDERED: FINASTERIDE5 M1 PO (07:03)
[2017-09-30] MEDS ORDERED: ASPIRIN EC81 M1 PO (07:04)
--- NOTE | 2017-09-30 07:48 | Cons- CRCU ---
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 Most of the history was taken from patient however his was present at the bedside. Briefly patient reported to be usual state of health until this past weekend that he had black bowel movements. He had another episode of black tarry stools yesterday morning. He decided to visit his PCP for evaluation, however during the short walk to the car he started to feel very weak and experienced some SOB with chest pain. The chest pain was pressure-like in quality and lasted 10 minutes. He mentions that for the last few weeks he has been feeling epigastric discomfort and bloating which is improved with carbonated drinks. Patient reported that about 3 weeks ago his pradaxa was changed to xeralto (Last CBC was done in june and he denied any significant finding). He denied any orthopnea, nausea or vomiting, hematuria. He has had a colonoscopy in the past which was less than 10 years ago. Patient lives with his , reports occasional drinking but no smoking. Allergies/Medications Allergies: Coded Allergies: NO KNOWN ALLERGIES (NO) (01/02/11) Home Med List: Acetaminophen (Tylenol Arthritis) 650 MG TABLET.ER 650 MG PO Q8 PAIN ( Reported) Aspirin (Ecotrin*) 81 MG TABLET.DR 1 TAB PO DAILY HEART (Reported) Atorvastatin Calcium 80 MG TABLET 1 TAB PO DAILY HIGH CHOLESTEROL (Reported) Finasteride 5 MG TABLET 1 TAB PO DAILY BPH (Reported) Isosorbide Mononitrate (Isosorbide Mononitrate ER) 30 MG TAB.ER.24H 1 TAB PO DAILY ANGINA (Reported) Latanoprost 0.005 % DROPS 1 GTT OPH QPM GLAUCOMA - BOTH EYES (Reported) Metoprolol Succinate 25 MG TAB 1 TAB PO DAILY BP (Reported) Multivit-Min/FA/Lycopen/Lutein (Centrum Silver Tablet) 0.4 MG-300 MCG-250 MCG TABLET 1 TAB PO DAILY SUPPLEMENT (Reported) Pantoprazole Sodium 40 MG TABLET.DR 1 TAB PO DAILY GERD (Reported) Pioglitazone HCl/Metformin HCl (Actoplus Met 15 MG-850 MG Tab) 15 MG-850 MG TABLET 1 TAB PO BID DM (Reported) Sulfamethoxazole/Trimethoprim (Bactrim Ds Tablet) 800 MG-160 MG TABLET 1 TAB PO BID UTI [XERALTO] 20 MG 1 TAB PO DAILY THINNER (Reported) Review of Systems Review of Systems Constitutional: Reports: no symptoms. Cardiovascular: Denies: chest pain, palpitations. Respiratory: Reports: no symptoms. GI: Reports: bloody stool. Denies: abdominal pain. Genitourinary: Reports: no symptoms. Musculoskeletal: Reports: no symptoms. Skin: Reports: no symptoms. Past History Travel History Traveled to [place] past 21 day No Medical History Blood Transfusion Hx: Yes Neurological: CVA,SEIZURE EENT: glaucoma Cardiovascular: hypertension, hyperlipidemia, CAD,A-FIB known three-vessel coronary artery disease, deemed high risk for bypass surgery. The patient underwent a drug-eluting stent placement into the mid RCA lesion with a resolute stent in September 2015. 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 FATHER (Diabetes). Psychosocial History Where Do You Live? Home Who Do You Live With? spouse Services at Home: None Primary Language: Eritrean Smoking Status: Former Smoker Functional Ability ADLs Independent: dressing, eating, toileting, bathing. Ambulation: independent IADLs Independent: shopping, housework, finances, food prep, telephone, transportation , medication admin. Exam & Diagnostic Data Last 24 Hrs of Vital Signs/I&O Vital Signs Date Time Temp Pulse Resp B/P B/P Pulse O2 O2 Flow FiO2 Mean Ox Delivery Rate 09/30 1200 97.7 57 16 182/72 / 1200 92 Room Air Room Air 09/30 1053 97.7 71 20 180/71 02/06 1000 97.7 70 22 180/71 09/30 0800 97.7 75 22 170/70 09/30 0800 95 Room Air Room Air 09/30 0800 97.7 75 22 170/70 94 Room Air Room Air 02/ 0600 71 20 170/74 02/06 0400 97.0 59 22 148/60 02/ 0400 94 Room Air 02/ 0200 87 22 149/89 02/ 0000 96.7 67 20 152/80 02/ 0000 96 Room Air 02/ 0000 96.7 67 20 152/80 96 Room Air 02/ 2200 58 18 197/73 /1999 97.5 60 18 152/60 02/1999 97.5 60 18 152/60 96 Room Air 02/ 1928 98 Room Air 02/ 1810 98.3 65 16 138/70 97 02/05 1613 98.9 68 16 144/72 98 02/05 1545 Room Air 02/ 1425 97.1 62 16 146/66 97 Room Air 02/ 1345 98.4 66 22 119/57 98 Intake & Output / 1600 02/06 0800 02/ 0000 Intake Total 800 700 Output Total 1700 500 Balance -900 200 Intake, Blood 340 Product Intake, IV 800 Intake, Oral 360 Number 0 Bowel Movements Output, Urine 1700 500 Patient 210 lb Weight Weight Reported by Patient Measurement Method Physical Exam General Appearance: well developed/nourished, no apparent distress, alert, awake , comfortable Head: atraumatic, normal appearance Eyes: Bilateral: normal appearance. Respiratory: normal breath sounds, chest non-tender, lungs clear Cardiovascular: regular rate/rhythm, systolic murmur Gastrointestinal: soft, non-tender Extremities: no edema Neurologic/Psych: awake, alert, oriented x 3 Cranial Nerves: normal hearing, normal speech Last 48 Hrs of Labs/Mello: Laboratory Tests 09/30/17 0835: Anion Gap 9, Estimated GFR > 60, Glucose 132 H, Calcium 8.9, Phosphorus 3.7, Magnesium 1.3 L, Total Bilirubin 0.4, AST 25, ALT 29, Troponin I 0.18 *H, Albumin 3.6, CBC w Diff NO MAN DIFF REQ, RBC 3.00 L, MCV 85.2, MCH 27.1, MCHC 31.8 L, RDW 16.2 H, MPV 8.2, Gran % 81.4 H, Lymphocytes % 11.0 L, Monocytes % 5.5, Eosinophils % 1.9, Basophils % 0.2, Absolute Granulocytes 5.8, Absolute Lymphocytes 0.8 L, Absolute Monocytes 0.4, Absolute Eosinophils 0.1, Absolute Basophils 0 09/30/17 0600: CBC w Diff Cancelled, WBC Cancelled, RBC Cancelled, Hgb Cancelled, Hct Cancelled , MCV Cancelled, MCH Cancelled, MCHC Cancelled, RDW Cancelled, Plt Count Cancelled, MPV Cancelled 09/30/17 0500: Sodium Cancelled, Potassium Cancelled, Chloride Cancelled, Carbon Dioxide Cancelled, Anion Gap Cancelled, BUN Cancelled, Creatinine Cancelled, Glucose Cancelled, Calcium Cancelled, Phosphorus Cancelled, Magnesium Cancelled, Total Bilirubin Cancelled, AST Cancelled, ALT Cancelled, Albumin Cancelled 09/30/17 0120: Anion Gap 10, Estimated GFR > 60, Glucose 124 H, Calcium 8.8, Phosphorus 3.9, Magnesium 1.2 L, Total Bilirubin 0.5, AST 21, ALT 28, Troponin I 0.14 *H, Albumin 3.4 L, CBC w Diff NO MAN DIFF REQ, RBC 2.80 L, MCV 82.2, MCH 27.4, MCHC 33.4, RDW 15.5 H, MPV 7.5, Gran % 70.9, Lymphocytes % 17.6 L, Monocytes % 9.9 H, Eosinophils % 1.3, Basophils % 0.3, Absolute Granulocytes 4.4, Absolute Lymphocytes 1.1 L, Absolute Monocytes 0.6, Absolute Eosinophils 0.1, Absolute Basophils 0 09/29/17 2100: Lactic Acid 1.3 09/29/17 1938: Troponin I 0.13 *H 09/29/17 1750: Lactic Acid 2.5 H 09/29/17 1335: Anion Gap 17 H, Estimated GFR > 60, BUN/Creatinine Ratio 33.3 H, Glucose 125 H, Lactic Acid 5.4 H, Calcium 8.8, Iron 18 L, TIBC 380, Ferritin 6.6 L, Total Bilirubin 0.2, AST 22, ALT 28, Alkaline Phosphatase 24, Troponin I 0.10, Total Protein 5.8 L, Albumin 3.6, Globulin 2.2, Albumin/Globulin Ratio 1.6, PT 13.3 H, INR 1.27 H, APTT 28, CBC w Diff NO MAN DIFF REQ, RBC 2.07 L, MCV 83.6, MCH 27.5, MCHC 32.9 L, RDW 15.5 H, MPV 7.6, Gran % 79.1 H, Lymphocytes % 13.5 L, Monocytes % 6.3, Eosinophils % 0.8, Basophils % 0.3, Absolute Granulocytes 4.5, Absolute Lymphocytes 0.8 L, Absolute Monocytes 0.4, Absolute Eosinophils 0, Absolute Basophils 0 Assessment/Plan Impression/Plan: Mr Guy is a 86 yo M with PMH of HTN, HLD, CAD s/p stent (Drug eluting stent, September 2015, [facility]- deemed high risk for CABG), aortic stenosis, diabetes, GERD, paroxysmal atrial fibrilliation, 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 Assessment and Plan: Acute Blood Loss Anemia: On admission he was found to be severely anemic with Hb of 5.7. He received 2 units of pRBC. His repeat Hb was 8.1. * Per GI will monitor CBC every 8 hours. * Transfuse as necessary to maintain goal Hb>8. * Colonoscopy tomorrow to assess for GI bleeding. Gastrointestinal Bleeding: Patient states he has been having black tarry stools which was concerning for an upper GI bleed. An endoscopy today showed no evidence of upper GI bleed. * Clear liquid diet today and NPO at midnight for colonoscopy tomorrow. * Golytely 1 gallon for bowel prep today. * If colonoscopy is unremarkable he will likely require a PillCam to assess for small bowel bleeding. 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 * Continue IV Protonix 40mg daily. Type II VT: He complained of some chest pain prior to admission. Troponins were found to be modestly elevated. He does have mild EKG changes. 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 * Trend Troponin till they peak * Continue aspirin * Hold AC until further cleared by GI History of Paroxysmal Atrial Fibrillation * Continue Metoprolol XL 25mg daily * Hold AC until further cleared by GI Hyperlipidemia: * Continue Atorvastatin Diabetes Mellitus: * Insulin Novolin * Accucheks Diet: Clear Liquid Diet and NPO after midnight DVT Prophylaxis: ALPS Code: Full Code Consult Acknowledgment - Thank you for your consult request.
--- NOTE | 2017-09-30 07:52 | Cons- Gastroenterology ---
General Information and HPI Consulting Request Date of Consult: 09/30/17 ([facility]/GASTROENTEROLOGY) Requested By: Shahid Choudhary MD Reason for Consult: Melena Blood loss anemia Source of Information: patient, family History of Present Illness: 87-year-old white male without antecedent GI symptoms or disease except for GERD , for which he has been on long-standing pantoprazole. He also apparently has a history of colonic polyps, with last colonoscopy a few years ago. Generally he has 1 bowel movement per day after breakfast, and has never had blood per rectum or black stool prior to this. He has not been losing weight, does not have chronic dyspepsia or abdominal pain, and no history of liver disease. The patient takes aspirin for coronary stents, and was switched from Pradaxa for Xarelto several weeks ago. He does not use NSAIDs. Several weeks ago he began to develop belching. About a week ago he had loss of appetite. Over this past weekend he began to have black stool, although not diarrhea. He had no increase in heartburn, nausea, vomiting or abdominal pain. There was no bright red blood per rectum. Yesterday he had weakness, chest pressure, dyspnea on exertion, but no syncope or diaphoresis. His last (black) bowel movement was yesterday. His last Xarelto dose was Friday evening. 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 He drinks wine several times per week. No current tobacco use. Family history is negative for GI malignancy, peptic ulcer disease. Allergies/Medications Allergies: Coded Allergies: NO KNOWN ALLERGIES (NO) (01/02/11) Home Med List: Acetaminophen (Tylenol Arthritis) 650 MG TABLET.ER 650 MG PO Q8 PAIN ( Reported) Aspirin (Ecotrin*) 81 MG TABLET.DR 1 TAB PO DAILY HEART (Reported) Atorvastatin Calcium 80 MG TABLET 1 TAB PO DAILY HIGH CHOLESTEROL (Reported) Finasteride 5 MG TABLET 1 TAB PO DAILY BPH (Reported) Isosorbide Mononitrate (Isosorbide Mononitrate ER) 30 MG TAB.ER.24H 1 TAB PO DAILY ANGINA (Reported) Latanoprost 0.005 % DROPS 1 GTT OPH QPM GLAUCOMA - BOTH EYES (Reported) Metoprolol Succinate 25 MG TAB 1 TAB PO DAILY BP (Reported) Multivit-Min/FA/Lycopen/Lutein (Centrum Silver Tablet) 0.4 MG-300 MCG-250 MCG TABLET 1 TAB PO DAILY SUPPLEMENT (Reported) Pantoprazole Sodium 40 MG TABLET.DR 1 TAB PO DAILY GERD (Reported) Pioglitazone HCl/Metformin HCl (Actoplus Met 15 MG-850 MG Tab) 15 MG-850 MG TABLET 1 TAB PO BID DM (Reported) Sulfamethoxazole/Trimethoprim (Bactrim Ds Tablet) 800 MG-160 MG TABLET 1 TAB PO BID UTI [XERALTO] 20 MG 1 TAB PO DAILY THINNER (Reported) Current Medications: Current Medications Sig/Reagan Start time Last Medication Dose Route Stop Time Status Admin Atorvastatin Calcium 80 MG DAILY 09/30 1000 AC PO Dextrose/Sodium 1,000 ML .Q10H 09/29 1815 AC 09/30 Chloride IV 09/30 1414 0030 Finasteride 5 MG DAILY 09/30 1000 AC PO Insulin Human Regular 0 Q6 09/29 2359 AC SC Isosorbide 30 MG DAILY 09/30 1000 CAN Mononitrate PO Latanoprost 1 GTT QPM 09/29 2200 AC 09/29 OPH 2158 Magnesium Sulfate 1 GM ONCE ONE 09/30 0300 DC 09/30 Dextrose/Water 100 ML IV 09/30 0659 0254 Metoprolol Succinate 25 MG DAILY 09/30 1000 AC PO Pantoprazole Sodium 40 MG DAILY 09/30 1000 AC IV Pantoprazole Sodium 0 .STK-MED ONE 09/29 1500 DC IV Pantoprazole Sodium 40 MG ONCE ONE 09/29 1445 DC 09/29 IV 09/29 1446 1500 Past History Travel History Traveled to [place] past 21 day No Medical History Blood Transfusion Hx: Yes Neurological: CVA,SEIZURE EENT: glaucoma Cardiovascular: hypertension, hyperlipidemia, CAD,A-FIB known three-vessel coronary artery disease, deemed high risk for bypass surgery. The patient underwent a drug-eluting stent placement into the mid RCA lesion with a resolute stent in September 2015. 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 FATHER (Diabetes). Psychosocial History Where Do You Live? Home Who Do You Live With? spouse Services at Home: None Primary Language: Chadian Smoking Status: Former Smoker Functional Ability ADLs Independent: dressing, eating, toileting, bathing. Ambulation: independent IADLs Independent: shopping, housework, finances, food prep, telephone, transportation , medication admin. Review of Systems Review of Systems Constitutional: Reports: weakness. Denies: diaphoresis, fever, unexplained weight loss. EENTM: Denies: icterus, epistaxis. Cardiovascular: Reports: chest pain. Denies: edema, syncope. Respiratory: Reports: short of breath. Denies: cough, hemoptysis. GI: Reports: see HPI. Genitourinary: Denies: dysuria, hematuria. Musculoskeletal: Denies: muscle stiffness, neck pain. Skin: Denies: jaundice, lesions. Neurological/Psychological: Denies: cognitive dysfunction, headache. Hematologic/Endocrine: Reports: bleeding. Denies: bruising, polyuria, polydipsia. Exam & Diagnostic Data Vital Signs and I&O Vital Signs Date Time Temp Pulse Resp B/P B/P Pulse O2 O2 Flow FiO2 Mean Ox Delivery Rate 09/30 0600 71 20 170/74 09/30 0400 97.0 59 22 148/60 09/30 0400 94 Room Air 09/30 0200 87 22 149/89 02/ 0000 96.7 67 20 152/80 02/ 0000 96 Room Air / 0000 96.7 67 20 152/80 96 Room Air / 2200 58 18 197/73 09/29 2000 97.5 60 18 152/60 02 2000 97.5 60 18 152/60 96 Room Air / 1928 98 Room Air / 1810 98.3 65 16 138/70 97 / 1613 98.9 68 16 144/72 98 02/05 1545 Room Air 02/ 1425 97.1 62 16 146/66 97 Room Air 02/ 1345 98.4 66 22 119/57 98 Intake & Output 09/30 1600 09/30 0400 09/29 1600 09/29 0400 09/28 1600 09/28 0400 Intake Total 800 700 Output Total 1700 500 Balance -900 200 Intake, Blood 340 Product Intake, IV 800 Intake, Oral 360 Number 0 Bowel Movements Output, Urine 1700 500 Patient 210 lb 212 lb Weight Weight Reported by Patient Measurement Method Physical Exam: Well-developed, well-nourished, in no apparent distress. Alert and oriented with normal cognition. Skin normal without petechiae, purpura, mottling, rash, lesion, jaundice. No telangiectasias or palmar erythema. Positive gynecomastia bilaterally. No adenopathy. Sclera anicteric. Oropharynx normal. Neck supple without mass or thyromegaly. Heart regular rhythm with a 2 to 3/6 systolic murmur. Lungs clear bilaterally. Abdomen obese, soft, with normal bowel sounds ; no tenderness, mass or organomegaly. Extremities without clubbing, cyanosis or edema. Distal pulses intact bilaterally. Results Pertinent Lab Results: Laboratory Tests 09/30 09/30 09/29 0600 0120 2100 Chemistry Sodium (137 - 145 mmol/L) 139 Potassium (3.5 - 5.1 mmol/L) 3.9 Chloride (98 - 107 mmol/L) 101 Carbon Dioxide (22 - 30 mmol/L) 28 Anion Gap (5 - 16) 10 BUN (9 - 20 mg/dL) 21 H Creatinine (0.7 - 1.2 mg/dL) 1.0 Estimated GFR (>60 ml/min) > 60 Glucose (65 - 99 mg/dL) 124 H Lactic Acid (0.7 - 2.1 mmol/L) 1.3 Calcium (8.4 - 10.2 mg/dL) 8.8 Phosphorus (2.5 - 4.5 mg/dL) 3.9 Magnesium (1.6 - 2.3 mg/dL) 1.2 L Total Bilirubin (0.2 - 1.3 mg/dL) 0.5 AST (17 - 59 U/L) 21 ALT (21 - 72 U/L) 28 Troponin I (<0.11 ng/ml) 0.14 *H Albumin (3.5 - 5.0 g/dL) 3.4 L Hematology CBC w Diff Cancelled NO MAN DIFF REQ WBC (4.8 - 10.8 /CUMM) Cancelled 6.2 RBC (4.70 - 6.10 /CUMM) Cancelled 2.80 L Hgb (14.0 - 18.0 G/DL) Cancelled 7.7 L Hct (42 - 52 %) Cancelled 23.0 L MCV (80.0 - 94.0 FL) Cancelled 82.2 MCH (27.0 - 31.0 PG) Cancelled 27.4 MCHC (33.0 - 37.0 G/DL) Cancelled 33.4 RDW (11.5 - 14.5 %) Cancelled 15.5 H Plt Count (130 - 400 /CUMM) Cancelled 175 MPV (7.4 - 10.4 FL) Cancelled 7.5 Gran % (42.2 - 75.2 %) 70.9 Lymphocytes % (20.5 - 51.1 %) 17.6 L Monocytes % (1.7 - 9.3 %) 9.9 H Eosinophils % (0 - 5 %) 1.3 Basophils % (0.0 - 2.0 %) 0.3 Absolute Granulocytes (1.4 - 6.5 /CUMM) 4.4 Absolute Lymphocytes (1.2 - 3.4 /CUMM) 1.1 L Absolute Monocytes (0.10 - 0.60 /CUMM) 0.6 Absolute Eosinophils (0.0 - 0.7 /CUMM) 0.1 Absolute Basophils (0.0 - 0.2 /CUMM) 0 09/29 09/29 09/29 1938 1750 1335 Chemistry Sodium (137 - 145 mmol/L) 136 L Potassium (3.5 - 5.1 mmol/L) 4.4 Chloride (98 - 107 mmol/L) 99 Carbon Dioxide (22 - 30 mmol/L) 21 L Anion Gap (5 - 16) 17 H BUN (9 - 20 mg/dL) 30 H Creatinine (0.7 - 1.2 mg/dL) 0.9 Estimated GFR (>60 ml/min) > 60 BUN/Creatinine Ratio (7 - 25 %) 33.3 H Glucose (65 - 99 mg/dL) 125 H Lactic Acid (0.7 - 2.1 mmol/L) 2.5 H 5.4 H Calcium (8.4 - 10.2 mg/dL) 8.8 Iron (49 - 181 ug/dL) 18 L TIBC (261 - 462 ug/dL) 380 Ferritin (17.9 - 464 ng/mL) 6.6 L Total Bilirubin (0.2 - 1.3 mg/dL) 0.2 AST (17 - 59 U/L) 22 ALT (21 - 72 U/L) 28 Alkaline Phosphatase (< 127 U/L) 24 Troponin I (<0.11 ng/ml) 0.13 *H 0.10 Total Protein (6.3 - 8.2 g/dL) 5.8 L Albumin (3.5 - 5.0 g/dL) 3.6 Globulin (1.9 - 4.2 gm/dL) 2.2 Albumin/Globulin Ratio (1.1 - 2.2 %) 1.6 Coagulation PT (9.4 - 12.5 SEC) 13.3 H INR (0.90 - 1.17) 1.27 H APTT (25 - 37 SEC) 28 Hematology CBC w Diff NO MAN DIFF REQ WBC (4.8 - 10.8 /CUMM) 5.7 RBC (4.70 - 6.10 /CUMM) 2.07 L Hgb (14.0 - 18.0 G/DL) 5.7 *L Hct (42 - 52 %) 17.3 *L MCV (80.0 - 94.0 FL) 83.6 MCH (27.0 - 31.0 PG) 27.5 MCHC (33.0 - 37.0 G/DL) 32.9 L RDW (11.5 - 14.5 %) 15.5 H Plt Count (130 - 400 /CUMM) 203 MPV (7.4 - 10.4 FL) 7.6 Gran % (42.2 - 75.2 %) 79.1 H Lymphocytes % (20.5 - 51.1 %) 13.5 L Monocytes % (1.7 - 9.3 %) 6.3 Eosinophils % (0 - 5 %) 0.8 Basophils % (0.0 - 2.0 %) 0.3 Absolute Granulocytes (1.4 - 6.5 /CUMM) 4.5 Absolute Lymphocytes (1.2 - 3.4 /CUMM) 0.8 L Absolute Monocytes (0.10 - 0.60 /CUMM) 0.4 Absolute Eosinophils (0.0 - 0.7 /CUMM) 0 Absolute Basophils (0.0 - 0.2 /CUMM) 0 Assessment/Plan Assessment/Recommendations: Melena, blood loss anemia. Most likely upper GI bleed, exacerbated by anticoagulation. He is hemodynamically stable. The patient has had an appropriate response to transfusion overnight. Differential diagnosis includes ulcer, vascular ectasias, neoplasm, etc. Recommendations * Transfuse a third unit of packed red blood cells given hemoglobin less than 8, chest pressure/elevated troponin. * CBC every 8 hours; maintain hemoglobin greater than 8 with transfusion as necessary. * IV PPI twice a day * Nothing by mouth, IV fluids * Hold Xarelto, continue ASA * Cardiology consultation this morning * Probable EGD later today, pending cardiology evaluation Copies To: Connor ARGUETA,Crow; Leonardo ARGUETA,Lefty Oconnor Consult Acknowledgment - Thank you for your consult request.
[2017-09-30 09:19] LABS: ABSOLUTE BASOPHIL COUNT 0 /CUMM (0.0-0.2); ABSOLUTE EOSINOPHIL COUNT 0.1 /CUMM (0.0-0.7); ABSOLUTE GRANULOCYTE CT 5.8 /CUMM (1.4-6.5); ABSOLUTE LYMPH COUNT 0.8 /CUMM (1.2-3.4); ABSOLUTE MONOCYTE COUNT 0.4 /CUMM (0.10-0.60); BASOPHIL % 0.2 % (0.0-2.0); EOSINOPHIL % 1.9 % (0-5); GRANULOCYTE % 81.4 % (42.2-75.2); HEMATOCRIT 25.6 % (42-52); MEAN CORPUSCULAR HGB 27.1 PG (27.0-31.0); MEAN CORPUSCULAR HGB CONC 31.8 G/DL (33.0-37.0); MEAN CORPUSCULAR VOLUME 85.2 FL (80.0-94.0); MEAN PLATELET VOLUME 8.2 FL (7.4-10.4); PLATELET COUNT 168 /CUMM (130-400); RBC DISTRIBUTION WIDTH 16.2 % (11.5-14.5); WHITE BLOOD CELL COUNT 7.1 /CUMM (4.8-10.8)
--- NOTE | 2017-09-30 10:07 | Cons- Cardiology ---
General Information and HPI Consulting Request Date of Consult: 09/30/17 Requested By: Kian Rock MD Reason for Consult: Elevated troponin isoenzyme Source of Information: patient, old records Exam Limitations: no limitations History of Present Illness: The patient is an 87-year-old gentleman with a past medical history of coronary artery disease (status post drug-eluting stent into the RCA in September 2015), paroxysmal atrial fibrillation, prior CVA, hypertension, hyperlipidemia, aortic stenosis and diabetes mellitus. He presented to our hospital with symptoms of chest discomfort. The patient states feeling generalized weakness over the past several days, and had noticed melanotic stools. On the morning of arrival, he noted symptoms of chest discomfort, described as epigastric/substernal density pressure sensation with no significant radiation. This was accompanied by belching and mild dyspnea. There was no concurrent diaphoresis. No clear other alleviating or exacerbating factors were noted. The patient states symptoms were unlike those experienced prior to his stenting. He states in the preceding weeks, he was doing overall well area and he performs ADLs and is able to climb one flight of stairs without difficulty; however, does not participate in active exercise. On arrival, the patient was noted to be severely anemic, with a hemoglobin of 5.7. His lactic acid level was elevated at 5.4, and troponin isoenzyme levels foster current peak of 0.18. Following transfusion, the patient's symptoms of chest discomfort abated. Of note, the patient's previous regimen of Pradaxa was changed to Xarelto approximately 3 weeks ago secondary to insurance changes. Allergies/Medications Allergies: Coded Allergies: NO KNOWN ALLERGIES (NO) (01/02/11) Home Med List: Acetaminophen (Tylenol Arthritis) 650 MG TABLET.ER 650 MG PO Q8 PAIN ( Reported) Aspirin (Ecotrin*) 81 MG TABLET.DR 1 TAB PO DAILY HEART (Reported) Atorvastatin Calcium 80 MG TABLET 1 TAB PO DAILY HIGH CHOLESTEROL (Reported) Finasteride 5 MG TABLET 1 TAB PO DAILY BPH (Reported) Isosorbide Mononitrate (Isosorbide Mononitrate ER) 30 MG TAB.ER.24H 1 TAB PO DAILY ANGINA (Reported) Latanoprost 0.005 % DROPS 1 GTT OPH QPM GLAUCOMA - BOTH EYES (Reported) Metoprolol Succinate 25 MG TAB 1 TAB PO DAILY BP (Reported) Multivit-Min/FA/Lycopen/Lutein (Centrum Silver Tablet) 0.4 MG-300 MCG-250 MCG TABLET 1 TAB PO DAILY SUPPLEMENT (Reported) Pantoprazole Sodium 40 MG TABLET.DR 1 TAB PO DAILY GERD (Reported) Pioglitazone HCl/Metformin HCl (Actoplus Met 15 MG-850 MG Tab) 15 MG-850 MG TABLET 1 TAB PO BID DM (Reported) Sulfamethoxazole/Trimethoprim (Bactrim Ds Tablet) 800 MG-160 MG TABLET 1 TAB PO BID UTI [XERALTO] 20 MG 1 TAB PO DAILY THINNER (Reported) Current Medications: Current Medications Sig/Reagan Start time Last Medication Dose Route Stop Time Status Admin Atorvastatin Calcium 80 MG 1700 09/30 1700 AC PO Atorvastatin Calcium 80 MG DAILY 09/30 1000 DC PO Dextrose/Sodium 1,000 ML .Q10H 09/29 1815 AC 09/30 Chloride IV 09/30 1414 0030 Finasteride 5 MG DAILY 09/30 1000 AC PO Insulin Human Regular 0 Q6 09/29 2359 AC SC Isosorbide 30 MG DAILY 09/30 1000 CAN Mononitrate PO Latanoprost 1 GTT QPM 09/29 2200 AC 09/29 OPH 2158 Magnesium Sulfate 1 GM ONCE ONE 09/30 0300 DC 09/30 Dextrose/Water 100 ML IV 09/30 0659 0254 Metoprolol Succinate 25 MG DAILY 09/30 1000 AC PO Pantoprazole Sodium 40 MG DAILY 09/30 1000 DC IV Pantoprazole Sodium 40 MG BID 09/30 1000 AC IV Pantoprazole Sodium 0 .STK-MED ONE 09/29 1500 DC IV Pantoprazole Sodium 40 MG ONCE ONE 09/29 1445 DC 09/29 IV 09/29 1446 1500 Review of Systems Review of Systems: The review of systems is negative for chest pains, palpitations nor lightheadedness, with the exception of above. The remainder of the 14 point review of systems is noncontributory with the exception of above. Past History Travel History Traveled to [place] past 21 day No Medical History Blood Transfusion Hx: Yes Neurological: CVA,SEIZURE EENT: glaucoma Cardiovascular: AFIB, aortic stenosis (moderate), CAD, hypertension, hyperlipidemia, CAD,A-FIB known three-vessel coronary artery disease, deemed high risk for bypass surgery. The patient underwent a drug-eluting stent placement into the mid RCA lesion with a resolute stent in September 2015. 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 FATHER (Diabetes). Psychosocial History Where Do You Live? Home Who Do You Live With? spouse Services at Home: None Primary Language: Swedish Smoking Status: Former Smoker Functional Ability ADLs Independent: dressing, eating, toileting, bathing. Ambulation: independent IADLs Independent: shopping, housework, finances, food prep, telephone, transportation , medication admin. ECHO Results (as available) EF% 60 Exam & Diagnostic Data Vital Signs and I&O Vital Signs Date Time Temp Pulse Resp B/P B/P Pulse O2 O2 Flow FiO2 Mean Ox Delivery Rate 09/30 0600 71 20 170/74 / 0400 97.0 59 22 148/60 / 0400 94 Room Air 09/30 0200 87 22 149/89 02/ 0000 96.7 67 20 152/80 02/ 0000 96 Room Air 02/ 0000 96.7 67 20 152/80 96 Room Air 02/ 2200 58 18 197/73 021999 97.5 60 18 152/60 02/ 2000 97.5 60 18 152/60 96 Room Air 02/ 1928 98 Room Air 02/ 1810 98.3 65 16 138/70 97 02/ 1613 98.9 68 16 144/72 98 02/05 1545 Room Air 02/ 1425 97.1 62 16 146/66 97 Room Air 02/05 1345 98.4 66 22 119/57 98 Intake & Output 09/30 1600 02/06 0800 02/06 0000 02/05 1600 02/ 0800 02/ 0000 Intake Total 800 700 Output Total 1700 500 Balance -900 200 Intake, Blood 340 Product Intake, IV 800 Intake, Oral 360 Number 0 Bowel Movements Output, Urine 1700 500 Patient 210 lb 212 lb Weight Weight Reported by Patient Measurement Method Physical Exam: General: Nontoxic, no apparent distress. HEENT: Sclera and conjunctiva within normal limits, without xanthelasmas. Neck: Carotids 2+ without bruits. Respiratory: Scattered rhonchi, air movement is good, without accessory respiratory muscle use. Heart: Regular rate and rhythm, 2/6 systolic ejection murmur with crescendo decrescendo quality heard best at the right sternal border, without JVD. Abdomen: Soft, nontender, no masses, normoactive bowel sounds. Extremities: Without clubbing, cyanosis, without edema. Neuro: Nonfocal exam, strength, 5 out of 5 Skin: Within normal limits without lesions. Psych: Mood and affect: Normal Labs/Mello Results: Laboratory Tests 09/30 09/30 09/30 0835 0600 0500 Chemistry Sodium (137 - 145 mmol/L) 140 Cancelled Potassium (3.5 - 5.1 mmol/L) 3.9 Cancelled Chloride (98 - 107 mmol/L) 102 Cancelled Carbon Dioxide (22 - 30 mmol/L) 29 Cancelled Anion Gap (5 - 16) 9 Cancelled BUN (9 - 20 mg/dL) 17 Cancelled Creatinine (0.7 - 1.2 mg/dL) 0.9 Cancelled Estimated GFR (>60 ml/min) > 60 Glucose (65 - 99 mg/dL) 132 H Cancelled Calcium (8.4 - 10.2 mg/dL) 8.9 Cancelled Phosphorus (2.5 - 4.5 mg/dL) 3.7 Cancelled Magnesium (1.6 - 2.3 mg/dL) 1.3 L Cancelled Total Bilirubin (0.2 - 1.3 mg/dL) 0.4 Cancelled AST (17 - 59 U/L) 25 Cancelled ALT (21 - 72 U/L) 29 Cancelled Troponin I (<0.11 ng/ml) 0.18 *H Albumin (3.5 - 5.0 g/dL) 3.6 Cancelled Hematology CBC w Diff NO MAN DIFF REQ Cancelled WBC (4.8 - 10.8 /CUMM) 7.1 Cancelled RBC (4.70 - 6.10 /CUMM) 3.00 L Cancelled Hgb (14.0 - 18.0 G/DL) 8.1 L Cancelled Hct (42 - 52 %) 25.6 L Cancelled MCV (80.0 - 94.0 FL) 85.2 Cancelled MCH (27.0 - 31.0 PG) 27.1 Cancelled MCHC (33.0 - 37.0 G/DL) 31.8 L Cancelled RDW (11.5 - 14.5 %) 16.2 H Cancelled Plt Count (130 - 400 /CUMM) 168 Cancelled MPV (7.4 - 10.4 FL) 8.2 Cancelled Gran % (42.2 - 75.2 %) 81.4 H Lymphocytes % (20.5 - 51.1 %) 11.0 L Monocytes % (1.7 - 9.3 %) 5.5 Eosinophils % (0 - 5 %) 1.9 Basophils % (0.0 - 2.0 %) 0.2 Absolute Granulocytes (1.4 - 6.5 /CUMM) 5.8 Absolute Lymphocytes (1.2 - 3.4 /CUMM) 0.8 L Absolute Monocytes (0.10 - 0.60 /CUMM) 0.4 Absolute Eosinophils (0.0 - 0.7 /CUMM) 0.1 Absolute Basophils (0.0 - 0.2 /CUMM) 0 09/30 09/29 09/29 09/29 0120 2100 1938 1750 Chemistry Sodium (137 - 145 mmol/L) 139 Potassium (3.5 - 5.1 mmol/L) 3.9 Chloride (98 - 107 mmol/L) 101 Carbon Dioxide (22 - 30 mmol/L) 28 Anion Gap (5 - 16) 10 BUN (9 - 20 mg/dL) 21 H Creatinine (0.7 - 1.2 mg/dL) 1.0 Estimated GFR (>60 ml/min) > 60 Glucose (65 - 99 mg/dL) 124 H Lactic Acid (0.7 - 2.1 mmol/L) 1.3 2.5 H Calcium (8.4 - 10.2 mg/dL) 8.8 Phosphorus (2.5 - 4.5 mg/dL) 3.9 Magnesium (1.6 - 2.3 mg/dL) 1.2 L Total Bilirubin (0.2 - 1.3 mg/dL) 0.5 AST (17 - 59 U/L) 21 ALT (21 - 72 U/L) 28 Troponin I (<0.11 ng/ml) 0.14 *H 0.13 *H Albumin (3.5 - 5.0 g/dL) 3.4 L Hematology CBC w Diff NO MAN DIFF REQ WBC (4.8 - 10.8 /CUMM) 6.2 RBC (4.70 - 6.10 /CUMM) 2.80 L Hgb (14.0 - 18.0 G/DL) 7.7 L Hct (42 - 52 %) 23.0 L MCV (80.0 - 94.0 FL) 82.2 MCH (27.0 - 31.0 PG) 27.4 MCHC (33.0 - 37.0 G/DL) 33.4 RDW (11.5 - 14.5 %) 15.5 H Plt Count (130 - 400 /CUMM) 175 MPV (7.4 - 10.4 FL) 7.5 Gran % (42.2 - 75.2 %) 70.9 Lymphocytes % (20.5 - 51.1 %) 17.6 L Monocytes % (1.7 - 9.3 %) 9.9 H Eosinophils % (0 - 5 %) 1.3 Basophils % (0.0 - 2.0 %) 0.3 Absolute Granulocytes (1.4 - 6.5 /CUMM) 4.4 Absolute Lymphocytes (1.2 - 3.4 /CUMM) 1.1 L Absolute Monocytes (0.10 - 0.60 /CUMM) 0.6 Absolute Eosinophils (0.0 - 0.7 /CUMM) 0.1 Absolute Basophils (0.0 - 0.2 /CUMM) 0 02/05 1335 Chemistry Sodium (137 - 145 mmol/L) 136 L Potassium (3.5 - 5.1 mmol/L) 4.4 Chloride (98 - 107 mmol/L) 99 Carbon Dioxide (22 - 30 mmol/L) 21 L Anion Gap (5 - 16) 17 H BUN (9 - 20 mg/dL) 30 H Creatinine (0.7 - 1.2 mg/dL) 0.9 Estimated GFR (>60 ml/min) > 60 BUN/Creatinine Ratio (7 - 25 %) 33.3 H Glucose (65 - 99 mg/dL) 125 H Lactic Acid (0.7 - 2.1 mmol/L) 5.4 H Calcium (8.4 - 10.2 mg/dL) 8.8 Iron (49 - 181 ug/dL) 18 L TIBC (261 - 462 ug/dL) 380 Ferritin (17.9 - 464 ng/mL) 6.6 L Total Bilirubin (0.2 - 1.3 mg/dL) 0.2 AST (17 - 59 U/L) 22 ALT (21 - 72 U/L) 28 Alkaline Phosphatase (< 127 U/L) 24 Troponin I (<0.11 ng/ml) 0.10 Total Protein (6.3 - 8.2 g/dL) 5.8 L Albumin (3.5 - 5.0 g/dL) 3.6 Globulin (1.9 - 4.2 gm/dL) 2.2 Albumin/Globulin Ratio (1.1 - 2.2 %) 1.6 Coagulation PT (9.4 - 12.5 SEC) 13.3 H INR (0.90 - 1.17) 1.27 H APTT (25 - 37 SEC) 28 Hematology CBC w Diff NO MAN DIFF REQ WBC (4.8 - 10.8 /CUMM) 5.7 RBC (4.70 - 6.10 /CUMM) 2.07 L Hgb (14.0 - 18.0 G/DL) 5.7 *L Hct (42 - 52 %) 17.3 *L MCV (80.0 - 94.0 FL) 83.6 MCH (27.0 - 31.0 PG) 27.5 MCHC (33.0 - 37.0 G/DL) 32.9 L RDW (11.5 - 14.5 %) 15.5 H Plt Count (130 - 400 /CUMM) 203 MPV (7.4 - 10.4 FL) 7.6 Gran % (42.2 - 75.2 %) 79.1 H Lymphocytes % (20.5 - 51.1 %) 13.5 L Monocytes % (1.7 - 9.3 %) 6.3 Eosinophils % (0 - 5 %) 0.8 Basophils % (0.0 - 2.0 %) 0.3 Absolute Granulocytes (1.4 - 6.5 /CUMM) 4.5 Absolute Lymphocytes (1.2 - 3.4 /CUMM) 0.8 L Absolute Monocytes (0.10 - 0.60 /CUMM) 0.4 Absolute Eosinophils (0.0 - 0.7 /CUMM) 0 Absolute Basophils (0.0 - 0.2 /CUMM) 0 Assessment/Plan Assessment/Plan 87-year-old gentleman with a past medical history of coronary artery disease ( status post drug-eluting stent into the RCA in September 2015), paroxysmal atrial fibrillation, prior CVA, hypertension, hyperlipidemia, aortic stenosis and diabetes mellitus. He presented to our hospital with symptoms of chest discomfort, and was found to be profoundly anemic secondary to a GI bleed. Subsequently, troponin isoenzymes mildly positive. Anemia/GI bleed: The patient presented with profound anemia and an acute GI bleed. His anticoagulation regimen as well as aspirin will be held at this time. Given his elevated troponin isoenzymes, we will transfuse him. He will as well as undergo a further workup as per GI, including an EGD. The patient's risk of perioperative events of his upcoming EGD is elevated in regards to perioperative ischemic events given his history of known three-vessel coronary artery disease including significant circumflex disease which has been treated medically. We will maintain his current medication regimen of beta blockers tempts to mitigate this risk. If he is unable to take oral medications , metoprolol may be given IV at 10 mg IV every 6 hours. We will as well attempt to maintain a euvolemic state. Elevated troponin isoenzyme: The pattern of the troponin isoenzyme elevation as well as his presentation consistent with a type II acute myocardial infarction. We will attempt to obtain beta-blockade and increase the dose as tolerated. Aggressive blood pressure control was will be attempted through the addition of angiotensin receptor blockers or RICKY inhibitor is as tolerated. We will continue transfusions as necessary to maintain a hemoglobin of greater than 8. Hypertension: The patient has hypertension which is suboptimally controlled. We will attempt the addition of an RICKY inhibitor or angiotensin receptor leroy titrate as tolerated. Atrial fibrillation/CVA history: The patient has a markedly elevated [id number] score, and therefore anticoagulation should be resumed as early as possible when stable from a GI bleed standpoint. His regimen of Xarelto should be changed however to Pradaxa as he was stable on this and it is reversible as needed, given his GI bleed. Aspirin will be restarted when acceptable from a GI standpoint. Thank you for allowing us to participate in the care of your patient. Please do not hesitate to contact us further with any questions. Sincerely, Vito Diaz MD [facility] Consult Acknowledgment - Thank you for your consult request.
--- NOTE | 2017-09-30 13:08 | Proc Note Endoscopy ---
Endoscopy Procedure Medical History: unchanged Mental Status: alert/oriented Heart/Lung Eval Prior to Sedation: within normal limits Candidate for Sedation? Yes Procedure Date: 09/30/17 Procedure Type: EGD [employer] Aide: ADAN MASON MD ASA Classification: IV (IV-E) Indications: (*Please refer to Dr. Zara Castro's GI consult from earlier today, 09/30/17). INDX: 87 y/o male, ASHD, post drug eluting stent RCA 09/2015, PAF, prior CVA, HTN, HLD, MOD , DM, hx GERD omn longstanding Protonix, admitted to [facility] 12/2017 with melena, severe anemia (Hgb 5.7), elevated BUN, on outpatient ASA & Xarelto. (Pradaxa was changed to Xarelto 3 weeks prior, due to insurance company ). Mild troponin elevation (peak 0.18), to be secondary to demand ischemia. The patient was cleared by cardiology preoperatively. He had received 2u PRBC preop. Xarelto is currently on hold. He remained on ECASA 81 mg daily, plus IV Protonix 40 mg Q12h. Markedly elevated ZA score. He is not on NSAIDs. The patient is normally followed for GI by Dr. Gus Patterson, in [place], [place]. *As per the patient' s , Sarah, the patient last had a colnoscopy by Dr. Patterson in [place] a few years ago, which was 'clean". He remotely had colon polyps. He had never had an EGD. Instrument: diagnostic gastroscope Meds Received: MAC Patient's Tolerance: good Complications: none Extent Reached: D3 Procedure: Baseline upper endoscopy to the third portion of the duodenum, was performed with the Olympus high definition videoendoscope, after obtaining informed consent from the patient, with the edge finisher and pulse oximeter, with the assistance of Dr. Martin, of [facility]. The patient was edentulous. A mouthpiece was placed in the usual fashion to protect the patient 's oral cavity. The patient was placed in the left lateral decubitus position and sedated by [facility]. At this point, the endoscope was advanced through the fenestrated hole in the and NRB mask, into the mouth, then into the esophagus, using direct visualization technique. I did not inspect the vocal cords. The esophageal mucosa appeared normal. There were no esophageal rings, webs, lesions, strictures, or ulcers. There was no monilia or vesicles. There was no esophageal ribbing. The Z line was well demarcated at 39 cm. There was a small sliding 1 cm hiatal hernia pouch, from 39-40 cm. There were no Chris erosions. No significant esophageal inflammation was seen. There were no ectopic islands, nor gross Chacko's esophagus. There were no esophageal or gastric varices, nor any Teresita Lopez tear. The singh of the stomach distended normally with air insufflation. Direct and retroflexed views of the stomach were performed. There was nothing endoscopically to suggest gastroparesis or portal gastropathy. The mucosa of the gastric cardia, fundus, lesser curvature, incisura, body, and antrum appeared normal, without any gastric ulcers or gastric lesions. A small amount of bile was suctioned from the antrum. The pylorus was patent, without any gastric outlet obstruction or channel ulcer. The duodenal bulb, duodenal sweep, & third portion of the duodenum appeared normal, without any duodenal ulcers, distal ulcerations, or angiodysplasias. I was not able to see the ampulla with the direct-viewing scope. The folds of the second & third portions of the duodenum were normal in caliber, without any flattening, nodularity, scalloping, or mosaic pattern. Bile was seen in the duodenum. No active upper GI bleeding was seen. The patient tolerated the procedure well. Impression: 1. 1 cm sliding hiatal hernia pouch, from 39-40 cm. Z line at 39 cm. 2. Otherwise, normal EGD to the third portion of the duodenum. No active upper GI bleeding seen. Recommendations: May decrease IV Protonix from 40 mg Q12h to 40 mg daily. GoLytely 1 gallon po starting at 3 p.m. today, over 4-5 hours. Clears po, then NPO after 11:59 p.m. on 09/30/17, for colonoscopy on 10/01/17, timing to be determined by clinical course and by nursing staffing. Continue ECASA 81 mg daily. A/C therapy on hold until colonoscopy is done. Most likely, will need to go back to Pradaxa (instead of Xarelto), after clearing the colonic mucosa ( other option would be IV heparin). If colonoscopy negative, would need outpatient PillCam to clear the small bowel of angiodysplasias (*note: hx moderate , r/o Heyde's syndrome), which could be performed by the patient's usual outpt GI MD, Dr. Gus Patterson. Check CBC BID. Keep Hgb > 8 (hx ASHD). Strict I/O's. Supplemental O2 prn. Follow-up with cardiology, regarding troponin bump. The patient has an elevated ZA score, regarding PAF. He & his are aware that we are trying to balance the risk of GI bleeding with that of a recurrent CVA, and they accept these risks. Would maintain patient in ICU for now. The above findings and recommendations were discussed with the patient, the patient' s , Sarah, the ICU medical housestaff, Dr. Zara Castro, & Dr. Diaz, of cardiology, postop, who cleared the patient for colonoscopy. CC: Connor ARGUETA,Crow; Shahid Choudhary MD; Leonardo ARGUETA,Lefty Oconnor; David Castellanos MD; Vito Diaz MD; Matthew ARGUETA,Nestor Dash; Shweta ARGUETA,Kian
[2017-09-30 17:05] LABS: ABSOLUTE BASOPHIL COUNT 0 /CUMM (0.0-0.2); ABSOLUTE EOSINOPHIL COUNT 0.1 /CUMM (0.0-0.7); ABSOLUTE GRANULOCYTE CT 5.4 /CUMM (1.4-6.5); ABSOLUTE LYMPH COUNT 0.9 /CUMM (1.2-3.4); ABSOLUTE MONOCYTE COUNT 0.6 /CUMM (0.10-0.60); BASOPHIL % 0.2 % (0.0-2.0); HEMATOCRIT 24.9 % (42-52); MEAN CORPUSCULAR HGB CONC 32.3 G/DL (33.0-37.0); MEAN CORPUSCULAR VOLUME 83.6 FL (80.0-94.0); MEAN PLATELET VOLUME 6.8 FL (7.4-10.4); PLATELET COUNT 208 /CUMM (130-400); RBC DISTRIBUTION WIDTH 16.1 % (11.5-14.5); RED BLOOD CELL CT 2.98 /CUMM (4.70-6.10); WHITE BLOOD CELL COUNT 7.1 /CUMM (4.8-10.8)
[2017-10-01] VITALS: BP 146/70
[2017-10-01 01:18] LABS: ABSOLUTE BASOPHIL COUNT 0 /CUMM (0.0-0.2); ABSOLUTE EOSINOPHIL COUNT 0.1 /CUMM (0.0-0.7); ABSOLUTE GRANULOCYTE CT 6.8 /CUMM (1.4-6.5); ABSOLUTE LYMPH COUNT 0.8 /CUMM (1.2-3.4); ABSOLUTE MONOCYTE COUNT 0.7 /CUMM (0.10-0.60); BASOPHIL % 0.1 % (0.0-2.0); EOSINOPHIL % 1.1 % (0-5); GRANULOCYTE % 80.7 % (42.2-75.2); HEMATOCRIT 26.9 % (42-52); MEAN CORPUSCULAR HGB 27.4 PG (27.0-31.0); MEAN CORPUSCULAR HGB CONC 32.8 G/DL (33.0-37.0); MEAN CORPUSCULAR VOLUME 83.5 FL (80.0-94.0); MEAN PLATELET VOLUME 7.2 FL (7.4-10.4); PLATELET COUNT 215 /CUMM (130-400); RBC DISTRIBUTION WIDTH 15.5 % (11.5-14.5); RED BLOOD CELL CT 3.22 /CUMM (4.70-6.10); WHITE BLOOD CELL COUNT 8.4 /CUMM (4.8-10.8)
--- NOTE | 2017-10-01 07:01 | PN- Resident CRCU ---
See Addendum Subjective HPI/CRCU Issues: GI bleed Anemia 24 Hour Events: No acute events overnight. Patient had an endoscopy yesterday and a colonoscopy today which has been unremarkable. His H&H has remained stable over the past 24 hours since transfusion. Patient was seen and examined. Offers no complaints. Denies any blood bowel movements. Objective Vital Signs & I&O Last 8 Hrs of Vitals and I&O: Intake & Output 10/01 1600 Intake Total Output Total Balance Patient 209 lb Weight Exam General Appearance: well developed/nourished, no apparent distress, alert, awake , comfortable Head: atraumatic, normal appearance Respiratory: normal breath sounds, chest non-tender, lungs clear Cardiovascular: regular rate/rhythm, systolic murmur Gastrointestinal: soft, non-tender Extremities: no edema Cranial Nerves: normal hearing, normal speech Skin: intact Skin Temp/Moisture Exam: Warm/Dry Sepsis Skin Exam (color): Normal for Ethnicity Current Medications: Current Medications Sig/Reagan Start time Last Medication Dose Route Stop Time Status Admin Amlodipine Besylate 5 MG ONCE ONE 09/30 1615 DC / PO 09/30 1616 1619 Aspirin Buffered 81 MG DAILY 09/30 1123 AC 02 PO 1720 Atorvastatin Calcium 80 MG 1700 09/30 1700 AC / PO 1620 Atorvastatin Calcium 80 MG DAILY 09/30 1000 DC PO Chlorhexidine 1 GM .STK-MED ONE 10/01 0855 DC Gluconate TOP 10/01 0856 Chlorhexidine 1 GM .STK-MED ONE 09/30 1432 DC Gluconate TOP 09/30 1433 Dextrose/Sodium 1,000 ML Q13H 10/01 1915 AC Chloride IV Dextrose/Sodium 1,000 ML Q13H 10/01 0000 DC Chloride IV Dextrose/Sodium 1,000 ML .Q10H 09/29 1815 DC / Chloride IV / 1414 1053 Finasteride 5 MG DAILY 09/30 1000 AC 02/ PO 1053 Hydralazine HCl 25 MG ONCE ONE 09/30 1615 CAN PO 09/30 1616 Insulin Human Regular 6 UNITS .STK-MED ONE 09/30 2314 DC IV 09/30 2315 Insulin Human Regular 4 UNITS .STK-MED ONE 09/30 1831 DC IV 09/30 1832 Insulin Human Regular 1 UNITS .STK-MED ONE 09/30 1246 DC IV 09/30 1247 Insulin Human Regular 0 Q6 09/29 2359 AC 10/01 SC 0510 Latanoprost 1 GTT QPM 09/29 2200 AC 09/30 OPH 2120 Magnesium Sulfate 1 GM Q2H 10/01 0330 DC 10/01 Dextrose/Water 100 ML IV 10/01 0729 0436 Metoprolol Succinate 25 MG DAILY 09/30 1000 AC 09/30 PO 1053 Pantoprazole Sodium 40 MG DAILY 10/01 1000 AC IV Pantoprazole Sodium 40 MG DAILY 09/30 1000 DC IV Pantoprazole Sodium 40 MG BID 09/30 1000 DC 09/30 IV 1053 Polyethylene Glycol 1 GAL ONCE ONE 09/30 1400 DC 09/30 PO 09/30 1401 1540 Potassium Chloride 10 MEQ Q1H 10/01 0330 DC 10/01 IV 10/01 0431 0823 Impression/Plan Impression/Problem List Impression: Mr Guy is a 86 yo M with PMH of HTN, HLD, CAD s/p stent (Drug eluting stent, September 2015, [facility]- deemed high risk for CABG), aortic stenosis, diabetes, GERD, paroxysmal atrial fibrilliation, 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 Assessment and Plan: Acute Blood Loss Anemia: On admission he was found to be severely anemic with Hb of 5.7. He received 2 units of pRBC. His repeat Hb after transufsion was 8.1. * Per GI will monitor CBC every 12 hours. * Transfuse as necessary to maintain goal Hb>8. * Colonoscopy today did not reveal any source of bleeding. * H&H has been stable. Gastrointestinal Bleeding: Patient states he has been having black tarry stools which was concerning for an upper GI bleed. An endoscopy today showed no evidence of upper GI bleed. * No source of bleeding on colonoscopy. He will likely require a PillCam to assess for small bowel bleeding. 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 * Continue IV Protonix 40mg daily. * Stable to be downgraded from ICU. Type II UT: He complained of some chest pain prior to admission. Troponins were found to be modestly elevated. He does have mild EKG changes. 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 * Troponins have peaked. Patient has been asymptomatic throughout his hospital stay. * Continue aspirin * Per GI, can be restarted on AC. History of Paroxysmal Atrial Fibrillation * Continue Metoprolol XL 25mg daily * Will start him on Eliquis 5mg BID. Hyperlipidemia: * Continue Atorvastatin Diabetes Mellitus: * Insulin Novolin * Accucheks Diet: Clear Liquid Diet and will advance to high fiber diet. DVT Prophylaxis: ALPS Code: Full Code Problem List: 1. GI bleed Pain Ratin Tomorrow's Labs & Rationales: CBC, ICU bundle Plan DVT/Prophylaxis: pharmacological
[2017-10-01 08:00] VITALS: BP 150/70
--- NOTE | 2017-10-01 08:39 | Proc Note Colonoscopy ---
Colonoscopy Procedure Medical History: unchanged Mental Status: alert/oriented Heart/Lung Eval Prior to Sedation: within normal limits Candidate for Sedation? Yes Date of Last Colonoscopy: Few years ago [place], [place] per Dr. Gus Patterson Procedure Date: 10/01/17 Procedure Type: colonoscopy Yolk Spray Drier: ADAN MASON MD ASA Classification: IV (IV-E) Indications: (*Please refer to Dr. Zara Castro's GI consult from earlier today, 09/30/17). INDX: 87 y/o male, ASHD, post drug eluting stent RCA 09/2015, PAF, prior CVA, HTN, HLD, MOD , DM, hx GERD on longstanding Protonix, admitted to [facility] 01/09 with melena, severe anemia (Hgb 5.7), elevated BUN, on outpatient ASA & Xarelto. (Pradaxa was changed to Xarelto 3 weeks prior, due to insurance company ). Mild troponin elevation (09/30/17: peak 0.36-> 10/01/17: 0.26), to be secondary to demand ischemia. The patient was cleared by cardiology preoperatively. He had received 2u PRBC preop. Xarelto is currently on hold. He remained on ECASA 81 mg daily, plus IV Protonix 40 mg Q12h. Markedly elevated ZA score. He is not on NSAIDs. The patient is normally followed for GI by Dr. Gus Patterson, in [place], [place]. *As per the patient's , Sarah, the patient last had a colnoscopy by Dr. Patterson in [place] a few years ago, which was "clean". He remotely had colon polyps. He had never previously had an EGD. 10/01: Hgb 8.8, post 2u PRBC. 09/30/17: EGD to D3- Impression: 1. 1 cm sliding hiatal hernia pouch, from 39-40 cm. Z line at 39 cm. 2. Otherwise, normal EGD to the third portion of the duodenum. No active upper GI bleeding seen. Instrument (Colonoscope): single channel Meds Received: MAC Patient's Tolerance: good Complications: none Extent Reached: terminal ileum Prep: good Procedure: Follow-up colonoscopy to the terminal ileum, was performed with the Olympus high -definition video colonoscope, after obtaining informed consent from the patient , with the threat monitoring analyst and pulse oximeter, after 1 gallon of TriLyte, by the bedside in the [facility] ICU, room #105, with the GI RNs, De[place], with the assistance of Dr. Stinson, of [facility]. The prep was very good. The patient was in the left lateral decubitus position throughout the procedure. Direct views of the rectum failed to reveal any fissures or perianal disease. There were minimal external hemorrhoids, without any active bleeding. Digital rectal exam was unremarkable, without any masses. Sphincter tone was normal. Retroflexion in the rectum failed to reveal any gross proctitis, rectal ulcers, or rectal lesions. There were mild internal hemorrhoids, without any active bleeding. The colonic mucosa was carefully inspected, both upon insertion and upon withdrawal of the colonoscope. Withdrawal time was certainly adequate. There were mild left-sided diverticula. There were no strictures. I did not appreciate any proximal diverticula. The cecum, base of the appendix, and ileocecal valve were all identified. The last 2 cm of the terminal ileum were entered, and appeared normal. *Confirmatory photographs were obtained & placed inside the patient's chart. There was suggestion of an incidental 2 mm sessile hyperplastic-appearing left colon polyp at 40 cm (NBI apparatus was broken), which obviously had nothing to do with the patient's clinical situation , and was left intact, also considering his advanced age. The colonic mucosa otherwise appeared intact and within normal limits to the terminal ileum, without any additional polyps, lesions, gross colitis, ileitis, or angiodysplasias. No active lower GI bleeding was seen. The patient tolerated the procedure well. Impression: 1. Mild internal > external hemorrhoids, without any active bleeding. 2. Mild left-sided diverticula. 3. Essentially normal colonic mucosa to the terminal ileum, except for perhaps, an incidental 2 mm sessile hyperplastic-appearing left colon polyp at 40 cm (NBI apparatus broken), left intact. *No active lower GI bleeding seen. *Should exclude small bowel etiology, such as angiodysplasia, in association with . Recommendations: Feed patient as tolerated. Advance to 2g Na+, DM, heart healthy, high fiber diet. Add Fibercon 2 tabs daily. May downgrade from ICU. Defer to cardiology, as to whether patient needs telemetry. Continue ECASA 81 mg daily. Okay from GI perspective to start Pradaxa, as the patient has an elevated ZA score & past hx CVA (previously bled on Xarelto- if insurance company won't pay for Pradaxa, will defer to cardiology for Coumadin). Check CBC BID for now & if stable, decrease to daily CBC. Keep Hgb > 8 (hx ASHD). May switch IV Protonix to Protonix 40 mg sonya Q a.m., 1/2 hr before breakfast. Replete Mg. If hypoMg remains problematic, switch PPI to H2B. *Needs outpatient PillCam to clear the small bowel of angiodysplasias (*note: hx moderate , r/o Heyde's syndrome). The patient's , Sarah, just told me that she wants to stay local for GI care & she will arrange for a PillCam with the GI MD of her choice. The patient & his are aware that we are trying to balance the risk of GI bleeding with that of a recurrent CVA, and they accept these risks. The above findings and recommendations were discussed with the patient, his , Sarah, the ICU medical house staff, Dr. Choudhary, & Dr. Diaz, postoperatively. Dr. Diaz told me he is considering performing an outpatient procedure to shrink the left atrial appendage, to further minimize the patient's risk of stroke. The patient may ultimately need iron therapy, but will hold off on this for now, until PillCam is performed. The PillCam can be performed while on A/C therapy. With the patient's advanced age, there is no indication for further surveillance colonoscopies. *Please call GI if the patient actively rebleeds. Otherwise, further inpatient GI follow-up as needed. Followup Colonscopy Screen In: further screening not needed with advanced age CC: Connor ARGUETA,Crow; Funmi ARGUETA,Shahid; Leonardo ARGUETA,Lefty Oconnor; David Castellanos MD; Joe ARGUETA,Vito; Matthew ARGUETA,Nestor Dash; Shweta ARGUETA,Kian
[2017-10-01 09:46] LABS: ABSOLUTE BASOPHIL COUNT 0 /CUMM (0.0-0.2); ABSOLUTE EOSINOPHIL COUNT 0.1 /CUMM (0.0-0.7); ABSOLUTE GRANULOCYTE CT 4.1 /CUMM (1.4-6.5); ABSOLUTE LYMPH COUNT 0.8 /CUMM (1.2-3.4); ABSOLUTE MONOCYTE COUNT 0.5 /CUMM (0.10-0.60); BASOPHIL % 0.5 % (0.0-2.0); EOSINOPHIL % 1.8 % (0-5); GRANULOCYTE % 74.7 % (42.2-75.2); HEMATOCRIT 24.7 % (42-52); MEAN CORPUSCULAR HGB 27.7 PG (27.0-31.0); MEAN CORPUSCULAR VOLUME 83.9 FL (80.0-94.0); MEAN PLATELET VOLUME 7.5 FL (7.4-10.4); PLATELET COUNT 200 /CUMM (130-400); RBC DISTRIBUTION WIDTH 15.8 % (11.5-14.5); RED BLOOD CELL CT 2.94 /CUMM (4.70-6.10); WHITE BLOOD CELL COUNT 5.4 /CUMM (4.8-10.8)
--- NOTE | 2017-10-01 11:31 | PN- Cardiology ---
Subjective Subjective: Resting comfortably. No complaints this morning. Objective Vital Signs and I&Os Vital Signs Date Time Temp Pulse Resp B/P B/P Pulse O2 O2 Flow FiO2 Mean Ox Delivery Rate 10/01 1012 68 143/80 10/01 799 98 Nasal 1.0L Cannula 10/01 08 97.2 55 17 150/70 100 Nasal 1.0L Cannula 10/01 0400 96 Nasal 2.0L Cannula 10/01 0000 92 Nasal 2.0L Cannula 10/01 0000 97.3 74 25 146/70 97 Nasal 2.0L Cannula 09/30 2000 96 Nasal 2.0L Cannula 09/30 1619 68 20 200/80 09/30 1600 97.6 68 24 200/80 09/30 1600 97 Nasal 2.0L Cannula 09/30 1600 97.6 68 24 200/80 97 Nasal 2.0L Cannula 09/30 1400 97.7 57 20 163/86 09/30 1200 97.7 57 16 182/72 09/30 1200 92 Room Air Room Air Intake & Output 10/01 1600 10/01 0810/01 0000 09/30 1600 09/30 0800 09/30 0000 Intake Total 546 3327 1035 800 700 Output Total 825 1000 1700 500 Balance -279 3327 35 -900 200 Intake, Blood 340 Product Intake, IV 546 727 955 800 Intake, Oral 2600 80 360 Number 0 6 0 Bowel Movements Output, Urine 825 1000 1700 500 Patient 209 lb 210 lb Weight Weight Reported by Patient Measurement Method Physical Exam: General: no apparent distress. Alert. Eyes: No obvious scleral icterus. HEENT: No jugular venous distention or abnormal jugular venous pulsations. Cardiovascular: Normal intensity S1/S2. 2/6 systolic murmur Respiratory: Lungs clear to auscultation bilaterally. Abdomen: Soft, nontender with no guarding or rebound tenderness. Musculoskeletal: No clubbing or cyanosis noted; no edema Skin: No obvious rashes or ulcerations. Neurologic: No gross focal deficits noted. Lymph: No gross lymphadenopathy. Current Medications: Current Medications Sig/Reagan Start time Last Medication Dose Route Stop Time Status Admin Amlodipine Besylate 5 MG ONCE ONE 09/30 1615 DC 09/30 PO 09/30 1616 1619 Aspirin Buffered 81 MG DAILY 09/30 1123 AC 10/01 PO 1012 Atorvastatin Calcium 80 MG 1700 09/30 1700 AC 02/06 PO 1620 Chlorhexidine 1 GM .STK-MED ONE 10/01 0855 DC Gluconate TOP 10/01 0856 Chlorhexidine 1 GM .STK-MED ONE 09/30 1432 DC Gluconate TOP 09/30 1433 Dextrose/Sodium 1,000 ML Q13H 10/01 1915 CAN Chloride IV Dextrose/Sodium 1,000 ML Q13H 10/01 0000 DC Chloride IV Dextrose/Sodium 1,000 ML .Q10H 09/29 1815 DC 02 Chloride IV / 1414 1053 Finasteride 5 MG DAILY 09/30 1000 AC 02 PO 1012 Hydralazine HCl 25 MG ONCE ONE 09/30 1615 CAN PO 09/30 1616 Insulin Aspart 0 TIDAC 10/01 1200 AC SC Insulin Human Regular 6 UNITS .STK-MED ONE 09/30 2314 DC IV 09/30 2315 Insulin Human Regular 4 UNITS .STK-MED ONE 09/30 1831 DC IV 09/30 1832 Insulin Human Regular 1 UNITS .STK-MED ONE 09/30 1246 DC IV 02 1247 Insulin Human Regular 0 Q6 09/29 2359 DC 10/01 SC 0510 Isosorbide 30 MG DAILY 10/01 1113 AC Mononitrate PO Latanoprost 1 GTT QPM / 2200 AC 09/30 OPH 2120 Magnesium Sulfate 1 GM Q2H 10/01 0330 DC 10/01 Dextrose/Water 100 ML IV 10/01 0729 0436 Metoprolol Succinate 25 MG DAILY 09/30 1000 AC 10/01 PO 1012 Omeprazole 40 MG DAILY AC 10/02 0700 AC PO Pantoprazole Sodium 40 MG DAILY 10/01 1000 DC 02/ IV 10/01 1100 1012 Pantoprazole Sodium 40 MG BID 09/30 1000 DC 09/30 IV 1053 Polycarbophil 1,250 MG DAILY 10/01 1000 AC 02/ PO 1019 Polyethylene Glycol 1 GAL ONCE ONE 09/30 1400 DC 02/ PO 09/30 1401 1540 Potassium Chloride 40 MEQ ONCE ONE 10/01 0915 DC 02/ PO 10/01 0916 1013 Potassium Chloride 10 MEQ Q1H 10/01 0330 DC 02/ IV 10/01 0431 0610 Results Last 48 Hrs of Labs/Mics: Laboratory Tests 10/01/17 0845: CBC w Diff NO MAN DIFF REQ, RBC 2.94 L, MCV 83.9, MCH 27.7, MCHC 33.0, RDW 15.8 H, MPV 7.5, Gran % 74.7, Lymphocytes % 13.9 L, Monocytes % 9.1, Eosinophils % 1.8, Basophils % 0.5, Absolute Granulocytes 4.1, Absolute Lymphocytes 0.8 L, Absolute Monocytes 0.5, Absolute Eosinophils 0.1, Absolute Basophils 0 10/01/17 0249: Troponin I Cancelled 10/01/17 0249: Anion Gap 10, Estimated GFR > 60, Glucose 111 H, Calcium 8.5, Phosphorus 3.1, Magnesium 1.3 L, Total Bilirubin 0.5, AST 31, ALT 36, Troponin I 0.26 *H, Albumin 3.3 L 10/01/17 005: CBC w Diff NO MAN DIFF REQ, RBC 3.22 L, MCV 83.5, MCH 27.4, MCHC 32.8 L, RDW 15.5 H, MPV 7.2 L, Gran % 80.7 H, Lymphocytes % 9.5 L, Monocytes % 8.6, Eosinophils % 1.1, Basophils % 0.1, Absolute Granulocytes 6.8 H, Absolute Lymphocytes 0.8 L, Absolute Monocytes 0.7 H, Absolute Eosinophils 0.1, Absolute Basophils 0 09/30/172033: Troponin I 0.36 *H 09/30/17 1653: CBC w Diff NO COROZAL DIFF REQ, RBC 2.98 L, MCV 83.6, MCH 27.0, MCHC 32.3 L, RDW 16.1 H, MPV 6.8 L, Gran % 77.0 H, Lymphocytes % 12.8 L, Monocytes % 9.0, Eosinophils % 1.0, Basophils % 0.2, Absolute Granulocytes 5.4, Absolute Lymphocytes 0.9 L, Absolute Monocytes 0.6, Absolute Eosinophils 0.1, Absolute Basophils 0 09/30/17 1456: Troponin I 0.31 *H 09/30/17 0835: Anion Gap 9, Estimated GFR > 60, Glucose 132 H, Calcium 8.9, Phosphorus 3.7, Magnesium 1.3 L, Total Bilirubin 0.4, AST 25, ALT 29, Troponin I 0.18 *H, Albumin 3.6, CBC w Diff NO MAN DIFF REQ, RBC 3.00 L, MCV 85.2, MCH 27.1, MCHC 31.8 L, RDW 16.2 H, MPV 8.2, Gran % 81.4 H, Lymphocytes % 11.0 L, Monocytes % 5.5, Eosinophils % 1.9, Basophils % 0.2, Absolute Granulocytes 5.8, Absolute Lymphocytes 0.8 L, Absolute Monocytes 0.4, Absolute Eosinophils 0.1, Absolute Basophils 0 09/30/17 0600: CBC w Diff Cancelled, WBC Cancelled, RBC Cancelled, Hgb Cancelled, Hct Cancelled , MCV Cancelled, MCH Cancelled, MCHC Cancelled, RDW Cancelled, Plt Count Cancelled, MPV Cancelled 09/30/17 0500: Sodium Cancelled, Potassium Cancelled, Chloride Cancelled, Carbon Dioxide Cancelled, Anion Gap Cancelled, BUN Cancelled, Creatinine Cancelled, Glucose Cancelled, Calcium Cancelled, Phosphorus Cancelled, Magnesium Cancelled, Total Bilirubin Cancelled, AST Cancelled, ALT Cancelled, Albumin Cancelled 09/30/17 0120: Anion Gap 10, Estimated GFR > 60, Glucose 124 H, Calcium 8.8, Phosphorus 3.9, Magnesium 1.2 L, Total Bilirubin 0.5, AST 21, ALT 28, Troponin I 0.14 *H, Albumin 3.4 L, CBC w Diff NO MAN DIFF REQ, RBC 2.80 L, MCV 82.2, MCH 27.4, MCHC 33.4, RDW 15.5 H, MPV 7.5, Gran % 70.9, Lymphocytes % 17.6 L, Monocytes % 9.9 H, Eosinophils % 1.3, Basophils % 0.3, Absolute Granulocytes 4.4, Absolute Lymphocytes 1.1 L, Absolute Monocytes 0.6, Absolute Eosinophils 0.1, Absolute Basophils 0 09/29/17 2100: Lactic Acid 1.3 09/29/17 1938: Troponin I 0.13 *H 09/29/17 1750: Lactic Acid 2.5 H 09/29/17 1335: Anion Gap 17 H, Estimated GFR > 60, BUN/Creatinine Ratio 33.3 H, Glucose 125 H, Lactic Acid 5.4 H, Calcium 8.8, Iron 18 L, TIBC 380, Ferritin 6.6 L, Total Bilirubin 0.2, AST 22, ALT 28, Alkaline Phosphatase 24, Troponin I 0.10, Total Protein 5.8 L, Albumin 3.6, Globulin 2.2, Albumin/Globulin Ratio 1.6, PT 13.3 H, INR 1.27 H, APTT 28, CBC w Diff NO MAN DIFF REQ, RBC 2.07 L, MCV 83.6, MCH 27.5, MCHC 32.9 L, RDW 15.5 H, MPV 7.6, Gran % 79.1 H, Lymphocytes % 13.5 L, Monocytes % 6.3, Eosinophils % 0.8, Basophils % 0.3, Absolute Granulocytes 4.5, Absolute Lymphocytes 0.8 L, Absolute Monocytes 0.4, Absolute Eosinophils 0, Absolute Basophils 0 Microbiology 09/29 2039 UPPER RESP: Surveillance Culture - COMP 09/29 2039 GI: Surveillance Culture - COMP Recent Imaging Studies: Telemetry tracings were personally reviewed and shows sinus rhythm Colonoscopy 1. Mild internal > external hemorrhoids, without any active bleeding. 2. Mild left-sided diverticula. 3. Essentially normal colonic mucosa to the terminal ileum, except for perhaps, an incidental 2 mm sessile hyperplastic-appearing left colon polyp at 40 cm (NBI apparatus broken), left intact. Assessment/Plan Assessment/Plan 1. GI bleed 2. Paroxysmal atrial fibrillation with prior CVA; on Xarelto 3. Elevated troponin due to supply/demand mismatch/type II myocardial infarction 4. Hypertension 5. Aortic stenosis 6. History of coronary artery disease with drug-eluting stent to the RCA 09/2015 7. Diabetes mellitus Patient remains in sinus rhythm and is hemodynamically stable. He has been cleared to resume anticoagulation by GI. I discussed with the patient and his at length the various options regarding the plan for his long-term anticoagulation. After an extensive discussion of the risks versus benefits of various treatment options he has elected to switch to Eliquis 5 mg by mouth twice a day along with continuing on low-dose aspirin given his history of CAD and prior stroke. His outpatient antihypertensive regimen can be resumed. If he has recurrent significant bleeding in the future he will be considered for a Watchman device. Brandon Gooden MD [facility] Continue telemetry? Yes
[2017-10-01 16:00] VITALS: BP 122/62
[2017-10-01 23:01] LABS: ABSOLUTE BASOPHIL COUNT 0 /CUMM (0.0-0.2); ABSOLUTE EOSINOPHIL COUNT 0.1 /CUMM (0.0-0.7); MEAN CORPUSCULAR HGB CONC 32.3 G/DL (33.0-37.0)
[2017-10-01 23:08] LABS: ABSOLUTE GRANULOCYTE CT 5.5 /CUMM (1.4-6.5); ABSOLUTE MONOCYTE COUNT 0.6 /CUMM (0.10-0.60); BASOPHIL % 0.3 % (0.0-2.0); EOSINOPHIL % 1.7 % (0-5); GRANULOCYTE % 75.9 % (42.2-75.2); MEAN CORPUSCULAR VOLUME 83.7 FL (80.0-94.0); MEAN PLATELET VOLUME 7.3 FL (7.4-10.4); PLATELET COUNT 182 /CUMM (130-400); RBC DISTRIBUTION WIDTH 16.1 % (11.5-14.5); RED BLOOD CELL CT 2.71 /CUMM (4.70-6.10); WHITE BLOOD CELL COUNT 7.3 /CUMM (4.8-10.8)
[2017-10-01 23:10] LABS: HEMATOCRIT 22.7 % (42-52)
[2017-10-02] VITALS: BP 130/60
--- NOTE | 2017-10-02 07:26 | PN- Housestaff ---
See Addendum Subjective Follow-up For: GI bleed Type II SD Complaints: no complaints Subjective: Patient was seen and examined at bedside. Offers no complaints. Feels weel, has not had any bowel movements since yesterday. Feels eager to go home. He was explained the reasoning for further hospital stay. He had a drop in his H&H last night and received another unit of pRBC Review of Systems Constitutional: Reports: no symptoms. Objective Last 24 Hrs of Vital Signs/I&O Vital Signs Date Time Temp Pulse Resp B/P B/P Pulse O2 O2 Flow FiO2 Mean Ox Delivery Rate 10/02 0844 66 160/70 10/02 0944 66 160/70 10/02 799 Room Air 10/02 799 97.8 60 20 120/70 98 Room Air 10/02 0000 97 Room Air 10/02 0000 98.1 75 20 130/60 97 Room Air 10/01 1600 98.0 80 20 122/62 98 Room Air 10/01 1325 82 166/76 Intake & Output 10/02 1600 10/02 0000 Intake Total 1070 1110 Output Total Balance 1070 1110 Intake, Blood 420 Product Intake, IV 420 Intake, Oral 650 690 Number 1 Bowel Movements Physical Exam General Appearance: Alert, Oriented X3, Cooperative, No Acute Distress Skin: No Rashes, No Breakdown Skin Temp/Moisture Exam: Warm/Dry Sepsis Skin Exam (color): Normal for Ethnicity HEENT: Atraumatic Cardiovascular: Normal S1, Normal S2, systolic murmur Lungs: Clear to Auscultation, Normal Air Movement Abdomen: Soft, No Tenderness Neurological: Normal Speech Extremities: No Edema Assessment/Plan Assessment: Mr Guy is a 86 yo M with PMH of HTN, HLD, CAD s/p stent (Drug eluting stent, September 2015, [facility]- deemed high risk for CABG), aortic stenosis, diabetes, GERD, paroxysmal atrial fibrilliation, 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 Assessment and Plan: Acute Blood Loss Anemia: On admission he was found to be severely anemic with Hb of 5.7. He received 2 units of pRBC. His repeat Hb after transufsion was 8.1. * Drop in Hb to 7.3 yesterday for which he received 1 unit pRBC. * Transfuse as necessary to maintain goal Hb>8. * Will continue to monitor every 8 hours for now. * His stool guiac is negative. Gastrointestinal Bleeding: Patient states he has been having black tarry stools which was concerning for an upper GI bleed. An endoscopy today showed no evidence of upper GI bleed. * No source of bleeding on colonoscopy. He will likely require a PillCam to assess for small bowel bleeding. 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 * Continue IV Protonix 40mg daily. * Stable to be downgraded to telemetry. (currently a hold in ICU) * No further episodes of black tarry/bloody stools. Type II SD: - resolved He complained of some chest pain prior to admission. Troponins were found to be modestly elevated. He does have mild EKG changes. He likely has Type II SD which could be in the setting of severe anemia. * Troponins have peaked. Patient has been asymptomatic throughout his hospital stay. History of Paroxysmal Atrial Fibrillation * Continue Metoprolol XL 25mg daily * Aspirin and AC on hold due to drop in H&H last night. Hyperlipidemia: * Continue Atorvastatin Diabetes Mellitus: * Insulin Novolin * Accucheks Diet: High fiber diabetic diet. DVT Prophylaxis: ALPS Code: Full Code Problem List: 1. GI bleed Pain Ratin Pain Location: none Pain Goal: Remain pain free Pain Plan: none Tomorrow's Labs & Rationales: CBC, BEP
[2017-10-02 07:59] LABS: ABSOLUTE BASOPHIL COUNT 0 /CUMM (0.0-0.2); ABSOLUTE EOSINOPHIL COUNT 0.2 /CUMM (0.0-0.7); ABSOLUTE GRANULOCYTE CT 4.3 /CUMM (1.4-6.5); ABSOLUTE MONOCYTE COUNT 0.5 /CUMM (0.10-0.60); BASOPHIL % 0.4 % (0.0-2.0); EOSINOPHIL % 3.3 % (0-5); GRANULOCYTE % 70.5 % (42.2-75.2); HEMATOCRIT 26.9 % (42-52); MEAN CORPUSCULAR HGB 27.6 PG (27.0-31.0); MEAN CORPUSCULAR HGB CONC 32.3 G/DL (33.0-37.0); MEAN CORPUSCULAR VOLUME 85.4 FL (80.0-94.0); MEAN PLATELET VOLUME 7.3 FL (7.4-10.4); PLATELET COUNT 196 /CUMM (130-400); RBC DISTRIBUTION WIDTH 15.6 % (11.5-14.5); RED BLOOD CELL CT 3.15 /CUMM (4.70-6.10); WHITE BLOOD CELL COUNT 6.1 /CUMM (4.8-10.8)
[2017-10-02 08:00] VITALS: BP 120/70
--- NOTE | 2017-10-02 09:01 | PN- Cardiology ---
Subjective Subjective: No cardiac issues overnight. Telemetry reveals sinus rhythm throughout. Apparently he dropped his hematocrit and needed transfusion. He is on watch as he is on anticoagulation with Elliquis Objective Vital Signs and I&Os Vital Signs Date Time Temp Pulse Resp B/P B/P Pulse O2 O2 Flow FiO2 Mean Ox Delivery Rate 10/02 0000 97 Room Air 10/02 0000 98.1 75 20 130/60 97 Room Air 10/01 1600 98.0 80 20 122/62 98 Room Air 10/01 1325 82 166/76 10/01 1012 68 143/80 Intake & Output 10/02 1600 10/02 0800 10/02 0000 10/01 1600 10/01 0800 10/01 0000 Intake Total 1070 1110 962 236 8398 Output Total 600 825 Balance 1070 1110 360 -279 3327 Intake, Blood 420 Product Intake, IV 420 200 546 727 Intake, Oral 650 287 774 4267 Number 1 1 0 6 Bowel Movements Output, Urine 600 825 Patient 209 lb Weight Physical Exam: General exam patient comfortable admits to no chest pain or unusual shortness of breath. Anxious to go home. Head normocephalic atraumatic Eyes sclera anicteric conjunctiva showed mild pallor extra of the muscles were normal Neck no jugular venous distention no thyroid masses no palpable nodes Chest lungs were clear bilaterally Heart regular rhythm with a grade 2/6 ejection systolic murmur Abdomen soft no organomegaly bowel sounds normal Extremities no clubbing cyanosis or edema Neurological no gross motor or sensory deficits Current Medications: Current Medications Sig/Reagan Start time Last Medication Dose Route Stop Time Status Admin Apixaban 5 MG BID 10/01 1144 AC 10/01 PO 2213 Aspirin Buffered 81 MG DAILY 09/30 1123 AC 10/01 PO 1012 Atorvastatin Calcium 80 MG 1700 09/30 1700 AC 10/01 PO 1653 Dextrose/Sodium 1,000 ML Q13H 10/01 1915 CAN Chloride IV Finasteride 5 MG DAILY 09/30 1000 AC 10/01 PO 1012 Insulin Aspart 0 TIDAC 10/01 1200 AC 10/01 SC 1205 Insulin Human Regular 0 Q6 09/29 2359 DC 02 SC 0510 Isosorbide 30 MG DAILY 10/01 1113 AC 10/01 Mononitrate PO 1325 Latanoprost 1 GTT QPM 09/29 2200 AC 02/07 OPH 2214 Metoprolol Succinate 25 MG DAILY 09/30 1000 AC 10/01 PO 1012 Omeprazole 40 MG DAILY AC 10/02 0700 AC 10/02 PO 0640 Pantoprazole Sodium 40 MG DAILY 10/01 1000 DC 10/01 IV 10/01 1100 1012 Polycarbophil 1,250 MG DAILY 10/01 1000 AC 10/01 PO 1019 Potassium Chloride 40 MEQ ONCE ONE 10/01 0815 DC 10/01 PO 10/01 0916 1013 Results Last 48 Hrs of Labs/Mics: Laboratory Tests 10/02/17 0700: Anion Gap 8, Estimated GFR > 60, BUN/Creatinine Ratio 11.1, CBC w Diff NO MAN DIFF REQ, RBC 3.15 L, MCV 85.4, MCH 27.6, MCHC 32.3 L, RDW 15.6 H, MPV 7.3 L , Gran % 70.5, Lymphocytes % 16.9 L, Monocytes % 8.9, Eosinophils % 3.3, Basophils % 0.4, Absolute Granulocytes 4.3, Absolute Lymphocytes 1.0 L, Absolute Monocytes 0.5, Absolute Eosinophils 0.2, Absolute Basophils 0 10/01/17 2245: CBC w Diff NO MAN DIFF REQ, RBC 2.71 L, MCV 83.7, MCH 27.0, MCHC 32.3 L, RDW 16.1 H, MPV 7.3 L, Gran % 75.9 H, Lymphocytes % 13.7 L, Monocytes % 8.4, Eosinophils % 1.7, Basophils % 0.3, Absolute Granulocytes 5.5, Absolute Lymphocytes 1.0 L, Absolute Monocytes 0.6, Absolute Eosinophils 0.1, Absolute Basophils 0 10/01/17 0845: CBC w Diff NO MAN DIFF REQ, RBC 2.94 L, MCV 83.9, MCH 27.7, MCHC 33.0, RDW 15.8 H, MPV 7.5, Gran % 74.7, Lymphocytes % 13.9 L, Monocytes % 9.1, Eosinophils % 1.8, Basophils % 0.5, Absolute Granulocytes 4.1, Absolute Lymphocytes 0.8 L, Absolute Monocytes 0.5, Absolute Eosinophils 0.1, Absolute Basophils 0 10/01/179: Troponin I Cancelled 10/01/179: Anion Gap 10, Estimated GFR > 60, Glucose 111 H, Calcium 8.5, Phosphorus 3.1, Magnesium 1.3 L, Total Bilirubin 0.5, AST 31, ALT 36, Troponin I 0.26 *H, Albumin 3.3 L 10/01/17 0051: CBC w Diff NO MAN DIFF REQ, RBC 3.22 L, MCV 83.5, MCH 27.4, MCHC 32.8 L, RDW 15.5 H, MPV 7.2 L, Gran % 80.7 H, Lymphocytes % 9.5 L, Monocytes % 8.6, Eosinophils % 1.1, Basophils % 0.1, Absolute Granulocytes 6.8 H, Absolute Lymphocytes 0.8 L, Absolute Monocytes 0.7 H, Absolute Eosinophils 0.1, Absolute Basophils 0 09/30/172033: Troponin I 0.36 *H 09/30/17 1653: CBC w Diff NO MAN DIFF REQ, RBC 2.98 L, MCV 83.6, MCH 27.0, MCHC 32.3 L, RDW 16.1 H, MPV 6.8 L, Gran % 77.0 H, Lymphocytes % 12.8 L, Monocytes % 9.0, Eosinophils % 1.0, Basophils % 0.2, Absolute Granulocytes 5.4, Absolute Lymphocytes 0.9 L, Absolute Monocytes 0.6, Absolute Eosinophils 0.1, Absolute Basophils 0 09/30/17 1456: Troponin I 0.31 *H Assessment/Plan Assessment/Plan In summary this 87-year-old gentleman has the following problems 1. GI bleed 2. Paroxysmal atrial fibrillation with prior CVA; on Xarelto 3. Elevated troponin due to supply/demand mismatch/type II myocardial infarction 4. Hypertension 5. Aortic stenosis 6. History of coronary artery disease with drug-eluting stent to the RCA 09/2015 7. Diabetes mellitus He is currently on anticoagulation with Elliquis and also aspirin. He received a transfusion and he is on watch for occult GI bleed. If his hematocrit remains unstable and one component of his anticoagulation needs to be held it may be aspirin. However continue current cardiac medications. His blood pressure appears stable and he remains in sinus rhythm. Continue telemetry? Yes
[2017-10-02 16:00] VITALS: BP 124/70
[2017-10-02 17:06] LABS: ABSOLUTE BASOPHIL COUNT 0 /CUMM (0.0-0.2); ABSOLUTE EOSINOPHIL COUNT 0.2 /CUMM (0.0-0.7); ABSOLUTE GRANULOCYTE CT 3.6 /CUMM (1.4-6.5); ABSOLUTE LYMPH COUNT 1.3 /CUMM (1.2-3.4); ABSOLUTE MONOCYTE COUNT 0.6 /CUMM (0.10-0.60); BASOPHIL % 0.7 % (0.0-2.0); EOSINOPHIL % 3.8 % (0-5); GRANULOCYTE % 62.7 % (42.2-75.2); MEAN CORPUSCULAR HGB 27.8 PG (27.0-31.0); MEAN CORPUSCULAR HGB CONC 32.7 G/DL (33.0-37.0); MEAN PLATELET VOLUME 7.3 FL (7.4-10.4); PLATELET COUNT 194 /CUMM (130-400); RBC DISTRIBUTION WIDTH 16.1 % (11.5-14.5); RED BLOOD CELL CT 2.94 /CUMM (4.70-6.10); WHITE BLOOD CELL COUNT 5.8 /CUMM (4.8-10.8)
[2017-10-03] VITALS: BP 120/68
[2017-10-03 00:48] LABS: ABSOLUTE BASOPHIL COUNT 0 /CUMM (0.0-0.2); ABSOLUTE EOSINOPHIL COUNT 0.2 /CUMM (0.0-0.7); ABSOLUTE GRANULOCYTE CT 4.3 /CUMM (1.4-6.5); ABSOLUTE LYMPH COUNT 1.1 /CUMM (1.2-3.4); ABSOLUTE MONOCYTE COUNT 0.5 /CUMM (0.10-0.60); BASOPHIL % 0.6 % (0.0-2.0); EOSINOPHIL % 3.7 % (0-5); GRANULOCYTE % 69.7 % (42.2-75.2); HEMATOCRIT 26.5 % (42-52); MEAN CORPUSCULAR HGB 27.6 PG (27.0-31.0); MEAN CORPUSCULAR HGB CONC 32.8 G/DL (33.0-37.0); MEAN CORPUSCULAR VOLUME 84.3 FL (80.0-94.0); MEAN PLATELET VOLUME 7.3 FL (7.4-10.4); PLATELET COUNT 188 /CUMM (130-400); RBC DISTRIBUTION WIDTH 15.7 % (11.5-14.5); RED BLOOD CELL CT 3.14 /CUMM (4.70-6.10); WHITE BLOOD CELL COUNT 6.2 /CUMM (4.8-10.8)
--- NOTE | 2017-10-03 07:31 | PN- Resident CRCU ---
Impression/Plan Impression/Problem List Impression: Mr Guy is a 86 yo M with PMH of HTN, HLD, CAD s/p stent (Drug eluting stent, September 2015, [facility]- deemed high risk for CABG), aortic stenosis, diabetes, GERD, paroxysmal atrial fibrilliation, 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 Assessment and Plan: Acute Blood Loss Anemia: On admission he was found to be severely anemic with Hb of 5.7. He received 2 units of pRBC. His repeat Hb after transufsion was 8.1. * Per GI will monitor CBC every 12 hours. * Transfuse as necessary to maintain goal Hb>8. * Colonoscopy today did not reveal any source of bleeding. * H&H has been stable. Gastrointestinal Bleeding: Patient states he has been having black tarry stools which was concerning for an upper GI bleed. An endoscopy today showed no evidence of upper GI bleed. * No source of bleeding on colonoscopy. He will likely require a PillCam to assess for small bowel bleeding. 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 * Continue IV Protonix 40mg daily. * Stable to be downgraded from ICU. Type II UT: He complained of some chest pain prior to admission. Troponins were found to be modestly elevated. He does have mild EKG changes. 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 * Troponins have peaked. Patient has been asymptomatic throughout his hospital stay. * Continue aspirin * Per GI, can be restarted on AC. History of Paroxysmal Atrial Fibrillation * Continue Metoprolol XL 25mg daily * Will start him on Eliquis 5mg BID. Hyperlipidemia: * Continue Atorvastatin Diabetes Mellitus: * Insulin Novolin * Accucheks Diet: Clear Liquid Diet and will advance to high fiber diet. DVT Prophylaxis: ALPS Code: Full Code Plan DVT/Prophylaxis: pharmacological
--- NOTE | 2017-10-03 07:41 | PN- Housestaff ---
See Addendum Subjective Follow-up For: GI bleed Type II ID Complaints: no complaints Subjective: Patient was seen adn examined at bedside. He reports doing well. Slept comfortably overnight. Has had no bowel movements since colonoscopy. Offers no complaints today. Review of Systems Constitutional: Reports: no symptoms. Objective Last 24 Hrs of Vital Signs/I&O Vital Signs Date Time Temp Pulse Resp B/P B/P Pulse O2 O2 Flow FiO2 Mean Ox Delivery Rate 10/03 1014 72 142/74 10/03 1013 72 142/74 10/03 0800 Room Air 10/03 799 97.7 56 20 140/62 98 Room Air 10/03 0000 95 Room Air 10/03 0000 97.1 56 22 120/68 95 Room Air 10/02 1600 98.0 54 18 124/70 97 Room Air Intake & Output 10/03 1600 10/03 0810/03 0000 Intake Total 100 600 Output Total 1400 600 Balance -1300 0 Intake, Oral 100 600 Number 0 Bowel Movements Output, Urine 1400 600 Physical Exam General Appearance: Alert, Oriented X3, Cooperative, No Acute Distress Skin: No Rashes, No Breakdown Skin Temp/Moisture Exam: Warm/Dry Sepsis Skin Exam (color): Normal for Ethnicity HEENT: Atraumatic Cardiovascular: Normal S1, Normal S2, systolic murmur Lungs: Clear to Auscultation, Normal Air Movement Abdomen: Soft, No Tenderness Neurological: Normal Speech Extremities: No Edema Last 24 Hrs of Lab/Mello Results Last 24 Hrs of Labs/Mics: Laboratory Tests 10/03/17 0905: Anion Gap 11, Estimated GFR > 60, BUN/Creatinine Ratio 15.0, CBC w Diff NO MAN DIFF REQ, RBC 3.32 L, MCV 84.4, MCH 27.7, MCHC 32.8 L, RDW 16.1 H, MPV 7.0 L , Gran % 71.4, Lymphocytes % 16.5 L, Monocytes % 7.9, Eosinophils % 3.7, Basophils % 0.5, Absolute Granulocytes 3.6, Absolute Lymphocytes 0.8 L, Absolute Monocytes 0.4, Absolute Eosinophils 0.2, Absolute Basophils 0 10/03/17 0020: CBC w Diff NO MAN DIFF REQ, RBC 3.14 L, MCV 84.3, MCH 27.6, MCHC 32.8 L, RDW 15.7 H, MPV 7.3 L, Gran % 69.7, Lymphocytes % 17.6 L, Monocytes % 8.4, Eosinophils % 3.7, Basophils % 0.6, Absolute Granulocytes 4.3, Absolute Lymphocytes 1.1 L, Absolute Monocytes 0.5, Absolute Eosinophils 0.2, Absolute Basophils 0 10/02/17 1550: CBC w Diff NO MAN DIFF REQ, RBC 2.94 L, MCV 85.0, MCH 27.8, MCHC 32.7 L, RDW 16.1 H, MPV 7.3 L, Gran % 62.7, Lymphocytes % 22.4, Monocytes % 10.4 H, Eosinophils % 3.8, Basophils % 0.7, Absolute Granulocytes 3.6, Absolute Lymphocytes 1.3, Absolute Monocytes 0.6, Absolute Eosinophils 0.2, Absolute Basophils 0 Assessment/Plan Assessment: Mr Guy is a 86 yo M with PMH of HTN, HLD, CAD s/p stent (Drug eluting stent, September 2015, [facility]- deemed high risk for CABG), aortic stenosis, diabetes, GERD, paroxysmal atrial fibrilliation, 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 Assessment and Plan: Acute Blood Loss Anemia: On admission he was found to be severely anemic with Hb of 5.7. He received 2 units of pRBC. His repeat Hb after transufsion was 8.1. * Drop in Hb to 7.3 2/7 for which he received 1 unit pRBC. * His Hb has been stable since. * Will do another level this afternoon and if stable he can likely be discharged. Gastrointestinal Bleeding: Patient states he has been having black tarry stools which was concerning for an upper GI bleed. An endoscopy today showed no evidence of upper GI bleed. * No source of bleeding on colonoscopy. He will likely require a PillCam to assess for small bowel bleeding. 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 * Continue Protonix 40mg daily. * He has not had a bowel movement since the colonoscopy but his stool guaic was negative yesterday. Type II ID: - resolved He complained of some chest pain prior to admission. Troponins were found to be modestly elevated. He does have mild EKG changes. He likely has Type II ID which could be in the setting of severe anemia. * Troponins have peaked. Patient has been asymptomatic throughout his hospital stay. History of Paroxysmal Atrial Fibrillation * Continue Metoprolol XL 25mg daily * Continue Eliquis. Will keep aspirin on hold for now. Hyperlipidemia: * Continue Atorvastatin Diabetes Mellitus: * Insulin Novolin * Accucheks Diet: High fiber diabetic diet. DVT Prophylaxis: ALPS Code: Full Code Problem List: 1. GI bleed Pain Ratin Pain Location: none Pain Goal: Remain pain free Pain Plan: none Tomorrow's Labs & Rationales: CBC
[2017-10-03 08:00] VITALS: BP 140/62
[2017-10-03 09:34] LABS: ABSOLUTE BASOPHIL COUNT 0 /CUMM (0.0-0.2); ABSOLUTE EOSINOPHIL COUNT 0.2 /CUMM (0.0-0.7); ABSOLUTE GRANULOCYTE CT 3.6 /CUMM (1.4-6.5); ABSOLUTE LYMPH COUNT 0.8 /CUMM (1.2-3.4); ABSOLUTE MONOCYTE COUNT 0.4 /CUMM (0.10-0.60); BASOPHIL % 0.5 % (0.0-2.0); EOSINOPHIL % 3.7 % (0-5); GRANULOCYTE % 71.4 % (42.2-75.2); MEAN CORPUSCULAR HGB 27.7 PG (27.0-31.0); MEAN CORPUSCULAR HGB CONC 32.8 G/DL (33.0-37.0); MEAN CORPUSCULAR VOLUME 84.4 FL (80.0-94.0); PLATELET COUNT 219 /CUMM (130-400); RBC DISTRIBUTION WIDTH 16.1 % (11.5-14.5); RED BLOOD CELL CT 3.32 /CUMM (4.70-6.10); WHITE BLOOD CELL COUNT 5.1 /CUMM (4.8-10.8)
--- NOTE | 2017-10-03 11:05 | Patient Discharge Instructions ---
Discharge Instructions General Discharge Information You were seen/treated for: GI bleeding Elevated troponins Watch for these problems: Black stools, bright red bleeding per rectum Dizziness, lightheadedness, chest pain. Please return to the ED for any worsening symptoms or concerns. Special Instructions: Please follow up with your primary care physician, GI doctor and dietetic aide within one week of discharge. Diet Continue normal diet: Yes Recommended Diet: Heart Healthy Activity Full Activity/No Limits: Yes Acute Coronary Syndrome Inclusion Criteria At DC or during hospital stay patient has or had the following: ACS DIAGNOSIS No Discharge Core Measures Meds if any: Prescribed or Continued at Discharge Meds if any: NOT Prescribed or Continued at Discharge Congestive Heart Failure Inclusion Criteria At DC or during hospital stay patient has or had the following: CHF DIAGNOSIS No Discharge Core Measures Meds if any: Prescribed or Continued at Discharge Meds if any: NOT Prescribed or Continued at Discharge Cerebrovascular accident Inclusion Criteria At DC or during hospital stay patient has or had the following: CVA/TIA Diagnosis No Discharge Core Measures Meds if any: Prescribed or Continued at Discharge Meds if any: NOT Prescribed or Continued at Discharge Venous thromboembolism Inclusion Criteria VTE Diagnosis No VTE Type NONE VTE Confirmed by (Test) NONE Discharge Core Measures - Per Current guidelines, there needs to be overlap - treatment for the first 5 days of Warfarin therapy. - If discharged on Warfarin prior to 5 days of - overlap therapy, the patient will need to be - assessed for post discharge needs including - *Post discharge parental anticoagulation - *Warfarin and/or parental anticoagulation education - *Follow up date to check INR post discharge At least 5 days overlap therapy as Inpatient No Meds if any: Prescribed or Continued at Discharge Note: Overlap Therapy is Warfarin and Anticoagulant Meds if any: NOT Prescribed or Continued at Discharge
--- NOTE | 2017-10-03 11:12 | Discharge Summary ---
Visit Information Visit Dates Admission Date: 09/29/17 Discharge Date: 10/03/17 Hospital Course Course Attending Physician: Shahid Choudhary MD Primary Care Physician: Connor ARGUETA,[facility] Course: Mr Guy is a 86 yo M with PMH of HTN, HLD, CAD s/p stent (Drug eluting stent, September 2015, [facility]- deemed high risk for CABG), aortic stenosis, diabetes, GERD, paroxysmal atrial fibrilliation, CVA in October 2016 who presented to the ED with chief complaint of chest pain and lightheadedness. The past weekend he had been experiencing black tarry stools. He was on his way to his PCP office for evaluation when he started feeling lightheaded and chest pain. Below is a list of problems he was admitted and treated for: Acute Blood Loss Anemia: On admission he was found to be severely anemic with Hb of 5.7. He received a total of 3 units of pRBC during his stay. He was monitored with serial CBC to monitor his H&H. He had no episodes of black or bloody bowel movements. A CORIE for fecal occult blood test was also negative. His Hb on dishcarge was 8.4. He was discharged in stable disposition with instructions to have his CBC checked 3 days after discharge. Gastrointestinal Bleeding: Patient reported he has been having black tarry stools which raised concerns for an upper GI bleed. He had an upper GI endoscopy as well as a colonoscopy which did not reveal any obvious source of bleeding. He does have significant aortic stenosis and he could have small bowel AVM which could have contributed to his bleeding. He is scheduled to have a PillCam as an outpatient with his plant associate. He was started on Eliquis for anticoagulation of his atrial fibrilliation after being cleared from a GI perspective. He was explained the risks of bleeding while on Eliquis and was given clear instructions to return to the ED if there are symptoms of black/bloody stools or for any other worsening symptoms or concerns. Type II ME: Prior to admission, he complained of a brief episode of chest pain. In the ED his troponins were found to be modestly elevated. He had mild EKG changes. He likely had Type II ME which could have been in the setting of severe anemia. Troponins were trended till peaked. He remained asymptomatic throughout his hospital stay. He was advised to follow up with his agricultural loan officer within one week of discharge. History of Paroxysmal Atrial Fibrillation Continued on Metoprolol XL 25mg daily. Also started on Eliquis once H&H was stable and no source of GI bleeding could be identified on endoscopy/ colonoscopy. History of Hypertension: Continued on Imdur and Metoprolol History of Hyperlipidemia: Continued on Atorvastatin Diabetes Mellitus: Maintained on Insulin Sliding scale with Accucheks DVT Prophylaxis: Maintained with ALPS Allergies: Coded Allergies: NO KNOWN ALLERGIES (NO) (01/02/11) Significant Procedures: Colonoscopy: Service Date: 09/30/2017 Impression: 1. Mild internal > external hemorrhoids, without any active bleeding. 2. Mild left-sided diverticula. 3. Essentially normal colonic mucosa to the terminal ileum, except for perhaps, an incidental 2 mm sessile hyperplastic-appearing left colon polyp at 40 cm (NBI apparatus broken), left intact. *No active lower GI bleeding seen. *Should exclude small bowel etiology, such as angiodysplasia, in association with . Upper GI Endoscopy: Service Date: 09/29/2017 Impression: 1. 1 cm sliding hiatal hernia pouch, from 39-40 cm. Z line at 39 cm. 2. Otherwise, normal EGD to the third portion of the duodenum. No active upper GI bleeding seen. Pertinent Lab Results: Hb 5.7 (09/29/17) -----> Hb 8.4 (10/03/17) Disposition Summary Disposition Principal Diagnosis: Acute Blood Loss Anemia Type II ME GI bleeding Additional Diagnosis: History of Paroxysmal Atrial Fibrillation Hyperlipidemia Diabetes Mellitus Discharge Disposition: home or self care Discharge Instructions General Discharge Information Code Status: Full Code Patient's Diet: High Fiber Diabetic Diet Patient's Activity: As tolerated Follow-Up Instructions/Appts: Please follow up with your primary care physician, GI doctor and agricultural loan officer within one week of discharge. Medications at Discharge Discharge Medications: Stop taking the following medications: Sulfamethoxazole/Trimethoprim (Bactrim Ds Tablet) 800 MG-160 MG TABLET ORAL TWICE DAILY Qty = 20 Continue taking these medications: Atorvastatin Calcium (Atorvastatin Calcium) 80 MG TABLET 1 Tablet ORAL DAILY Qty = 30 Comments: Last Taken:11/08/16 Time:5PM Isosorbide Mononitrate (Isosorbide Mononitrate ER) 30 MG TAB.ER.24H 1 Tablet ORAL DAILY Qty = 30 Comments: Last Taken:11/09/16 Time:9AM Latanoprost (Latanoprost) 0.005 % DROPS 1 Drop In the eye Every night Qty = 3 Comments: NOT GIVEN Metoprolol Succinate (Metoprolol Succinate) 25 MG TAB 1 Tablet ORAL DAILY Qty = 30 Comments: Last Taken:11/09/16 Time:9AM Pantoprazole Sodium (Pantoprazole Sodium) 40 MG TABLET.DR 1 Tablet ORAL DAILY Qty = 30 Comments: NOT GIVEN Pioglitazone HCl/Metformin HCl (Actoplus Met 15 MG-850 MG Tab) 15 MG-850 MG TABLET 1 Tablet ORAL TWICE DAILY Qty = 60 Comments: NOT GIVEN Multivit-Min/FA/Lycopen/Lutein (Centrum Silver Tablet) 0.4 MG-300 MCG-250 MCG TABLET 1 Tablet ORAL DAILY Comments: Last Taken:11/09/16 Time:9AM Acetaminophen (Tylenol Arthritis) 650 MG TABLET.ER 650 Milligram ORAL EVERY 8 HOURS Comments: NOT GIVEN Finasteride (Finasteride) 5 MG TABLET 1 Tablet ORAL DAILY Aspirin (Ecotrin*) 81 MG TABLET. 1 Tablet ORAL DAILY Start taking the following new medications: Apixaban (Eliquis) 5 MG TABLET 1 Tablet ORAL TWICE DAILY Qty = 60 No Refills Copies To: Connor ARGUETA,Crow; Greg ARGUETA,Shira Attending MD Review Statement Documenting Attending: Shahid Choudhary MD Other Findings: The patient was seen on the day of discharge and agree with the plan of care. No source of bleed was found with EGD and colonoscopy. Possible etiologies include AVM/small bowel bleed? He was placed on his anticoagulation (Eliquis/ASA). Have concerns regarding re-bleed. At time of discharge his stool was brown and trace heme positive. The patient and were informed to come for immediate evaluation if dark/bloody stool develops (he is currently not on iron therapy, though may benefit from this in future if no evidence of bleed). He will have outpatient pillcam with Dr. Pollock. He will have follow-up H/H early next week. Continuing PPI which he was on upon admission.
--- NOTE | 2017-10-03 12:20 | PN- Cardiology ---
Subjective Subjective: Patient feeling quite well this morning. Objective Vital Signs and I&Os Vital Signs Date Time Temp Pulse Resp B/P B/P Pulse O2 O2 Flow FiO2 Mean Ox Delivery Rate 10/03 1014 72 142/74 10/03 1013 72 142/74 10/03 0800 Room Air 10/03 0800 97.7 56 20 140/62 98 Room Air 10/03 0000 95 Room Air 10/03 0000 97.1 56 22 120/68 95 Room Air 10/02 1600 98.0 54 18 124/70 97 Room Air Intake & Output 10/03 1600 10/03 0800 10/03 0000 10/02 1600 10/02 0000 Intake Total 100 893 571 9041 1110 Output Total 1400 600 Balance -1300 0 560 1070 1110 Intake, Blood 420 Product Intake, IV 420 Intake, Oral 100 600 560 650 690 Number 0 1 Bowel Movements Output, Urine 1400 600 Physical Exam: General: no apparent distress. Alert. Eyes: No obvious scleral icterus. HEENT: No jugular venous distention or abnormal jugular venous pulsations. Cardiovascular: Normal intensity S1/S2. 2/6 systolic murmur Respiratory: Lungs clear to auscultation bilaterally. Abdomen: Soft, nontender with no guarding or rebound tenderness. Musculoskeletal: No clubbing or cyanosis noted Skin: No obvious rashes or ulcerations. Neurologic: No gross focal deficits noted. Lymph: No gross lymphadenopathy. Current Medications: Current Medications Sig/Reagan Start time Last Medication Dose Route Stop Time Status Admin Apixaban 5 MG BID 10/020 AC 10/03 PO 1014 Atorvastatin Calcium 80 MG 1700 09/30 1700 AC 10/02 PO 1700 Finasteride 5 MG DAILY 09/30 1000 AC 10/03 PO 1014 Insulin Aspart 0 TIDAC 10/01 1200 AC 10/01 SC 1205 Isosorbide 30 MG DAILY 10/01 1113 AC 10/03 Mononitrate PO 1013 Latanoprost 1 GTT QPM 09/29 2200 AC 10/02 OPH 2138 Metoprolol Succinate 25 MG DAILY 09/30 1000 AC 10/03 PO 1014 Omeprazole 40 MG DAILY AC 10/02 0700 AC 10/03 PO 0618 Polycarbophil 1,250 MG DAILY 10/01 1000 AC 10/03 PO 1014 Results Last 48 Hrs of Labs/Mics: Laboratory Tests 10/03/17 0905: Anion Gap 11, Estimated GFR > 60, BUN/Creatinine Ratio 15.0, CBC w Diff NO MAN DIFF REQ, RBC 3.32 L, MCV 84.4, MCH 27.7, MCHC 32.8 L, RDW 16.1 H, MPV 7.0 L , Gran % 71.4, Lymphocytes % 16.5 L, Monocytes % 7.9, Eosinophils % 3.7, Basophils % 0.5, Absolute Granulocytes 3.6, Absolute Lymphocytes 0.8 L, Absolute Monocytes 0.4, Absolute Eosinophils 0.2, Absolute Basophils 0 10/03/17 0020: CBC w Diff NO MAN DIFF REQ, RBC 3.14 L, MCV 84.3, MCH 27.6, MCHC 32.8 L, RDW 15.7 H, MPV 7.3 L, Gran % 69.7, Lymphocytes % 17.6 L, Monocytes % 8.4, Eosinophils % 3.7, Basophils % 0.6, Absolute Granulocytes 4.3, Absolute Lymphocytes 1.1 L, Absolute Monocytes 0.5, Absolute Eosinophils 0.2, Absolute Basophils 0 10/02/17 1550: CBC w Diff NO MAN DIFF REQ, RBC 2.94 L, MCV 85.0, MCH 27.8, MCHC 32.7 L, RDW 16.1 H, MPV 7.3 L, Gran % 62.7, Lymphocytes % 22.4, Monocytes % 10.4 H, Eosinophils % 3.8, Basophils % 0.7, Absolute Granulocytes 3.6, Absolute Lymphocytes 1.3, Absolute Monocytes 0.6, Absolute Eosinophils 0.2, Absolute Basophils 0 10/02/17 0700: Anion Gap 8, Estimated GFR > 60, BUN/Creatinine Ratio 11.1, CBC w Diff NO MAN DIFF REQ, RBC 3.15 L, MCV 85.4, MCH 27.6, MCHC 32.3 L, RDW 15.6 H, MPV 7.3 L , Gran % 70.5, Lymphocytes % 16.9 L, Monocytes % 8.9, Eosinophils % 3.3, Basophils % 0.4, Absolute Granulocytes 4.3, Absolute Lymphocytes 1.0 L, Absolute Monocytes 0.5, Absolute Eosinophils 0.2, Absolute Basophils 0 10/01/17 2245: CBC w Diff NO MAN DIFF REQ, RBC 2.71 L, MCV 83.7, MCH 27.0, MCHC 32.3 L, RDW 16.1 H, MPV 7.3 L, Gran % 75.9 H, Lymphocytes % 13.7 L, Monocytes % 8.4, Eosinophils % 1.7, Basophils % 0.3, Absolute Granulocytes 5.5, Absolute Lymphocytes 1.0 L, Absolute Monocytes 0.6, Absolute Eosinophils 0.1, Absolute Basophils 0 Recent Imaging Studies: Telemetry tracings were personally reviewed and shows sinus rhythm Assessment/Plan Assessment/Plan 1. GI bleed 2. Paroxysmal atrial fibrillation with prior CVA; on Xarelto 3. Elevated troponin due to supply/demand mismatch/type II myocardial infarction 4. Hypertension 5. Aortic stenosis 6. History of coronary artery disease with drug-eluting stent to the RCA 09/2015 7. Diabetes mellitus Patient feels well. Remains hemodynamically stable. Hemoglobin at 9.2. Will continue on the Eliquis and low-dose aspirin. Repeat CBC as outpatient in one week. He is planned for outpatient PillCam. If he has recurrent significant bleeding in the future he will be considered for a Watchman device. Follow-up in our office within one week of discharge. Brandon Gooden MD [facility] Continue telemetry? No
[2017-10-03] MEDS ORDERED: ELIQUIS5 M1 PO ×2 (14:51→15:09)
[2017-10-03 15:53] VITALS: BP 130/87
[2017-10-03 15:56] LABS: ABSOLUTE BASOPHIL COUNT 0 /CUMM (0.0-0.2); ABSOLUTE EOSINOPHIL COUNT 0.2 /CUMM (0.0-0.7); ABSOLUTE GRANULOCYTE CT 4.4 /CUMM (1.4-6.5); ABSOLUTE MONOCYTE COUNT 0.6 /CUMM (0.10-0.60); BASOPHIL % 0.5 % (0.0-2.0); EOSINOPHIL % 3.1 % (0-5); GRANULOCYTE % 70.6 % (42.2-75.2); HEMATOCRIT 25.9 % (42-52); MEAN CORPUSCULAR HGB 27.6 PG (27.0-31.0); MEAN CORPUSCULAR HGB CONC 32.5 G/DL (33.0-37.0); MEAN CORPUSCULAR VOLUME 84.9 FL (80.0-94.0); MEAN PLATELET VOLUME 7.5 FL (7.4-10.4); PLATELET COUNT 215 /CUMM (130-400); RBC DISTRIBUTION WIDTH 16.3 % (11.5-14.5); RED BLOOD CELL CT 3.05 /CUMM (4.70-6.10); WHITE BLOOD CELL COUNT 6.2 /CUMM (4.8-10.8)
== END 2017-10-03 17:00 | DRG 377 ==
LOC: ERH 13:12 → ERHI 14:55 → CRI 14:55 → ENRESERV 17:19 → EDTRNSPT 17:48 → ENTRNSPT 17:48 → 1NO 18:10 → EDTRNSPT 18:38 → EDTRNSPTSTS 18:38 → CMPTRNSPT 18:56 → CRI 20:52
PROVIDERS: Dermatology; Emergency Medicine; Internal Medicine; Radiology Vascular & Interventional Radiology
PROC: 30233N1 Transfusion of Nonautologous Red Blood Cells into Peripheral Vein, Percutaneous Approach (ICD-10-PCS; principal; 2017-09-29)
PROC: 0DJ08ZZ Inspection of Upper Intestinal Tract, Via Natural or Artificial Opening Endoscopic (ICD-10-PCS; 2017-09-30)
PROC: 0DJD8ZZ Inspection of Lower Intestinal Tract, Via Natural or Artificial Opening Endoscopic (ICD-10-PCS; 2017-10-01)
DX: K92.2 Gastrointestinal hemorrhage, unspecified (principal); I21.A1 Myocardial infarction type 2; I48.0 Paroxysmal atrial fibrillation; D62 Acute posthemorrhagic anemia; I48.91 Unspecified atrial fibrillation; T45.515A Adverse effect of anticoagulants, initial encounter; Z79.01 Long term (current) use of anticoagulants; K44.9 Diaphragmatic hernia without obstruction or gangrene; K64.9 Unspecified hemorrhoids; K57.90 Diverticulosis of intestine, part unspecified, without perforation or abscess without bleeding; K63.5 Polyp of colon; Z95.5 Presence of coronary angioplasty implant and graft; K21.9 Gastro-esophageal reflux disease without esophagitis; E11.9 Type 2 diabetes mellitus without complications; Z86.73 Personal history of transient ischemic attack (TIA), and cerebral infarction without residual deficits; I10 Essential (primary) hypertension; E78.5 Hyperlipidemia, unspecified
CPT/HCPCS: CCU; 36415; 82436; 86920; 93005; 93010; 99291; J1815; J7042; P9016